=== PATIENT | female | born 1955 | race Caucasian/White ===

== ENCOUNTER 2016-12-02 12:47 | Emergency (ER) | payer MEDICAID ==
--- NOTE | 2016-12-02 13:06 | ER Document Report ---
ED Medical Screen (RME) - General Stated Complaint: DIARRHEA Notes: 61 yo female c/o vomiting and diarrhea since yesterday. pt has hx/o abdominal hernias and fistula. pt on pain management, Dr Escobedo in [place]. Pt reports pain managment abruptly stopped her oxycodone q3h. last dose was wednesday. patient thinks symptoms may be withdrawl. Has appointment with new pain management next week. PCM Dr Cano TRAVEL OUTSIDE OF THE [place] IN LAST 30 DAYS: No - Related Data Allergies/Adverse Reactions: celecoxib [From Celebrex] Allergy (Mild, Verified 12/02/16 13:02) Urticaria aspirin [Aspirin] Allergy (Verified 12/02/16 13:02) Hives cephalexin monohydrate [From Keflex] Allergy (Verified 12/02/16 13:02) clindamycin [Clindamycin] Allergy (Verified 12/02/16 13:02) Hives lisinopril [Lisinopril] Allergy (Verified 12/02/16 13:02) methadone [Methadone] Allergy (Verified 12/02/16 13:02) metoprolol tartrate [From Lopressor] Allergy (Verified 12/02/16 13:02) Penicillins Allergy (Verified 12/02/16 13:02) Past Medical History - Past Medical History Cardiac Medical History: Reports: Hx Hypercholesterolemia, Hx Hypertension Denies: Hx Heart Murmur Pulmonary Medical History: Reports: Hx Asthma, Hx Bronchitis, Hx COPD Denies: Hx Respiratory Failure, Hx Sleep Apnea, Hx Tuberculosis Endocrine Medical History: Reports: Hx Diabetes Mellitus Type 1, Hx Diabetes Mellitus Type 2 GI Medical History: Reports: Hx Gastroesophageal Reflux Disease, Hx Hiatal Hernia Musculoskeltal Medical History: Reports Hx Arthritis Psychiatric Medical History: Reports: Hx Anxiety, Hx Depression Infectious Medical History: Past Surgical History: Reports: Hx Abdominal Surgery - MULTIPLE VENTRAL HERNIA REPAIRS WITH DEBRIDEMENT. BOWEL OBSTRUCTION. NON-HEALING ABD WOUNDS WITH CHRONIC PAIN, Hx Bowel Surgery - Right abdominal fistula., Hx Section - x's 3, Hx Cholecystectomy, Hx Tubal Ligation - Immunizations Hx Diphtheria, Pertussis, Tetanus Vaccination: Yes Physical Exam - Vital signs Vitals: Temp Pulse Resp BP Pulse Ox 98.1 F 75 18 154/62 H 98 12/02/16 13:00 12/02/16 13:00 12/02/16 13:00 12/02/16 13:00 12/02/16 13:00 Course - Vital Signs Vital signs: Temp Pulse Resp BP Pulse Ox 98.1 F 75 18 154/62 H 98 12/02/16 13:00 12/02/16 13:00 12/02/16 13:00 12/02/16 13:00 12/02/16 13:00
[2016-12-02 13:37] LABS: ABSOLUTE EOSINOPHILS # (AUTO) 0.2 10^3/uL (0.0-0.6); ABSOLUTE LYMPHOCYTES (AUTO) 1.2 10^3/uL (0.5-4.7); ABSOLUTE MONOCYTES (AUTO) 0.6 10^3/uL (0.1-1.4); ABSOLUTE NEUT (AUTO) 6.6 10^3/uL (1.7-8.2); BASOPHILS % (AUTO) 0.5 % (0-2); HEMATOCRIT 30.7 % (36.0-47.0); HEMOGLOBIN 9.6 g/dL (12.0-15.5); HGB HCT DIFFERENCE -1.9; LYMPHOCYTES % (AUTO) 13.6 % (13-45); MEAN CORPUSCULAR HEMOGLOBIN 22.1 pg (27.0-33.4); MEAN CORPUSCULAR HGB CONC 31.2 g/dL (32.0-36.0); MEAN CORPUSCULAR VOLUME 71 fl (80-97); MONOCYTES % (AUTO) 6.7 % (3-13); RED BLOOD COUNT 4.35 10^6/uL (3.72-5.28); RED CELL DISTRIBUTION WIDTH 17.2 % (11.5-14.0); SEGMENTED NEUTROPHILS % (AUTO) 77.2 % (42-78); WHITE BLOOD COUNT 8.6 10^3/uL (4.0-10.5)
[2016-12-02 13:45] LABS: ALANINE AMINOTRANSFERASE 20 U/L (9-52); ALBUMIN 3.3 g/dL (3.5-5.0); ALKALINE PHOSPHATASE 129 U/L (38-126); ANION GAP 13 (5-19); ASPARTATE AMINO TRANSFERASE 13 U/L (14-36); BILIRUBIN,TOTAL 0.5 mg/dL (0.2-1.3); BLOOD UREA NITROGEN 15 mg/dL (7-20); CALCIUM 9.3 mg/dL (8.4-10.2); CARBON DIOXIDE 28 mmol/L (22-30); CHLORIDE 101 mmol/L (98-107); CREATININE RESULT 0.98 mg/dL (0.52-1.25); GLUCOSE 121 mg/dL (75-110); LIPASE 66.8 U/L (23-300); POTASSIUM 3.4 mmol/L (3.6-5.0); SODIUM 142.3 mmol/L (137-145); TOTAL PROTEIN 7.1 g/dL (6.3-8.2)
[2016-12-02 14:24] LABS: APPEARANCE,URINE CLEAR; BILIRUBIN,URINE NEGATIVE (NEGATIVE); GLUCOSE, URINE NEGATIVE (NEGATIVE); KETONES,URINE NEGATIVE (NEGATIVE); LEUKOCYTE ESTERASE,URINE LARGE (NEGATIVE); NITRITE,URINE NEGATIVE (NEGATIVE); PROTEIN,URINE NEGATIVE (NEGATIVE); URINE SPECIFIC GRAVITY 1.012; UROBILINOGEN,URINE NEGATIVE mg/dL (<2.0)
[2016-12-02] MEDS ORDERED: NORMAL SALINE 1000 ML 1,000 ML IV ONE (15:59)
[2016-12-02] MEDS ORDERED: HYDROMORPHONE HCL INJ/PF 2 MG/ML AMPULE IV ONE ×2 (15:59→18:28)
[2016-12-02] MEDS ORDERED: ONDANSETRON HCL INJ/PF 4 MG/2 ML SDV IV ONE ×2 (15:59→17:27)
--- NOTE | 2016-12-02 18:28 | ER Document Report ---
ED GI/ <MARY ALICE SAWYERAN - Last Filed: 12/02/16 21:54> - General Mode of Arrival: Ambulatory Information source: Patient TRAVEL OUTSIDE OF THE [place] IN LAST 30 DAYS: No - HPI Patient complains to provider of: Abdominal pain, Diarrhea, Vomiting Onset: Yesterday Timing/Duration: Intermittent, Persistent Quality of pain: Achy Severity at maximum: Moderate Pain Level: 3 Similar symptoms previously: Yes Recently seen / treated by doctor: Yes <JHON TAI - Last Filed: 12/03/16 10:55> - General Chief Complaint: Vomiting/Diarrhea Stated Complaint: DIARRHEA Notes: 61-year-old female presents to the emergency department complaining of generalized abdominal pain and intermittently persistent nausea/vomiting/ diarrhea since yesterday. 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 Reports is followed by pain management clinic and ran out of her daily oxycodone 2 days ago which she states takes 30 mg every 3 hours. Reports still has fentanyl patch in place. Reports has had a 5-6 episodes of vomiting and diarrhea over the last 2 days. Reports contacted primary care provider and was referred to ED. Denies fever, abdominal distention, increased drainage from fistula, blood in emesis or stool. (JHON TAI) - Related Data Allergies/Adverse Reactions: celecoxib [From Celebrex] Allergy (Mild, Verified 12/02/16 13:02) Urticaria aspirin [Aspirin] Allergy (Verified 12/02/16 13:02) Hives cephalexin monohydrate [From Keflex] Allergy (Verified 12/02/16 13:02) clindamycin [Clindamycin] Allergy (Verified 12/02/16 13:02) Hives lisinopril [Lisinopril] Allergy (Verified 12/02/16 13:02) methadone [Methadone] Allergy (Verified 12/02/16 13:02) metoprolol tartrate [From Lopressor] Allergy (Verified 12/02/16 13:02) Penicillins Allergy (Verified 12/02/16 13:02) Past Medical History - General Information source: Patient - Social History Smoking Status: Never Smoker Chew tobacco use (# tins/day): No Frequency of alcohol use: None Drug Abuse: None Lives with: Family Family History: Reviewed & Not Pertinent Patient has suicidal ideation: No Patient has homicidal ideation: No - Past Medical History Cardiac Medical History: Reports: Hx Hypercholesterolemia, Hx Hypertension Denies: Hx Heart Murmur Pulmonary Medical History: Reports: Hx Asthma, Hx Bronchitis, Hx COPD Denies: Hx Respiratory Failure, Hx Sleep Apnea, Hx Tuberculosis Endocrine Medical History: Reports: Hx Diabetes Mellitus Type 1, Hx Diabetes Mellitus Type 2 Renal/ Medical History: Denies: Hx Peritoneal Dialysis GI Medical History: Reports: Hx Gastroesophageal Reflux Disease, Hx Hiatal Hernia Musculoskeltal Medical History: Reports Hx Arthritis Psychiatric Medical History: Reports: Hx Anxiety, Hx Depression Infectious Medical History: Past Surgical History: Reports: Hx Abdominal Surgery - MULTIPLE VENTRAL HERNIA REPAIRS WITH DEBRIDEMENT. BOWEL OBSTRUCTION. NON-HEALING ABD WOUNDS WITH CHRONIC PAIN, Hx Bowel Surgery - Right abdominal fistula., Hx Section - x's 3, Hx Cholecystectomy, Hx Tubal Ligation - Immunizations Hx Diphtheria, Pertussis, Tetanus Vaccination: Yes Hx Pneumococcal Vaccination: 02/28/12 <JHON TAI - Last Filed: 12/03/16 10:55> Review of Systems - Review of Systems Constitutional: No symptoms reported EENT: No symptoms reported Cardiovascular: No symptoms reported Respiratory: No symptoms reported Gastrointestinal: See HPI Genitourinary: No symptoms reported Female Genitourinary: No symptoms reported Musculoskeletal: No symptoms reported Skin: No symptoms reported Hematologic/Lymphatic: No symptoms reported Neurological/Psychological: No symptoms reported -: Yes All other systems reviewed and negative <JHON TAI - Last Filed: 12/03/16 10:55> Physical Exam - Vital signs Interpretation: Normal - General General appearance: Appears well, Alert In distress: None - HEENT Head: Normocephalic, Atraumatic Eyes: Normal Pupils: PERRL - Respiratory Respiratory status: No respiratory distress Chest status: Nontender Breath sounds: Normal Chest palpation: Normal - Cardiovascular Rhythm: Regular Heart sounds: Normal auscultation Murmur: No Pulses: Normal: Radial Normal capillary refill: Yes - Abdominal Inspection: Normal, Healed incision - Patient has multiple well-healed surgical incisions as well as open abdominal wall wound to left mid abdomen and draining fistula to right midabdomen both of which are chronic for patient. No surrounding erythema, cellulitis, or signs of infection., Obese Distension: Distended - distention noted to areas of left hernia and right fistula however patient reports at her baseline. Mild tenderness with no guarding or rebound pain. Bowel sounds: Normal Tenderness: Tender Organomegaly: No organomegaly - Back Back: Normal, Nontender - Extremities General upper extremity: Normal inspection, Nontender, Normal color, Normal ROM , Normal strength, Normal temperature. No: Tender General lower extremity: Normal inspection, Nontender, Normal color, Normal ROM , Normal strength, Normal temperature, Normal weight bearing - Neurological Neuro grossly intact: Yes Cognition: Normal Orientation: AAOx4 James Coma Scale Eye Opening: Spontaneous [place] Coma Scale Verbal: Oriented James Coma Scale Motor: Obeys Commands James Coma Scale Total: 15 Speech: Normal Motor strength normal: LUE, RUE, LLE, RLE Sensory: Normal - Psychological Associated symptoms: Normal affect, Normal mood - Skin Skin Temperature: Warm Skin Moisture: Dry Skin Color: Normal <JHON TAI - Last Filed: 12/03/16 10:55> - Vital signs Vitals: Temp Pulse Resp BP Pulse Ox 98.1 F 75 18 154/62 H 98 12/02/16 13:00 12/02/16 13:00 12/02/16 13:00 12/02/16 13:00 12/02/16 13:00 (TUNDE SAWYER) ([facility] Course - Laboratory Result Diagrams: 12/02/16 13:10 12/02/16 13:10 <TUNDE SAWYER - Last Filed: 12/02/16 21:54> - Laboratory Result Diagrams: 12/02/16 13:10 12/02/16 13:10 <ZAIREJHON - Last Filed: 12/03/16 10:55> - Re-evaluation Re-evalutation: 12/02/16 18:50 Patient hemodynamically stable, in no distress, afebrile. CBC and CMP appear to be a patient baseline when compared to multiple previous ED visit lab results. Discussed patient presentation and findings with ED physician Dr. Ulloa who recommends obtaining CT of abd/pelvis with IV and oral contrast due to extensive abd hx. Patient states feels much better after dose of intravenous pain medication and 1 L normal saline bolus. 12/02/16 19:07 Patient resting comfortably, remained hemodynamically stable, in no distress. Bedside report given to Tunde Sawyer PA-C to resume care of patient pending CT scan results. ([facility] - Vital Signs Vital signs: Temp Pulse Resp BP Pulse Ox 98.4 F 82 16 156/68 H 99 12/02/16 22:12 12/02/16 22:12 12/02/16 22:12 12/02/16 22:12 12/02/16 22:12 (TUNDE SAWYER) ([facility] - Laboratory Laboratory results interpreted by me: 12/02/16 12/02/16 12/02/16 13:10 13:10 13:15 Hgb 9.6 L Hct 30.7 L MCV 71 L MCH 22.1 L MCHC 31.2 L RDW 17.2 H Potassium 3.4 L Est GFR (Non-Af Amer) 58 L Glucose 121 H AST 13 L Alkaline Phosphatase 129 H Albumin 3.3 L Ur Leukocyte Esterase LARGE H (TUNDE SAWYER) ([facility]) Discharge <TUNDE SAWYER - Last Filed: 12/02/16 21:54> <ZAIREJHON - Last Filed: 12/03/16 10:55> - Discharge Clinical Impression: Dysuria Abdominal pain Qualifiers: Abdominal location: generalized Qualified Code(s): R10.84 - Generalized abdominal pain Ventral hernia Qualifiers: Obstruction and gangrene presence: without obstruction or gangrene Qualified Code(s): K43.9 - Ventral hernia without obstruction or gangrene Condition: Stable Disposition: HOME, SELF-CARE Additional Instructions: CAT scan again shows the ventral hernia, no acute abnormalities are seen. Urine indicates infection developing along with her symptoms, please take the Keflex antibiotic as directed to completion. Please follow-up with local pain management as planned. Return to emergency department for any concerning or worsening symptoms. Prescriptions: Cephalexin Monohydrate [Keflex 500 mg Capsule] 500 mg PO BID #10 capsule Oxycodone HCl [Oxycodone HCl 10 MG Tablet] 1 - 2 tab PO Q6H PRN #15 tablet PRN Reason: PAIN Referrals: CHRISTINA GRANT MD [Primary Care Provider] - Follow up as needed
[2016-12-02] MEDS ORDERED: HYDROMORPHONE HCL INJ/PF 2 MG/ML AMPULE IM ONE (21:50)
[2016-12-02] MEDS ORDERED: CEPHALEXIN 500 MG CAPSULE PO ONE (21:51)
[2016-12-02 22:13] VITALS: BP 156/68
== END 2016-12-02 22:15 | disposition home or self-care (01) ==
LOC: ER 12:47
DX: K43.9 Ventral hernia without obstruction or gangrene (principal); R30.0 Dysuria; R11.10 Vomiting, unspecified; R10.84 Generalized abdominal pain; R19.7 Diarrhea, unspecified; E78.00 Pure hypercholesterolemia, unspecified; I10 Essential (primary) hypertension; J45.909 Unspecified asthma, uncomplicated; J44.9 Chronic obstructive pulmonary disease, unspecified; E11.9 Type 2 diabetes mellitus without complications; Z88.0 Allergy status to penicillin; Z88.3 Allergy status to other anti-infective agents; Z88.6 Allergy status to analgesic agent; Z90.49 Acquired absence of other specified parts of digestive tract; Z98.51 Tubal ligation status
CPT/HCPCS: 96376; 99284; 96372; 96361; 96374; 96375; 36415; 87086; 83690; 85025; 87088; 80053; 81001; 87186; 74177; J1170; J2405; J7030

== ENCOUNTER 2016-12-23 10:49 | Emergency (ER) | payer MEDICAID ==
--- NOTE | 2016-12-23 11:08 | ER Document Report ---
ED Medical Screen (RME) - General Stated Complaint: STOMACH PAIN Notes: 61 yo female c/o chronic abdominal pain since surgery in 2010. pt has been seen many times by ED and PCM for same. "nobody can do anything about the pain ". no new qualities or character to pain. no fever or vomiting TRAVEL OUTSIDE OF THE [place] IN LAST 30 DAYS: No - Related Data Allergies/Adverse Reactions: celecoxib [From Celebrex] Allergy (Mild, Verified 12/23/16 11:06) Urticaria aspirin [Aspirin] Allergy (Verified 12/23/16 11:06) Hives cephalexin monohydrate [From Keflex] Allergy (Verified 12/23/16 11:06) clindamycin [Clindamycin] Allergy (Verified 12/23/16 11:06) Hives lisinopril [Lisinopril] Allergy (Verified 12/23/16 11:06) methadone [Methadone] Allergy (Verified 12/23/16 11:06) metoprolol tartrate [From Lopressor] Allergy (Verified 12/23/16 11:06) Penicillins Allergy (Verified 12/23/16 11:06) Past Medical History - Past Medical History Cardiac Medical History: Reports: Hx Hypercholesterolemia, Hx Hypertension Denies: Hx Heart Murmur Pulmonary Medical History: Reports: Hx Asthma, Hx Bronchitis, Hx COPD Denies: Hx Respiratory Failure, Hx Sleep Apnea, Hx Tuberculosis Endocrine Medical History: Reports: Hx Diabetes Mellitus Type 1, Hx Diabetes Mellitus Type 2 Renal/ Medical History: Denies: Hx Peritoneal Dialysis GI Medical History: Reports: Hx Gastroesophageal Reflux Disease, Hx Hiatal Hernia Musculoskeltal Medical History: Reports Hx Arthritis Psychiatric Medical History: Reports: Hx Anxiety, Hx Depression Infectious Medical History: Past Surgical History: Reports: Hx Abdominal Surgery - MULTIPLE VENTRAL HERNIA REPAIRS WITH DEBRIDEMENT. BOWEL OBSTRUCTION. NON-HEALING ABD WOUNDS WITH CHRONIC PAIN, Hx Bowel Surgery - Right abdominal fistula., Hx Section - x's 3, Hx Cholecystectomy, Hx Tubal Ligation - Immunizations Hx Diphtheria, Pertussis, Tetanus Vaccination: Yes Physical Exam - Vital signs Vitals: Temp Pulse Resp BP Pulse Ox 97.3 F 78 20 151/64 H 100 12/23/16 11:03 12/23/16 11:03 12/23/16 11:03 12/23/16 11:03 12/23/16 11:03 Course - Vital Signs Vital signs: Temp Pulse Resp BP Pulse Ox 97.3 F 78 20 151/64 H 100 12/23/16 11:03 12/23/16 11:03 12/23/16 11:03 12/23/16 11:03 12/23/16 11:03
[2016-12-23] MEDS ORDERED: OXYCODONE-ACETAMINOPHEN 5-325 MG TABLET PO ONE (12:19)
[2016-12-23 13:13] LABS: ABSOLUTE EOSINOPHILS # (AUTO) 0.2 10^3/uL (0.0-0.6); ABSOLUTE LYMPHOCYTES (AUTO) 1.1 10^3/uL (0.5-4.7); ABSOLUTE MONOCYTES (AUTO) 0.5 10^3/uL (0.1-1.4); ABSOLUTE NEUT (AUTO) 5.1 10^3/uL (1.7-8.2); BASOPHILS % (AUTO) 0.5 % (0-2); EOSINOPHILS % (AUTO) 3.4 % (0-6); HEMOGLOBIN 9.2 g/dL (12.0-15.5); HGB HCT DIFFERENCE -1.4; MEAN CORPUSCULAR HEMOGLOBIN 22.4 pg (27.0-33.4); MEAN CORPUSCULAR HGB CONC 31.8 g/dL (32.0-36.0); MEAN CORPUSCULAR VOLUME 70 fl (80-97); MONOCYTES % (AUTO) 6.8 % (3-13); RED BLOOD COUNT 4.12 10^6/uL (3.72-5.28); RED CELL DISTRIBUTION WIDTH 16.5 % (11.5-14.0); SEGMENTED NEUTROPHILS % (AUTO) 73.3 % (42-78)
[2016-12-23 13:31] LABS: ALANINE AMINOTRANSFERASE 24 U/L (9-52); ALBUMIN 3.2 g/dL (3.5-5.0); ALKALINE PHOSPHATASE 152 U/L (38-126); ANION GAP 10 (5-19); ASPARTATE AMINO TRANSFERASE 15 U/L (14-36); BILIRUBIN,TOTAL 0.4 mg/dL (0.2-1.3); BLOOD UREA NITROGEN 12 mg/dL (7-20); CALCIUM 9.4 mg/dL (8.4-10.2); CARBON DIOXIDE 29 mmol/L (22-30); CHLORIDE 102 mmol/L (98-107); CREATININE RESULT 0.98 mg/dL (0.52-1.25); GLUCOSE 112 mg/dL (75-110); POTASSIUM 3.7 mmol/L (3.6-5.0); SODIUM 141.4 mmol/L (137-145); TOTAL PROTEIN 6.9 g/dL (6.3-8.2)
--- NOTE | 2016-12-23 13:35 | ER Document Report ---
ED Wound - General Chief Complaint: Abdominal Pain Stated Complaint: STOMACH PAIN Notes: Patient is 61-year-old female presents emergency Department complaining of pain around a chronic wound on her abdomen. Patient has a known history of chronic wounds due to multiple abdominal procedures. She goes to wound clinic every 2 weeks. Was last seen there week ago. She states that there is a wound on the anterior aspect of her abdomen lower quadrant which has been there she says for a couple months that she feels is gotten worse over the past 2 days in terms of pain and with yellow drainage. Medical history significant for hypertension, GERD, type II diabetes, diabetic PCP is Jerome TRAVEL OUTSIDE OF THE [place] IN LAST 30 DAYS: No - Related Data Allergies/Adverse Reactions: celecoxib [From Celebrex] Allergy (Mild, Verified 12/23/16 11:06) Urticaria aspirin [Aspirin] Allergy (Verified 12/23/16 11:06) Hives cephalexin monohydrate [From Keflex] Allergy (Verified 12/23/16 11:06) clindamycin [Clindamycin] Allergy (Verified 12/23/16 11:06) Hives lisinopril [Lisinopril] Allergy (Verified 12/23/16 11:06) methadone [Methadone] Allergy (Verified 12/23/16 11:06) metoprolol tartrate [From Lopressor] Allergy (Verified 12/23/16 11:06) Penicillins Allergy (Verified 12/23/16 11:06) Past Medical History - Social History Smoking Status: Never Smoker Chew tobacco use (# tins/day): No Frequency of alcohol use: None Drug Abuse: None Family History: Reviewed & Not Pertinent Patient has suicidal ideation: No Patient has homicidal ideation: No - Past Medical History Cardiac Medical History: Reports: Hx Hypercholesterolemia, Hx Hypertension Denies: Hx Heart Murmur Pulmonary Medical History: Reports: Hx Asthma, Hx Bronchitis, Hx COPD Denies: Hx Respiratory Failure, Hx Sleep Apnea, Hx Tuberculosis Endocrine Medical History: Reports: Hx Diabetes Mellitus Type 1, Hx Diabetes Mellitus Type 2 Renal/ Medical History: Denies: Hx Peritoneal Dialysis GI Medical History: Reports: Hx Gastroesophageal Reflux Disease, Hx Hiatal Hernia Musculoskeltal Medical History: Reports Hx Arthritis Psychiatric Medical History: Reports: Hx Anxiety, Hx Depression Infectious Medical History: Past Surgical History: Reports: Hx Abdominal Surgery - MULTIPLE VENTRAL HERNIA REPAIRS WITH DEBRIDEMENT. BOWEL OBSTRUCTION. NON-HEALING ABD WOUNDS WITH CHRONIC PAIN, Hx Bowel Surgery - Right abdominal fistula., Hx Section - x's 3, Hx Cholecystectomy, Hx Tubal Ligation - Immunizations Hx Diphtheria, Pertussis, Tetanus Vaccination: Yes Hx Pneumococcal Vaccination: 02/28/12 Review of Systems - Review of Systems Constitutional: No symptoms reported EENT: No symptoms reported Cardiovascular: No symptoms reported Respiratory: No symptoms reported Gastrointestinal: No symptoms reported Genitourinary: No symptoms reported Female Genitourinary: No symptoms reported Musculoskeletal: No symptoms reported Skin: See HPI Hematologic/Lymphatic: No symptoms reported Neurological/Psychological: No symptoms reported Physical Exam - Vital signs Vitals: Temp Pulse Resp BP Pulse Ox 97.3 F 78 20 151/64 H 100 12/23/16 11:03 12/23/16 11:03 12/23/16 11:03 12/23/16 11:03 12/23/16 11:03 - Notes Notes: PHYSICAL EXAM GENERAL: Alert, interacts well. HEAD: Normocephalic, atraumatic. EYES: Pupils equal, round, and reactive to light. Extraocular movements intact. ENT: Oral mucosa moist, tongue midline. NECK: Full range of motion. Supple. Trachea midline. LUNGS: Clear to auscultation bilaterally, no wheezes, rales, or rhonchi. No respiratory distress. HEART: Regular rate and rhythm. No murmurs, gallops, or rubs. ABDOMEN: Obese and Soft, nondistended, nontender. No guarding, rebound, or rigidity.. Bowel sounds present in all 4 quadrants. EXTREMITIES: Moves all 4 extremities spontaneously. No edema, radial and dorsalis pedis pulses 2/4 bilaterally. No cyanosis. NEUROLOGICAL: Alert and oriented x3. Normal speech. PSYCH: Normal affect, normal mood. SKIN: Warm, dry, normal turgor. No rashes. Evidence of chronic wound on the anterior abdomen skin and dermis measuring 6 x 4 cm and a lesion lateral to that that is 3 x 2 cm. No evidence of purulent drainage clear secretions no bleeding. Tenderness to palpation Course - Re-evaluation Re-evalutation: 12/23/16 13:38 Patient is a 61-year-old female presents emergency department for pain around a chronic wound. She is hemodynamically stable, no acute distress and afebrile. No evidence of fluid collection underneath the wound was assessed by myself using ultrasound, no evidence of infection given normal white count, stable vital signs. Patient will be discharged home with by mouth antibiotics and can follow-up with her wound care clinic and primary care doctor - Vital Signs Vital signs: Temp Pulse Resp BP Pulse Ox 97.3 F 78 16 151/64 H 100 12/23/16 11:03 12/23/16 11:03 12/23/16 11:44 12/23/16 11:03 12/23/16 11:03 - Laboratory Result Diagrams: 12/23/16 12:58 12/23/16 12:58 Laboratory results interpreted by me: 12/23/16 12/23/16 12:58 12:58 Hgb 9.2 L Hct 29.0 L MCV 70 L MCH 22.4 L MCHC 31.8 L RDW 16.5 H Est GFR (Non-Af Amer) 58 L Glucose 112 H Alkaline Phosphatase 152 H Albumin 3.2 L Discharge - Discharge Clinical Impression: Wound cellulitis Condition: Good Disposition: HOME, SELF-CARE Instructions: Wound Infection ([facility]), Dressing Instructions for Open Wounds ([facility] ) Prescriptions: Oxycodone HCl [Oxycodone HCl 10 MG Tablet] 1 - 2 tab PO Q6HP PRN #15 tablet PRN Reason: PAIN Sulfamethoxazole/Trimethoprim [Bactrim Ds Tablet] 1 each PO BID #20 tablet Forms: Elevated Blood Pressure Referrals: CHRISTINA GRANT MD [Primary Care Provider] - Follow up in 1 week
[2016-12-23] MEDS ORDERED: SULFAMETHOXAZOLE/TRIMETHOPRIM 800-160 MG TABLET PO ONE (13:42)
[2016-12-23 14:48] VITALS: BP 150/64
== END 2016-12-23 13:45 | disposition home or self-care (01) ==
LOC: ER 10:49
DX: T81.4XXA Infection following a procedure, initial encounter (principal); L03.311 Cellulitis of abdominal wall; R10.9 Unspecified abdominal pain; I10 Essential (primary) hypertension; K21.9 Gastro-esophageal reflux disease without esophagitis; E11.9 Type 2 diabetes mellitus without complications; Z88.6 Allergy status to analgesic agent; Z88.0 Allergy status to penicillin; Z90.49 Acquired absence of other specified parts of digestive tract; Z98.51 Tubal ligation status
CPT/HCPCS: 36415; 80053; 85025; 87070; 87077; 87186; 87205; 99284

== ENCOUNTER 2017-01-07 17:20 | Emergency (ER) | payer MEDICAID ==
--- NOTE | 2017-01-07 17:29 | ER Document Report ---
ED Medical Screen (RME) - General Stated Complaint: STOMACH PAIN Notes: patient is a 61 year old female p/w chronic wounds with pain. was evaluated by wound clinic yesterday. denies fevers, chills, n/v, d/c. I have greeted and performed a rapid initial assessment of this patient. A comprehensive ED assessment and evaluation of the patient, analysis of test results and completion of the medical decision making process will be conducted by additional ED providers. TRAVEL OUTSIDE OF THE [place] IN LAST 30 DAYS: No - Related Data Allergies/Adverse Reactions: celecoxib [From Celebrex] Allergy (Mild, Verified 12/23/16 11:06) Urticaria aspirin [Aspirin] Allergy (Verified 12/23/16 11:06) Hives cephalexin monohydrate [From Keflex] Allergy (Verified 12/23/16 11:06) clindamycin [Clindamycin] Allergy (Verified 12/23/16 11:06) Hives lisinopril [Lisinopril] Allergy (Verified 12/23/16 11:06) methadone [Methadone] Allergy (Verified 12/23/16 11:06) metoprolol tartrate [From Lopressor] Allergy (Verified 12/23/16 11:06) Penicillins Allergy (Verified 12/23/16 11:06) Past Medical History - Past Medical History Cardiac Medical History: Reports: Hx Hypercholesterolemia, Hx Hypertension Denies: Hx Heart Murmur Pulmonary Medical History: Reports: Hx Asthma, Hx Bronchitis, Hx COPD Denies: Hx Respiratory Failure, Hx Sleep Apnea, Hx Tuberculosis Endocrine Medical History: Reports: Hx Diabetes Mellitus Type 1, Hx Diabetes Mellitus Type 2 Renal/ Medical History: Denies: Hx Peritoneal Dialysis GI Medical History: Reports: Hx Gastroesophageal Reflux Disease, Hx Hiatal Hernia Musculoskeltal Medical History: Reports Hx Arthritis Psychiatric Medical History: Reports: Hx Anxiety, Hx Depression Infectious Medical History: Past Surgical History: Reports: Hx Abdominal Surgery - MULTIPLE VENTRAL HERNIA REPAIRS WITH DEBRIDEMENT. BOWEL OBSTRUCTION. NON-HEALING ABD WOUNDS WITH CHRONIC PAIN, Hx Bowel Surgery - Right abdominal fistula., Hx Section - x's 3, Hx Cholecystectomy, Hx Tubal Ligation - Immunizations Hx Diphtheria, Pertussis, Tetanus Vaccination: Yes
[2017-01-07 17:31] VITALS: BP 166/47
--- NOTE | 2017-01-07 20:21 | ER Document Report ---
HPI - HPI Patient complains to provider of: abdominal pain Onset: Other - 6 years Quality of pain: Achy Severity: Moderate Pain Level: 3 Context: Patient presents to the emergency department with complaints of abdominal wound pain. Patient reports she had surgery years ago by Dr. Villa. Since then she has had an abdominal wound. She reports she now has a fistula and wound care management. She reports she was seen by wound care yesterday where they scrubbed the area. She reports increased pain now. Patient has a fentanyl patch on reports it does not take care of the pain. In November her pain management quit prescribing her oxycodone. She was taking 30 mg of oxycodone for pain. She was prescribed 224 tabs of 30mg oxycodone a month. She reports in November her pain regional loss prevention manager quit prescribing the medication and switched her to the fentanyl patch. She reports she went through horrible withdrawal. She reports she was on the medication for 5 years. Patient denies fever vomiting diarrhea. She denies pain with void. Reports her abdomen is hurting from her recent wound care yesterday. Associated Symptoms: None Exacerbated by: Denies Relieved by: Denies Similar symptoms previously: Yes Recently seen / treated by doctor: Yes - REPRODUCTIVE Reproductive: DENIES: : - DERM Skin Color: Normal Past Medical History - General Information source: Patient - Social History Smoking Status: Never Smoker Chew tobacco use (# tins/day): No Frequency of alcohol use: None Drug Abuse: None Lives with: Family Family History: Reviewed & Not Pertinent Patient has suicidal ideation: No Patient has homicidal ideation: No - Past Medical History Cardiac Medical History: Reports: Hx Hypercholesterolemia, Hx Hypertension Denies: Hx Heart Murmur Pulmonary Medical History: Reports: Hx Asthma, Hx Bronchitis, Hx COPD Denies: Hx Respiratory Failure, Hx Sleep Apnea, Hx Tuberculosis Endocrine Medical History: Reports: Hx Diabetes Mellitus Type 1, Hx Diabetes Mellitus Type 2 Renal/ Medical History: Denies: Hx Peritoneal Dialysis GI Medical History: Reports: Hx Gastroesophageal Reflux Disease, Hx Hiatal Hernia Musculoskeltal Medical History: Reports Hx Arthritis Psychiatric Medical History: Reports: Hx Anxiety, Hx Depression Infectious Medical History: Past Surgical History: Reports: Hx Abdominal Surgery - MULTIPLE VENTRAL HERNIA REPAIRS WITH DEBRIDEMENT. BOWEL OBSTRUCTION. NON-HEALING ABD WOUNDS WITH CHRONIC PAIN, Hx Bowel Surgery - Right abdominal fistula., Hx Section - x's 3, Hx Cholecystectomy, Hx Tubal Ligation - Immunizations Hx Diphtheria, Pertussis, Tetanus Vaccination: Yes Hx Pneumococcal Vaccination: 02/28/12 Vertical Provider Document - CONSTITUTIONAL Agree With Documented VS: Yes Exam Limitations: No Limitations General Appearance: WD/WN, No Apparent Distress - Angry - INFECTION CONTROL TRAVEL OUTSIDE OF THE [place] IN LAST 30 DAYS: No - HEENT HEENT: Atraumatic, Normocephalic - NECK Neck: Normal Inspection, Supple - RESPIRATORY Respiratory: Breath Sounds Normal, No Respiratory Distress O2 Sat by Pulse Oximetry: 100 - CARDIOVASCULAR Cardiovascular: Regular Rate - GI/ABDOMEN Gastrointestinal: Abdomen Tender - Patient obese dressing covering lower part of the abdomen with dried drainage noted. No erythema or warmth around the dressing. - MUSCULOSKELETAL/EXTREMETIES Musculoskeletal/Extremeties: XAVIER GUZMAN - NEURO Level of Consciousness: Awake, Alert, Appropriate Motor/Sensory: No Motor Deficit - DERM Integumentary: Warm, Dry Adult Front & Back Diagram: 1 - Dressing noted, complaints of chronic abdominal wound pain Course - Re-evaluation Re-evalutation: 01/07/17 Pt was upset that I was declining to give her pain medication for her chronic pain. I Consulted with Dr. Macdonald regarding patient's chronic abdominal wound pain. He advised to give her a small amount of pain medication until she can follow up with her pcp on wednesday. Patient was instructed on the chronic pain policy. She was encouraged to follow up with her pain management or primary care provider for different pain medication. - Vital Signs Vital signs: Temp Pulse Resp BP Pulse Ox 97.4 F 85 20 166/47 H 100 01/07/17 17:29 01/07/17 17:29 01/07/17 17:29 01/07/17 17:29 01/07/17 17:29 Discharge - Discharge Clinical Impression: chronic wound pain Condition: Stable Disposition: HOME, SELF-CARE Instructions: Chronic Pain Control ([facility]), Oral Narcotic Medication ([facility]) Additional Instructions: *You have been evaluated for chronic abdominal wound pain *Take medication as prescribed *Follow up with your primary care provider by Wednesday for pain management *Return to ED for worsening condition, changes, needs Prescriptions: Oxycodone HCl/Acetaminophen [Percocet 5-325 mg Tablet] 1 - 2 tab PO ASDIR PRN # 15 tablet PRN Reason: Referrals: CHRISTINA GRANT MD [Primary Care Provider] - Follow up in 3-5 days
[2017-01-07] MEDS ORDERED: OXYCODONE-ACETAMINOPHEN 5-325 MG TABLET PO ONE (20:27)
== END 2017-01-07 20:32 | disposition home or self-care (01) ==
LOC: ER 17:20
DX: R10.9 Unspecified abdominal pain (principal); Z79.899 Other long term (current) drug therapy
CPT/HCPCS: 99283

== ENCOUNTER 2017-01-13 06:34 | Emergency (ER) | payer MEDICAID ==
--- NOTE | 2017-01-13 08:12 | ER Document Report ---
ED Wound - General Time seen by provider: 08:00 Mode of Arrival: Ambulatory Information source: Patient TRAVEL OUTSIDE OF THE [place] IN LAST 30 DAYS: No - HPI Patient complains to provider of: Other Occurred: Other - see HPI note Associated Symptoms: Drainage, Odor - General Chief Complaint: Wound Recheck Stated Complaint: WOUND CHECK Notes: This 61-year-old female patient checked into the emergency room this morning to have a dressing changed and to get more narcotics. 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 She is seen in the wound care clinic for this. She does have home health come to her house to assist. She has been told she is not a candidate for further surgery to try to correct this. She came to the emergency room yesterday evening complaining of pain and drainage. The dressing was changed. Not to her satisfaction. She did receive narcotics in the emergency room and a prescription for oxycodone 10 mg tablets #15. She is on chronic pain management. She is on a fentanyl 50 g patch. She had been on oxycodone 30 mg 8 tablets a day. She was cut off following her November prescription reportedly due to the drug not being found on a urine test. She has been here several times since then obtaining oxycodone prescriptions from the emergency room. She was discharged just after 1 AM this morning, she had been waiting in the waiting room for a ride all this time, she states that her ride is actually on the way now but she elected to check back in to have her dressing changed and to request more pain medicine. (JUDIT GOODRICH) Patient is a 61 year old female presenting to the emergency department to get her dressing changed for a chronic wound. Patient had abdominal surgery 2010 and has an open wound since. Patient states her doctor/surgeon does not believe that her wound will ever close. Patient was seen in the emergency department last night and was discharged this morning at 01:25 with a prescription for 15 tablets of 10 mg oxycodone. Patient states that her dressing did not get changed, however the patient has been sitting in the waiting room since she was discharged at 1:25. Patient has been to the emergency department several times for narcotic pain medication since she was cut off oxycodone by her pain management in November. Patient claims she has not gotten any pain medication since midnight. Patient states she is being seen in the wound care clinic and that she has supplies delivered for her wound care at home. Patient told triage that her wound is bleeding with green discharge and a foul smell. There is no blood during exam, just the chronic discharge. Patient' s surgery was completed by Dr. Villa and she is following up with Dr. Sullivan. Patient's next wound care appointment is 01/27/17. Patient has persistently been asking staff for pain medications/narcotics. (FRANCHESCA TAYLOR) - Related Data Allergies/Adverse Reactions: celecoxib [From Celebrex] Allergy (Mild, Verified 01/07/17 17:28) Urticaria aspirin [Aspirin] Allergy (Verified 01/07/17 17:28) Hives cephalexin monohydrate [From Keflex] Allergy (Verified 01/07/17 17:28) clindamycin [Clindamycin] Allergy (Verified 01/07/17 17:28) Hives lisinopril [Lisinopril] Allergy (Verified 01/07/17 17:28) methadone [Methadone] Allergy (Verified 01/07/17 17:28) metoprolol tartrate [From Lopressor] Allergy (Verified 01/07/17 17:28) Penicillins Allergy (Verified 01/07/17 17:28) Past Medical History - General Information source: Patient - Social History Smoking Status: Former Smoker Frequency of alcohol use: None Drug Abuse: None Family History: None Patient has suicidal ideation: No Patient has homicidal ideation: No - Past Medical History Cardiac Medical History: Reports: Hx Hypercholesterolemia, Hx Hypertension Pulmonary Medical History: Reports: Hx Asthma, Hx Bronchitis, Hx COPD Endocrine Medical History: Reports: Hx Diabetes Mellitus Type 1, Hx Diabetes Mellitus Type 2 GI Medical History: Reports: Hx Gastroesophageal Reflux Disease, Hx Hiatal Hernia Musculoskeltal Medical History: Reports Hx Arthritis Psychiatric Medical History: Reports: Hx Anxiety, Hx Depression Infectious Medical History: Past Surgical History: Reports: Hx Abdominal Surgery - MULTIPLE VENTRAL HERNIA REPAIRS WITH DEBRIDEMENT. BOWEL OBSTRUCTION. NON-HEALING ABD WOUNDS WITH CHRONIC PAIN, Hx Bowel Surgery - Right abdominal fistula., Hx Section - x's 3, Hx Cholecystectomy, Hx Tubal Ligation - Immunizations Hx Diphtheria, Pertussis, Tetanus Vaccination: Yes Hx Pneumococcal Vaccination: 02/28/12 Review of Systems - Review of Systems Constitutional: No symptoms reported EENT: No symptoms reported Cardiovascular: No symptoms reported Respiratory: No symptoms reported Gastrointestinal: See HPI Genitourinary: No symptoms reported Female Genitourinary: No symptoms reported Musculoskeletal: No symptoms reported Skin: See HPI Hematologic/Lymphatic: No symptoms reported Neurological/Psychological: No symptoms reported -: Yes All other systems reviewed and negative Physical Exam - Vital signs Interpretation: Hypertensive - General General appearance: Appears well, Alert In distress: Mild - HEENT Head: Normocephalic, Atraumatic Eyes: Normal Pupils: PERRL Mucous membranes: Moist - Respiratory Respiratory status: No respiratory distress Chest status: Nontender Breath sounds: Normal Chest palpation: Normal - Cardiovascular Rhythm: Regular Heart sounds: Normal auscultation Murmur: No - Abdominal Inspection: Wounds - Escoriated wounds to the left abdomen. There is no surrounding erythema. No evidence of ongoing infection at this time. Patient does have a fistula over the right lower abdomen with continuous output consistent with her history of an enteric fistula. Bowel sounds: Normal - Back Back: Normal, Nontender - Extremities General upper extremity: Normal inspection, Normal ROM, Normal strength General lower extremity: Normal inspection, Normal ROM, Normal strength - Neurological Neuro grossly intact: Yes Cognition: Normal Orientation: AAOx4 James Coma Scale Eye Opening: Spontaneous [place] Coma Scale Verbal: Oriented James Coma Scale Motor: Obeys Commands [place] Coma Scale Total: 15 Speech: Normal - Psychological Associated symptoms: Normal affect, Normal mood - Skin Skin Temperature: Warm Skin Moisture: Dry - Vital signs Vitals: Temp Pulse Resp BP Pulse Ox 97.3 F 93 20 162/59 H 100 01/13/17 06:36 01/13/17 06:36 01/13/17 06:36 01/13/17 06:36 01/13/17 06:36 Discharge - Discharge Clinical Impression: Abdominal wall fistula Additional Instructions: The emergency room does not provide ongoing pain management services. Follow-up with your wound care team and home health assistance. Follow-up with your pain management doctor for any needed pain medications. Follow-up with your primary care provider for any other problems. Referrals: CHRISTINA GRANT MD [ACTIVE STAFF] - Follow up as needed Averyibaureliano Attestation: 01/13/17 08:28 I personally performed the services described in the documentation, reviewed and edited the documentation which was dictated to the scribe in my presence, and it accurately records my words and actions. (JUDIT GOODRICH) Scribe Documentation - Scribe Written by Renato:: Franchesca Taylor 01/13/17 09:25 acting as scribe for :: Tracy
[2017-01-13 19:59] VITALS: BP 156/64
== END 2017-01-13 08:32 | disposition home or self-care (01) ==
LOC: ER 06:34
DX: K63.2 Fistula of intestine (principal); Z79.899 Other long term (current) drug therapy; Z87.891 Personal history of nicotine dependence
CPT/HCPCS: 99283

== ENCOUNTER 2017-03-31 15:15 | Inpatient (IN) | payer MEDICAID ==
[2017-03-31 15:50] LABS: ABSOLUTE EOSINOPHILS # (AUTO) 0.2 10^3/uL (0.0-0.6); ABSOLUTE LYMPHOCYTES (AUTO) 1.7 10^3/uL (0.5-4.7); ABSOLUTE MONOCYTES (AUTO) 0.6 10^3/uL (0.1-1.4); ABSOLUTE NEUT (AUTO) 7.3 10^3/uL (1.7-8.2); BASOPHILS % (AUTO) 0.3 % (0-2); EOSINOPHILS % (AUTO) 2.5 % (0-6); HEMATOCRIT 25.4 % (36.0-47.0); LYMPHOCYTES % (AUTO) 17.2 % (13-45); MEAN CORPUSCULAR HGB CONC 30.7 g/dL (32.0-36.0); MEAN CORPUSCULAR VOLUME 69 fl (80-97); MONOCYTES % (AUTO) 6.1 % (3-13); RED CELL DISTRIBUTION WIDTH 17.8 % (11.5-14.0); SEGMENTED NEUTROPHILS % (AUTO) 73.9 % (42-78); WHITE BLOOD COUNT 9.8 10^3/uL (4.0-10.5)
[2017-03-31 16:14] LABS: HEMOGLOBIN 7.8 g/dL (12.0-15.5)
--- NOTE | 2017-03-31 16:14 | ER Document Report ---
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 She takes a baby aspirin every day. EMS applied a pressure dressing and on arrival to the emergency room, the patient has no active bleeding. She denies injury, increased abdominal pain, urinary symptoms, lightheadedness, chest pain or shortness of breath. TRAVEL OUTSIDE OF THE [place] IN LAST 30 DAYS: No - Related Data Allergies/Adverse Reactions: celecoxib [From Celebrex] Allergy (Mild, Verified 03/31/17 16:28) Urticaria aspirin [Aspirin] Allergy (Verified 03/31/17 16:28) Hives cephalexin monohydrate [From Keflex] Allergy (Verified 03/31/17 16:28) clindamycin [Clindamycin] Allergy (Verified 03/31/17 16:28) Hives lisinopril [Lisinopril] Allergy (Verified 03/31/17 16:28) methadone [Methadone] Allergy (Verified 03/31/17 16:28) metoprolol tartrate [From Lopressor] Allergy (Verified 03/31/17 16:28) Penicillins Allergy (Verified 03/31/17 16:28) Past Medical History - General Information source: Patient - Social History Smoking Status: Unknown if Ever Smoked Drug Abuse: None Family History: None - Past Medical History Cardiac Medical History: Reports: Hx Hypercholesterolemia, Hx Hypertension Denies: Hx Heart Murmur Pulmonary Medical History: Reports: Hx Asthma, Hx Bronchitis, Hx COPD Denies: Hx Respiratory Failure, Hx Sleep Apnea, Hx Tuberculosis Endocrine Medical History: Reports: Hx Diabetes Mellitus Type 1, Hx Diabetes Mellitus Type 2 Renal/ Medical History: Denies: Hx Peritoneal Dialysis GI Medical History: Reports: Hx Gastroesophageal Reflux Disease, Hx Hiatal Hernia Musculoskeltal Medical History: Reports Hx Arthritis Psychiatric Medical History: Reports: Hx Anxiety, Hx Depression Infectious Medical History: Past Surgical History: Reports: Hx Abdominal Surgery - MULTIPLE VENTRAL HERNIA REPAIRS WITH DEBRIDEMENT. BOWEL OBSTRUCTION. NON-HEALING ABD WOUNDS WITH CHRONIC PAIN, Hx Bowel Surgery - Right abdominal fistula., Hx Section - x's 3, Hx Cholecystectomy, Hx Tubal Ligation - Immunizations Hx Diphtheria, Pertussis, Tetanus Vaccination: Yes Hx Pneumococcal Vaccination: 02/28/12 Review of Systems - Review of Systems Notes: REVIEW OF SYSTEMS: CONSTITUTIONAL: -fevers, -chills EENT: -eye pain, -difficulty swallowing, -nasal congestion CARDIOVASCULAR:-chest pain, -syncope. RESPIRATORY: -cough, -SOB GASTROINTESTINAL: -abdominal pain, - nausea, -vomiting, -diarrhea GENITOURINARY: -dysuria, -hematuria MUSCULOSKELETAL: -back pain, -neck pain SKIN: +chronic abdominal wounds HEMATOLOGIC: -easy bruising or bleeding. LYMPHATIC: -swollen, enlarged glands. NEUROLOGICAL: -altered mental status or loss of consciousness, -headache, - neurologic symptoms PSYCHIATRIC: -anxiety, -depression. ALL OTHER SYSTEMS REVIEWED AND NEGATIVE. Physical Exam - Vital signs Vitals: Resp Pulse Ox 17 100 03/31/17 15:33 03/31/17 15:33 - Notes Notes: PHYSICAL EXAMINATION: GENERAL: Well-appearing, well-nourished and in no acute distress. HEAD: Atraumatic, normocephalic. EYES: Pupils equal round and reactive to light, extraocular movements intact, sclera anicteric, conjunctiva are normal. ENT: nares patent, oropharynx clear without exudates. Moist mucous membranes. NECK: Normal range of motion, supple without lymphadenopathy LUNGS: Breath sounds clear to auscultation bilaterally and equal. No wheezes rales or rhonchi. HEART: Regular rate and rhythm without murmurs ABDOMEN: Soft, nontender, normoactive bowel sounds. No guarding, no rebound. No masses appreciated. EXTREMITIES: Normal range of motion, no pitting or edema. No cyanosis. NEUROLOGICAL: Cranial nerves grossly intact. Normal speech, normal gait. Normal sensory and motor exams. PSYCH: Normal mood, normal affect. SKIN: 3 chronic ulcers over left lower abdomen, no discharge or surrounding erythema, dried blood around middle wound, no active bleeding Course - Re-evaluation Re-evalutation: 03/31/17 16:26 Pt with acute blood loss anemia from the arterial bleed from her chronic diabetic wound. She is having orthostatic symptoms when she stands and her Hbg dropped from 9 to 7.8 today. Will transfuse 1 unit pRBC and admit to Dr. Cano as Inpatient Telemetry for transfusion and further monitoring of her wound. Spoke to him at 16:25. She has no active bleeding from her wounds at this time. Pressure dressing applied. 03/31/17 17:38 Pt started to rebleeed from her wound after she stood up to use the bedside commode. Quik-Clot, pressure, Lidocaine w/ Epi, a Figure 8 stitch and topical TXA stopped the bleeding. A pressure dressing was reapplied and johansen was placed due to need for bedrest because of open wounds that will bleed if she moves. Pt receiving blood transfusion at this time. - Vital Signs Vital signs: Temp Pulse Resp BP Pulse Ox 98 F 79 13 118/57 L 100 03/31/17 19:01 03/31/17 19:01 03/31/17 19:01 03/31/17 19:01 03/31/17 19:01 - Laboratory Result Diagrams: 03/31/17 15:36 03/31/17 15:36 Laboratory results interpreted by me: 03/31/17 03/31/17 03/31/17 15:36 15:36 15:36 RBC 3.70 L Hgb 7.8 L Hct 25.4 L MCV 69 L MCH 21.0 L MCHC 30.7 L RDW 17.8 H Glucose 133 H Crossmatch See Detail Procedures - Laceration/Wound Repair Left Lower Abdomen Time completed: 17:40 Wound length (cm): 1 Wound's Depth, Shape: Linear Anesthetic type: 1% Lidocaine w/epi Volume Anesthetic (mLs): 8 Wound explored: Clean Wound Repaired With: Sutures Suture Size/Type: Vicryl, 4:0 Number of Sutures: 1 Layer Closure?: No Post-procedure wound care: Sterile dressing applied Post-procedure NV exam normal: Yes Complications: No Critical Care Note - Critical Care Note Total time excluding time spent on procedures (mins): 45 Discharge - Discharge Clinical Impression: Acute blood loss anemia, Arterial hemorrhage Chronic abdominal wound infection Qualifiers: Encounter type: initial encounter Qualified Code(s): S31.109A - Unspecified open wound of abdominal wall, unspecified quadrant without penetration into peritoneal cavity, initial encounter Condition: Stable Disposition: ADMITTED INPATIENT Admitting Provider: [facility] Unit Admitted: Telemetry
[2017-03-31] MEDS ORDERED: NORMAL SALINE 250 ML IV PRN ×3 (16:25→19:27)
[2017-03-31 17:00] LABS: ANION GAP 13 (5-19); BLOOD UREA NITROGEN 16 mg/dL (7-20); CALCIUM 9.2 mg/dL (8.4-10.2); CARBON DIOXIDE 25 mmol/L (22-30); CHLORIDE 102 mmol/L (98-107); CREATININE RESULT 0.95 mg/dL (0.52-1.25); GLUCOSE 133 mg/dL (75-110); POTASSIUM 4.2 mmol/L (3.6-5.0); SODIUM 140.4 mmol/L (137-145)
[2017-03-31] MEDS ORDERED: TRANEXAMIC ACID INJ/PF 1,000 MG/10 ML SDV IV ONE (17:18)
[2017-03-31] MEDS ORDERED: MORPHINE SULFATE 10 MG/ML INJ IV ONE (17:21)
[2017-03-31] MEDS ORDERED: LIDOCAINE 1%/EPINEPHRINE INJ 20 ML VIAL INJ ONE (17:28)
[2017-03-31] MEDS ORDERED: DEXTROSE 40% GEL 15 GM TUBE PO PRN ×2 (19:27)
[2017-03-31] MEDS ORDERED: INSULIN LISPRO 100 UNIT/ML 3 ML VIAL SUBCUT PRN (19:27)
[2017-03-31] MEDS ORDERED: NORMAL SALINE 1000 ML 1,000 ML IV PRN (19:27)
[2017-03-31] MEDS ORDERED: DEXTROSE 50%-WATER 25 GM/50 ML DISP.SYRIN IV PRN ×2 (19:27)
[2017-03-31] MEDS ORDERED: GLUCAGON,HUMAN RECOMB 1 MG INJ IM PRN (19:27)
[2017-03-31] MEDS ORDERED: ALBUTEROL SULFATE HFA (90 MCG/PUFF) 8 GM MDI (1 MDI/ER DISP) IH PRN (19:30)
[2017-03-31] MEDS ORDERED: IPRATROPIUM/ALBUTEROL 0.5-2.5 MG/3 ML AMPUL NEB PRN (19:32)
[2017-03-31] MEDS ORDERED: ALBUTEROL SULFATE HFA (90 MCG/PUFF) 200 PUFF/8.5 GM MDI IH PRN (19:39)
[2017-03-31] MEDS ORDERED: FENTANYL 50 MCG/HR PATCH.TD72 TD SCH (20:00)
--- NOTE | 2017-03-31 20:46 | PDOC H&P ---
History of Present Illness Admission Date/PCP: 03/31/17 19:24 CHRISTINA PANTERAEVELYNELA Patient complains of: Acute bleeding from anterior abdominal chronic wound History of Present Illness: CARMEN ROMERO is a 61 year old female known to my practice who was brought to the Ed by EMS due to sudden onset of acute sever bleeding from her left sided anterior abdominal wall chronic wound. Patient reported that she was at a sink trying to wash out dye from her hair when she noticed significant amount of blood on her bathroom floor and subsequently noted forceful bleeding from her left anterior abdominal wal chronic wound. She reported that she has been attending [facility] as scheduled and there has been plan to discharge her from the center in the coming weeks. She denied any instrumentation or recent trauma preceding onset of her bleeding. Patient was not able to quantitate amount of blood loss but reported that she had to throw away her clothing due to blood soaked. EMS personnel reported significant blood loss at since and there was witnessed repeat arterial bleeding while in the ED necessitating surgical stitch application and pressure dressing of the bleeding site. She demonstrated significant drop in her hemoglobin necessitating need for PRBC transfusion. Past Medical History Cardiac Medical History: Reports: Hyperlipidema, Hypertension Denies: Heart Murmur Pulmonary Medical History: Reports: Asthma, Bronchitis, Chronic Obstructive Pulmonary Disease (COPD) Denies: Respiratory Failure, Sleep Apnea, Tuberculosis Endocrine Medical History: Reports: Diabetes Mellitus Type 1, Diabetes Mellitus Type 2 GI Medical History: Reports: Gastroesophageal Reflux Disease, Hiatal Hernia Musculoskeltal Medical History: Reports: Arthritis Psychiatric Medical History: Reports: Depression Hematology: Reports: Anemia Past Surgical History Past Surgical History: Reports: Section - x's 3, Cholecystectomy, Tubal Ligation Denies: Amputation Social History Smoking Status: Unknown if Ever Smoked Frequency of Alcohol Use: None Hx Recreational Drug Use: No Hx Prescription Drug Abuse: No - Advance Directive Resuscitation Status: Full Code Family History Family History: None Parental Family History Reviewed: Yes Children Family History Reviewed: Yes Sibling(s) Family History Reviewed.: Yes Medication/Allergy Home Medications: Albuterol Sulfate [Albuterol Sulfate 2.5mg/3 mL] 1 vial IH Q6HP PRN 03/31/17 Albuterol Sulfate [Proair HFA] 2 puff IH Q4HP PRN 03/31/17 Aspirin [Aspirin 81 mg Chewable Tablet] 81 mg PO DAILY 03/31/17 Benazepril HCl [Lotensin] 40 mg PO DAILY 03/31/17 Esomeprazole Mag Trihydrate [Nexium] 40 mg PO QAM 03/31/17 Fentanyl [Duragesic 50 Mcg/Hr Transdermal Patch] 1 each TD Q3D 03/31/17 Fluticasone/Salmeterol [Advair 250-50 Diskus 28 dose] 1 inh IH Q12 03/31/17 Furosemide [Lasix] 40 mg PO DAILY 03/31/17 Ipratropium [place] [Atrovent 0.02% Neb 0.5 Mg/2.5 Ml Vial.Neb] 0.5 mg IH Q6HP PRN 03/31/17 Metformin HCl [Glucophage] 500 mg PO DAILY 03/31/17 Allergies/Adverse Reactions: celecoxib [From Celebrex] Allergy (Mild, Verified 03/31/17 16:28) Urticaria aspirin [Aspirin] Allergy (Verified 03/31/17 16:28) Hives cephalexin monohydrate [From Keflex] Allergy (Verified 03/31/17 16:28) clindamycin [Clindamycin] Allergy (Verified 03/31/17 16:28) Hives lisinopril [Lisinopril] Allergy (Verified 03/31/17 16:28) methadone [Methadone] Allergy (Verified 03/31/17 16:28) metoprolol tartrate [From Lopressor] Allergy (Verified 03/31/17 16:28) Penicillins Allergy (Verified 03/31/17 16:28) Review of Systems Constitutional: ABSENT: chills, fever(s), headache(s), weight gain, weight loss Eyes: ABSENT: visual disturbances Ears: ABSENT: hearing changes Nose, Mouth, and Throat: ABSENT: as per HPI, headache(s), mouth pain, sore throat, vertigo, other Cardiovascular: ABSENT: chest pain, dyspnea on exertion, edema, orthropnea, palpitations Gastrointestinal: ABSENT: abdominal pain, constipation, diarrhea, hematemesis, hematochezia, nausea, vomiting Genitourinary: ABSENT: dysuria, hematuria Musculoskeletal: ABSENT: joint swelling Integumentary: PRESENT: wounds - chronic left anterior abdominal wall, colostomy site joey RLQ region. ABSENT: diaphoresis, erythema, pruritus, rash Neurological: ABSENT: abnormal gait, abnormal speech, confusion, dizziness, focal weakness, syncope Psychiatric: ABSENT: anxiety, depression, homidical ideation, suicidal ideation Hematologic/Lymphatic: ABSENT: easy bleeding, easy bruising, lymphadenopathy Physical Exam Vital Signs: Temp Pulse Resp BP Pulse Ox 98 F 79 13 118/57 L 100 03/31/17 19:01 03/31/17 19:01 03/31/17 19:01 03/31/17 19:01 03/31/17 19:01 General appearance: PRESENT: no acute distress, morbidly obese Head exam: PRESENT: atraumatic, normocephalic Eye exam: PRESENT: conjunctiva pink, EOMI, PERRLA. ABSENT: scleral icterus Ear exam: PRESENT: normal external ear exam Mouth exam: PRESENT: moist, tongue midline Teeth exam: PRESENT: edentulous - dentures in use Throat exam: ABSENT: post pharyngeal erythema, tonsillar erythema, tonsillar exudate, tonsillogmegaly, other Neck exam: PRESENT: full ROM. ABSENT: carotid bruit, JVD, lymphadenopathy, thyromegaly Respiratory exam: PRESENT: clear to auscultation naa Cardiovascular exam: PRESENT: RRR. ABSENT: diastolic murmur, rubs, systolic murmur Vascular exam: PRESENT: normal capillary refill GI/Abdominal exam: PRESENT: normal bowel sounds, soft, other - Functioning colostomy over RLQ region; Pressure dressing over left anterior abdominal wall.. ABSENT: distended, guarding, mass, organolmegaly, rebound, tenderness Rectal exam: PRESENT: deferred Extremities exam: ABSENT: pedal edema Musculoskeletal exam: PRESENT: deformity - related to joint involvement with arthritis Neurological exam: PRESENT: alert, awake, oriented to person, oriented to place , oriented to time, oriented to situation, CN II-XII grossly intact. ABSENT: motor sensory deficit Psychiatric exam: PRESENT: appropriate affect, normal mood. ABSENT: homicidal ideation, suicidal ideation Skin exam: PRESENT: dry, warm, other - otherwise as noted above. Results Laboratory Results: See [facility] for details of blood work results. This form a significant part of my medical decision making in this case. Assessment & Plan - Diagnosis (1) HTN (hypertension) Qualifiers: Hypertension type: essential hypertension Qualified Code(s): I10 - Essential (primary) hypertension Is this a current diagnosis for this admission?: YesPlan: See admitting attending physician orders. (2) HLD (hyperlipidemia) Qualifiers: Hyperlipidemia type: pure hypercholesterolemia Qualified Code(s): E78.00 - Pure hypercholesterolemia, unspecified; E78.0 - Pure hypercholesterolemia Is this a current diagnosis for this admission?: YesPlan: See admitting attending physician orders. (3) Diabetes mellitus type 2 in obese Is this a current diagnosis for this admission?: YesPlan: See admitting attending physician orders. (4) GERD (gastroesophageal reflux disease) Qualifiers: Esophagitis presence: without esophagitis Qualified Code(s): K21.9 - Gastro-esophageal reflux disease without esophagitis Is this a current diagnosis for this admission?: YesPlan: See admitting attending physician orders. (5) Colostomy in place Is this a current diagnosis for this admission?: YesPlan: See admitting attending physician orders. (6) COPD (chronic obstructive pulmonary disease) Qualifiers: Chronic bronchitis type: unspecified Is this a current diagnosis for this admission?: YesPlan: See admitting attending physician orders. (7) Depression Qualifiers: Depression Type: major depressive disorder Major depression episode severity: mild Is this a current diagnosis for this admission?: YesPlan: See admitting attending physician orders. (8) Acute blood loss anemia Is this a current diagnosis for this admission?: YesPlan: See admitting attending physician orders. (9) Arterial hemorrhage Is this a current diagnosis for this admission?: YesPlan: See admitting attending physician orders. (10) Chronic abdominal wound infection Qualifiers: Encounter type: initial encounter Qualified Code(s): S31.109A - Unspecified open wound of abdominal wall, unspecified quadrant without penetration into peritoneal cavity, initial encounter; L08.9 - Local infection of the skin and subcutaneous tissue, unspecified Is this a current diagnosis for this admission?: YesPlan: See admitting attending physician orders. - Time Time Spent: 50 to 70 Minutes Medications reviewed and adjusted accordingly: Yes Anticipated discharge: Home Within: Other - Inpatient Certification Medical Necessity: Need Close Monitoring Due to Risk of Patient Decompensation, Need For IV Fluids, Need For Continuous Telemetry Monitoring, Need for Pain Control, Need for Surgery, Risk of Complication if Not Cared For in Hospital Post Hospital Care: D/C Patient Svcs Mgr Documentation - Plan Summary Plan Summary: See admitting attending physician orders.
[2017-03-31 20:48] LABS: PROTHROMBIN TIME 15.2 SEC (11.4-15.4)
[2017-03-31 20:49] LABS: PARTIAL THROMBOPLASTIN TIME 34.6 SEC (23.5-35.8)
[2017-03-31] MEDS: FLUTICASONE/SALMETEROL DISKUS 250-50 MCG/DOSE IH SCH (21:20)
[2017-03-31] MEDS: OXYCODONE HCL IR 5 MG TABLET PO PRN (21:45)
[2017-04-01] MEDS: OXYCODONE HCL IR 5 MG TABLET PO PRN ×6 (01:59→23:05)
[2017-04-01 05:07] LABS: ABSOLUTE EOSINOPHILS # (AUTO) 0.2 10^3/uL (0.0-0.6); ABSOLUTE LYMPHOCYTES (AUTO) 1.6 10^3/uL (0.5-4.7); ABSOLUTE MONOCYTES (AUTO) 0.5 10^3/uL (0.1-1.4); ABSOLUTE NEUT (AUTO) 4.8 10^3/uL (1.7-8.2); BASOPHILS % (AUTO) 0.6 % (0-2); EOSINOPHILS % (AUTO) 2.8 % (0-6); HEMATOCRIT 24.8 % (36.0-47.0); HGB HCT DIFFERENCE -0.8; LYMPHOCYTES % (AUTO) 21.8 % (13-45); MEAN CORPUSCULAR HEMOGLOBIN 23.2 pg (27.0-33.4); MEAN CORPUSCULAR HGB CONC 32.1 g/dL (32.0-36.0); MEAN CORPUSCULAR VOLUME 72 fl (80-97); MONOCYTES % (AUTO) 7.6 % (3-13); RED BLOOD COUNT 3.43 10^6/uL (3.72-5.28); SEGMENTED NEUTROPHILS % (AUTO) 67.2 % (42-78); WHITE BLOOD COUNT 7.2 10^3/uL (4.0-10.5)
[2017-04-01 05:27] LABS: ALANINE AMINOTRANSFERASE 22 U/L (9-52); ALBUMIN 2.9 g/dL (3.5-5.0); ALKALINE PHOSPHATASE 114 U/L (38-126); ANION GAP 6 (5-19); ASPARTATE AMINO TRANSFERASE 10 U/L (14-36); BILIRUBIN,DIRECT 0.3 mg/dL (0.0-0.4); BILIRUBIN,TOTAL 0.9 mg/dL (0.2-1.3); BLOOD UREA NITROGEN 15 mg/dL (7-20); CARBON DIOXIDE 26 mmol/L (22-30); CHLORIDE 104 mmol/L (98-107); GLUCOSE 129 mg/dL (75-110); POTASSIUM 4.2 mmol/L (3.6-5.0); SODIUM 136.4 mmol/L (137-145); TOTAL PROTEIN 5.9 g/dL (6.3-8.2)
[2017-04-01] MEDS: LANSOPRAZOLE 30 MG TAB.RAP.DR PO SCH (06:09)
[2017-04-01] MEDS ORDERED: NORMAL SALINE 250 ML IV PRN ×2 (08:24)
[2017-04-01] MEDS ORDERED: NORMAL SALINE 1000 ML 1,000 ML IV PRN (08:27)
--- NOTE | 2017-04-01 09:00 | PDOC PROGRESS REPORT ---
Subjective Progress Note for:: 04/01/17 Subjective:: Patient denied any chest pain or difficulty with breathing. s/p transfusion of 2 units PRBC. Hemoglobin remain at 8.0gm/dL. She denied any dizziness, lightheadedness or vertigo. No fever or chills. Patient narrated that she has a draining fistula not colostomy over right anterior abdominal wall. Pressure dressing remain intact over the left chronic anterior abdominal wall wound. No reported recurrent bleeding since last clinical evaluation. She reported intolerance of SCD and JUDITH for DVT prophylaxis. Physical Exam Vital Signs: Temp Pulse Resp BP Pulse Ox 98.5 F 84 16 105/77 96 04/01/17 07:38 04/01/17 07:38 04/01/17 07:38 04/01/17 07:38 04/01/17 07:38 Intake & Output 03/31/17 04/01/17 04/02/17 06:59 06:59 06:59 Intake Total 2705 Output Total 1325 Balance 1380 Weight 121.2 kg General appearance: PRESENT: no acute distress, morbidly obese Head exam: PRESENT: atraumatic, normocephalic Eye exam: PRESENT: conjunctiva pink, EOMI, PERRLA. ABSENT: scleral icterus Respiratory exam: PRESENT: clear to auscultation naa Cardiovascular exam: PRESENT: RRR. ABSENT: diastolic murmur, rubs, systolic murmur GI/Abdominal exam: PRESENT: normal bowel sounds, soft, other - Pressure dressing over left chronic wound arterial bleeding site. Foul odor drainage from two fistulae on anterior abdominal wall right to the chronic wound site.. ABSENT: distended, guarding, mass, organolmegaly, rebound, tenderness Extremities exam: ABSENT: pedal edema Musculoskeletal exam: PRESENT: deformity - related to joint involvment with arthritis Neurological exam: PRESENT: alert, awake, oriented to person, oriented to place , oriented to time, oriented to situation, CN II-XII grossly intact. ABSENT: motor sensory deficit Psychiatric exam: PRESENT: appropriate affect, normal mood. ABSENT: homicidal ideation, suicidal ideation Skin exam: PRESENT: dry, intact, warm, other - otherwise as noted above.. ABSENT: cyanosis, rash Results Laboratory Results: 04/01/17 04:45 04/01/17 04:45 04/01/17 04/01/17 04:45 04:45 WBC 7.2 RBC 3.43 L Hgb 8.0 L Hct 24.8 L MCV 72 L MCH 23.2 L MCHC 32.1 RDW 21.0 H Plt Count 399 Seg Neutrophils % 67.2 Lymphocytes % 21.8 Monocytes % 7.6 Eosinophils % 2.8 Basophils % 0.6 Absolute Neutrophils 4.8 Absolute Lymphocytes 1.6 Absolute Monocytes 0.5 Absolute Eosinophils 0.2 Absolute Basophils 0.0 Sodium 136.4 L Potassium 4.2 Chloride 104 Carbon Dioxide 26 Anion Gap 6 BUN 15 Creatinine 0.90 Est GFR ( Amer) > 60 Est GFR (Non-Af Amer) > 60 Glucose 129 H Calcium 9.0 Total Bilirubin 0.9 AST 10 L ALT 22 Alkaline Phosphatase 114 Total Protein 5.9 L Albumin 2.9 L Assessment & Plan - Diagnosis (1) HTN (hypertension) Qualifiers: Hypertension type: essential hypertension Qualified Code(s): I10 - Essential (primary) hypertension Is this a current diagnosis for this admission?: YesPlan: See attending physician orders. (2) HLD (hyperlipidemia) Qualifiers: Hyperlipidemia type: pure hypercholesterolemia Qualified Code(s): E78.00 - Pure hypercholesterolemia, unspecified; E78.0 - Pure hypercholesterolemia Is this a current diagnosis for this admission?: YesPlan: See attending physician orders. (3) Diabetes mellitus type 2 in obese Is this a current diagnosis for this admission?: YesPlan: See attending physician orders. (4) GERD (gastroesophageal reflux disease) Qualifiers: Esophagitis presence: without esophagitis Qualified Code(s): K21.9 - Gastro-esophageal reflux disease without esophagitis Is this a current diagnosis for this admission?: YesPlan: See attending physician orders. (5) COPD (chronic obstructive pulmonary disease) Qualifiers: Chronic bronchitis type: unspecified Is this a current diagnosis for this admission?: YesPlan: See attending physician orders. (6) Depression Qualifiers: Depression Type: major depressive disorder Major depression episode severity: mild Is this a current diagnosis for this admission?: YesPlan: See attending physician orders. (7) Acute blood loss anemia Is this a current diagnosis for this admission?: YesPlan: See attending physician orders. She will receive 2 units of PRBC. (8) Arterial hemorrhage Is this a current diagnosis for this admission?: YesPlan: See attending physician orders. She will receive 2 units of PRBC. Continue pressure dressing to site of bleeding. (9) Chronic abdominal wound infection Qualifiers: Encounter type: initial encounter Qualified Code(s): S31.109A - Unspecified open wound of abdominal wall, unspecified quadrant without penetration into peritoneal cavity, initial encounter; L08.9 - Local infection of the skin and subcutaneous tissue, unspecified Is this a current diagnosis for this admission?: YesPlan: See attending physician orders. (10) Fistula Is this a current diagnosis for this admission?: YesPlan: Continue dry dressing with wound cleanser and normal saline site cleaning as needed. - Time Time Spent with patient: 25-34 minutes Medications reviewed and adjusted accordingly: Yes Within: Other - Inpatient Certification Based on my medical assessment, after consideration of the patient's comorbidities, presenting symptoms, or acuity I expect that the services needed warrant INPATIENT care.: Yes I certify that my determination is in accordance with my understanding of Medicare's requirements for reasonable and necessary INPATIENT services [42 CFR 412.3e].: Yes Medical Necessity: Need Close Monitoring Due to Risk of Patient Decompensation, Need For IV Fluids, Risk of Complication if Not Cared For in Hospital Post Hospital Care: D/C Dramatic Agent Documentation - Plan Summary Plan Summary: See attending physician orders. She will receive 2 units of PRBC due to recent arterial bleed with subsequent symptomatic anemia. Follow up on post transfusion CBC.
[2017-04-01] MEDS ORDERED: (PENDING PHARMACY ID) (Benazepril Hcl [Lotensin] 40 MG) PO SCH (10:00)
[2017-04-01] MEDS: FLUTICASONE/SALMETEROL DISKUS 250-50 MCG/DOSE IH SCH ×2 (10:18→21:14)
[2017-04-01] MEDS: BENAZEPRIL HCL 20 MG TABLET PO SCH (10:18)
[2017-04-01] MEDS: METFORMIN HCL 500 MG TABLET PO SCH (10:19)
[2017-04-01] MEDS: FUROSEMIDE 40 MG TABLET PO SCH (10:19)
[2017-04-01] MEDS ORDERED: VENLAFAXINE HCL 75 MG CAP.SR.24H PO SCH (18:00)
[2017-04-01 19:43] LABS: ABSOLUTE EOSINOPHILS # (AUTO) 0.2 10^3/uL (0.0-0.6); ABSOLUTE LYMPHOCYTES (AUTO) 1.3 10^3/uL (0.5-4.7); ABSOLUTE MONOCYTES (AUTO) 0.5 10^3/uL (0.1-1.4); ABSOLUTE NEUT (AUTO) 6.7 10^3/uL (1.7-8.2); BASOPHILS % (AUTO) 0.5 % (0-2); EOSINOPHILS % (AUTO) 2.3 % (0-6); HEMATOCRIT 31.6 % (36.0-47.0); LYMPHOCYTES % (AUTO) 14.3 % (13-45); MEAN CORPUSCULAR HEMOGLOBIN 24.1 pg (27.0-33.4); MEAN CORPUSCULAR HGB CONC 32.3 g/dL (32.0-36.0); MEAN CORPUSCULAR VOLUME 75 fl (80-97); MONOCYTES % (AUTO) 6.2 % (3-13); RED BLOOD COUNT 4.24 10^6/uL (3.72-5.28); RED CELL DISTRIBUTION WIDTH 21.7 % (11.5-14.0); SEGMENTED NEUTROPHILS % (AUTO) 76.7 % (42-78); WHITE BLOOD COUNT 8.8 10^3/uL (4.0-10.5)
[2017-04-01 19:54] LABS: HEMOGLOBIN 10.2 g/dL (12.0-15.5)
[2017-04-01] MEDS ORDERED: TRAZODONE HCL 50 MG TABLET PO SCH (22:00)
[2017-04-02] MEDS: OXYCODONE HCL IR 5 MG TABLET PO PRN ×4 (03:33→17:50)
[2017-04-02] MEDS: LANSOPRAZOLE 30 MG TAB.RAP.DR PO SCH (05:26)
[2017-04-02] MEDS: METFORMIN HCL 500 MG TABLET PO SCH (10:44)
[2017-04-02] MEDS: BENAZEPRIL HCL 20 MG TABLET PO SCH (10:44)
[2017-04-02] MEDS: FUROSEMIDE 40 MG TABLET PO SCH (10:44)
[2017-04-02] MEDS: FLUTICASONE/SALMETEROL DISKUS 250-50 MCG/DOSE IH SCH (10:44)
--- NOTE | 2017-04-02 17:20 | PDOC DISCHARGE SUMMARY ---
General - Admit/Disc Date/PCP Admission Date/Primary Care Provider: 03/31/17 19:24 CHRISTINA GRANT Discharge Date: 04/02/17 - Discharge Diagnosis (1) HTN (hypertension) Is this a current diagnosis for this admission?: Yes (2) HLD (hyperlipidemia) Is this a current diagnosis for this admission?: Yes (3) Diabetes mellitus type 2 in obese Is this a current diagnosis for this admission?: Yes (4) GERD (gastroesophageal reflux disease) Is this a current diagnosis for this admission?: Yes (5) COPD (chronic obstructive pulmonary disease) Is this a current diagnosis for this admission?: Yes (6) Depression Is this a current diagnosis for this admission?: Yes (7) Acute blood loss anemia Is this a current diagnosis for this admission?: Yes (8) Arterial hemorrhage Is this a current diagnosis for this admission?: Yes (9) Chronic abdominal wound infection Is this a current diagnosis for this admission?: Yes (10) Fistula Is this a current diagnosis for this admission?: Yes - Additional Information Resuscitation Status: Full Code Discharge Diet: As Tolerated Discharge Activity: Activity As Tolerated Home Medications: Albuterol Sulfate [Albuterol Sulfate 2.5mg/3 mL] 1 vial IH Q6HP PRN 03/31/17 Albuterol Sulfate [Proair HFA] 2 puff IH Q4HP PRN 03/31/17 Aspirin [Aspirin 81 mg Chewable Tablet] 81 mg PO DAILY 03/31/17 Benazepril HCl [Lotensin] 40 mg PO DAILY 03/31/17 Esomeprazole Mag Trihydrate [Nexium] 40 mg PO QAM 03/31/17 Fentanyl [Duragesic 50 Mcg/Hr Transdermal Patch] 1 each TD Q3D 03/31/17 Fluticasone/Salmeterol [Advair 250-50 Diskus 28 dose] 1 inh IH Q12 03/31/17 Furosemide [Lasix] 40 mg PO DAILY 03/31/17 Ipratropium [place] [Atrovent 0.02% Neb 0.5 mg/2.5 ml Ampul] 0.5 mg IH Q6HP PRN 03/31/17 Metformin HCl [Glucophage] 500 mg PO DAILY 03/31/17 Trazodone HCl [Desyrel 50 mg Tablet] 50 mg PO QHS #0 tablet 04/02/17 Venlafaxine HCl ER [Effexor Xr 75 mg Cap.sr] 150 mg PO QPM #0 cap.sr.24h History of Present Illness History of Present Illness: CARMEN ROMERO is a 61 year old female known to my practice who was brought to the Ed by EMS due to sudden onset of acute sever bleeding from her left sided anterior abdominal wall chronic wound. Patient reported that she was at a sink trying to wash out dye from her hair when she noticed significant amount of blood on her bathroom floor and subsequently noted forceful bleeding from her left anterior abdominal wal chronic wound. She reported that she has been attending [facility] as scheduled and there has been plan to discharge her from the center in the coming weeks. She denied any instrumentation or recent trauma preceding onset of her bleeding. Patient was not able to quantitate amount of blood loss but reported that she had to throw away her clothing due to blood soaked. EMS personnel reported significant blood loss at since and there was witnessed repeat arterial bleeding while in the ED necessitating surgical stitch application and pressure dressing of the bleeding site. She demonstrated significant drop in her hemoglobin necessitating need for PRBC transfusion. Hospital Course Hospital Course: Patient was admitted for symptomatic anemia following acute blood loss. Patient received total of 4 units PRBC with current Hemoglobin at 10.2 gm /dL. No more active bleeding following suture ligation of the arterial bleeding site on her anterior abdominal wall chronic wound site. She denied any fever or chills. No chest pain or difficulty with breathing. She will be discharge home today and follow up in the office as instructed upon discharge. She will continue on all of her preadmission medication management. Trazodone 50 mg p.o qhs and Venlafaxin XR 150 mg p.o qhs were added to her medication list after admission when information was provided by her community pharmacy service that she was on these medication and recently refilled them at local pharmacy. Physical Exam Vital Signs: Temp Pulse Resp BP Pulse Ox 97.7 F 82 17 165/62 H 99 04/02/17 16:19 04/02/17 16:19 04/02/17 16:19 04/02/17 16:19 04/02/17 16:19 Intake & Output 04/01/17 04/02/17 04/03/17 06:59 06:59 06:59 Intake Total 2705 2500 Output Total 1325 2120 Balance 1380 380 Weight 121.2 kg Physical Exam: General appearance: PRESENT: no acute distress, morbidly obese Head exam: PRESENT: atraumatic, normocephalic Eye exam: PRESENT: conjunctiva pink, EOMI, PERRLA. ABSENT: scleral icterus Respiratory exam: PRESENT: clear to auscultation naa Cardiovascular exam: PRESENT: RRR. ABSENT: diastolic murmur, rubs, systolic murmur GI/Abdominal exam: PRESENT: normal bowel sounds, soft, other - Pressure dressing over left chronic wound arterial bleeding site. Foul odor drainage from two fistulae on anterior abdominal wall right to the chronic wound site.. ABSENT: distended, guarding, mass, organomegaly, rebound, tenderness Extremities exam: ABSENT: pedal edema Musculoskeletal exam: PRESENT: deformity - related to joint involvment with arthritis Neurological exam: PRESENT: alert, awake, oriented to person, oriented to place , oriented to time, oriented to situation, CN II-XII grossly intact. ABSENT: motor sensory deficit Psychiatric exam: PRESENT: appropriate affect, normal mood. ABSENT: homicidal ideation, suicidal ideation Skin exam: PRESENT: dry, intact, warm, other - otherwise as noted above.. ABSENT: cyanosis, rash Results Laboratory Results: 04/01/17 19:21 04/01/17 04:45 04/01/17 19:21 WBC 8.8 RBC 4.24 Hgb 10.2 L D Hct 31.6 L MCV 75 L MCH 24.1 L MCHC 32.3 RDW 21.7 H Plt Count 384 Seg Neutrophils % 76.7 Lymphocytes % 14.3 Monocytes % 6.2 Eosinophils % 2.3 Basophils % 0.5 Absolute Neutrophils 6.7 Absolute Lymphocytes 1.3 Absolute Monocytes 0.5 Absolute Eosinophils 0.2 Absolute Basophils 0.0 Qualifiers [place] BEING DISCHARGED WITH ANY OF THE FOLLOWING DIAGNOSIS?: No Plan Discharge Plan: D/C home today. Follow up in the office as instructed upon discharge. Time Spent: Less than 30 Minutes
[2017-04-02 17:28] VITALS: BP 121/66
== END 2017-04-02 17:44 | disposition home or self-care (01) | DRG 988 ==
LOC: ER 15:15 → UNDOADMIN 16:36 → EH 16:36 → 4S 20:00
PROVIDERS: ADMIT Internal Medicine Geriatric Medicine; ATTEND Internal Medicine Geriatric Medicine
PROC: 0JQ83ZZ Repair Abdomen Subcutaneous Tissue and Fascia, Percutaneous Approach (ICD-10-PCS; principal; 2017-03-31)
PROC: 30233N1 Transfusion of Nonautologous Red Blood Cells into Peripheral Vein, Percutaneous Approach (ICD-10-PCS; 2017-03-31)
PROC: 3E0F73Z Introduction of Anti-inflammatory into Respiratory Tract, Via Natural or Artificial Opening (ICD-10-PCS; 2017-04-01)
DX: D62 Acute posthemorrhagic anemia (principal); Z68.42 Body mass index [BMI] 45.0-49.9, adult; E11.622 Type 2 diabetes mellitus with other skin ulcer; L98.499 Non-pressure chronic ulcer of skin of other sites with unspecified severity; R58 Hemorrhage, not elsewhere classified; I10 Essential (primary) hypertension; E78.5 Hyperlipidemia, unspecified; E66.9 Obesity, unspecified; K21.9 Gastro-esophageal reflux disease without esophagitis; J44.9 Chronic obstructive pulmonary disease, unspecified; F32.9 Major depressive disorder, single episode, unspecified; M19.90 Unspecified osteoarthritis, unspecified site; E11.40 Type 2 diabetes mellitus with diabetic neuropathy, unspecified; F41.9 Anxiety disorder, unspecified; Z79.82 Long term (current) use of aspirin; Z79.899 Other long term (current) drug therapy; Z90.49 Acquired absence of other specified parts of digestive tract; Z88.8 Allergy status to other drugs, medicaments and biological substances; Z88.6 Allergy status to analgesic agent; Z88.1 Allergy status to other antibiotic agents; Z88.3 Allergy status to other anti-infective agents; Z88.0 Allergy status to penicillin; Z93.3 Colostomy status
CPT/HCPCS: 36415; 36430; 80048; 80053; 82962; 85025; 85610; 85730; 86850; 86900; 86901; 86920; 94640; 99291; J1815; J2270; J3490; J7030; J7050; J7620; P9016

== ENCOUNTER 2017-04-28 20:17 | Emergency (ER) | payer MEDICAID ==
[2017-04-28] MEDS ORDERED: ONDANSETRON HCL INJ/PF 4 MG/2 ML SDV IV ONE ×2 (21:06→23:35)
[2017-04-28] MEDS ORDERED: NORMAL SALINE 1000 ML 1,000 ML IV PRN (21:06)
[2017-04-28] MEDS ORDERED: MORPHINE SULFATE 10 MG/ML INJ IV ONE ×2 (21:06→23:35)
--- NOTE | 2017-04-28 21:07 | ER Document Report ---
ED GI/ - General Chief Complaint: Abdominal Pain Stated Complaint: DIARRHEA AND NAUSEA Time Seen by Provider: 04/28/17 20:57 Mode of Arrival: Ambulatory Information source: Patient TRAVEL OUTSIDE OF THE [place] IN LAST 30 DAYS: No - HPI Patient complains to provider of: Abdominal pain, Diarrhea Onset: This afternoon Timing/Duration: Sudden Quality of pain: Achy, Cramping Severity at maximum: Moderate Severity in ED: Moderate Pain Level: 2 Associated symptoms: Diarrhea, Dysuria, Nausea. denies: Fever, Vomiting Exacerbated by: Denies Relieved by: Denies Recently seen / treated by doctor: Yes Notes: 04/28/17 23:59 It is a 51-year-old female who presents to the emergency room complaining of abdominal cramping with diarrhea that started around 2:00 this afternoon, she denies any fevers, no blood in her stools, no vomiting, she does report mild pain and burning with urination, patient is a wound care clinic patient related to chronic non-healing abdominal wounds - Related Data Allergies/Adverse Reactions: celecoxib [From Celebrex] Allergy (Mild, Verified 03/31/17 16:28) Urticaria aspirin [Aspirin] Allergy (Verified 03/31/17 16:28) Hives cephalexin monohydrate [From Keflex] Allergy (Verified 03/31/17 16:28) clindamycin [Clindamycin] Allergy (Verified 03/31/17 16:28) Hives lisinopril [Lisinopril] Allergy (Verified 03/31/17 16:28) methadone [Methadone] Allergy (Verified 03/31/17 16:28) metoprolol tartrate [From Lopressor] Allergy (Verified 03/31/17 16:28) Penicillins Allergy (Verified 03/31/17 16:28) Past Medical History - General Information source: Patient - Social History Smoking Status: Unknown if Ever Smoked Family History: None Patient has suicidal ideation: No Patient has homicidal ideation: No - Past Medical History Cardiac Medical History: Reports: Hx Hypercholesterolemia, Hx Hypertension Denies: Hx Heart Murmur Pulmonary Medical History: Reports: Hx Asthma, Hx Bronchitis, Hx COPD Denies: Hx Respiratory Failure, Hx Sleep Apnea, Hx Tuberculosis Endocrine Medical History: Reports: Hx Diabetes Mellitus Type 1, Hx Diabetes Mellitus Type 2 Renal/ Medical History: Denies: Hx Peritoneal Dialysis GI Medical History: Reports: Hx Gastroesophageal Reflux Disease, Hx Hiatal Hernia Musculoskeltal Medical History: Reports Hx Arthritis Psychiatric Medical History: Reports: Hx Anxiety, Hx Depression Infectious Medical History: Past Surgical History: Reports: Hx Abdominal Surgery - MULTIPLE VENTRAL HERNIA REPAIRS WITH DEBRIDEMENT. BOWEL OBSTRUCTION. NON-HEALING ABD WOUNDS WITH CHRONIC PAIN, Hx Bowel Surgery - Right abdominal fistula., Hx Section - x's 3, Hx Cholecystectomy, Hx Tubal Ligation - Immunizations Hx Diphtheria, Pertussis, Tetanus Vaccination: Yes Hx Pneumococcal Vaccination: 02/28/12 Review of Systems - Review of Systems Constitutional: No symptoms reported EENT: No symptoms reported Cardiovascular: No symptoms reported Respiratory: No symptoms reported Gastrointestinal: See HPI Genitourinary: See HPI Female Genitourinary: No symptoms reported Musculoskeletal: No symptoms reported Skin: No symptoms reported Hematologic/Lymphatic: No symptoms reported Neurological/Psychological: No symptoms reported -: Yes All other systems reviewed and negative Physical Exam - Vital signs Vitals: Temp Pulse Resp BP Pulse Ox 98.0 F 67 21 H 130/62 H 99 04/28/17 20:28 04/28/17 20:28 04/28/17 20:28 04/28/17 20:28 04/28/17 20:28 Interpretation: Normal - General General appearance: Appears well, Alert - HEENT Head: Normocephalic, Atraumatic Eyes: Normal Pupils: PERRL - Respiratory Respiratory status: No respiratory distress Chest status: Nontender Breath sounds: Normal Chest palpation: Normal - Cardiovascular Rhythm: Regular Heart sounds: Normal auscultation Murmur: No - Abdominal Inspection: Wounds - Nonhealing wounds to right lower quadrant and left lower quadrant with purulent drainage, Morbidly Obese Distension: No distension Bowel sounds: Normal Tenderness: Tender - mild diffuse tenderness Organomegaly: No organomegaly - Back Back: Normal, Nontender - Extremities General upper extremity: Normal inspection, Nontender, Normal color, Normal ROM , Normal temperature General lower extremity: Normal inspection, Nontender, Normal color, Normal ROM , Normal temperature, Normal weight bearing. No: Osvaldo's sign - Neurological Neuro grossly intact: Yes Cognition: Normal Orientation: AAOx4 [place] Coma Scale Eye Opening: Spontaneous James Coma Scale Verbal: Oriented [place] Coma Scale Motor: Obeys Commands James Coma Scale Total: 15 Speech: Normal Motor strength normal: LUE, RUE, LLE, RLE Sensory: Normal - Psychological Associated symptoms: Normal affect, Normal mood - Skin Skin Temperature: Warm Skin Moisture: Dry Skin Color: Normal Course - Re-evaluation Re-evalutation: 04/28/17 23:36 Findings were discussed with patient at bedside which are consistent with a urinary tract infection, she unfortunately was unable to provide us with a stool sample while in the emergency room as she did not have any further episodes of diarrhea, she will be discharged with antibiotics and advised to follow-up with her primary care provider, patient acknowledges understanding and agreement with this plan - Vital Signs Vital signs: Temp Pulse Resp BP Pulse Ox 98.0 F 73 18 132/84 H 99 04/28/17 20:28 04/28/17 23:50 04/28/17 23:50 04/28/17 23:50 04/28/17 23:50 - Laboratory Result Diagrams: 04/28/17 21:00 04/28/17 21:00 Laboratory results interpreted by me: 04/28/17 04/28/17 04/28/17 21:00 21:00 21:15 Hgb 10.3 L Hct 31.8 L MCV 74 L MCH 24.1 L RDW 21.8 H Potassium 3.1 L Chloride 97 L Est GFR (Non-Af Amer) 57 L Glucose 115 H Alkaline Phosphatase 143 H Urine Blood SMALL H Urine Nitrite POSITIVE H Ur Leukocyte Esterase SMALL H Discharge - Discharge Clinical Impression: Urinary tract infection Qualifiers: Urinary tract infection type: site unspecified Hematuria presence: without hematuria Qualified Code(s): N39.0 - Urinary tract infection, site not specified Condition: Stable Disposition: HOME, SELF-CARE Instructions: Urinary Tract Infection ([facility]) Additional Instructions: Follow up with your primary care provider in one to 2 days. Return to the emergency room immediately if symptoms worsen or any additional concerns. Prescriptions: Nitrofurantoin/Nitrofuran Mac [Macrobid 100 mg Capsule] 100 mg PO BID #20 capsule Referrals: CHRISTINA GRANT MD [Primary Care Provider] - Follow up as needed
[2017-04-28 21:10] LABS: ABSOLUTE BASOPHILS # (AUTO) 0.1 10^3/uL (0.0-0.2); ABSOLUTE EOSINOPHILS # (AUTO) 0.1 10^3/uL (0.0-0.6); ABSOLUTE LYMPHOCYTES (AUTO) 1.4 10^3/uL (0.5-4.7); ABSOLUTE MONOCYTES (AUTO) 0.7 10^3/uL (0.1-1.4); ABSOLUTE NEUT (AUTO) 7.7 10^3/uL (1.7-8.2); BASOPHILS % (AUTO) 0.5 % (0-2); EOSINOPHILS % (AUTO) 1.2 % (0-6); HEMATOCRIT 31.8 % (36.0-47.0); HEMOGLOBIN 10.3 g/dL (12.0-15.5); HGB HCT DIFFERENCE -0.9; LYMPHOCYTES % (AUTO) 14.2 % (13-45); MEAN CORPUSCULAR HEMOGLOBIN 24.1 pg (27.0-33.4); MEAN CORPUSCULAR HGB CONC 32.5 g/dL (32.0-36.0); MEAN CORPUSCULAR VOLUME 74 fl (80-97); MONOCYTES % (AUTO) 6.8 % (3-13); RED BLOOD COUNT 4.29 10^6/uL (3.72-5.28); RED CELL DISTRIBUTION WIDTH 21.8 % (11.5-14.0); SEGMENTED NEUTROPHILS % (AUTO) 77.3 % (42-78)
[2017-04-28 21:21] LABS: ALANINE AMINOTRANSFERASE 31 U/L (9-52); ALBUMIN 3.9 g/dL (3.5-5.0); ALKALINE PHOSPHATASE 143 U/L (38-126); ANION GAP 15 (5-19); ASPARTATE AMINO TRANSFERASE 15 U/L (14-36); BILIRUBIN,DIRECT 0.4 mg/dL (0.0-0.4); BILIRUBIN,TOTAL 0.5 mg/dL (0.2-1.3); BLOOD UREA NITROGEN 13 mg/dL (7-20); CALCIUM 8.9 mg/dL (8.4-10.2); CARBON DIOXIDE 28 mmol/L (22-30); CHLORIDE 97 mmol/L (98-107); CREATININE RESULT 0.99 mg/dL (0.52-1.25); GLUCOSE 115 mg/dL (75-110); LIPASE 70.3 U/L (23-300); POTASSIUM 3.1 mmol/L (3.6-5.0); SODIUM 139.9 mmol/L (137-145); TOTAL PROTEIN 7.6 g/dL (6.3-8.2)
[2017-04-28 21:29] LABS: APPEARANCE,URINE SLIGHTLY-CLOUDY; BILIRUBIN,URINE NEGATIVE (NEGATIVE); GLUCOSE, URINE NEGATIVE (NEGATIVE); KETONES,URINE NEGATIVE (NEGATIVE); LEUKOCYTE ESTERASE,URINE SMALL (NEGATIVE); NITRITE,URINE POSITIVE (NEGATIVE); PROTEIN,URINE NEGATIVE (NEGATIVE); URINE SPECIFIC GRAVITY 1.012; UROBILINOGEN,URINE NEGATIVE mg/dL (<2.0)
[2017-04-28] MEDS ORDERED: NITROFURANTOIN MONOHYD/M-CRYST 100 MG CAPSULE PO ONE (23:35)
[2017-04-28 23:51] VITALS: BP 132/84
== END 2017-04-28 23:51 | disposition home or self-care (01) ==
LOC: ER 20:17
DX: N39.0 Urinary tract infection, site not specified (principal); R10.9 Unspecified abdominal pain; R19.7 Diarrhea, unspecified; R11.0 Nausea
CPT/HCPCS: 96376; 99284; 96374; 96375; 36415; 87086; 83690; 85025; 87088; 80053; 81001; 87186; J2270; J2405; J3490; J8499

== ENCOUNTER 2017-04-30 17:38 | Emergency (ER) | payer MEDICAID ==
--- NOTE | 2017-04-30 18:58 | ER Document Report ---
ED Medical Screen (RME) - General Mode of Arrival: Ambulatory Information source: Patient TRAVEL OUTSIDE OF THE [place] IN LAST 30 DAYS: No - HPI Patient complains to provider of: Abdominal Pain Onset: This morning Associated Symptoms: Other - see notes above <WILMA KRAUS - Last Filed: 04/30/17 20:10> <GRACE HARRIS - Last Filed: 04/30/17 20:33> - General Chief Complaint: Abdominal Pain Stated Complaint: STOMACH PAIN AND DIARRHEA Time Seen by Provider: 04/30/17 18:51 Notes: 51-year-old female with history of multiple abdominal surgeries presents to the ED complaining of right and left-sided abdominal pain that started this morning. Patient reports that she has a hernia to the left side with open wounds and a fistula to the right side with some evans colored active drainage. Patient is additionally complaining of diarrhea, shortness of breath, and bilateral leg "tightness" from the bilateral ankles to the bilateral knees which started today. (WILMA KRAUS) - Related Data Allergies/Adverse Reactions: celecoxib [From Celebrex] Allergy (Mild, Verified 03/31/17 16:28) Urticaria aspirin [Aspirin] Allergy (Verified 03/31/17 16:28) Hives cephalexin monohydrate [From Keflex] Allergy (Verified 03/31/17 16:28) clindamycin [Clindamycin] Allergy (Verified 03/31/17 16:28) Hives lisinopril [Lisinopril] Allergy (Verified 03/31/17 16:28) methadone [Methadone] Allergy (Verified 03/31/17 16:28) metoprolol tartrate [From Lopressor] Allergy (Verified 03/31/17 16:28) Penicillins Allergy (Verified 03/31/17 16:28) Past Medical History - General Information source: Patient - Past Medical History Cardiac Medical History: Reports: Hx Hypercholesterolemia, Hx Hypertension Pulmonary Medical History: Reports: Hx Asthma, Hx Bronchitis, Hx COPD Endocrine Medical History: Reports: Hx Diabetes Mellitus Type 1, Hx Diabetes Mellitus Type 2 Renal/ Medical History: Denies: Hx Peritoneal Dialysis GI Medical History: Reports: Hx Gastroesophageal Reflux Disease, Hx Hiatal Hernia Musculoskeltal Medical History: Reports Hx Arthritis Psychiatric Medical History: Reports: Hx Anxiety, Hx Depression Infectious Medical History: Past Surgical History: Reports: Hx Abdominal Surgery - MULTIPLE VENTRAL HERNIA REPAIRS WITH DEBRIDEMENT. BOWEL OBSTRUCTION. NON-HEALING ABD WOUNDS WITH CHRONIC PAIN, Hx Bowel Surgery - Right abdominal fistula., Hx Section - x's 3, Hx Cholecystectomy, Hx Tubal Ligation - Immunizations Hx Diphtheria, Pertussis, Tetanus Vaccination: Yes <WILMA KRAUS - Last Filed: 04/30/17 20:10> Review of Systems - Review of Systems Constitutional: No symptoms reported EENT: No symptoms reported Cardiovascular: No symptoms reported Respiratory: See HPI, Short of breath Gastrointestinal: See HPI, Abdominal pain, Diarrhea Genitourinary: No symptoms reported Female Genitourinary: No symptoms reported Musculoskeletal: See HPI, Other - 'tightness' from the bilateral ankles to the knees Skin: No symptoms reported Hematologic/Lymphatic: No symptoms reported Neurological/Psychological: No symptoms reported -: Yes All other systems reviewed and negative <WILMA KRAUS - Last Filed: 04/30/17 20:10> Physical Exam - General General appearance: Alert In distress: None - Respiratory Respiratory status: No respiratory distress Breath sounds: Normal - Cardiovascular Rhythm: Regular Heart sounds: Normal auscultation Murmur: No Friction rub: No Gallop: None auscultated - Extremities General upper extremity: Normal inspection, Normal ROM General lower extremity: Edema - Trace pitting edema to the bilateral legs with chronic cellulitic changes with thickening to skin. Left leg is approximately 1cm larger in diameter than right., Normal ROM. No: Normal inspection <WILMA KRAUS - Last Filed: 04/30/17 20:10> Course - Laboratory Result Diagrams: 04/30/17 19:10 04/30/17 19:10 <WILMA KRAUS - Last Filed: 04/30/17 20:10> - Laboratory Result Diagrams: 04/30/17 19:10 04/30/17 19:10 <GRACE HARRIS - Last Filed: 04/30/17 20:33> - Vital Signs Vital signs: Temp Pulse Resp BP Pulse Ox 98.2 F 98 15 157/59 H 99 04/30/17 17:54 04/30/17 17:54 04/30/17 17:54 04/30/17 17:54 04/30/17 17:54 - Laboratory Laboratory results interpreted by me: 04/30/17 04/30/17 19:10 19:10 Hgb 10.1 L Hct 32.3 L MCV 74 L MCH 23.3 L MCHC 31.4 L RDW 21.6 H Potassium 3.2 L Glucose 134 H Scribe Documentation - Scribe Written by Renato:: Renato Obrien, 04/30/2017 2014 acting as scribe for :: Hesham <WILMA KRAUS - Last Filed: 04/30/17 20:10>
[2017-04-30] MEDS ORDERED: HYDROMORPHONE HCL INJ/PF 2 MG/ML AMPULE IM ONE (19:02)
[2017-04-30 19:33] LABS: ABSOLUTE EOSINOPHILS # (AUTO) 0.2 10^3/uL (0.0-0.6); ABSOLUTE LYMPHOCYTES (AUTO) 1.5 10^3/uL (0.5-4.7); ABSOLUTE MONOCYTES (AUTO) 0.7 10^3/uL (0.1-1.4); ABSOLUTE NEUT (AUTO) 7.7 10^3/uL (1.7-8.2); BASOPHILS % (AUTO) 0.4 % (0-2); EOSINOPHILS % (AUTO) 2.4 % (0-6); HEMATOCRIT 32.3 % (36.0-47.0); HEMOGLOBIN 10.1 g/dL (12.0-15.5); LYMPHOCYTES % (AUTO) 15.1 % (13-45); MEAN CORPUSCULAR HEMOGLOBIN 23.3 pg (27.0-33.4); MEAN CORPUSCULAR HGB CONC 31.4 g/dL (32.0-36.0); MEAN CORPUSCULAR VOLUME 74 fl (80-97); MONOCYTES % (AUTO) 6.9 % (3-13); RED BLOOD COUNT 4.35 10^6/uL (3.72-5.28); RED CELL DISTRIBUTION WIDTH 21.6 % (11.5-14.0); SEGMENTED NEUTROPHILS % (AUTO) 75.2 % (42-78); WHITE BLOOD COUNT 10.2 10^3/uL (4.0-10.5)
[2017-04-30 19:40] LABS: ALANINE AMINOTRANSFERASE 24 U/L (9-52); ALBUMIN 3.7 g/dL (3.5-5.0); ALKALINE PHOSPHATASE 123 U/L (38-126); ANION GAP 12 (5-19); ASPARTATE AMINO TRANSFERASE 14 U/L (14-36); BILIRUBIN,DIRECT 0.4 mg/dL (0.0-0.4); BILIRUBIN,TOTAL 0.4 mg/dL (0.2-1.3); BLOOD UREA NITROGEN 13 mg/dL (7-20); CALCIUM 8.9 mg/dL (8.4-10.2); CARBON DIOXIDE 28 mmol/L (22-30); CHLORIDE 100 mmol/L (98-107); CREATINE KINASE 46 U/L (30-135); CREATININE RESULT 0.92 mg/dL (0.52-1.25); GLUCOSE 134 mg/dL (75-110); POTASSIUM 3.2 mmol/L (3.6-5.0); SODIUM 140.1 mmol/L (137-145); TOTAL PROTEIN 7.3 g/dL (6.3-8.2)
[2017-04-30 19:52] LABS: CREATINE KINASE MB 0.73 ng/mL (<4.55); TROPONIN I 0.012 ng/mL
--- NOTE | 2017-04-30 20:30 | RADIOLOGY REPORT (SQ) ---
EXAM DESCRIPTION: CHEST PA/LAT COMPLETED DATE/TIME: 04/30/2017 8:21 pm REASON FOR STUDY: SOB, edema COMPARISON: 06/24/2012 EXAM PARAMETERS: NUMBER OF VIEWS: two views TECHNIQUE: Digital Frontal and Lateral radiographic views of the chest acquired. RADIATION DOSE: NA LIMITATIONS: none FINDINGS: LUNGS AND PLEURA: No opacities, masses or pneumothorax. No pleural effusion. MEDIASTINUM AND HILAR STRUCTURES: No masses or contour abnormalities. HEART AND VASCULAR STRUCTURES: Heart normal size. No evidence for failure. BONES: No acute findings. HARDWARE: None in the chest. OTHER: No other significant finding. IMPRESSION: NO SIGNIFICANT RADIOGRAPHIC FINDING IN THE CHEST. TECHNICAL DOCUMENTATION: JOB ID: [id number] [employer]- All Rights Reserved
--- NOTE | 2017-04-30 20:55 | EKG REPORT ---
SEVERITY:- ABNORMAL ECG - SINUS RHYTHM BORDERLINE PROLONGED QT INTERVAL : Confirmed by: David Fan 30-Apr-2017 20:54:34
--- NOTE | 2017-04-30 21:00 | ER Document Report ---
ED General - General Chief Complaint: Abdominal Pain Stated Complaint: STOMACH PAIN AND DIARRHEA Time Seen by Provider: 04/30/17 18:51 Mode of Arrival: Ambulatory Notes: Patient is a 61-year-old female, morbidly obese, has a history of chronic abdominal wounds, hypertension, hyperlipidemia who presents with 24 hours of diarrhea as well as abdominal cramping. States "the pain was so bad I thought I was going to until I got that shot of Dilaudid". Describes the pain as a dull, constant, diffuse cramping and aching pain associated with episodes of diarrhea. She was seen 2 days ago in the emergency department for complaint of diarrhea and started on antibiotics at that time for possible urinary tract infection. Patient however states that she did not begin having diarrhea until today. She has been treating her diarrhea with Imodium which she states has moderately improved her symptoms. She is uncertain if anything has worsened her symptoms. She has not seen her primary care doctor regarding today's concerns. Denies any vomiting and states she has been able to tolerate oral intake without difficulty. TRAVEL OUTSIDE OF THE [place] IN LAST 30 DAYS: No - Related Data Allergies/Adverse Reactions: celecoxib [From Celebrex] Allergy (Mild, Verified 03/31/17 16:28) Urticaria aspirin [Aspirin] Allergy (Verified 03/31/17 16:28) Hives cephalexin monohydrate [From Keflex] Allergy (Verified 03/31/17 16:28) clindamycin [Clindamycin] Allergy (Verified 03/31/17 16:28) Hives lisinopril [Lisinopril] Allergy (Verified 03/31/17 16:28) methadone [Methadone] Allergy (Verified 03/31/17 16:28) metoprolol tartrate [From Lopressor] Allergy (Verified 03/31/17 16:28) Penicillins Allergy (Verified 03/31/17 16:28) Past Medical History - General Information source: Patient - Social History Smoking Status: Never Smoker Frequency of alcohol use: None Drug Abuse: None Lives with: Family Family History: Reviewed & Not Pertinent Patient has suicidal ideation: No Patient has homicidal ideation: No - Past Medical History Cardiac Medical History: Reports: Hx Hypercholesterolemia, Hx Hypertension Denies: Hx Heart Murmur Pulmonary Medical History: Reports: Hx Asthma, Hx Bronchitis, Hx COPD Denies: Hx Respiratory Failure, Hx Sleep Apnea, Hx Tuberculosis Endocrine Medical History: Reports: Hx Diabetes Mellitus Type 1, Hx Diabetes Mellitus Type 2 Renal/ Medical History: Denies: Hx Peritoneal Dialysis GI Medical History: Reports: Hx Gastroesophageal Reflux Disease, Hx Hiatal Hernia Musculoskeltal Medical History: Reports Hx Arthritis Psychiatric Medical History: Reports: Hx Anxiety, Hx Depression Infectious Medical History: Past Surgical History: Reports: Hx Abdominal Surgery - MULTIPLE VENTRAL HERNIA REPAIRS WITH DEBRIDEMENT. BOWEL OBSTRUCTION. NON-HEALING ABD WOUNDS WITH CHRONIC PAIN, Hx Bowel Surgery - Right abdominal fistula., Hx Section - x's 3, Hx Cholecystectomy, Hx Tubal Ligation - Immunizations Hx Diphtheria, Pertussis, Tetanus Vaccination: Yes Hx Pneumococcal Vaccination: 02/28/12 Review of Systems - Review of Systems Notes: Constitutional: Negative for fever. HENT: Negative for sore throat. Eyes: Negative for visual changes. Cardiovascular: Negative for chest pain. Respiratory: Negative for shortness of breath. Gastrointestinal: Positive for abdominal pain and diarrhea Genitourinary: Negative for dysuria. Musculoskeletal: Negative for back pain. Skin: Negative for rash. Neurological: Negative for headaches, weakness or numbness. 10 point ROS negative except as marked above and in HPI. Physical Exam - Vital signs Vitals: Temp Pulse Resp BP Pulse Ox 98.2 F 98 15 157/59 H 99 04/30/17 17:54 04/30/17 17:54 04/30/17 17:54 04/30/17 17:54 04/30/17 17:54 Interpretation: Hypertensive Notes: PHYSICAL EXAMINATION: GENERAL: Morbidly obese. Well-appearing, well-nourished and in no acute distress. HEAD: Atraumatic, normocephalic. EYES: Pupils equal round and reactive to light, extraocular movements intact, sclera anicteric, conjunctiva are normal. ENT: nares patent, oropharynx clear without exudates. Moist mucous membranes. NECK: Normal range of motion, supple without lymphadenopathy LUNGS: Breath sounds clear to auscultation bilaterally and equal. No wheezes rales or rhonchi. HEART: Regular rate and rhythm without murmurs ABDOMEN: Morbidly obese abdomen. Multiple, chronic, well-healing wounds over the lower pannus. Soft, nontender, normoactive bowel sounds. No guarding, no rebound. No masses appreciated. EXTREMITIES: Normal range of motion, no pitting or edema. No cyanosis. NEUROLOGICAL: No focal neurological deficits. Moves all extremities spontaneously and on command. PSYCH: Normal mood, normal affect. SKIN: Warm, Dry, normal turgor, no rashes or lesions noted. Course - Re-evaluation Re-evalutation: 04/30/17 20:55 Patient presents with abdominal cramping and diarrhea that is been present for the past 36 hours. Patient is overall extremely well in appearance, vitals within normal limits at time of assessment. Of note, she has not had any diarrheal bowel movements while here in the emergency department for the past several hours and again has been unable to provide a stool sample. Patient has some chronic wounds on the pannus without any active bleeding or signs of active infection. Suspect a component of her diarrhea may be due to her recent initiation of antibiotics for a urinary tract infection. Patient also apparently has been complaining of some lower extremity tightness. Leg exam shows trace edema bilateral lower extremities is equal and symmetric. In triage labs were sent which are unchanged from patient's baseline without any evidence of acute dehydration, leukocytosis or anemia. No indication for further workup or imaging at this time. Of note, patient has been in the emergency department 13 times in the past 16 months for complaints related to diarrhea or abdominal pain. She has also had 4 CT scans of her abdomen and pelvis in that short period of time placing it is substantially higher risk for medical imaging induced malignancy. I do not suspect an acute bowel obstruction , bowel perforation, enterocutaneous fistula, mesenteric ischemia, acute biliary pathology, or an acute appendicitis based on her exam, labs, vitals and history today to indicate a need for repeat imaging of the abdomen pelvis at this time. At this time will discharge with return precautions and follow-up recommendations. Verbal discharge instructions given a the bedside and opportunity for questions given. Medication warnings reviewed. Patient is in agreement with this plan and has verbalized understanding of return precautions and the need for primary care follow-up in the next 24-72 hours. - Vital Signs Vital signs: Temp Pulse Resp BP Pulse Ox 98.5 F 69 18 149/65 H 100 04/30/17 21:38 04/30/17 21:38 04/30/17 21:38 04/30/17 21:38 04/30/17 21:38 - Laboratory Result Diagrams: 04/30/17 19:10 04/30/17 19:10 Laboratory results interpreted by me: 04/30/17 04/30/17 04/30/17 19:10 19:10 20:38 Hgb 10.1 L Hct 32.3 L MCV 74 L MCH 23.3 L MCHC 31.4 L RDW 21.6 H Potassium 3.2 L Glucose 134 H Urine Protein 30 H - Diagnostic Test Radiology reviewed: Image reviewed, Reports reviewed Radiology results interpreted by me: 05/01/17 03:46 Chest x-ray: No acute infiltrate or pneumothorax - EKG Interpretation by Me Additional EKG results interpreted by me: 05/01/17 03:46 Normal sinus rhythm. Rate 69. No ST elevations or depressions. QTC is 497. Discharge - Discharge Clinical Impression: Abdominal cramping Diarrhea Qualifiers: Diarrhea type: unspecified type Qualified Code(s): R19.7 - Diarrhea, unspecified Condition: Stable Disposition: HOME, SELF-CARE Instructions: Abdominal Pain ([facility]) Additional Instructions: You have been seen in the Emergency Department (ED) for abdominal pain. Your evaluation did not identify a clear cause of your symptoms but was generally reassuring. You do need to continue taking antibiotics as your urine culture was positive for an infection Please follow up with your doctor as soon as possible regarding today's emergent visit and the symptoms that are bothering you. Return to the ED if your abdominal pain worsens or fails to improve, you develop bloody vomiting, bloody diarrhea, you are unable to tolerate fluids due to vomiting, fever greater than 101, or other symptoms that concern you. Referrals: CHRISTINA GRANT MD [Primary Care Provider] - Follow up as needed
[2017-04-30 21:11] LABS: APPEARANCE,URINE SLIGHTLY-CLOUDY; BILIRUBIN,URINE NEGATIVE (NEGATIVE); GLUCOSE, URINE NEGATIVE (NEGATIVE); KETONES,URINE NEGATIVE (NEGATIVE); LEUKOCYTE ESTERASE,URINE NEGATIVE (NEGATIVE); NITRITE,URINE NEGATIVE (NEGATIVE); PROTEIN,URINE 30 mg/dL (NEGATIVE); URINE SPECIFIC GRAVITY 1.024; UROBILINOGEN,URINE NEGATIVE mg/dL (<2.0)
[2017-04-30 21:42] VITALS: BP 149/65
== END 2017-04-30 21:42 | disposition home or self-care (01) ==
LOC: ER 17:38
DX: R10.84 Generalized abdominal pain (principal); R19.7 Diarrhea, unspecified; R60.0 Localized edema; I10 Essential (primary) hypertension; J44.9 Chronic obstructive pulmonary disease, unspecified; E11.9 Type 2 diabetes mellitus without complications; E66.01 Morbid (severe) obesity due to excess calories; Z68.42 Body mass index [BMI] 45.0-49.9, adult; Z88.5 Allergy status to narcotic agent; Z88.6 Allergy status to analgesic agent; Z88.8 Allergy status to other drugs, medicaments and biological substances; Z88.1 Allergy status to other antibiotic agents; Z88.0 Allergy status to penicillin; Z87.19 Personal history of other diseases of the digestive system; Z90.49 Acquired absence of other specified parts of digestive tract
CPT/HCPCS: 93005; 99284; 96372; 36415; 82553; 82550; 85025; 80053; 81001; 84484; 83880; 71020; 93010; J1170

== ENCOUNTER 2017-05-02 14:35 | Emergency (ER) | payer MEDICAID ==
[2017-05-02 15:34] LABS: APPEARANCE,URINE CLEAR; BILIRUBIN,URINE NEGATIVE (NEGATIVE); GLUCOSE, URINE NEGATIVE (NEGATIVE); KETONES,URINE NEGATIVE (NEGATIVE); LEUKOCYTE ESTERASE,URINE NEGATIVE (NEGATIVE); NITRITE,URINE NEGATIVE (NEGATIVE); PROTEIN,URINE NEGATIVE (NEGATIVE); URINE SPECIFIC GRAVITY 1.005; UROBILINOGEN,URINE NEGATIVE mg/dL (<2.0)
[2017-05-02] MEDS ORDERED: OXYCODONE HCL IR 5 MG TABLET PO ONE ×2 (15:35→18:16)
[2017-05-02 15:56] LABS: ALANINE AMINOTRANSFERASE 21 U/L (9-52); ALBUMIN 3.6 g/dL (3.5-5.0); ALKALINE PHOSPHATASE 126 U/L (38-126); ANION GAP 12 (5-19); ASPARTATE AMINO TRANSFERASE 15 U/L (14-36); BILIRUBIN,DIRECT 0.4 mg/dL (0.0-0.4); BILIRUBIN,TOTAL 0.4 mg/dL (0.2-1.3); BLOOD UREA NITROGEN 16 mg/dL (7-20); CALCIUM 8.7 mg/dL (8.4-10.2); CARBON DIOXIDE 28 mmol/L (22-30); CHLORIDE 100 mmol/L (98-107); CREATININE RESULT 0.91 mg/dL (0.52-1.25); GLUCOSE 112 mg/dL (75-110); MAGNESIUM 1.9 mg/dL (1.6-2.3); POTASSIUM 3.3 mmol/L (3.6-5.0); SODIUM 139.7 mmol/L (137-145)
[2017-05-02 16:07] LABS: ABSOLUTE EOSINOPHILS # (AUTO) 0.3 10^3/uL (0.0-0.6); ABSOLUTE LYMPHOCYTES (AUTO) 1.5 10^3/uL (0.5-4.7); ABSOLUTE MONOCYTES (AUTO) 0.8 10^3/uL (0.1-1.4); ABSOLUTE NEUT (AUTO) 7.9 10^3/uL (1.7-8.2); BASOPHILS % (AUTO) 0.4 % (0-2); EOSINOPHILS % (AUTO) 2.8 % (0-6); HEMATOCRIT 30.8 % (36.0-47.0); HEMOGLOBIN 9.9 g/dL (12.0-15.5); HGB HCT DIFFERENCE -1.1; LYMPHOCYTES % (AUTO) 14.5 % (13-45); MEAN CORPUSCULAR HEMOGLOBIN 23.8 pg (27.0-33.4); MEAN CORPUSCULAR HGB CONC 32.1 g/dL (32.0-36.0); MEAN CORPUSCULAR VOLUME 74 fl (80-97); MONOCYTES % (AUTO) 7.6 % (3-13); RED BLOOD COUNT 4.14 10^6/uL (3.72-5.28); RED CELL DISTRIBUTION WIDTH 21.5 % (11.5-14.0); SEGMENTED NEUTROPHILS % (AUTO) 74.7 % (42-78); WHITE BLOOD COUNT 10.6 10^3/uL (4.0-10.5)
--- NOTE | 2017-05-02 16:58 | RADIOLOGY REPORT (SQ) ---
EXAM DESCRIPTION: KUB/ABDOMEN (SINGLE VIEW) COMPLETED DATE/TIME: 05/02/2017 4:30 pm REASON FOR STUDY: abdominal pain COMPARISON: None. NUMBER OF VIEWS: One view. TECHNIQUE: Supine radiographic image of the abdomen acquired. LIMITATIONS: None. FINDINGS: BOWEL GAS PATTERN: Normal bowel gas pattern. No dilated loops. CALCIFICATIONS: No suspicious calcifications. SOFT TISSUES: No gross mass or suggestion of organomegaly. HARDWARE: No indwelling lines. Cholecystectomy clips. Coils related to previous ventral hernia repa ir. BONES: No acute fracture. No worrisome bone lesions. OTHER: No other significant finding. IMPRESSION: NO RADIOGRAPHIC EVIDENCE FOR ACUTE ABDOMINAL DISEASE. TECHNICAL DOCUMENTATION: JOB ID: [id number] [employer]- All Rights Reserved
[2017-05-02] MEDS ORDERED: LIDOCAINE 5% (700 MG) TRANSDERMAL ADH..PATCH TP ONE (17:18)
[2017-05-02 18:34] VITALS: BP 156/59
--- NOTE | 2017-05-02 19:01 | ER Document Report ---
ED GI/ - General Chief Complaint: Abdominal Pain Stated Complaint: ABDOMINAL PAIN Time Seen by Provider: 05/02/17 15:14 Notes: Patient is a 61-year-old female morbidly obese, has a history of chronic abdominal wounds, hypertension, hyperlipidemia who returns emergency department complaining of abdominal pain but also generalized pain. She admits to lower extremity pain left greater than the right with lower extremity swelling. Patient has known chronic abdominal ulcers on her pannus that she has been going to wound care for. She states that she is a burning sensation around the wounds. She was also recently evaluated for urinary tract infection, diarrhea. She has been taking her antibiotics as prescribed.. Patient states that her diarrhea has resolved she still feels like she has belly cramps. Admits to normal bowel movements. Regarding her lower extremity pain. Patient states that she has been suffering from that for a couple of days. States that her left hurts as a burning pain. She states the last time she was evaluated for DVT was in August. She has not seen her primary care doctor regarding today's concerns. Denies any vomiting and states she has been able to tolerate oral intake without difficulty. TRAVEL OUTSIDE OF THE [place] IN LAST 30 DAYS: No - Related Data Allergies/Adverse Reactions: celecoxib [From Celebrex] Allergy (Mild, Verified 03/31/17 16:28) Urticaria aspirin [Aspirin] Allergy (Verified 03/31/17 16:28) Hives cephalexin monohydrate [From Keflex] Allergy (Verified 03/31/17 16:28) clindamycin [Clindamycin] Allergy (Verified 03/31/17 16:28) Hives lisinopril [Lisinopril] Allergy (Verified 03/31/17 16:28) methadone [Methadone] Allergy (Verified 03/31/17 16:28) metoprolol tartrate [From Lopressor] Allergy (Verified 03/31/17 16:28) Penicillins Allergy (Verified 03/31/17 16:28) Past Medical History - Social History Smoking Status: Unknown if Ever Smoked Family History: None - Past Medical History Cardiac Medical History: Reports: Hx Hypercholesterolemia, Hx Hypertension Denies: Hx Heart Murmur Pulmonary Medical History: Reports: Hx Asthma, Hx Bronchitis, Hx COPD Denies: Hx Respiratory Failure, Hx Sleep Apnea, Hx Tuberculosis Endocrine Medical History: Reports: Hx Diabetes Mellitus Type 1, Hx Diabetes Mellitus Type 2 Renal/ Medical History: Denies: Hx Peritoneal Dialysis GI Medical History: Reports: Hx Gastroesophageal Reflux Disease, Hx Hiatal Hernia Musculoskeltal Medical History: Reports Hx Arthritis Psychiatric Medical History: Reports: Hx Anxiety, Hx Depression Infectious Medical History: Past Surgical History: Reports: Hx Abdominal Surgery - MULTIPLE VENTRAL HERNIA REPAIRS WITH DEBRIDEMENT. BOWEL OBSTRUCTION. NON-HEALING ABD WOUNDS WITH CHRONIC PAIN, Hx Bowel Surgery - Right abdominal fistula., Hx Section - x's 3, Hx Cholecystectomy, Hx Tubal Ligation - Immunizations Hx Diphtheria, Pertussis, Tetanus Vaccination: Yes Hx Pneumococcal Vaccination: 02/28/12 Review of Systems - Review of Systems Constitutional: No symptoms reported Gastrointestinal: See HPI Skin: See HPI -: Yes All other systems reviewed and negative Physical Exam - Vital signs Vitals: Resp Pulse Ox 10 L 100 05/02/17 14:47 05/02/17 14:47 - Notes Notes: PHYSICAL EXAM GENERAL: Alert, interacts well. HEAD: Normocephalic, atraumatic. EYES: Pupils equal, round, and reactive to light. Extraocular movements intact. ENT: Oral mucosa moist, tongue midline. NECK: Full range of motion. Supple. Trachea midline. LUNGS: Clear to auscultation bilaterally, no wheezes, rales, or rhonchi. No respiratory distress. HEART: Regular rate and rhythm. No murmurs, gallops, or rubs. ABDOMEN: Soft, obese, nondistended, nontender. No guarding, rebound, or rigidity.. Bowel sounds present in all 4 quadrants. Evidence of 2 chronic healing superficial ulcerations under pannus that are mildly tender but without any purulent drainage, surrounding cellulitis. EXTREMITIES: Moves all 4 extremities spontaneously. Pitting edema noted bilaterally with chronic vascular changes noted on the left lower extremity, radial and dorsalis pedis pulses 2/4 bilaterally. No cyanosis. NEUROLOGICAL: Alert and oriented x4. Normal speech. PSYCH: Normal affect, normal mood. SKIN: Warm, dry, normal turgor. No rashes or lesions noted. Course - Re-evaluation Re-evalutation: 05/02/17 19:28 Patient presents today with chronic abdominal pain as well as lower extremity pain. Patient is overall extremely well in appearance, vitals within normal limits. Patient has chronic wounds on her pannus without any active bleeding, signs of infection. Patient was given her home doses of oxycodone which helped control her pain. Further review of her chart and discussion with the patient reveals that the patient has been acutely decreased on her chronic narcotics from pain management over the past 3 weeks and with that has had increase in her abdominal pain and other chronic pain. Discussed with patient that her pain is likely due to the fact that she is in withdrawal from her opiates. I do not suspect an acute bowel obstruction, bowel perforation, enterocutaneous fistula, mesenteric ischemia, acute biliary pathology, or an acute appendicitis based on her exam, labs, vitals and history today to indicate a need for repeat imaging of the abdomen pelvis at this time. At this time will discharge with return precautions and follow-up recommendations. Verbal discharge instructions given a the bedside and opportunity for questions given. Medication warnings reviewed. Patient is in agreement with this plan and has verbalized understanding of return precautions and the need for primary care follow-up in the next 24-72 hours. Lower extremity evaluation did not reveal any evidence of electrolyte abnormalities or DVTs of the lower extremity. - Vital Signs Vital signs: Temp Pulse Resp BP Pulse Ox 98.4 F 73 15 156/59 H 100 05/02/17 15:03 05/02/17 15:03 05/02/17 18:24 05/02/17 18:24 05/02/17 18:24 - Laboratory Result Diagrams: 05/02/17 14:57 05/02/17 14:57 Laboratory results interpreted by me: 05/02/17 05/02/17 14:57 14:57 WBC 10.6 H Hgb 9.9 L Hct 30.8 L MCV 74 L MCH 23.8 L RDW 21.5 H Potassium 3.3 L Glucose 112 H - Diagnostic Test Radiology reviewed: Image reviewed, Reports reviewed Discharge - Discharge Clinical Impression: Chronic pain Qualifiers: Chronic pain type: chronic pain syndrome Qualified Code(s): G89.4 - Chronic pain syndrome Chronic abdominal wound infection Qualifiers: Encounter type: subsequent encounter Qualified Code(s): S31.109D - Unspecified open wound of abdominal wall, unspecified quadrant without penetration into peritoneal cavity, subsequent encounter Leg pain Qualifiers: Laterality: left Qualified Code(s): M79.605 - Pain in left leg Condition: Good Disposition: HOME, SELF-CARE Instructions: Lymphedema ([facility]) Additional Instructions: Chronic Pain Control Stress, inactivity, and depression make pain more severe regardless of the cause of the pain. Stress and poor physical condition can cause pain such as headaches and backache. Relaxation: Rest in a quiet place with your eyes closed for 20 minutes twice daily. Concentrate on a pleasant image, or simply "feel" your breathing. Clear your mind. Stress management: Deal with your "stressors." Either take action, or eliminate the stressor from your life. Don't let things hang over you. Accept those things you can't change. Nutrition: Eat small, balanced meals -- don't skip, don't overeat. Meals should be high-carbohydrate, low-sugar, low-fat. Exercise: Exercise helps painful conditions and eases stress. Get 30 minutes of moderate exercise, five days a week. Do an activity that does not flare your pain. Precautions: Pain which continues to disrupt daily activities, or which changes in nature, requires a medical evaluation. Pain Clinic referral is available. We do not manage chronic pain in the Emergency Department. We will try to appropriately help you through an acute flare of your chronic painful condition , but for on-going chronic pain that does not improve, you will need to see your private doctor or cork painter and grader. We do not provide repeated medication management of chronic painful conditions. If you wish, we can provide the name of local pain management physicians. Prescriptions: Lidocaine [Lidoderm 5% (700 mg) Transdermal Patch] 1 patch TP DAILY #10 adh..patch Phenazopyridine HCl [Pyridium] 200 mg PO TID #6 tablet Forms: Elevated Blood Pressure Referrals: CHRISTINA GRANT MD [Primary Care Provider] - Follow up as needed
--- NOTE | 2017-05-02 19:19 | RADIOLOGY REPORT (SQ) ---
EXAM DESCRIPTION: VENOUS UNILATERAL LOWER COMPLETED DATE/TIME: 05/02/2017 6:53 pm REASON FOR STUDY: LE swelling and pain COMPARISON: None. TECHNIQUE: Dynamic and static hanson scale and color images acquired of the left leg venous system. Se lected spectral images acquired with additional compression and augmentation maneuvers. The contralat eral common femoral vein and saphenofemoral junction were also imaged. Images stored on PACS. LIMITATIONS: None. FINDINGS: COMMON FEMORAL: Normal phasicity, compression and augmentation. No visualized echogenic ma terial on hanson scale. No defects on color images. FEMORAL: Normal compression and augmentation. No visualized echogenic material on hanson scale. No defe cts on color images. POPLITEAL: Normal compression, augmentation. No visualized echogenic material on hanson scale. No defec ts on color images. CALF VESSELS: Normal compression, augmentation. No visualized echogenic material on hanson scale. No de fects on color images. GSV and SSV: Normal compression, augmentation. No visualized echogenic material on hanson scale. No def ects on color images. ANY DEEP VENOUS INSUFFICIENCY: Not evaluated. ANY EVIDENCE OF POPLITEAL CYST: No. OTHER: No other significant finding. CONTRALATERAL COMMON FEMORAL VEIN AND SAPHENOFEMORAL JUNCTION: Normal phasicity, compression and augmentation. No visualized echogenic material on hanson scale. No de fects on color images. IMPRESSION: NO EVIDENCE DVT OR SVT IN THE LEFT LEG. TECHNICAL DOCUMENTATION: JOB ID: [id number] [employer]- All Rights Reserved
== END 2017-05-02 19:06 | disposition home or self-care (01) ==
LOC: ER 14:35
DX: E11.622 Type 2 diabetes mellitus with other skin ulcer (principal); L98.499 Non-pressure chronic ulcer of skin of other sites with unspecified severity; G89.4 Chronic pain syndrome; R10.9 Unspecified abdominal pain; M79.605 Pain in left leg; M79.604 Pain in right leg; F11.23 Opioid dependence with withdrawal; R60.0 Localized edema; E66.01 Morbid (severe) obesity due to excess calories; I10 Essential (primary) hypertension; J44.9 Chronic obstructive pulmonary disease, unspecified; Z88.8 Allergy status to other drugs, medicaments and biological substances; Z88.6 Allergy status to analgesic agent; Z88.1 Allergy status to other antibiotic agents; Z88.5 Allergy status to narcotic agent
CPT/HCPCS: 99284; 36415; 85025; 83735; 80053; 81001; 93971; 74000; J3490 ×2

== ENCOUNTER 2017-05-03 19:55 | Emergency (ER) | payer MEDICAID, OTHER ==
[2017-05-03] MEDS ORDERED: HYDROMORPHONE HCL INJ/PF 2 MG/ML AMPULE IV ONE (22:44)
[2017-05-03] MEDS ORDERED: ONDANSETRON HCL INJ/PF 4 MG/2 ML SDV IV ONE (22:44)
[2017-05-03] MEDS ORDERED: ACETAMINOPHEN 325 MG TABLET PO ONE (22:55)
--- NOTE | 2017-05-03 22:55 | ER Document Report ---
ED General - General Chief Complaint: Wound Recheck Stated Complaint: ABDOMINAL PAIN Time Seen by Provider: 05/03/17 21:58 Mode of Arrival: Medic Information source: Patient TRAVEL OUTSIDE OF THE [place] IN LAST 30 DAYS: No - HPI Notes: Patient is a 54-year-old female history of chronic left lower quadrant hernia and open wounds to the lower abdomen and a enterocutaneous fistula and chronic narcotic dependence presents emergency department with report that she has had continued pain to the abdomen in excess of her previous chronic pain and states that she is unable to obtain appropriate relief with her regular pain management regimen. She also reports some chills and has a fever of 100.0 on arrival. She denies any cough or congestion. No chest pain or shortness of breath. She has been seen 3 times in the last 3 days for the same complaint. The patient had a negative urinalysis yesterday, but is still finishing off antibiotics for a previous diagnosed urinary tract infection. The patient reports some diarrhea and question seen blood on previously. She was previously admitted for significant bleeding from a open wound on the left lower abdominal region 1 month ago and received 4 units of transfusion. She has been released by the wound care clinic from that wound. The patient states she is following up with pain management, but was cut back from fentanyl recently. She also was cut back from her oxycodone dosage in November from 30 mg to 10 mg. - Related Data Allergies/Adverse Reactions: celecoxib [From Celebrex] Allergy (Mild, Verified 03/31/17 16:28) Urticaria aspirin [Aspirin] Allergy (Verified 03/31/17 16:28) Hives cephalexin monohydrate [From Keflex] Allergy (Verified 03/31/17 16:28) clindamycin [Clindamycin] Allergy (Verified 03/31/17 16:28) Hives lisinopril [Lisinopril] Allergy (Verified 03/31/17 16:28) methadone [Methadone] Allergy (Verified 03/31/17 16:28) metoprolol tartrate [From Lopressor] Allergy (Verified 03/31/17 16:28) Penicillins Allergy (Verified 03/31/17 16:28) Past Medical History - General Information source: Patient - Social History Smoking Status: Never Smoker Chew tobacco use (# tins/day): No Frequency of alcohol use: None Drug Abuse: None Family History: None - Past Medical History Cardiac Medical History: Reports: Hx Hypercholesterolemia, Hx Hypertension Denies: Hx Heart Murmur Pulmonary Medical History: Reports: Hx Asthma, Hx Bronchitis, Hx COPD Denies: Hx Respiratory Failure, Hx Sleep Apnea, Hx Tuberculosis Endocrine Medical History: Reports: Hx Diabetes Mellitus Type 1, Hx Diabetes Mellitus Type 2 Renal/ Medical History: Denies: Hx Peritoneal Dialysis GI Medical History: Reports: Hx Gastroesophageal Reflux Disease, Hx Hiatal Hernia Musculoskeltal Medical History: Reports Hx Arthritis Psychiatric Medical History: Reports: Hx Anxiety, Hx Depression Infectious Medical History: Past Surgical History: Reports: Hx Abdominal Surgery - MULTIPLE VENTRAL HERNIA REPAIRS WITH DEBRIDEMENT. BOWEL OBSTRUCTION. NON-HEALING ABD WOUNDS WITH CHRONIC PAIN, Hx Bowel Surgery - Right abdominal fistula., Hx Section - x's 3, Hx Cholecystectomy, Hx Tubal Ligation - Immunizations Hx Diphtheria, Pertussis, Tetanus Vaccination: Yes Hx Pneumococcal Vaccination: 02/28/12 Review of Systems - Review of Systems Notes: REVIEW OF SYSTEMS: CONSTITUTIONAL : Denies recent illness. EENT: Denies eye, ear, throat, or mouth pain or symptoms. Denies nasal or sinus congestion or discharge. Denies throat, tongue, or mouth swelling or difficulty swallowing. CARDIOVASCULAR: Denies chest pain. Denies palpitations or racing or irregular heart beat. Denies ankle edema. RESPIRATORY: Denies cough, cold, or chest congestion. Denies shortness of breath, difficulty breathing, or wheezing. GASTROINTESTINAL: denies vomiting. Denies blood in vomitus, stools, or per rectum. Denies black, tarry stools. GENITOURINARY: Denies difficulty urinating, painful urination, burning, frequency, blood in urine, or discharge. FEMALE GENITOURINARY: Denies vaginal bleeding, heavy or abnormal periods, irregular periods. Denies vaginal discharge or odor. MUSCULOSKELETAL: Denies back or neck pain or stiffness. Denies joint pain or swelling. SKIN: Denies rash, lesions or sores. HEMATOLOGIC : Denies easy bruising or bleeding. LYMPHATIC: Denies swollen, enlarged glands. NEUROLOGICAL: Denies confusion or altered mental status. Denies passing out or loss of consciousness. Denies dizziness or lightheadedness. Denies headache. Denies weakness or paralysis or loss of use of either side. Denies problems with gait or speech. Denies sensory loss, numbness, or tingling. Denies seizures. PSYCHIATRIC: Denies anxiety or stress. Denies depression, suicidal ideation, or homicidal ideation. ALL OTHER SYSTEMS REVIEWED AND NEGATIVE. Dictation was performed using [employer] voice recognition software Physical Exam - Vital signs Vitals: Temp Pulse Resp BP Pulse Ox 97.9 F 79 19 148/68 H 100 05/03/17 20:12 05/03/17 20:12 05/03/17 20:12 05/03/17 20:12 05/03/17 20:12 - Notes Notes: PHYSICAL EXAMINATION: GENERAL: Well-appearing, well-nourished and in no acute distress. HEAD: Atraumatic, normocephalic. EYES: Pupils equal round and reactive to light, extraocular movements intact, conjunctiva are normal. ENT: Nares patent, oropharynx clear without exudates. Moist mucous membranes. NECK: Normal range of motion, supple without lymphadenopathy LUNGS: Breath sounds clear to auscultation bilaterally and equal. No wheezes rales or rhonchi. HEART: Regular rate and rhythm without murmurs ABDOMEN: Soft, tender through the left abdominal region where there is a abdominal wall hernia that is reducible and large in size where there is no concern for incarceration. There is some stage II breakdown to the left lower abdominal region where there is no active bleeding or active evidence for infection.. No guarding, no rebound. patient has an Enterocutaneous fistula on the right mid to lower abdominal region with 2 small 1 cm openings that have a foul-smelling grayish drainage coming from them. Approximately 30 cc was on gauze which was removed from the wound dressing the patient had placed at home 3 hours previously. I was able to obtain another 30 cc just by general palpation to the area. This was sent for culture. Female : deferred Musculoskeletal: Normal range of motion. No cyanosis. Patient has trace edema right lower extremity and 2+ edema left lower extremity. No significant cellulitis. Patient had a negative DVT ultrasound of the left lower extremity yesterday. NEUROLOGICAL: Cranial nerves grossly intact. Normal speech, normal gait. Normal sensory, motor exams PSYCH: Normal mood, normal affect. SKIN: Warm, Dry, normal turgor, no rashes or lesions noted. Course - Re-evaluation Re-evalutation: 05/03/17 22:55 Rectal temperature was 100.0. Patient was given Tylenol. Blood cultures and a lactate were ordered on the patient. 05/04/17 02:29 Wound culture was taken from the enterocutaneous fistula on the abdomen. Patient was given Bactrim by mouth based upon previous culture results in the patient's current allergy listings. CT scan Of the abdomen with oral and IV contrastdid not show significant fistula or residual abscess or obstruction or other acute abnormality. Lactic acid level was normal and patient's white blood cell count was actually improved from yesterday. The patient on questioning stated that her fentanyl had been stopped back in November. However [facility] showed that the patient had last received fentanyl in March. Confronted the patient about this finding. I told the patient she could be arrested for falsifying information and trying to receive narcotics. The patient recanted that she thought she had had forgotten and maybe she did get the fentanyl filled more recently. I informed the patient that she should not return to the emergency department for any narcotic analgesi and she needs to follow-up with her regular practitioner as instructed. Urinalysis yesterday was negative, so this was not repeated. There is no evidence for significant bleeding or renal insufficiency or hepatitis or pancreatitis. - Vital Signs Vital signs: Temp Pulse Resp BP Pulse Ox 97.9 F 79 19 148/68 H 100 05/03/17 20:12 05/03/17 20:12 05/03/17 20:12 05/03/17 20:12 05/03/17 20:12 - Laboratory Result Diagrams: 05/03/17 23:20 05/03/17 23:20 Laboratory results interpreted by me: 05/03/17 05/03/17 23:20 23:20 Hgb 10.6 L Hct 32.9 L MCV 74 L MCH 24.0 L RDW 21.7 H Potassium 3.4 L Glucose 133 H Alkaline Phosphatase 135 H Discharge - Discharge Clinical Impression: Narcotic abuse, Abdominal pain, chronic, generalized, Enterocutaneous fistula Condition: Stable Disposition: HOME, SELF-CARE Instructions: Narcotic Abuse ([facility]), Abdominal Pain ([facility]) Additional Instructions: Do not return to the E.D. for pain medications. Return to E.D. in case of fever. Prescriptions: Sulfamethoxazole/Trimethoprim [Bactrim Ds Tablet] 1 each PO BID #20 tablet
[2017-05-03 23:31] LABS: ABSOLUTE BASOPHILS # (AUTO) 0.1 10^3/uL (0.0-0.2); ABSOLUTE EOSINOPHILS # (AUTO) 0.2 10^3/uL (0.0-0.6); ABSOLUTE LYMPHOCYTES (AUTO) 1.3 10^3/uL (0.5-4.7); ABSOLUTE MONOCYTES (AUTO) 0.6 10^3/uL (0.1-1.4); BASOPHILS % (AUTO) 0.7 % (0-2); EOSINOPHILS % (AUTO) 2.5 % (0-6); HEMATOCRIT 32.9 % (36.0-47.0); HEMOGLOBIN 10.6 g/dL (12.0-15.5); HGB HCT DIFFERENCE -1.1; LYMPHOCYTES % (AUTO) 14.5 % (13-45); MEAN CORPUSCULAR HGB CONC 32.3 g/dL (32.0-36.0); MEAN CORPUSCULAR VOLUME 74 fl (80-97); MONOCYTES % (AUTO) 6.1 % (3-13); RED BLOOD COUNT 4.43 10^6/uL (3.72-5.28); RED CELL DISTRIBUTION WIDTH 21.7 % (11.5-14.0); SEGMENTED NEUTROPHILS % (AUTO) 76.2 % (42-78); WHITE BLOOD COUNT 9.2 10^3/uL (4.0-10.5)
[2017-05-03 23:58] LABS: ALANINE AMINOTRANSFERASE 26 U/L (9-52); ALBUMIN 3.9 g/dL (3.5-5.0); ALKALINE PHOSPHATASE 135 U/L (38-126); ANION GAP 14 (5-19); ASPARTATE AMINO TRANSFERASE 17 U/L (14-36); BILIRUBIN,DIRECT 0.4 mg/dL (0.0-0.4); BILIRUBIN,TOTAL 0.5 mg/dL (0.2-1.3); BLOOD UREA NITROGEN 15 mg/dL (7-20); CALCIUM 8.9 mg/dL (8.4-10.2); CARBON DIOXIDE 28 mmol/L (22-30); CHLORIDE 98 mmol/L (98-107); CREATININE RESULT 0.82 mg/dL (0.52-1.25); GLUCOSE 133 mg/dL (75-110); POTASSIUM 3.4 mmol/L (3.6-5.0); SODIUM 139.7 mmol/L (137-145); TOTAL PROTEIN 7.3 g/dL (6.3-8.2)
--- NOTE | 2017-05-04 01:32 | RADIOLOGY REPORT (SQ) ---
EXAM DESCRIPTION: CT ABD/PELVIS WITH IV ORAL COMPLETED DATE/TIME: 05/04/2017 1:12 am REASON FOR STUDY: abd pain, fever, incr enterocut fistula drainage COMPARISON: 12/02/2016. TECHNIQUE: CT scan of the abdomen and pelvis performed using helical scanning technique with dynamic intravenous contrast injection. No oral contrast. Images reviewed with lung, soft tissue, and bone windows. Reconstructed coronal and sagittal MPR images reviewed. Delayed images for evaluation of the urinary system also acquired. All images stored on PACS. All CT scanners at this facility use dose modulation, iterative reconstruction, and/or weight based d osing when appropriate to reduce radiation dose to as low as reasonably achievable (ALARA). [facility]: Dose Right [facility]: CareDose [facility]: Dose Right [facility]: Teradose 4D [facility]: eDreams [employer] CONTRAST TYPE AND DOSE: contrast/concentration: Isovue 370.00 mg/ml; Total Contrast Delivered: 96.0 ml; Total Saline Delivered: 40.0 ml RENAL FUNCTION: Creatinine 0.8 RADIATION DOSE: Up-to-date CT equipment and radiation dose reduction techniques were employed. CTDIv ol: 21.1 mGy. DLP: 2327 mGy-cm.. LIMITATIONS: None. FINDINGS: LOWER CHEST: No significant findings. No nodules or infiltrates. LIVER: Normal size. No masses. No dilated ducts. SPLEEN: Normal size. No focal lesions. PANCREAS: No masses. No significant calcifications. No adjacent inflammation or peripancreatic fluid collections. Pancreatic duct not dilated. GALLBLADDER: Surgically absent. ADRENAL GLANDS: No significant masses or asymmetry. RIGHT KIDNEY AND URETER: No solid masses. No significant calcifications. No hydronephrosis or hyd roureter. LEFT KIDNEY AND URETER: No solid masses. No significant calcifications. No hydronephrosis or hydr oureter. AORTA AND VESSELS: No aneurysm. No dissection. Renal arteries, SMA, celiac without stenosis. RETROPERITONEUM: No retroperitoneal adenopathy, hemorrhage or masses. BOWEL AND PERITONEAL CAVITY: No masses or inflammatory changes. No free fluid or peritoneal masses. APPENDIX: Normal. PELVIS: No mass or free fluid. Normal bladder. ABDOMINAL WALL: Large 20 cm +partially imaged left paracentral ventral abdominal wall herniation of b owel. Chronic. No obstruction. No incarceration. BONES: 0.4 cm degenerative L4 anterolisthesis pattern moderate vacuum disc desiccation lower thoracic spine. OTHER: No other significant finding. IMPRESSION: No acute findings. 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 TECHNICAL DOCUMENTATION: JOB ID: [id number] Quality ID # [id number]: Final reports with documentation of one or more dose reduction techniques (e.g., Au tomated exposure control, adjustment of the mA and/or kV according to patient size, use of iterative reconstruction technique) 2010 [employer]- All Rights Reserved
[2017-05-04] MEDS ORDERED: HYDROMORPHONE HCL INJ/PF 2 MG/ML AMPULE IV ONE (02:14)
[2017-05-04] MEDS ORDERED: SULFAMETHOXAZOLE/TRIMETHOPRIM 800-160 MG TABLET PO ONE (02:23)
[2017-05-04 02:55] VITALS: BP 155/75
== END 2017-05-04 02:40 | disposition home or self-care (01) ==
LOC: ER 19:55
DX: F19.10 Other psychoactive substance abuse, uncomplicated (principal); G89.29 Other chronic pain; R10.84 Generalized abdominal pain; K63.2 Fistula of intestine; K43.9 Ventral hernia without obstruction or gangrene; E78.00 Pure hypercholesterolemia, unspecified; I10 Essential (primary) hypertension; J44.9 Chronic obstructive pulmonary disease, unspecified; E11.9 Type 2 diabetes mellitus without complications; K21.9 Gastro-esophageal reflux disease without esophagitis; Z90.49 Acquired absence of other specified parts of digestive tract; Z98.51 Tubal ligation status; Z88.0 Allergy status to penicillin; Z88.6 Allergy status to analgesic agent
CPT/HCPCS: 99284; 96374; 96375; 36415; 87040; 87070; 87205; 83690; 85025; 87075; 87077; 80053; 87186; 83605; 74177; J3490; J1170; J2405

== ENCOUNTER 2017-05-05 22:44 | Emergency (ER) | payer MEDICAID ==
[2017-05-06] MEDS ORDERED: ASPIRIN 81 MG TABLET, CHEWABLE PO ONE (00:11)
[2017-05-06 01:07] LABS: ABSOLUTE EOSINOPHILS # (AUTO) 0.2 10^3/uL (0.0-0.6); ABSOLUTE LYMPHOCYTES (AUTO) 1.5 10^3/uL (0.5-4.7); ABSOLUTE MONOCYTES (AUTO) 0.6 10^3/uL (0.1-1.4); ABSOLUTE NEUT (AUTO) 4.8 10^3/uL (1.7-8.2); BASOPHILS % (AUTO) 0.5 % (0-2); EOSINOPHILS % (AUTO) 2.9 % (0-6); HEMOGLOBIN 10.1 g/dL (12.0-15.5); HGB HCT DIFFERENCE -1.7; LYMPHOCYTES % (AUTO) 20.7 % (13-45); MEAN CORPUSCULAR HGB CONC 31.7 g/dL (32.0-36.0); MEAN CORPUSCULAR VOLUME 76 fl (80-97); MONOCYTES % (AUTO) 7.8 % (3-13); RED BLOOD COUNT 4.23 10^6/uL (3.72-5.28); RED CELL DISTRIBUTION WIDTH 21.4 % (11.5-14.0); SEGMENTED NEUTROPHILS % (AUTO) 68.1 % (42-78); WHITE BLOOD COUNT 7.1 10^3/uL (4.0-10.5)
[2017-05-06 01:17] LABS: ALANINE AMINOTRANSFERASE 21 U/L (9-52); ALBUMIN 3.9 g/dL (3.5-5.0); ALKALINE PHOSPHATASE 138 U/L (38-126); ANION GAP 14 (5-19); ASPARTATE AMINO TRANSFERASE 14 U/L (14-36); BILIRUBIN,DIRECT 0.4 mg/dL (0.0-0.4); BILIRUBIN,TOTAL 0.5 mg/dL (0.2-1.3); BLOOD UREA NITROGEN 19 mg/dL (7-20); CALCIUM 8.7 mg/dL (8.4-10.2); CARBON DIOXIDE 26 mmol/L (22-30); CHLORIDE 100 mmol/L (98-107); CREATINE KINASE 50 U/L (30-135); CREATININE RESULT 0.95 mg/dL (0.52-1.25); GLUCOSE 121 mg/dL (75-110); POTASSIUM 3.7 mmol/L (3.6-5.0); SODIUM 140.3 mmol/L (137-145); TOTAL PROTEIN 7.3 g/dL (6.3-8.2)
[2017-05-06 01:31] LABS: CREATINE KINASE MB 0.8 ng/mL (<4.55); TROPONIN I 0.017 ng/mL
--- NOTE | 2017-05-06 02:19 | RADIOLOGY REPORT (SQ) ---
EXAM DESCRIPTION: CHEST SINGLE VIEW COMPLETED DATE/TIME: 05/06/2017 1:58 am REASON FOR STUDY: CP COMPARISON: 04/30/2017. EXAM PARAMETERS: NUMBER OF VIEWS: One view. TECHNIQUE: Single frontal radiographic view of the chest acquired. RADIATION DOSE: NA LIMITATIONS: None. FINDINGS: LUNGS AND PLEURA: No opacities, masses or pneumothorax. No pleural effusion. Minimal left basilar atelectasis or scar. MEDIASTINUM AND HILAR STRUCTURES: No masses. Contour normal. HEART AND VASCULAR STRUCTURES: Heart normal in size. Normal vasculature. BONES: No acute findings. HARDWARE: None in the chest. OTHER: No other significant finding. IMPRESSION: NO ACUTE RADIOGRAPHIC FINDING IN THE CHEST. TECHNICAL DOCUMENTATION: JOB ID: [id number]
[2017-05-06] MEDS ORDERED: OXYCODONE-ACETAMINOPHEN 5-325 MG TABLET PO ONE (03:43)
--- NOTE | 2017-05-06 05:27 | ER Document Report ---
ED General - General Chief Complaint: Chest Pain Stated Complaint: CHEST TIGHTNESS Time Seen by Provider: 05/06/17 02:22 Mode of Arrival: Ambulatory Information source: Patient Notes: -year-old female presents to ED for chest pain chest tightness with stated she had some left arm numbness earlier but none at this time denies any fever or any other complications except for her abdominal pain. She has chronic abdominal pain with an open wound to the left lower abdomen and a fistula draining on the right lower abdomen TRAVEL OUTSIDE OF THE [place] IN LAST 30 DAYS: No - HPI Onset: Yesterday Onset/Duration: Better - Pain is better continued to have abdominal pain Quality of pain: Other - Tightness to the left chest worse early. Sharp chest pain is much better but her abdominal pain is continued she has chronic abdominal pain Severity: Moderate Pain Level: 3 Associated symptoms: Chest pain, Other - Abdominal pain Exacerbated by: Movement - Abdominal, Walking - Abdominal, Other - The chest pain is much better Relieved by: Denies Similar symptoms previously: Yes Recently seen / treated by doctor: Yes - Related Data Allergies/Adverse Reactions: celecoxib [From Celebrex] Allergy (Mild, Verified 03/31/17 16:28) Urticaria aspirin [Aspirin] Allergy (Verified 03/31/17 16:28) Hives cephalexin monohydrate [From Keflex] Allergy (Verified 03/31/17 16:28) clindamycin [Clindamycin] Allergy (Verified 03/31/17 16:28) Hives lisinopril [Lisinopril] Allergy (Verified 03/31/17 16:28) methadone [Methadone] Allergy (Verified 03/31/17 16:28) metoprolol tartrate [From Lopressor] Allergy (Verified 03/31/17 16:28) Penicillins Allergy (Verified 03/31/17 16:28) Past Medical History - General Information source: Patient - Social History Smoking Status: Unknown if Ever Smoked Cigarette use (# per day): No Chew tobacco use (# tins/day): No Smoking Education Provided: No Frequency of alcohol use: None Drug Abuse: None Lives with: Family Family History: None - Past Medical History Cardiac Medical History: Reports: Hx Hypercholesterolemia, Hx Hypertension Pulmonary Medical History: Reports: Hx Asthma, Hx Bronchitis, Hx COPD EENT Medical History: Reports: None Neurological Medical History: Reports: None Endocrine Medical History: Reports: Hx Diabetes Mellitus Type 2 Renal/ Medical History: Reports: None Malignancy Medical History: Reports: None GI Medical History: Reports: Hx Gastroesophageal Reflux Disease, Hx Hiatal Hernia Musculoskeltal Medical History: Reports Hx Arthritis Skin Medical History: Reports None Psychiatric Medical History: Reports: Hx Anxiety, Hx Depression Infectious Medical History: Reports: None Past Surgical History: Reports: Hx Abdominal Surgery - MULTIPLE VENTRAL HERNIA REPAIRS WITH DEBRIDEMENT. BOWEL OBSTRUCTION. NON-HEALING ABD WOUNDS WITH CHRONIC PAIN, Hx Bowel Surgery - Right abdominal fistula., Hx Section - x's 3, Hx Cholecystectomy, Hx Tubal Ligation - Immunizations Hx Diphtheria, Pertussis, Tetanus Vaccination: Yes Hx Pneumococcal Vaccination: 02/28/12 Review of Systems - Review of Systems Constitutional: No symptoms reported EENT: No symptoms reported Cardiovascular: Chest pain Respiratory: No symptoms reported Gastrointestinal: Abdominal pain Genitourinary: No symptoms reported Female Genitourinary: No symptoms reported Musculoskeletal: No symptoms reported Skin: No symptoms reported Hematologic/Lymphatic: No symptoms reported Neurological/Psychological: No symptoms reported -: Yes All other systems reviewed and negative Physical Exam - Vital signs Vitals: Temp Pulse Resp BP Pulse Ox 97.4 F 83 21 H 169/50 H 100 05/05/17 23:09 05/05/17 23:09 05/05/17 23:09 05/05/17 23:09 05/05/17 23:09 Interpretation: Normal - General General appearance: Appears well, Alert - HEENT Head: Normocephalic, Atraumatic Eyes: Normal Pupils: PERRL - Respiratory Respiratory status: No respiratory distress Chest status: Nontender Breath sounds: Normal Chest palpation: Normal - Cardiovascular Rhythm: Regular Heart sounds: Normal auscultation Murmur: No - Abdominal Inspection: Normal Distension: No distension Bowel sounds: Normal Tenderness: Tender Organomegaly: No organomegaly Notes: Ventral hernia open wound on the left lower abdomen fistula on the right lower abdomen with dressings over both. These are both chronic and are causing chronic pain - Back Back: Normal, Nontender - Extremities General upper extremity: Normal inspection, Nontender, Normal color, Normal ROM , Normal temperature General lower extremity: Normal inspection, Nontender, Normal color, Normal ROM , Normal temperature, Normal weight bearing. No: Osvaldo's sign - Neurological Neuro grossly intact: Yes Cognition: Normal Orientation: AAOx4 James Coma Scale Eye Opening: Spontaneous [place] Coma Scale Verbal: Oriented James Coma Scale Motor: Obeys Commands James Coma Scale Total: 15 Speech: Normal Motor strength normal: LUE, RUE, LLE, RLE Sensory: Normal - Psychological Associated symptoms: Normal affect, Normal mood - Skin Skin Temperature: Warm Skin Moisture: Dry Skin Color: Normal Course - Re-evaluation Re-evalutation: 05/06/17 05:49 Chest x-ray and labs negative; patient complained of her abdominal pain most of the shift. Medicated with Percocet 03/03/2025 for her abdominal pain until I could complete all the labs. Patient not being discharged home to follow-up with her primary doctor and her pain control doctor. - Vital Signs Vital signs: Temp Pulse Resp BP Pulse Ox 97.4 F 83 15 151/89 H 98 05/05/17 23:09 05/05/17 23:09 05/06/17 05:01 05/06/17 05:20 05/06/17 05:20 - Laboratory Result Diagrams: 05/06/17 00:15 05/06/17 00:15 Laboratory results interpreted by me: 05/06/17 05/06/17 00:15 00:15 Hgb 10.1 L Hct 32.0 L MCV 76 L MCH 24.0 L MCHC 31.7 L RDW 21.4 H Glucose 121 H Alkaline Phosphatase 138 H - Diagnostic Test Radiology reviewed: Image reviewed, Reports reviewed Discharge - Discharge Clinical Impression: Chest pain of uncertain etiology, Chronic abdominal pain Condition: Stable Disposition: HOME, SELF-CARE Additional Instructions: CHEST PAIN OF UNCLEAR CAUSE: The exact cause of your chest pain isn't clear. Fortunately, there is no evidence of a dangerous medical condition. Further testing may be required to find the source of the pain. Most often, we find that this pain is coming from the chest wall -- the muscles or rib joints in the chest. But chest pain can come from the lung and lung lining, the esophagus, the heart valves or heart lining, and even the stomach or gallbladder. Rest. Eat lightly until the pain is gone. We may prescribe medicine for pain and inflammation. You should call the physician immediately if the pain radiates to the shoulder, jaw or arms; if you start to run a fever or develop a cough; or if you develop shortness of breath, or other new or alarming symptoms. NORMAL EXAM AND WORKUP: At this time, your examination and workup show no significant abnormality. No significant abnormal physical findings were noted. All laboratory, EKG, and imaging (x-ray, CT scans, ultrasound) studies that were ordered show no significant abnormality. Although your examination and all studies that were ordered showed no significant abnormal finding, there are no examinations and no studies that are 100% accurate. There is always the possibility that some abnormality could exist and not be detected with physical examination or within the limits and capabilities of laboratory and other studies. You should return or follow up as you were instructed on your visit today for further evaluation if your symptoms do not resolve. Chronic Pain Control Stress, inactivity, and depression make pain more severe regardless of the cause of the pain. Stress and poor physical condition can cause pain such as headaches and backache. Relaxation: Rest in a quiet place with your eyes closed for 20 minutes twice daily. Concentrate on a pleasant image, or simply "feel" your breathing. Clear your mind. Stress management: Deal with your "stressors." Either take action, or eliminate the stressor from your life. Don't let things hang over you. Accept those things you can't change. Nutrition: Eat small, balanced meals -- don't skip, don't overeat. Meals should be high-carbohydrate, low-sugar, low-fat. Exercise: Exercise helps painful conditions and eases stress. Get 30 minutes of moderate exercise, five days a week. Do an activity that does not flare your pain. Precautions: Pain which continues to disrupt daily activities, or which changes in nature, requires a medical evaluation. Pain Clinic referral is available. We do not manage chronic pain in the Emergency Department. We will try to appropriately help you through an acute flare of your chronic painful condition , but for on-going chronic pain that does not improve, you will need to see your private doctor or highway painter helper. We do not provide repeated medication management of chronic painful conditions. If you wish, we can provide the name of local pain management physicians. FOLLOW-UP CARE: If you have been referred to a physician for follow-up care, call the physician s office for an appointment as you were instructed or within the next two days. If you experience worsening or a significant change in your symptoms, notify the physician immediately or return to the Emergency Department at any time for re-evaluation. Call your primary doctor and schedule a follow-up appointment. Also asked him for a referral to cardiology for your chest pain today. Forms: Elevated Blood Pressure Referrals: CHRISTINA GRANT MD [Primary Care Provider] - Follow up tomorrow
[2017-05-06 06:31] VITALS: BP 150/70
--- NOTE | 2017-05-06 08:04 | EKG REPORT ---
SEVERITY:- ABNORMAL ECG - SINUS RHYTHM ATRIAL PREMATURE COMPLEX PROLONGED QT INTERVAL : Confirmed by: Morris Syed MD 06-May-2017 08:03:26
== END 2017-05-06 06:06 | disposition home or self-care (01) ==
LOC: ER 22:44
DX: R07.9 Chest pain, unspecified (principal); G89.29 Other chronic pain; R10.9 Unspecified abdominal pain; R20.0 Anesthesia of skin; E78.00 Pure hypercholesterolemia, unspecified; I10 Essential (primary) hypertension; J44.9 Chronic obstructive pulmonary disease, unspecified; J45.909 Unspecified asthma, uncomplicated; E11.9 Type 2 diabetes mellitus without complications; K21.9 Gastro-esophageal reflux disease without esophagitis; Z88.0 Allergy status to penicillin; Z88.3 Allergy status to other anti-infective agents; Z90.49 Acquired absence of other specified parts of digestive tract; Z98.51 Tubal ligation status
CPT/HCPCS: 36415; 71010; 80053; 82550; 82553; 84484; 85025; 93005; 93010; 99285

== ENCOUNTER 2017-05-09 04:36 | Inpatient (IN) | payer MEDICAID ==
[2017-05-09] MEDS ORDERED: FENTANYL CITRATE INJ/PF 100 MCG/2 ML AMPUL IV ONE (04:57)
[2017-05-09] MEDS ORDERED: ONDANSETRON HCL INJ/PF 4 MG/2 ML SDV IV ONE (04:58)
[2017-05-09 04:59] LABS: ABSOLUTE EOSINOPHILS # (AUTO) 0.3 10^3/uL (0.0-0.6); ABSOLUTE MONOCYTES (AUTO) 0.6 10^3/uL (0.1-1.4); ABSOLUTE NEUT (AUTO) 7.4 10^3/uL (1.7-8.2); BASOPHILS % (AUTO) 0.4 % (0-2); HEMATOCRIT 29.8 % (36.0-47.0); HEMOGLOBIN 9.5 g/dL (12.0-15.5); HGB HCT DIFFERENCE -1.3; LYMPHOCYTES % (AUTO) 19.6 % (13-45); MEAN CORPUSCULAR HGB CONC 31.8 g/dL (32.0-36.0); MEAN CORPUSCULAR VOLUME 75 fl (80-97); MONOCYTES % (AUTO) 5.9 % (3-13); RED BLOOD COUNT 3.95 10^6/uL (3.72-5.28); RED CELL DISTRIBUTION WIDTH 21.6 % (11.5-14.0); SEGMENTED NEUTROPHILS % (AUTO) 71.1 % (42-78); WHITE BLOOD COUNT 10.4 10^3/uL (4.0-10.5)
[2017-05-09] MEDS ORDERED: ONDANSETRON HCL INJ/PF 4 MG/2 ML SDV ONE ×2 (05:02→05:03)
[2017-05-09 05:12] LABS: ALANINE AMINOTRANSFERASE 30 U/L (9-52); ALBUMIN 3.4 g/dL (3.5-5.0); ALKALINE PHOSPHATASE 143 U/L (38-126); ANION GAP 11 (5-19); ASPARTATE AMINO TRANSFERASE 13 U/L (14-36); BILIRUBIN,DIRECT 0.4 mg/dL (0.0-0.4); BILIRUBIN,TOTAL 0.5 mg/dL (0.2-1.3); BLOOD UREA NITROGEN 16 mg/dL (7-20); CALCIUM 8.6 mg/dL (8.4-10.2); CARBON DIOXIDE 22 mmol/L (22-30); CHLORIDE 103 mmol/L (98-107); CREATININE RESULT 1.08 mg/dL (0.52-1.25); GLUCOSE 153 mg/dL (75-110); POTASSIUM 3.4 mmol/L (3.6-5.0); SODIUM 135.9 mmol/L (137-145); TOTAL PROTEIN 6.8 g/dL (6.3-8.2)
[2017-05-09] MEDS ORDERED: HYDROMORPHONE HCL INJ/PF 2 MG/ML AMPULE IV ONE (05:59)
--- NOTE | 2017-05-09 06:02 | ER Document Report ---
ED General - General Chief Complaint: Other Stated Complaint: POSSIBLE WOUND HEMORRHAGE Time Seen by Provider: 05/09/17 04:52 Notes: Patient is a 61-year-old female who presents with complaint of bleeding from wound over left lower abdomen. Patient has chronic abdominal wounds. 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 She also has scar tissue in old wound on her left abdomen from previous surgeries which include surgeries for hernia repair followed by open wound to the abdomen. Patient presents today because of bleeding from a pinpoint hole in her left abdomen. She says it was pumping as if there is arterial. She called EMS. EMS applied pressure with a clotting dressing. Patient arrived she had a large clot underneath the dressing but the wound to stop bleeding. No difficulty breathing. No fevers. She does have some abdominal pain but this is chronic for her. She is on large amounts of chronic opiates for her chronic abdominal pain. She is followed by Dr. Grant. TRAVEL OUTSIDE OF THE [place] IN LAST 30 DAYS: No - Related Data Allergies/Adverse Reactions: celecoxib [From Celebrex] Allergy (Mild, Verified 03/31/17 16:28) Urticaria aspirin [Aspirin] Allergy (Verified 03/31/17 16:28) Hives cephalexin monohydrate [From Keflex] Allergy (Verified 03/31/17 16:28) clindamycin [Clindamycin] Allergy (Verified 03/31/17 16:28) Hives lisinopril [Lisinopril] Allergy (Verified 03/31/17 16:28) methadone [Methadone] Allergy (Verified 03/31/17 16:28) metoprolol tartrate [From Lopressor] Allergy (Verified 03/31/17 16:28) Penicillins Allergy (Verified 03/31/17 16:28) Past Medical History - Social History Smoking Status: Unknown if Ever Smoked Frequency of alcohol use: None Drug Abuse: None Family History: None - Past Medical History Cardiac Medical History: Reports: Hx Hypercholesterolemia, Hx Hypertension Denies: Hx Heart Murmur Pulmonary Medical History: Reports: Hx Asthma, Hx Bronchitis, Hx COPD Denies: Hx Respiratory Failure, Hx Sleep Apnea, Hx Tuberculosis Endocrine Medical History: Reports: Hx Diabetes Mellitus Type 1, Hx Diabetes Mellitus Type 2 Renal/ Medical History: Denies: Hx Peritoneal Dialysis GI Medical History: Reports: Hx Gastroesophageal Reflux Disease, Hx Hiatal Hernia Musculoskeltal Medical History: Reports Hx Arthritis Psychiatric Medical History: Reports: Hx Anxiety, Hx Depression Infectious Medical History: Past Surgical History: Reports: Hx Abdominal Surgery - MULTIPLE VENTRAL HERNIA REPAIRS WITH DEBRIDEMENT. BOWEL OBSTRUCTION. NON-HEALING ABD WOUNDS WITH CHRONIC PAIN, Hx Bowel Surgery - Right abdominal fistula., Hx Section - x's 3, Hx Cholecystectomy, Hx Tubal Ligation - Immunizations Hx Diphtheria, Pertussis, Tetanus Vaccination: Yes Hx Pneumococcal Vaccination: 02/28/12 Review of Systems - Review of Systems Notes: My Normal Review Basic REVIEW OF SYSTEMS: CONSTITUTIONAL : Denies fever, chills, or sweats. Denies recent illness. EENT: Denies eye, ear, throat, or mouth pain or symptoms. Denies nasal or sinus congestion. RESPIRATORY: Denies cough, cold, or chest congestion. Denies shortness of breath, difficulty breathing, or wheezing. GASTROINTESTINAL: Has chronic abdominal pain. MUSCULOSKELETAL: Denies neck or back pain or joint pain or swelling. SKIN: Denies rash or skin lesions. HEMATOLOGIC : Denies easy bruising or bleeding. Is not on blood thinners. NEUROLOGICAL: Denies altered mental status or loss of consciousness. Denies headache. Denies weakness or paralysis or loss of use of either side. Denies problems with gait or speech. Denies sensory or motor loss.. ALL OTHER SYSTEMS REVIEWED AND NEGATIVE. Physical Exam - Notes Notes: General Appearance: Well nourished, alert, cooperative, no acute distress, moderate obvious discomfort. Vitals: reviewed, See vital signs table. Head: no swelling or tenderness to the head Eyes: PERRL, EOMI, Conjuctiva clear Mouth: No decreasd moisture Neck: Supple, no neck tenderness, No thyromegaly Lungs: No wheezing, No rales, No rhonci, No accessory muscle use, good air exchange bilaterally. Heart: Normal rate, Regular rythm, No murmur, no rub Abdomen: Normal BS, soft, No rigidity, patient's abdomen is diffusely tender to palpation which is typical for her chronic abdominal pain. Her abdomen is soft and not rigid. There is no peritoneal signs. She does have a enteric cutaneous fistula in the right side with continuous output. She also has a small pinpoint hole in the left lower abdomen which is where the bleeding was coming from. There is no active bleeding at this time. Patient did have a large blood clot underneath the dressing that was removed. She does have blood and some clots over her pants and closed from where she was bleeding at home. Extremities: strength 5/5 in all extremities, good pulses in all extremities, no swelling or tenderness in the extremities, no edema. Skin: warm, dry, appropriate color, no rash Neuro: speech clear, oriented x 3, normal affect, responds appropriately to questions. Course - Re-evaluation Re-evalutation: 05/09/17 06:07 I injected lidocaine with epinephrine around the patient's wound where she was bleeding prior to arrival. Initial CBC shows a hemoglobin of 9-1/2. Suspect hemoglobin may be actually lower than this and that has not equilibrated for her blood loss. I will repeat it CBC at 7:30 see if there is any change. Patient has a significant drop in hemoglobin and will discuss transfusion. Dictation of this chart was performed using voice recognition software; therefore, there may be some unintended grammatical errors. - Laboratory Result Diagrams: 05/09/17 04:46 05/09/17 04:46 Laboratory results interpreted by me: 05/09/17 05/09/17 04:46 04:46 Hgb 9.5 L Hct 29.8 L MCV 75 L MCH 24.0 L MCHC 31.8 L RDW 21.6 H Sodium 135.9 L Potassium 3.4 L Est GFR (Non-Af Amer) 52 L Glucose 153 H AST 13 L Alkaline Phosphatase 143 H Albumin 3.4 L - Transfer of Care Care transferred to following provider: Dr. Raghavendra Molina Discharge - Discharge Clinical Impression: Hemorrhage from wound Condition: Good Disposition: HOME, SELF-CARE Additional Instructions: Please follow up closely with Dr. Grant. Please return to the ER immediately if you have any recurrent bleeding, fevers, or feel unwell. Referrals: CHRISTINA GRANT MD [Primary Care Provider] - Follow up as needed
[2017-05-09] MEDS ORDERED: HYDROMORPHONE HCL INJ/PF 2 MG/ML AMPULE IV PRN (06:33)
[2017-05-09 08:02] LABS: ABSOLUTE EOSINOPHILS # (AUTO) 0.2 10^3/uL (0.0-0.6); ABSOLUTE LYMPHOCYTES (AUTO) 1.5 10^3/uL (0.5-4.7); ABSOLUTE MONOCYTES (AUTO) 0.5 10^3/uL (0.1-1.4); ABSOLUTE NEUT (AUTO) 7.6 10^3/uL (1.7-8.2); BASOPHILS % (AUTO) 0.4 % (0-2); EOSINOPHILS % (AUTO) 1.7 % (0-6); HEMATOCRIT 25.6 % (36.0-47.0); HEMOGLOBIN 8.1 g/dL (12.0-15.5); HGB HCT DIFFERENCE -1.3; LYMPHOCYTES % (AUTO) 15.6 % (13-45); MEAN CORPUSCULAR HEMOGLOBIN 23.9 pg (27.0-33.4); MEAN CORPUSCULAR HGB CONC 31.7 g/dL (32.0-36.0); MEAN CORPUSCULAR VOLUME 75 fl (80-97); MONOCYTES % (AUTO) 5.5 % (3-13); RED CELL DISTRIBUTION WIDTH 21.2 % (11.5-14.0); SEGMENTED NEUTROPHILS % (AUTO) 76.8 % (42-78); WHITE BLOOD COUNT 9.9 10^3/uL (4.0-10.5)
[2017-05-09 08:22] LABS: ANISOCYTOSIS 2+; HYPOCHROMASIA 2+; MICROCYTOSIS 2+
[2017-05-09] MEDS ORDERED: NORMAL SALINE 250 ML IV PRN (09:11)
[2017-05-09] MEDS ORDERED: ONDANSETRON HCL INJ/PF 4 MG/2 ML SDV IV PRN (10:13)
[2017-05-09] MEDS ORDERED: ACETAMINOPHEN 325 MG TABLET PO PRN (10:13)
[2017-05-09] MEDS ORDERED: GLUCAGON,HUMAN RECOMB 1 MG INJ IM PRN (10:21)
[2017-05-09] MEDS ORDERED: DEXTROSE 50%-WATER 25 GM/50 ML DISP.SYRIN IV PRN ×2 (10:21)
[2017-05-09] MEDS ORDERED: DEXTROSE 40% GEL 15 GM TUBE PO PRN ×2 (10:21)
[2017-05-09] MEDS: OXYCODONE-ACETAMINOPHEN 5-325 MG TABLET PO PRN ×2 (13:19→19:34)
[2017-05-09] MEDS ORDERED: ALBUTEROL SULFATE HFA (90 MCG/PUFF) 8 GM MDI (1 MDI/ER DISP) IH PRN (14:26)
[2017-05-09] MEDS ORDERED: FLUTICASONE/SALMETEROL DISKUS 250-50 MCG/DOSE IH SCH (14:30)
--- NOTE | 2017-05-09 14:38 | HISTORY AND PHYSICAL E ---
History and Physical NAME: CARMEN ROMERO : 1955 AGE: 61Y ADMITTED: 05/09/2017 ROOM: 535 CHIEF COMPLAINT: Possible wound bleeding. HISTORY OF PRESENT ILLNESS: This is a 61-year-old female of Dr. Cano's *------* history of the chronic wound over the left lower abdomen. The patient is currently seeing Wound Care and was admitted last month for the same problem, came to the emergency department with bleeding and the patient has a history of a large high-output enterocutaneous fistula of the right side that she also has scar tissue on the wound, of the left wound, from the previous surgeries, which include the surgery for the hernia repair followed by the open wound to the abdomen. The patient presents today because of the bleeding from the pinpoint hole in her left abdomen. She said it was pumping as if it was arterial. She called EMS. EMS applied pressure and a clotting dressing. The patient arrived. She has a large clot underneath the dressing, but the wound *------* stopped bleeding. No difficulty in breathing. No fever. No chills. The patient denied any abdominal pain, only just discomfort. The patient has a large amount of chronic opioids from the chronic abdominal pain. The patient, at this point, initial blood work was 9.4, and the patient was dropped to 8.1 and the ER physician called and said the patient has no active bleeding and will probably need a blood transfusion. So, at this point, request a surgical consult and admit to the hospital for further evaluation. When I saw the patient, the patient was having no active bleeding noticed at this point. Dressing is intact. The patient denied any chest pain. No shortness of breath. PAST MEDICAL HISTORY: 1. History of hyperlipidemia. 2. History of hypertension. 3. History of asthma and bronchitis. 4. History of COPD. 5. History of diabetes mellitus. 6. Patient has a history of gastroesophageal reflux disorder. 7. Patient has a history of anxiety and depression PAST SURGICAL HISTORY: 1. History of abdominal surgeries for multiple ventral hernia repairs with debridement, bowel obstructions, nonhealing abdominal wound with the chronic pain. 2. History of the bowel surgery, right abdominal fistula. 3. History of the C sections x3. 4. History of the cholecystectomy. 5. History of the tubal ligation. ALLERGIES: Patient with an allergy to: 1. CELEBREX. 2. ASPIRIN. 3. KEFLEX. 4. CLINDAMYCIN. 5. LISINOPRIL. 6. METHADONE. 7. LOPRESSOR. REVIEW OF SYSTEMS: Verified the patient's review of systems. As above. All other pertinents negative. CURRENT MEDICATIONS: From the previous discharge summary: 1. Albuterol p.r.n. 2. Aspirin 81 mg daily. 3. Benazepril 40 mg p.o. daily. 4. Nexium 40 mg p.o. daily. 5. Fentanyl patch every 3 days. 6. Advair daily. 7. Lasix 40 mg daily. 8. Atrovent daily. 9. Metformin 400 mg daily. 10. Trazodone 50 mg daily. 11. Effexor 75 mg p.o. daily. PHYSICAL EXAMINATION: VITAL SIGNS: Blood pressure was 116/75, temperature is 98.1, pulse was 80, respirations were 18, O2 sat 100% on room air. GENERAL: Patient generally alert, awake, oriented x3. HEENT: Normocephalic. PERRLA. LUNGS: There is no wheezing, no rales, no rhonchi. HEART: S1, S1 is present. No murmur. ABDOMEN: Soft. Bowel sounds present. No guarding. No rigidity. The patient, however, diffusely tender to palpation, which is typical for her chronic abdominal pain. Her abdomen is soft, otherwise no rigidity. There are no peritoneal signs. There was an enterocutaneous fistula on the right side that continues output. She also has a small pinpoint hole in the left lower abdomen, where the bleeding was coming from. No active bleeding is seen at this point. According to the ER, the patient had a large blood clot removed. EXTREMITIES: The patient's extremities 5/5. No edema. NEUROLOGIC: The patient has no focal weaknesses seen. DIAGNOSTIC DATA: The patient's labs: WBC is 10.4, hemoglobin is 9.5 initially and dropped to 8.1. Sodium is 135, potassium is 3.4, BUN is 16, creatinine is 1.06. ASSESSMENT: 1. Anemia. 2. Chronic abdominal wound with bleeding. 3. Hypertension. 4. Hyperlipidemia. 5. Type 2 diabetes mellitus. 6. Gastroesophageal reflux disorder. 7. Colostomy in place. 8. COPD. 9. Depression. 10. Chronic pain management. PLAN: The plan is, at this point, admit the patient in the tele bed, consult General Surgery, transfuse her 2 units of the blood, and continue to monitor the patient at this point. TIME SPENT: More than 30 minutes spent examining the patient and reviewing the records. DICTATING PHYSICIAN: AASHISH KRAUS M.D. [id number] PHY#: [id number] ID: [id number] JOB#: [id number] ACCT: [id number] cc:Chandler LOPEZ M.D. >
[2017-05-09] MEDS ORDERED: ALBUTEROL SULFATE HFA (90 MCG/PUFF) 200 PUFF/8.5 GM MDI IH PRN ×2 (14:44→15:25)
[2017-05-09] MEDS ORDERED: ONDANSETRON 4 MG TAB.RAPDIS PO PRN (14:45)
[2017-05-09] MEDS ORDERED: FLUTICASONE/SALMETEROL DISKUS 250-50 MCG/DOSE IH PRN (15:24)
[2017-05-09] MEDS: LANSOPRAZOLE 30 MG TAB.RAP.DR PO SCH (16:34)
[2017-05-09] MEDS: INSULIN LISPRO 100 UNIT/ML 3 ML VIAL SUBCUT PRN (17:20)
[2017-05-09] MEDS ORDERED: SILVER NITRATE APPLICATOR 1 APPLIC STICK..EA. 10/PACKAGE TOP ONE ×2 (18:45)
[2017-05-09 19:52] LABS: HEMOGLOBIN 9.7 g/dL (12.0-15.5); HGB HCT DIFFERENCE -0.9; MEAN CORPUSCULAR HEMOGLOBIN 25.1 pg (27.0-33.4); MEAN CORPUSCULAR HGB CONC 32.2 g/dL (32.0-36.0); MEAN CORPUSCULAR VOLUME 78 fl (80-97); RED BLOOD COUNT 3.85 10^6/uL (3.72-5.28); RED CELL DISTRIBUTION WIDTH 20.4 % (11.5-14.0); WHITE BLOOD COUNT 8.4 10^3/uL (4.0-10.5)
[2017-05-09 19:56] LABS: PROTHROMBIN TIME 14.5 SEC (11.4-15.4)
[2017-05-09] MEDS: METFORMIN HCL 500 MG TABLET PO SCH (21:26)
[2017-05-10] MEDS: OXYCODONE-ACETAMINOPHEN 5-325 MG TABLET PO PRN ×3 (01:31→13:17)
[2017-05-10] MEDS: LANSOPRAZOLE 30 MG TAB.RAP.DR PO SCH (06:16)
--- NOTE | 2017-05-10 06:28 | CONSULTATION REPORT E ---
Consultation Report NAME: CARMEN ROMERO : 1955 AGE: 61Y DATE: 05/09/2017 535 A TO: PRICILLA BATRES M.D. FROM: CHRISTINA GRANT M.D. Requesting Physician REFERRING PHYSICIAN: Dr. Kruger REASON FOR REFERRAL: Evaluation of her abdominal wound with bleeding. HISTORY OF PRESENT ILLNESS: The patient is a patient well known to the surgical service who presents with bleeding from her abdominal wounds approximately a month ago, and today, she felt a lot of fluid and looking down bleeding on the gauze. She was then brought to the emergency room. The bleeding had stopped at this point. She had a hemoglobin of 8 and has received 2 units of blood with hemoglobin pending. Her history is very complex. She states that she has had up to 9 ventral hernia repairs with the last one in 2010. Physiomesh was placed at that time. About a month or 2 later, she had necrosis of the wound with enterocutaneous fistula being present. She has now had also a recurrence of her hernia in addition to the fistula. The fistula is on the right side and she has a chronic wound on the left side that causes a lot of burning. The left side wound is the one that tends to bleed. OBJECTIVE: The patient has an enterocutaneous fistula being present on the right side of the abdomen and a month's of incarcerated ventral hernia, which also extends to the left side. The skin does not seem to have much breakdown, but there is a lot of enteric contents in contact with the skin. On the left side, there is a wound that had granulated in, but was friable. ASSESSMENT AND PLAN: 1. Enterocutaneous fistula on the right side of the abdomen. They have tried appliances, which have not fit. She just uses gauze to soak up the fluid. I have recommended that she follow up with the [facility] in [place] or in [place] to see if a wound VAC could be placed on this wound. She then could follow up with [facility] for wound VAC changes. 2. The wound on the left side seems to be bleeding and would recommend nonadherent dressing changes as it is clean. Adaptic is the easiest. Other things that may help with her pain and reduce bleeding are the hydrocolloid gel, such as Normlgel. These are applied once every 2 days and allows healing of the wound without tearing pieces off and causing bleeding. 3. Recurrent ventral incisional hernia with a fistula. I would recommend ultimately the patient be referred to [facility] as they are leaders in the field of fixing these complex ventral incisional hernias. DICTATING PHYSICIAN: PRICILLA BATRES M.D. [id number] PHY#: [id number] ID: [id number] JOB#: [id number] ACCT: [id number] cc:PRICILLA BATRES M.D. > MTDD
[2017-05-10 07:03] LABS: ABSOLUTE EOSINOPHILS # (AUTO) 0.3 10^3/uL (0.0-0.6); ABSOLUTE LYMPHOCYTES (AUTO) 1.3 10^3/uL (0.5-4.7); ABSOLUTE MONOCYTES (AUTO) 0.5 10^3/uL (0.1-1.4); ABSOLUTE NEUT (AUTO) 6.1 10^3/uL (1.7-8.2); BASOPHILS % (AUTO) 0.3 % (0-2); EOSINOPHILS % (AUTO) 3.2 % (0-6); HEMATOCRIT 27.6 % (36.0-47.0); HGB HCT DIFFERENCE -0.6; LYMPHOCYTES % (AUTO) 15.9 % (13-45); MEAN CORPUSCULAR HEMOGLOBIN 25.5 pg (27.0-33.4); MEAN CORPUSCULAR HGB CONC 32.8 g/dL (32.0-36.0); MEAN CORPUSCULAR VOLUME 78 fl (80-97); MONOCYTES % (AUTO) 6.3 % (3-13); RED BLOOD COUNT 3.54 10^6/uL (3.72-5.28); RED CELL DISTRIBUTION WIDTH 20.9 % (11.5-14.0); SEGMENTED NEUTROPHILS % (AUTO) 74.3 % (42-78); WHITE BLOOD COUNT 8.3 10^3/uL (4.0-10.5)
[2017-05-10 07:23] LABS: ANION GAP 8 (5-19); BLOOD UREA NITROGEN 14 mg/dL (7-20); CALCIUM 8.7 mg/dL (8.4-10.2); CARBON DIOXIDE 23 mmol/L (22-30); CHLORIDE 107 mmol/L (98-107); CREATININE RESULT 0.93 mg/dL (0.52-1.25); GLUCOSE 148 mg/dL (75-110); SODIUM 137.9 mmol/L (137-145)
[2017-05-10] MEDS: INSULIN LISPRO 100 UNIT/ML 3 ML VIAL SUBCUT PRN (07:37)
[2017-05-10] MEDS: METFORMIN HCL 500 MG TABLET PO SCH (09:51)
[2017-05-10] MEDS ORDERED: LANSOPRAZOLE 30 MG TAB.RAP.DR PO SCH (10:00)
[2017-05-10] MEDS ORDERED: FUROSEMIDE 40 MG TABLET PO SCH (10:00)
[2017-05-10] MEDS ORDERED: BENAZEPRIL HCL 20 MG TABLET PO SCH (10:00)
[2017-05-10 13:57] VITALS: BP 148/50
[2017-05-10] MEDS ORDERED: ONDANSETRON HCL INJ/PF 4 MG/2 ML SDV IV PRN (14:15)
--- NOTE | 2017-05-10 18:55 | PDOC DISCHARGE SUMMARY ---
General - Admit/Disc Date/PCP Admission Date/Primary Care Provider: 05/09/17 10:13 CHRISTINA RUDY Discharge Date: 05/10/17 - Against medical advised - Discharge Diagnosis (1) Hemorrhage from wound Is this a current diagnosis for this admission?: Yes (2) Acute blood loss anemia Is this a current diagnosis for this admission?: Yes - Additional Information Home Medications: Albuterol Sulfate [Proair HFA] 2 puff IH Q4 PRN 05/09/17 Benazepril HCl [Lotensin] 40 mg PO DAILY 05/09/17 Esomeprazole Magnesium [Nexium] 40 mg PO DAILY 05/09/17 Fluticasone/Salmeterol [Advair 250-50 Diskus 28 dose] 1 inh IH Q12H 05/09/17 Furosemide [Lasix] 60 mg PO DAILY 05/09/17 Metformin HCl [Glucophage] 250 mg PO Q12 05/09/17 Ondansetron HCl [Zofran 4 mg Tablet] 1 tab PO Q4H PRN 05/09/17 History of Present Illness History of Present Illness: CARMEN ROMERO is a 61 year old female was admitted to my service on 05/09/17 due to acute arterial bleeding from her left anterior chronic abdominal wound. 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 She reported pulsating bleeding spot from the left anterior abdominal wound and activated EMS resulting in her transfer to the ED after application of clotting and pressure dressing to site of bleeding. She was found to be significantly anemic with need for blod transfusion. She was seen by surgicalist on duty with recommendation for referral to proposal specialist in [place], [place]. Patient signed out against medical advise to attend her pain management clinic for pain medication before my consultation today. This is the second episode of arterial bleeding from this wound site necessitating blood transfusion. Despite adequate explanation of need for arrangement of further medical care patient sig=gned out against medical advise. At this point I will discharge patient from my practice for failure to comply with medical advise and recommendations. I will continue to provide emergent care over the next 30 days. Hospital Course Hospital Course: Please see chart for further details. Patient signed out against medical advise before my consultation today. Physical Exam Vital Signs: Temp Pulse Resp BP Pulse Ox 97.2 F 84 19 148/50 H 95 05/10/17 12:13 05/10/17 12:13 05/10/17 12:13 05/10/17 13:57 05/10/17 12:13 Intake & Output 05/09/17 05/10/17 05/11/17 06:59 06:59 06:59 Intake Total 1790 580 Output Total 1100 1150 Balance 690 -570 Weight 125 kg Results Laboratory Results: 05/10/17 06:14 05/10/17 06:14 05/09/17 05/10/17 05/10/17 19:44 06:14 06:14 WBC 8.4 8.3 RBC 3.85 3.54 L Hgb 9.7 L 9.0 L Hct 30.0 L 27.6 L MCV 78 L 78 L MCH 25.1 L 25.5 L MCHC 32.2 32.8 RDW 20.4 H 20.9 H Plt Count 325 300 Seg Neutrophils % 74.3 Lymphocytes % 15.9 Monocytes % 6.3 Eosinophils % 3.2 Basophils % 0.3 Absolute Neutrophils 6.1 Absolute Lymphocytes 1.3 Absolute Monocytes 0.5 Absolute Eosinophils 0.3 Absolute Basophils 0.0 Sodium 137.9 Potassium 4.0 Chloride 107 Carbon Dioxide 23 Anion Gap 8 BUN 14 Creatinine 0.93 Est GFR ( Amer) > 60 Est GFR (Non-Af Amer) > 60 Glucose 148 H Calcium 8.7 Qualifiers PATEINT BEING DISCHARGED WITH ANY OF THE FOLLOWING DIAGNOSIS?: No Plan Discharge Plan: See attending physician orders.
[2017-05-11] MEDS ORDERED: LANSOPRAZOLE 30 MG TAB.RAP.DR PO SCH (06:00)
== END 2017-05-10 13:30 | disposition left against medical advice (07) | DRG 394 ==
LOC: ER 04:36 → EH 09:47 → OBSVTOIN 10:13 → 5 11:38
PROVIDERS: ADMIT Internal Medicine Geriatric Medicine; ATTEND Internal Medicine Geriatric Medicine
DX: K63.2 Fistula of intestine (principal); D62 Acute posthemorrhagic anemia; K43.2 Incisional hernia without obstruction or gangrene; E78.5 Hyperlipidemia, unspecified; I10 Essential (primary) hypertension; J44.9 Chronic obstructive pulmonary disease, unspecified; E11.9 Type 2 diabetes mellitus without complications; K21.9 Gastro-esophageal reflux disease without esophagitis; F32.9 Major depressive disorder, single episode, unspecified; F41.9 Anxiety disorder, unspecified; T81.89XA Other complications of procedures, not elsewhere classified, initial encounter; Z93.3 Colostomy status; Z79.899 Other long term (current) drug therapy; Z90.49 Acquired absence of other specified parts of digestive tract; Z88.6 Allergy status to analgesic agent; Z88.8 Allergy status to other drugs, medicaments and biological substances; Z88.1 Allergy status to other antibiotic agents; Z88.3 Allergy status to other anti-infective agents
CPT/HCPCS: 36415; 36430; 80048; 80053; 82962; 85025; 85027; 85610; 86850; 86900; 86901; 86920; 96374; 96375; 96376; 99285; J1170; J1815; J2405; J3010; J3490; P9016

== ENCOUNTER 2017-05-22 22:29 | Emergency (ER) | payer MEDICAID ==
[2017-05-23] MEDS ORDERED: LIDOCAINE 1.5%/EPINEPHRINE INJ-PF 30 ML SDV INJ ONE (01:01)
[2017-05-23] MEDS ORDERED: MORPHINE SULFATE 10 MG/ML INJ ONE (01:01)
[2017-05-23] MEDS ORDERED: MORPHINE SULFATE 10 MG/ML INJ IV ONE (01:02)
[2017-05-23] MEDS ORDERED: HYDROCODONE/ACETAMINOPHEN 5-325 MG TABLET PO ONE (02:27)
--- NOTE | 2017-05-23 02:28 | ER Document Report ---
ED General - General Chief Complaint: Leg Swelling Stated Complaint: SWELLING IN BOTH LEGS Time Seen by Provider: 05/23/17 00:42 Mode of Arrival: Ambulatory Information source: Patient Notes: 61-year-old female presented to ED for complaint of leg swelling. She is a frequent visitor to the ED for the leg swelling and her to large infected areas to her abdomen. When I went in to examine the patient the excoriated area to the right of her abdomen started with a very small arterial bleed. Her legs are the same edematous as they have been every time she comes in. TRAVEL OUTSIDE OF THE [place] IN LAST 30 DAYS: No - HPI Onset: Other - Chronic Onset/Duration: Persistent Quality of pain: Pressure Severity: Severe Pain Level: 5 Associated symptoms: Leg swelling, Other - Large excoriated areas with a fissure to the right side of her abdomen and partially healed wounds to her left abdomen. Exacerbated by: Denies Relieved by: Denies Similar symptoms previously: Yes Recently seen / treated by doctor: Yes - Related Data Allergies/Adverse Reactions: celecoxib [From Celebrex] Allergy (Mild, Verified 05/09/17 10:33) Urticaria aspirin [Aspirin] Allergy (Verified 05/09/17 10:33) Hives cephalexin monohydrate [From Keflex] Allergy (Verified 05/09/17 10:33) clindamycin [Clindamycin] Allergy (Verified 05/09/17 10:33) Hives lisinopril [Lisinopril] Allergy (Verified 05/09/17 10:33) methadone [Methadone] Allergy (Verified 05/09/17 10:33) metoprolol tartrate [From Lopressor] Allergy (Verified 05/09/17 10:33) Penicillins Allergy (Verified 05/09/17 10:33) Past Medical History - General Information source: Patient - Social History Smoking Status: Never Smoker Cigarette use (# per day): No Chew tobacco use (# tins/day): No Smoking Education Provided: No Frequency of alcohol use: None Drug Abuse: None Lives with: Alone Family History: None Patient has suicidal ideation: No Patient has homicidal ideation: No - Past Medical History Cardiac Medical History: Reports: Hx Hypercholesterolemia, Hx Hypertension Pulmonary Medical History: Reports: Hx Asthma, Hx Bronchitis, Hx COPD EENT Medical History: Reports: None Neurological Medical History: Reports: None Endocrine Medical History: Reports: Hx Diabetes Mellitus Type 2 Renal/ Medical History: Reports: None Malignancy Medical History: Reports: None GI Medical History: Reports: Hx Gastroesophageal Reflux Disease, Hx Hiatal Hernia, Other - Open wounds to her abdomen that are chronic and poor healing from multiple hernia surgeries Musculoskeltal Medical History: Reports Hx Arthritis Skin Medical History: Reports Hx Cellulitis Psychiatric Medical History: Reports: Hx Anxiety, Hx Depression Traumatic Medical History: Reports: None Infectious Medical History: Reports: None Past Surgical History: Reports: Hx Abdominal Surgery - MULTIPLE VENTRAL HERNIA REPAIRS WITH DEBRIDEMENT. BOWEL OBSTRUCTION. NON-HEALING ABD WOUNDS WITH CHRONIC PAIN, Hx Bowel Surgery - Right abdominal fistula., Hx Section - x's 3, Hx Cholecystectomy, Hx Tubal Ligation - Immunizations Hx Diphtheria, Pertussis, Tetanus Vaccination: Yes Hx Pneumococcal Vaccination: 02/28/12 Review of Systems - Review of Systems Constitutional: No symptoms reported EENT: No symptoms reported Cardiovascular: Edema - Chronic edema to both legs Respiratory: No symptoms reported Gastrointestinal: No symptoms reported Genitourinary: No symptoms reported Female Genitourinary: No symptoms reported Musculoskeletal: No symptoms reported Skin: Other - Poorly healed wounds to her abdomen once the right has a fistula at it constantly drains one to her left abdomen with several excoriated areas that she has had frequent arterial bleed from. When I first examined her today there is a small apply amount of blood on the drainage when I removed the drainage she had a pulsating bleed. Hematologic/Lymphatic: No symptoms reported Neurological/Psychological: No symptoms reported -: Yes All other systems reviewed and negative Physical Exam - Vital signs Vitals: Temp Pulse Resp BP Pulse Ox 97.3 F 107 H 18 142/65 H 92 05/22/17 23:48 05/22/17 23:48 05/22/17 23:48 05/22/17 23:48 05/22/17 23:48 Interpretation: Normal - General General appearance: Appears well, Alert - HEENT Head: Normocephalic, Atraumatic Eyes: Normal Pupils: PERRL - Respiratory Respiratory status: No respiratory distress Chest status: Nontender Breath sounds: Normal Chest palpation: Normal - Cardiovascular Rhythm: Regular Heart sounds: Normal auscultation Murmur: No - Abdominal Inspection: Normal Distension: No distension Bowel sounds: Normal Tenderness: Nontender Organomegaly: No organomegaly Notes: Several poorly healed wounds to her abdomen once the right has a fistula at it constantly drains, one to her left abdomen with several excoriated areas that she has had frequent arterial bleed from. When I first examined her today there is a small apply amount of blood on the drainage when I removed the drainage she had a pulsating bleed. - Back Back: Normal, Nontender - Extremities General upper extremity: Normal inspection, Nontender, Normal color, Normal ROM , Normal temperature General lower extremity: Normal inspection, Nontender, Normal color, Normal ROM , Normal temperature, Normal weight bearing. No: Osvaldo's sign - Neurological Neuro grossly intact: Yes Cognition: Normal Orientation: AAOx4 [place] Coma Scale Eye Opening: Spontaneous [place] Coma Scale Verbal: Oriented [place] Coma Scale Motor: Obeys Commands [place] Coma Scale Total: 15 Speech: Normal Motor strength normal: LUE, RUE, LLE, RLE Sensory: Normal - Psychological Associated symptoms: Normal affect, Normal mood - Skin Skin Temperature: Warm Skin Moisture: Dry Skin Color: Normal Notes: Excoriated area to the left of the abdomen started bleeding tonight with a pulsation. Course - Re-evaluation Re-evalutation: 05/23/17 08:48 Lidocaine with epinephrine 20 cc needed to stop the bleeding to the left abdomen. After the 20 cc it was still bleeding a little pressure was applied with dressing. Then silver nitrate sticks used to cauterize the area. It was then applied to the area and patient discharged home. - Vital Signs Vital signs: Temp Pulse Resp BP Pulse Ox 98.7 F 92 16 138/84 H 98 05/23/17 03:25 05/23/17 03:25 05/23/17 03:25 05/23/17 03:25 05/23/17 03:25 Discharge - Discharge Clinical Impression: Arterial hemorrhage, chronic leg edema Condition: Stable Disposition: HOME, SELF-CARE Additional Instructions: Your abdominal wound was bleeding while you in the emergency room. We have stopped the bleeding with the lidocaine and epinephrine as we did last time. Please be careful changing her dressings to these wounds. There are edema to your leg is chronic and there is no increase in swelling today than from the last time I saw you Follow-up with a primary doctor or caring community clinic. Tylenol and Motrin and continue with your current medications for your pain. Oral Narcotic Medication You have been given a norco for pain control. This medication is a narcotic. It's best taken with food, as nausea can result if taken on an empty stomach. Don't operate machinery or drive within six hours of taking this medication. Do not combine this medicine with alcohol, or with any medication which can cause sedation (such as cold tablets or sleeping pills) unless you get permission from the physician. Narcotics tend to cause constipation. If possible, drink plenty of fluids and eat a diet high in fiber and fruits. FOLLOW-UP CARE: If you have been referred to a physician for follow-up care, call the physician s office for an appointment as you were instructed or within the next two days. If you experience worsening or a significant change in your symptoms, notify the physician immediately or return to the Emergency Department at any time for re-evaluation. Forms: Elevated Blood Pressure Referrals: [facility] [Provider Group] - Follow up as needed
[2017-05-23 03:25] VITALS: BP 138/84
== END 2017-05-23 03:27 | disposition home or self-care (01) ==
LOC: ER 22:29
PROC: 0W3F0ZZ Control Bleeding in Abdominal Wall, Open Approach (ICD-10-PCS; principal; 2017-05-23)
DX: T81.89XD Other complications of procedures, not elsewhere classified, subsequent encounter (principal); L02.211 Cutaneous abscess of abdominal wall; R58 Hemorrhage, not elsewhere classified; R60.9 Edema, unspecified; M79.89 Other specified soft tissue disorders; J44.0 Chronic obstructive pulmonary disease with (acute) lower respiratory infection; E11.9 Type 2 diabetes mellitus without complications; J45.909 Unspecified asthma, uncomplicated; R23.4 Changes in skin texture; M19.90 Unspecified osteoarthritis, unspecified site; Z88.8 Allergy status to other drugs, medicaments and biological substances; Z88.1 Allergy status to other antibiotic agents; Z88.0 Allergy status to penicillin; Z88.6 Allergy status to analgesic agent
CPT/HCPCS: 37799; 99284; 96374; J2270; J3490

== ENCOUNTER 2017-05-31 02:06 | Emergency (ER) | payer MEDICAID ==
[2017-05-31] MEDS ORDERED: ACETAMINOPHEN 325 MG TABLET PO ONE (02:21)
--- NOTE | 2017-05-31 02:31 | ER Document Report ---
ED GI/ - General Chief Complaint: Abdominal Pain Stated Complaint: ABDOMINAL PAIN Time Seen by Provider: 05/31/17 02:15 Mode of Arrival: Ambulatory Information source: Patient TRAVEL OUTSIDE OF THE [place] IN LAST 30 DAYS: No - Related Data Allergies/Adverse Reactions: celecoxib [From Celebrex] Allergy (Mild, Verified 05/09/17 10:33) Urticaria aspirin [Aspirin] Allergy (Verified 05/09/17 10:33) Hives cephalexin monohydrate [From Keflex] Allergy (Verified 05/09/17 10:33) clindamycin [Clindamycin] Allergy (Verified 05/09/17 10:33) Hives lisinopril [Lisinopril] Allergy (Verified 05/09/17 10:33) methadone [Methadone] Allergy (Verified 05/09/17 10:33) metoprolol tartrate [From Lopressor] Allergy (Verified 05/09/17 10:33) Penicillins Allergy (Verified 05/09/17 10:33) Past Medical History - General Information source: Patient - Social History Smoking Status: Never Smoker Cigarette use (# per day): No Chew tobacco use (# tins/day): No Smoking Education Provided: No Frequency of alcohol use: None Drug Abuse: None Lives with: Family Family History: None - Past Medical History Cardiac Medical History: Reports: Hx Hypercholesterolemia, Hx Hypertension Denies: Hx Heart Murmur Pulmonary Medical History: Reports: Hx Asthma, Hx Bronchitis, Hx COPD EENT Medical History: Reports: None Neurological Medical History: Reports: None Endocrine Medical History: Reports: Hx Diabetes Mellitus Type 2 Renal/ Medical History: Reports: None Malignancy Medical History: Reports: None GI Medical History: Reports: Hx Gastroesophageal Reflux Disease, Hx Hiatal Hernia, Other - Surgeries with multiple hernia repairs open wound to the left and right abdomen with a chronic right fistula Musculoskeltal Medical History: Reports Hx Arthritis Skin Medical History: Reports Hx Cellulitis Psychiatric Medical History: Reports: Hx Anxiety, Hx Depression Traumatic Medical History: Reports: None Infectious Medical History: Reports: None Past Surgical History: Reports: Hx Abdominal Surgery - MULTIPLE VENTRAL HERNIA REPAIRS WITH DEBRIDEMENT. BOWEL OBSTRUCTION. NON-HEALING ABD WOUNDS WITH CHRONIC PAIN, Hx Bowel Surgery - Right abdominal fistula., Hx Section - x's 3, Hx Cholecystectomy, Hx Tubal Ligation - Immunizations Hx Diphtheria, Pertussis, Tetanus Vaccination: Yes Hx Pneumococcal Vaccination: 02/28/12 Review of Systems - Review of Systems Constitutional: No symptoms reported EENT: No symptoms reported Cardiovascular: No symptoms reported Respiratory: No symptoms reported Gastrointestinal: Abdominal pain, Other Genitourinary: No symptoms reported Female Genitourinary: No symptoms reported Musculoskeletal: No symptoms reported Skin: Other - Chronic open wounds to left abdomen chronic open fistula to the right abdomen. Hematologic/Lymphatic: No symptoms reported Neurological/Psychological: No symptoms reported -: Yes All other systems reviewed and negative Physical Exam - Vital signs Vitals: Temp Pulse Resp BP Pulse Ox 98.0 F 86 18 138/87 H 98 05/31/17 02:17 05/31/17 02:17 05/31/17 02:17 05/31/17 02:17 05/31/17 02:17 Interpretation: Normal - General General appearance: Appears well, Alert Notes: Over the obese woman, very unkempt. - HEENT Head: Normocephalic, Atraumatic Eyes: Normal Pupils: PERRL - Respiratory Respiratory status: No respiratory distress Chest status: Nontender Breath sounds: Normal Chest palpation: Normal - Cardiovascular Rhythm: Regular Heart sounds: Normal auscultation Murmur: No - Abdominal Inspection: Normal, Morbidly Obese, Other - Large chronic wound to the left abdomen no bleeding no signs of infection. Chronic open fistula to the right abdomen no signs of infection. Multiple scars to the abdomen. Very morbidly obese woman. Distension: No distension Bowel sounds: Normal Tenderness: Tender Organomegaly: No organomegaly - Back Back: Normal, Nontender - Extremities General upper extremity: Normal inspection, Nontender, Normal color, Normal ROM , Normal temperature General lower extremity: Normal inspection, Nontender, Normal color, Normal ROM , Normal temperature, Normal weight bearing. No: Osvaldo's sign - Neurological Neuro grossly intact: Yes Cognition: Normal Orientation: AAOx4 [place] Coma Scale Eye Opening: Spontaneous [place] Coma Scale Verbal: Oriented [place] Coma Scale Motor: Obeys Commands James Coma Scale Total: 15 Speech: Normal Motor strength normal: LUE, RUE, LLE, RLE Sensory: Normal - Psychological Associated symptoms: Normal affect, Normal mood - Skin Skin Temperature: Warm Skin Moisture: Dry Skin Color: Normal Course - Re-evaluation Re-evalutation: 05/31/17 02:36 Change to left abdominal wound with clot has been placed on abdomen is patient said she had some bleeding at home although there is no obvious signs of bleeding at this time. Patient was treated with some Tylenol and instructed to follow-up with her primary doctor tomorrow and to see her primary doctor for pain medication as this is a chronic problem. - Vital Signs Vital signs: Temp Pulse Resp BP Pulse Ox 98.0 F 86 18 138/87 H 98 05/31/17 02:17 05/31/17 02:17 05/31/17 02:17 05/31/17 02:05/31/17 02:17 Discharge - Discharge Clinical Impression: Chronic abdominal pain Additional Instructions: ABDOMINAL PAIN: There are many causes of abdominal pain. Pain can mean a serious problem requiring surgery (such as appendicitis). It can also be an innocent problem that goes away on its own (such as a viral infection). Often, time must pass to determine the cause of pain. The physician does not feel that hospitalization is necessary, at present. Things may change within the next 24 hours. Call the doctor or come back for re- examination if any problems occur, such as: (1) Pain that becomes more severe, steady, or becomes concentrated in one specific area. Also, pain that is more severe with movement or coughing. (2) Vomiting that persists or becomes more frequent. (3) Blood in the vomitus, urine, or bowel movements. Blood in the stool may have a tarry or black appearance. (4) Shaking chills or fever greater than 100 degrees F. (5) The abdomen becomes more distended or swollen. (6) Bowel movements cease. (7) Failure to improve as expected. There are no changes in your abdominal exam from the last time I saw you except at this time you are not having any bleeding from your wound. Acetaminophen Acetaminophen may be taken for pain relief or fever control. It's much safer than aspirin, offering a wider range of "safe" dosages. It is safe during . Some brand names are Tylenol, Panadol, Datril, Anacin 3, Tempra, and Liquiprin. Acetaminophen can be repeated every four hours. The following are maximum recommended dosages: WEIGHT Dose Drops Elixir Chewable( 80mg) (LBS.) drprs=droppers tsp=teaspoon 6 40 mg .4 ml (1/2) 6-11 80 mg .8 ml (full) 1/2 tsp 1 tab 12-16 120 mg 1 1/2 drprs 3/4 tsp 1 1/2 tabs 17-23 160 mg 2 drprs 1 tsp 2 tabs 24-30 240 mg 3 drprs 1 1/2 tsp 3 tabs 30-35 320 mg 2 tsp 4 tabs 36-41 360 mg 2 1/4 tsp 4 1 /2 tabs 42-47 400 mg 2 1/2 tsp 5 tabs 48-53 480 mg 3 tsp 6 tabs 54-59 520 mg 3 1/4 tsp 6 1 /2 tabs 60-64 560 mg 3 1/2 tsp 7 tabs 65-70 600 mg 3 3/4 tsp 7 1 /2 tabs 71-76 640 mg 4 tsp 8 tabs 77-82 720 mg 4 1/2 tsp 9 tabs 83-88 800 mg 5 tsp 10 tabs >89 pounds or adults 650 mg to 900 mg Acetaminophen can be repeated every four hours. Maximum daily dose not to exceed 4000 mg. These maximum recommended dosages are slightly higher than the dosages written on the product container, but these dosages are very safe and well below the toxic dosage for acetaminophen. Chronic Pain Control Stress, inactivity, and depression make pain more severe regardless of the cause of the pain. Stress and poor physical condition can cause pain such as headaches and backache. Relaxation: Rest in a quiet place with your eyes closed for 20 minutes twice daily. Concentrate on a pleasant image, or simply "feel" your breathing. Clear your mind. Stress management: Deal with your "stressors." Either take action, or eliminate the stressor from your life. Don't let things hang over you. Accept those things you can't change. Nutrition: Eat small, balanced meals -- don't skip, don't overeat. Meals should be high-carbohydrate, low-sugar, low-fat. Exercise: Exercise helps painful conditions and eases stress. Get 30 minutes of moderate exercise, five days a week. Do an activity that does not flare your pain. Precautions: Pain which continues to disrupt daily activities, or which changes in nature, requires a medical evaluation. Pain Clinic referral is available. We do not manage chronic pain in the Emergency Department. We will try to appropriately help you through an acute flare of your chronic painful condition , but for on-going chronic pain that does not improve, you will need to see your private doctor or metal painter. We do not provide repeated medication management of chronic painful conditions. If you wish, we can provide the name of local pain management physicians. Continue your current medications and treatments and follow-up with your primary doctor by telephone tomorrow to schedule a follow-up appointment. FOLLOW-UP CARE: If you have been referred to a physician for follow-up care, call the physician s office for an appointment as you were instructed or within the next two days. If you experience worsening or a significant change in your symptoms, notify the physician immediately or return to the Emergency Department at any time for re-evaluation.
[2017-05-31 02:38] VITALS: BP 138/87
== END 2017-05-31 02:40 | disposition home or self-care (01) ==
LOC: ER 02:06
DX: R10.9 Unspecified abdominal pain (principal); G89.29 Other chronic pain
CPT/HCPCS: 99283; J3490

== ENCOUNTER 2017-06-04 11:36 | Emergency (ER) | payer MEDICAID ==
--- NOTE | 2017-06-04 11:59 | ER Document Report ---
ED GI/ - General Chief Complaint: Abdominal Pain Stated Complaint: ABDOMINAL PAIN Time Seen by Provider: 06/04/17 11:51 Mode of Arrival: Stretcher Information source: Patient TRAVEL OUTSIDE OF THE [place] 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, who presents to the emergency room today complaining of increased pain at wound sites with small amount of bleeding as well, she has been seen in this emergency room multiple times recently for similar complaints, however she has had a small arterial bleed from 1 of the wounds recently requiring cauterization , she does not have that today, she denies a fever, no vomiting or diarrhea, pain is worse when she moves a certain way or attempts to palpate the wound areas - Related Data Allergies/Adverse Reactions: celecoxib [From Celebrex] Allergy (Mild, Verified 05/09/17 10:33) Urticaria aspirin [Aspirin] Allergy (Verified 05/09/17 10:33) Hives cephalexin monohydrate [From Keflex] Allergy (Verified 05/09/17 10:33) clindamycin [Clindamycin] Allergy (Verified 05/09/17 10:33) Hives lisinopril [Lisinopril] Allergy (Verified 05/09/17 10:33) methadone [Methadone] Allergy (Verified 05/09/17 10:33) metoprolol tartrate [From Lopressor] Allergy (Verified 05/09/17 10:33) Penicillins Allergy (Verified 05/09/17 10:33) Past Medical History - General Information source: Patient - Social History Smoking Status: Unknown if Ever Smoked Family History: None - Past Medical History Cardiac Medical History: Reports: Hx Hypercholesterolemia, Hx Hypertension Denies: Hx Heart Murmur Pulmonary Medical History: Reports: Hx Asthma, Hx Bronchitis, Hx COPD Denies: Hx Respiratory Failure, Hx Sleep Apnea, Hx Tuberculosis Endocrine Medical History: Reports: Hx Diabetes Mellitus Type 1, Hx Diabetes Mellitus Type 2 Renal/ Medical History: Denies: Hx Peritoneal Dialysis GI Medical History: Reports: Hx Gastroesophageal Reflux Disease, Hx Hiatal Hernia Musculoskeltal Medical History: Reports Hx Arthritis Skin Medical History: Reports Hx Cellulitis Psychiatric Medical History: Reports: Hx Anxiety, Hx Depression Infectious Medical History: Past Surgical History: Reports: Hx Abdominal Surgery - MULTIPLE VENTRAL HERNIA REPAIRS WITH DEBRIDEMENT. BOWEL OBSTRUCTION. NON-HEALING ABD WOUNDS WITH CHRONIC PAIN, Hx Bowel Surgery - Right abdominal fistula., Hx Section - x's 3, Hx Cholecystectomy, Hx Tubal Ligation - Immunizations Hx Diphtheria, Pertussis, Tetanus Vaccination: Yes Hx Pneumococcal Vaccination: 02/28/12 Review of Systems - Review of Systems Constitutional: No symptoms reported EENT: No symptoms reported Cardiovascular: No symptoms reported Respiratory: No symptoms reported Gastrointestinal: See HPI Genitourinary: No symptoms reported Female Genitourinary: No symptoms reported Musculoskeletal: No symptoms reported Skin: See HPI Hematologic/Lymphatic: No symptoms reported Neurological/Psychological: No symptoms reported -: Yes All other systems reviewed and negative Physical Exam - Vital signs Vitals: Resp BP Pulse Ox 14 150/61 H 100 06/04/17 12:01 06/04/17 12:01 06/04/17 12:01 Interpretation: Normal - General General appearance: Appears well, Alert - HEENT Head: Normocephalic, Atraumatic Eyes: Normal Pupils: PERRL - Respiratory Respiratory status: No respiratory distress Chest status: Nontender Breath sounds: Normal Chest palpation: Normal - Cardiovascular Rhythm: Regular Heart sounds: Normal auscultation Murmur: No - Abdominal Inspection: Wounds - Chronic appearing nonhealing wounds to right and lower abdominal quadrants, no active bleeding, there is drainage from the wound on the right which is purulent in nature, no surrounding erythema,, Obese Distension: No distension Bowel sounds: Normal Tenderness: Nontender Organomegaly: No organomegaly - Back Back: Normal, Nontender - Extremities General upper extremity: Normal inspection, Nontender, Normal color, Normal ROM , Normal temperature General lower extremity: Normal inspection, Nontender, Normal color, Normal ROM , Normal temperature, Normal weight bearing. 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 from previous abdominal surgeries, is well known to this emergency room for frequent visits complaining of pain and drainage from these wounds, occasionally she has some bleeding issues, today's labs are indicative of a urinary tract infection, otherwise her physical exam findings are stable, vital signs as well are stable, she was discharged with a prescription for antibiotics and advised once again today that she would not be receiving narcotic pain medication in the emergency department, but that she should follow -up with her primary care provider for assistance with medication for her chronic abdominal pain, patient acknowledges understanding and agreement with this plan - Vital Signs Vital signs: Temp Pulse Resp BP Pulse Ox 21 H 152/65 H 100 06/04/17 13:01 06/04/17 13:01 06/04/17 13:01 - Laboratory Result Diagrams: 06/04/17 12:10 06/04/17 12:10 Laboratory results interpreted by me: 06/04/17 06/04/17 06/04/17 12:10 12:10 12:20 RBC 3.40 L Hgb 8.7 L Hct 26.3 L MCV 77 L MCH 25.7 L RDW 18.6 H Potassium 3.2 L Glucose 140 H Alkaline Phosphatase 142 H Total Protein 6.2 L Albumin 3.1 L Urine Protein 30 H Urine Blood SMALL H Urine Nitrite POSITIVE H Ur Leukocyte Esterase TRACE H Discharge - Discharge Clinical Impression: Chronic abdominal pain UTI (urinary tract infection) Qualifiers: Urinary tract infection type: site unspecified Hematuria presence: without hematuria Qualified Code(s): N39.0 - Urinary tract infection, site not specified Condition: Stable Disposition: HOME, SELF-CARE Instructions: Urinary Tract Infection ([facility]), Nitrofurantoin ([facility]) Additional Instructions: Follow up with your primary care provider in one to 2 days. Return to the emergency room immediately if symptoms worsen or any additional concerns. Prescriptions: Nitrofurantoin/Nitrofuran Mac [Macrobid 100 mg Capsule] 100 mg PO BID #20 capsule Referrals: BARBARA FAY MD [Primary Care Provider] - Follow up as needed
[2017-06-04 12:42] LABS: ABSOLUTE EOSINOPHILS # (AUTO) 0.1 10^3/uL (0.0-0.6); ABSOLUTE LYMPHOCYTES (AUTO) 0.9 10^3/uL (0.5-4.7); ABSOLUTE MONOCYTES (AUTO) 0.4 10^3/uL (0.1-1.4); ABSOLUTE NEUT (AUTO) 4.8 10^3/uL (1.7-8.2); BASOPHILS % (AUTO) 0.5 % (0-2); HEMATOCRIT 26.3 % (36.0-47.0); HEMOGLOBIN 8.7 g/dL (12.0-15.5); HGB HCT DIFFERENCE -0.2; LYMPHOCYTES % (AUTO) 13.8 % (13-45); MEAN CORPUSCULAR HEMOGLOBIN 25.7 pg (27.0-33.4); MEAN CORPUSCULAR HGB CONC 33.2 g/dL (32.0-36.0); MEAN CORPUSCULAR VOLUME 77 fl (80-97); MONOCYTES % (AUTO) 6.5 % (3-13); RED CELL DISTRIBUTION WIDTH 18.6 % (11.5-14.0); SEGMENTED NEUTROPHILS % (AUTO) 77.2 % (42-78); WHITE BLOOD COUNT 6.3 10^3/uL (4.0-10.5)
[2017-06-04 12:46] LABS: APPEARANCE,URINE SLIGHTLY HAZY; BILIRUBIN,URINE NEGATIVE (NEGATIVE); GLUCOSE, URINE NEGATIVE (NEGATIVE); KETONES,URINE NEGATIVE (NEGATIVE); URINE SPECIFIC GRAVITY 1.014
[2017-06-04 12:47] LABS: LEUKOCYTE ESTERASE,URINE TRACE (NEGATIVE); NITRITE,URINE POSITIVE (NEGATIVE); PROTEIN,URINE 30 mg/dL (NEGATIVE); UROBILINOGEN,URINE NEGATIVE mg/dL (<2.0)
[2017-06-04 12:50] LABS: ALANINE AMINOTRANSFERASE 26 U/L (9-52); ALBUMIN 3.1 g/dL (3.5-5.0); ALKALINE PHOSPHATASE 142 U/L (38-126); ANION GAP 9 (5-19); ASPARTATE AMINO TRANSFERASE 27 U/L (14-36); BILIRUBIN,DIRECT 0.4 mg/dL (0.0-0.4); BILIRUBIN,TOTAL 0.6 mg/dL (0.2-1.3); BLOOD UREA NITROGEN 13 mg/dL (7-20); CALCIUM 8.6 mg/dL (8.4-10.2); CARBON DIOXIDE 26 mmol/L (22-30); CHLORIDE 104 mmol/L (98-107); CREATININE RESULT 0.82 mg/dL (0.52-1.25); GLUCOSE 140 mg/dL (75-110); POTASSIUM 3.2 mmol/L (3.6-5.0); SODIUM 139.3 mmol/L (137-145); TOTAL PROTEIN 6.2 g/dL (6.3-8.2)
[2017-06-04 13:01] LABS: BACTERIA,URINE 4+ /HPF; HYALINE CASTS, URINE 0-1 /LPF
[2017-06-04] MEDS ORDERED: IBUPROFEN 600 MG TABLET PO ONE (13:12)
[2017-06-04 13:26] VITALS: BP 152/65
== END 2017-06-04 13:35 | disposition home or self-care (01) ==
LOC: ER 11:36
DX: T81.89XA Other complications of procedures, not elsewhere classified, initial encounter (principal); Y83.9 Surgical procedure, unspecified as the cause of abnormal reaction of the patient, or of later complication, without mention of misadventure at the time of the procedure; N39.0 Urinary tract infection, site not specified; R10.30 Lower abdominal pain, unspecified; G89.29 Other chronic pain; E11.9 Type 2 diabetes mellitus without complications; I10 Essential (primary) hypertension; J44.9 Chronic obstructive pulmonary disease, unspecified; Z88.8 Allergy status to other drugs, medicaments and biological substances; Z88.6 Allergy status to analgesic agent; Z88.1 Allergy status to other antibiotic agents; Z88.5 Allergy status to narcotic agent; Z88.0 Allergy status to penicillin; Z90.49 Acquired absence of other specified parts of digestive tract; Z87.19 Personal history of other diseases of the digestive system
CPT/HCPCS: 99284; 51701; 36415; 87086; 85025; 87088; 80053; 81001; 87186; J3490

== ENCOUNTER 2017-06-20 07:24 | Emergency (ER) | payer MEDICAID ==
--- NOTE | 2017-06-20 07:43 | ER Document Report ---
ED Extremity Problem, Lower - General Mode of Arrival: Medic Information source: Patient, Emergency Med Personnel TRAVEL OUTSIDE OF THE [place] IN LAST 30 DAYS: No - HPI Patient complains to provider of: Pain Location: Leg - Left Occurred: Other - Refer to HPI notes - General Chief Complaint: Leg Pain Stated Complaint: SKIN PROBLEM/LEG PAIN Time Seen by Provider: 06/20/17 07:40 - HPI Notes: Patient is a 61-year-old female presenting to the emergency department for pain , swelling and blisters to her left lower extremity. Patient has chronic non- healing wounds and is seen by wound care regularly. Patient was seen by urgent care on Wednesday and Wednesday and was given a dose of Rocephin IM at both visits and sent home with Keflex. Patient states around 17:00 on Wednesday she noticed the fluid blisters. Patient states it has been draining and wet her shoes. 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 Patient has been evaluated multiple times in this emergency department for her chronic wounds. Patient's allergy list states she is allergic to Keflex however she is not allergic to this medication, she only got diarrhea x1 when she took it in the past. Patient is also currently taking this medication which was prescribed by her primary physician. (FRANCHESCA TAYLOR) - Related Data Allergies/Adverse Reactions: celecoxib [From Celebrex] Allergy (Mild, Verified 05/09/17 10:33) Urticaria aspirin [Aspirin] Allergy (Verified 05/09/17 10:33) Hives cephalexin monohydrate [From Keflex] Allergy (Verified 05/09/17 10:33) clindamycin [Clindamycin] Allergy (Verified 05/09/17 10:33) Hives lisinopril [Lisinopril] Allergy (Verified 05/09/17 10:33) methadone [Methadone] Allergy (Verified 05/09/17 10:33) metoprolol tartrate [From Lopressor] Allergy (Verified 05/09/17 10:33) Penicillins Allergy (Verified 05/09/17 10:33) Past Medical History - General Information source: Patient - Social History Smoking Status: Unknown if Ever Smoked Chew tobacco use (# tins/day): No Frequency of alcohol use: None Family History: None Patient has suicidal ideation: No Patient has homicidal ideation: No - Past Medical History Cardiac Medical History: Reports: Hx Hypercholesterolemia, Hx Hypertension Pulmonary Medical History: Reports: Hx Asthma, Hx Bronchitis, Hx COPD Endocrine Medical History: Reports: Hx Diabetes Mellitus Type 2 GI Medical History: Reports: Hx Gastroesophageal Reflux Disease, Hx Hiatal Hernia Musculoskeltal Medical History: Reports Hx Arthritis Skin Medical History: Reports Hx Cellulitis Psychiatric Medical History: Reports: Hx Anxiety, Hx Depression Infectious Medical History: Past Surgical History: Reports: Hx Abdominal Surgery - MULTIPLE VENTRAL HERNIA REPAIRS WITH DEBRIDEMENT. BOWEL OBSTRUCTION. NON-HEALING ABD WOUNDS WITH CHRONIC PAIN, Hx Bowel Surgery - Right abdominal fistula., Hx Section - x3, Hx Cholecystectomy, Hx Tubal Ligation - Immunizations Hx Diphtheria, Pertussis, Tetanus Vaccination: Yes Hx Pneumococcal Vaccination: 02/28/12 Review of Systems - Review of Systems Constitutional: No symptoms reported EENT: No symptoms reported Cardiovascular: No symptoms reported Respiratory: No symptoms reported Gastrointestinal: No symptoms reported Genitourinary: No symptoms reported Female Genitourinary: No symptoms reported Musculoskeletal: See HPI, Leg swelling Skin: See HPI, Other - left lower extremity: pain, blisters, erythema, edema Hematologic/Lymphatic: No symptoms reported Neurological/Psychological: No symptoms reported -: Yes All other systems reviewed and negative Physical Exam - Notes Notes: GENERAL: Alert, interacts well. No acute distress. HEAD: Normocephalic, atraumatic. EYES: Appear normal. Pupils equal, round, and reactive to light. ENT: Moist mucus membranes, tongue midline. NECK: Full range of motion. Supple. Trachea midline. LUNGS: Clear to auscultation bilaterally, no wheezes, rales, or rhonchi. No respiratory distress. HEART: Regular rate and rhythm. No murmurs, gallops, or rubs. ABDOMEN: Obese. Bandages over chronic ulcerated areas of the abdomen. Normal bowel sounds. EXTREMITIES: Moves all 4 extremities spontaneously. Normal strength. No edema. Left lower extremity is erythematous with chronic nonhealing wounds. There are fluid-filled blisters to the left lower extremity as well as some edema. NEUROLOGICAL: Alert and oriented x3. Normal speech. No focal neurological deficits. GSC 15. PSYCH: Normal affect, normal mood. SKIN: Warm, dry, normal turgor. (FRANCHESCA TAYLOR) Course - Re-evaluation Re-evalutation: 06/20/17 08:17 The patient states the skin of the leg itches and the leg hurts. She has repeatedly been asking for pain medication. She did fill a prescription for 120 tablets of oxycodone 15 mg less than 2 weeks ago. (JUDIT GOODRICH) Discharge - Discharge Clinical Impression: Cellulitis Qualifiers: Site of cellulitis: extremity Site of cellulitis of extremity: lower extremity Laterality: left Qualified Code(s): L03.116 - Cellulitis of left lower limb Condition: Stable Disposition: HOME, SELF-CARE Additional Instructions: Cellulitis: You have an infection of your skin and underlying soft tissues called cellulitis. This is due to bacteria, which can enter through any break in the skin, or even through an irritated hair follicle. Untreated, cellulitis will usually worsen. Antibiotics are required. Usually, warm packs or warm soaks, and elevation of the infected area are recommended. You should start getting better within 24 to 36 hours. Most infections respond quickly to the right medication. Follow-up care is important, however, to check for abscess (boil) formation, unsuspected foreign body, or resistant infection. If you develop fever, chills, or if the area of infection is becoming rapidly more swollen or painful, call the doctor at once. ADD THE MEDICATION PRESCRIBED. ELEVATE THE FOOT ALL THE TIME. FOLLOW UP WITH YOUR DOCTOR TOMORROW FOR RECHECK. Prescriptions: Doxycycline Hyclate 100 mg PO BID #14 tablet Scribe Attestation: 06/20/17 08:14 I personally performed the services described in the documentation, reviewed and edited the documentation which was dictated to the scribe in my presence, and it accurately records my words and actions. (JUDIT GOODRICH) Scribe Documentation - Scribe Written by Renato:: Renato Elizabeth, 06/20/2017 08:40 acting as scribe for :: Tracy
[2017-06-20] MEDS ORDERED: TRAMADOL HCL 50 MG TABLET PO ONE (08:11)
[2017-06-20 08:46] VITALS: BP 161/95
== END 2017-06-20 08:46 | disposition home or self-care (01) ==
LOC: ER 07:24
DX: L03.116 Cellulitis of left lower limb (principal); I10 Essential (primary) hypertension; K63.2 Fistula of intestine; L98.499 Non-pressure chronic ulcer of skin of other sites with unspecified severity; R60.0 Localized edema; J44.9 Chronic obstructive pulmonary disease, unspecified; Z88.6 Allergy status to analgesic agent; Z88.8 Allergy status to other drugs, medicaments and biological substances; Z88.1 Allergy status to other antibiotic agents; Z88.0 Allergy status to penicillin
CPT/HCPCS: 87070; 87077; 87186; 87205; 99283

== ENCOUNTER 2017-07-19 18:50 | Emergency (ER) | payer MEDICAID ==
[2017-07-19] MEDS ORDERED: HYDROMORPHONE HCL INJ/PF 2 MG/ML AMPULE IM ONE (19:32)
[2017-07-19] MEDS ORDERED: DOXYCYCLINE HYCLATE 100 MG TABLET PO ONE (19:33)
--- NOTE | 2017-07-19 19:33 | ER Document Report ---
ED Extremity Problem, Lower - General Chief Complaint: Leg Swelling Stated Complaint: LEG PAIN Time Seen by Provider: 07/19/17 19:16 Notes: Patient is a 61-year-old female who comes emergency department for chief complaint of pain in her left leg, she states that she spent most of the morning on her leg and now she cannot get out of the sharp pain and throbbing in her leg. She has had healing wounds and cellulitis, was on doxycycline, then completed Keflex, states it has improved but today it seems more painful. She is a diabetic, she reports compliance with her medications, she denies fever, she denies nausea or vomiting, she denies any other symptoms. She had a Doppler to evaluate the area recently which was negative reportedly. She is on pain management and states she is taking her oxycodone as prescribed. TRAVEL OUTSIDE OF THE [place] IN LAST 30 DAYS: No - Related Data Allergies/Adverse Reactions: celecoxib [From Celebrex] Allergy (Mild, Verified 07/19/17 20:17) Urticaria aspirin [Aspirin] Allergy (Verified 07/19/17 20:17) Hives cephalexin monohydrate [From Keflex] Allergy (Verified 07/19/17 20:17) clindamycin [Clindamycin] Allergy (Verified 07/19/17 20:17) Hives lisinopril [Lisinopril] Allergy (Verified 07/19/17 20:17) methadone [Methadone] Allergy (Verified 07/19/17 20:17) metoprolol tartrate [From Lopressor] Allergy (Verified 07/19/17 20:17) Penicillins Allergy (Verified 07/19/17 20:17) Past Medical History - General Information source: Patient - Social History Smoking Status: Never Smoker Frequency of alcohol use: None Drug Abuse: None Lives with: Family Family History: None Patient has suicidal ideation: No Patient has homicidal ideation: No - Past Medical History Cardiac Medical History: Reports: Hx Hypercholesterolemia, Hx Hypertension Denies: Hx Heart Murmur Pulmonary Medical History: Reports: Hx Asthma, Hx Bronchitis, Hx COPD Denies: Hx Respiratory Failure, Hx Sleep Apnea, Hx Tuberculosis Endocrine Medical History: Reports: Hx Diabetes Mellitus Type 2 Renal/ Medical History: Denies: Hx Peritoneal Dialysis GI Medical History: Reports: Hx Gastroesophageal Reflux Disease, Hx Hiatal Hernia Musculoskeltal Medical History: Reports Hx Arthritis Skin Medical History: Reports Hx Cellulitis Psychiatric Medical History: Reports: Hx Anxiety, Hx Depression Infectious Medical History: Past Surgical History: Reports: Hx Abdominal Surgery - MULTIPLE VENTRAL HERNIA REPAIRS WITH DEBRIDEMENT. BOWEL OBSTRUCTION. NON-HEALING ABD WOUNDS WITH CHRONIC PAIN, Hx Bowel Surgery - Right abdominal fistula., Hx Section - x3, Hx Cholecystectomy, Hx Tubal Ligation - Immunizations Hx Diphtheria, Pertussis, Tetanus Vaccination: Yes Hx Pneumococcal Vaccination: 02/28/12 Review of Systems - Review of Systems Constitutional: No symptoms reported EENT: No symptoms reported Cardiovascular: See HPI Respiratory: No symptoms reported Gastrointestinal: No symptoms reported Genitourinary: No symptoms reported Female Genitourinary: No symptoms reported Musculoskeletal: See HPI Skin: See HPI Hematologic/Lymphatic: No symptoms reported Neurological/Psychological: No symptoms reported Physical Exam - Vital signs Vitals: Temp Pulse Resp BP Pulse Ox 97.7 F 88 25 H 162/62 H 95 07/19/17 19:03 07/19/17 19:03 07/19/17 19:03 07/19/17 19:03 07/19/17 19:03 Interpretation: Normal - General General appearance: Appears well In distress: None - HEENT Head: Normocephalic, Atraumatic Eyes: Normal Conjunctiva: Normal Extraocular movements intact: Yes Eyelashes: Normal Pupils: PERRL Nasal: Normal Mouth/Lips: Normal Mucous membranes: Normal Pharynx: Normal Neck: Normal - Respiratory Respiratory status: No respiratory distress Chest status: Nontender Breath sounds: Normal. No: Decreased air movement, Wheezing Chest palpation: Normal - Cardiovascular Rhythm: Regular Heart sounds: Normal auscultation Murmur: No - Abdominal Inspection: Other - Chronic wounds of the lower abdomen, new dressings in place , no significant tenderness, no drainage, no surrounding erythema or streaking away from the area noted Distension: No distension Bowel sounds: Normal Tenderness: Nontender Organomegaly: No organomegaly - Back Back: Normal, Nontender. No: Tender - Extremities General upper extremity: Normal inspection, Nontender, Normal color, Normal ROM , Normal temperature General lower extremity: Edema - There is equal 1+ edema bilaterally, there is erythema and warmth to the skin mainly of the anterior lower extremity on the left side, there are healed wounds which appear to previously have been blisters , no induration, no fluctuance, no drainage, no lymphangitis. Distal sensation and capillary refill intact. - Neurological Neuro grossly intact: Yes Cognition: Normal Orientation: AAOx4 [place] Coma Scale Eye Opening: Spontaneous James Coma Scale Verbal: Oriented [place] Coma Scale Motor: Obeys Commands [place] Coma Scale Total: 15 Speech: Normal Cranial nerves: Normal Cerebellar coordination: Normal Motor strength normal: LUE, RUE, LLE, RLE Additional motor exam normals: Equal manager monitoring Sensory: Normal - Psychological Associated symptoms: Normal affect, Normal mood - Skin Skin Temperature: Warm Skin Moisture: Dry Skin Color: Normal Course - Re-evaluation Re-evalutation: Appears to be a return of patient's intermittent chronic lower extremity difficulties and cellulitis. No induration or fluctuance suggesting abscess. No tachycardia, fever, or hypotension. No leukocytosis. Patient was given pain medication. Afterwards she reports feeling much better, ambulated without any difficulty. Patient given a dose of doxycycline, she will be started on this for lower extremity cellulitis, instructed to elevate it , instructed to perform close follow-up and to return for any worsening symptoms including fever, spreading, etc. Chemistry shows low potassium, discussed this, patient states he will increase potassium intake and have this closely followed up with primary care. Patient states understanding and agreement with plan. - Vital Signs Vital signs: Temp Pulse Resp BP Pulse Ox 97.7 F 89 20 165/65 H 98 07/19/17 19:03 07/19/17 20:58 07/19/17 20:58 07/19/17 20:58 07/19/17 20:58 - Laboratory Result Diagrams: 07/19/17 19:50 07/19/17 19:50 Laboratory results interpreted by me: 07/19/17 07/19/17 19:50 19:50 Hgb 9.8 L Hct 30.4 L MCV 73 L MCH 23.5 L RDW 16.7 H Plt Count 550 H Potassium 3.1 L Chloride 96 L Carbon Dioxide 33 H Discharge - Discharge Clinical Impression: Hypokalemia Cellulitis Qualifiers: Site of cellulitis: extremity Site of cellulitis of extremity: lower extremity Laterality: left Qualified Code(s): L03.116 - Cellulitis of left lower limb Leg pain Qualifiers: Laterality: left Qualified Code(s): M79.605 - Pain in left leg Condition: Stable Disposition: HOME, SELF-CARE Additional Instructions: Exam shows cellulitis of the leg, please follow-up with the wound clinic as planned, take the prescribed antibiotic to completion. Continue your pain medication, elevate your leg. Your potassium is slightly low, probably because of the Lasix, you have been given a dose of this today, have your primary care continue to follow this. Return to the emergency department for any concerning or worsening symptoms including spreading redness, fever, vomiting, or any other concerning symptoms. Prescriptions: Doxycycline Hyclate 100 mg PO BID #14 capsule Referrals: CHRISTINA GRANT MD [Primary Care Provider] - Follow up as needed
[2017-07-19 20:07] LABS: ABSOLUTE EOSINOPHILS # (AUTO) 0.2 10^3/uL (0.0-0.6); ABSOLUTE LYMPHOCYTES (AUTO) 1.3 10^3/uL (0.5-4.7); ABSOLUTE MONOCYTES (AUTO) 0.5 10^3/uL (0.1-1.4); ABSOLUTE NEUT (AUTO) 7.2 10^3/uL (1.7-8.2); BASOPHILS % (AUTO) 0.4 % (0-2); EOSINOPHILS % (AUTO) 2.3 % (0-6); HEMATOCRIT 30.4 % (36.0-47.0); HEMOGLOBIN 9.8 g/dL (12.0-15.5); LYMPHOCYTES % (AUTO) 14.1 % (13-45); MEAN CORPUSCULAR HEMOGLOBIN 23.5 pg (27.0-33.4); MEAN CORPUSCULAR HGB CONC 32.1 g/dL (32.0-36.0); MEAN CORPUSCULAR VOLUME 73 fl (80-97); MONOCYTES % (AUTO) 5.4 % (3-13); RED BLOOD COUNT 4.16 10^6/uL (3.72-5.28); RED CELL DISTRIBUTION WIDTH 16.7 % (11.5-14.0); SEGMENTED NEUTROPHILS % (AUTO) 77.8 % (42-78); WHITE BLOOD COUNT 9.3 10^3/uL (4.0-10.5)
[2017-07-19 20:25] LABS: ANION GAP 10 (5-19); BLOOD UREA NITROGEN 8 mg/dL (7-20); CALCIUM 8.7 mg/dL (8.4-10.2); CARBON DIOXIDE 33 mmol/L (22-30); CHLORIDE 96 mmol/L (98-107); CREATININE RESULT 0.76 mg/dL (0.52-1.25); GLUCOSE 99 mg/dL (75-110); SODIUM 138.5 mmol/L (137-145)
[2017-07-19 20:40] LABS: POTASSIUM 3.1 mmol/L (3.6-5.0)
[2017-07-19] MEDS ORDERED: POTASSIUM CHLORIDE 10 MEQ TABLET.SA PO ONE (20:42)
[2017-07-19 21:01] VITALS: BP 165/65
== END 2017-07-19 20:58 | disposition home or self-care (01) ==
LOC: ER 18:50
DX: L03.116 Cellulitis of left lower limb (principal); M79.605 Pain in left leg; R60.0 Localized edema; E87.6 Hypokalemia; E11.9 Type 2 diabetes mellitus without complications; I10 Essential (primary) hypertension; J44.9 Chronic obstructive pulmonary disease, unspecified; Z79.899 Other long term (current) drug therapy; Z79.891 Long term (current) use of opiate analgesic; Z88.8 Allergy status to other drugs, medicaments and biological substances; Z88.6 Allergy status to analgesic agent; Z88.1 Allergy status to other antibiotic agents; Z88.5 Allergy status to narcotic agent; Z88.0 Allergy status to penicillin
CPT/HCPCS: 99283; 36415; 85025; 80048; J3490; J1170

== ENCOUNTER 2017-07-20 01:09 | Emergency (ER) | payer MEDICAID ==
--- NOTE | 2017-07-20 03:55 | ER Document Report ---
HPI - HPI Pain Level: 5 Context: Patient is a 61-year-old female who comes emergency department for chief complaint of pain in her left leg. Patient was just discharged from this facility earlier this evening. Patient states that her ride told her they would not be able to get her as soon as they thought, patient has several hours to wait, she states that her leg is intermittently hurting and she decided to check back in because of it. She denies any new symptoms, she states that she actually feels better than she did earlier. No spreading redness of her leg, no additional swelling, no fever, no other developing symptoms. - REPRODUCTIVE Reproductive: DENIES: : - DERM Skin Color: Normal Past Medical History - General Information source: Patient - Social History Smoking Status: Never Smoker Frequency of alcohol use: None Lives with: Family Family History: None Patient has suicidal ideation: No Patient has homicidal ideation: No - Past Medical History Cardiac Medical History: Reports: Hx Hypercholesterolemia, Hx Hypertension Denies: Hx Heart Murmur Pulmonary Medical History: Reports: Hx Asthma, Hx Bronchitis, Hx COPD Denies: Hx Respiratory Failure, Hx Sleep Apnea, Hx Tuberculosis Endocrine Medical History: Reports: Hx Diabetes Mellitus Type 1, Hx Diabetes Mellitus Type 2 Renal/ Medical History: Denies: Hx Peritoneal Dialysis GI Medical History: Reports: Hx Gastroesophageal Reflux Disease, Hx Hiatal Hernia Musculoskeltal Medical History: Reports Hx Arthritis Skin Medical History: Reports Hx Cellulitis Psychiatric Medical History: Reports: Hx Anxiety, Hx Depression Infectious Medical History: Past Surgical History: Reports: Hx Abdominal Surgery - MULTIPLE VENTRAL HERNIA REPAIRS WITH DEBRIDEMENT. BOWEL OBSTRUCTION. NON-HEALING ABD WOUNDS WITH CHRONIC PAIN, Hx Bowel Surgery - Right abdominal fistula., Hx Section - x3, Hx Cholecystectomy, Hx Tubal Ligation - Immunizations Hx Diphtheria, Pertussis, Tetanus Vaccination: Yes Hx Pneumococcal Vaccination: 02/28/12 Vertical Provider Document - CONSTITUTIONAL Agree With Documented VS: Yes General Appearance: WD/WN - INFECTION CONTROL TRAVEL OUTSIDE OF THE [place] IN LAST 30 DAYS: No - HEENT HEENT: Atraumatic, Normocephalic - NECK Neck: Normal Inspection - RESPIRATORY Respiratory: Breath Sounds Normal, No Respiratory Distress O2 Sat by Pulse Oximetry: 98 - CARDIOVASCULAR Cardiovascular: Regular Rate, Regular Rhythm - GI/ABDOMEN Gastrointestinal: Abdomen Soft, Abdomen Non-Tender - MUSCULOSKELETAL/EXTREMETIES Musculoskeletal/Extremeties: MAEW, FROM, Tender - There is equal 1+ edema bilaterally, there is erythema and warmth to the skin mainly of the anterior lower extremity on the left side, there are healed wounds which appear to previously have been blisters, no induration, no fluctuance, no drainage, no lymphangitis. Distal sensation and capillary refill intact. Ambulates without difficulty. - NEURO Level of Consciousness: Awake, Alert, Appropriate Motor/Sensory: No Motor Deficit, No Sensory Deficit Course - Re-evaluation Re-evalutation: Patient ambulating easily around the room. Well-appearing. No development of her examination when compared to prior. Still stable for discharge with return recommendations and follow-up instructions. - Vital Signs Vital signs: Temp Pulse Resp BP Pulse Ox 97.4 F 84 19 167/63 H 98 07/20/17 01:30 07/20/17 01:30 07/20/17 01:30 07/20/17 01:30 07/20/17 01:30 Discharge - Discharge Clinical Impression: Cellulitis Qualifiers: Site of cellulitis: extremity Site of cellulitis of extremity: lower extremity Laterality: left Qualified Code(s): L03.116 - Cellulitis of left lower limb Leg pain Qualifiers: Laterality: left Qualified Code(s): M79.605 - Pain in left leg Condition: Stable Disposition: HOME, SELF-CARE Additional Instructions: Exam shows cellulitis of the leg, please follow-up with the wound clinic as planned, take the prescribed antibiotic to completion. Continue your pain medication, elevate your leg. Your potassium is slightly low, probably because of the Lasix, you have been given a dose of this today, have your primary care continue to follow this. Return to the emergency department for any concerning or worsening symptoms including spreading redness, fever, vomiting, or any other concerning symptoms. Referrals: CHRISTINA GRANT MD [Primary Care Provider] - Follow up as needed
[2017-07-20 04:23] VITALS: BP 159/79
== END 2017-07-20 04:20 | disposition home or self-care (01) ==
LOC: ER 01:09
DX: L03.116 Cellulitis of left lower limb (principal); M79.605 Pain in left leg; E78.00 Pure hypercholesterolemia, unspecified; I10 Essential (primary) hypertension; J45.909 Unspecified asthma, uncomplicated; J44.9 Chronic obstructive pulmonary disease, unspecified; E11.9 Type 2 diabetes mellitus without complications; K21.9 Gastro-esophageal reflux disease without esophagitis; Z90.49 Acquired absence of other specified parts of digestive tract; Z98.51 Tubal ligation status
CPT/HCPCS: 99283

== ENCOUNTER 2017-07-20 18:08 | Emergency (ER) | payer MEDICAID ==
[2017-07-20 19:16] VITALS: BP 158/70
--- NOTE | 2017-07-20 19:47 | ER Document Report ---
ED Medical Screen (RME) - General Chief Complaint: Leg Pain Stated Complaint: LEG PAIN Time Seen by Provider: 07/20/17 19:43 Notes: Patient was seen here twice within the last 24 hours, this is now the third visit. In the left leg. She states that she has been diagnosed with cellulitis and has been taking doxycycline but it is getting worse. She states she also takes 15 mg of oxycodone but is not provide any pain relief. TRAVEL OUTSIDE OF THE [place] IN LAST 30 DAYS: No - Related Data Allergies/Adverse Reactions: celecoxib [From Celebrex] Allergy (Mild, Verified 07/20/17 19:11) Urticaria aspirin [Aspirin] Allergy (Verified 07/20/17 19:11) Hives cephalexin monohydrate [From Keflex] Allergy (Verified 07/20/17 19:11) clindamycin [Clindamycin] Allergy (Verified 07/20/17 19:11) Hives lisinopril [Lisinopril] Allergy (Verified 07/20/17 19:11) methadone [Methadone] Allergy (Verified 07/20/17 19:11) metoprolol tartrate [From Lopressor] Allergy (Verified 07/20/17 19:11) Penicillins Allergy (Verified 07/20/17 19:11) Past Medical History - Social History Chew tobacco use (# tins/day): No Frequency of alcohol use: None Drug Abuse: None - Past Medical History Cardiac Medical History: Reports: Hx Hypercholesterolemia, Hx Hypertension Denies: Hx Heart Murmur Pulmonary Medical History: Reports: Hx Asthma, Hx Bronchitis, Hx COPD Denies: Hx Respiratory Failure, Hx Sleep Apnea, Hx Tuberculosis Endocrine Medical History: Reports: Hx Diabetes Mellitus Type 1, Hx Diabetes Mellitus Type 2 Renal/ Medical History: Denies: Hx Peritoneal Dialysis GI Medical History: Reports: Hx Gastroesophageal Reflux Disease, Hx Hiatal Hernia Musculoskeltal Medical History: Reports Hx Arthritis Skin Medical History: Reports Hx Cellulitis Psychiatric Medical History: Reports: Hx Anxiety, Hx Depression Infectious Medical History: Past Surgical History: Reports: Hx Abdominal Surgery - MULTIPLE VENTRAL HERNIA REPAIRS WITH DEBRIDEMENT. BOWEL OBSTRUCTION. NON-HEALING ABD WOUNDS WITH CHRONIC PAIN, Hx Bowel Surgery - Right abdominal fistula., Hx Section - x3, Hx Cholecystectomy, Hx Tubal Ligation - Immunizations Hx Diphtheria, Pertussis, Tetanus Vaccination: Yes Physical Exam - Vital signs Vitals: Temp Pulse Resp BP Pulse Ox 98.4 F 84 16 158/70 H 100 07/20/17 19:11 07/20/17 19:11 07/20/17 19:11 07/20/17 19:11 07/20/17 19:11 Course - Vital Signs Vital signs: Temp Pulse Resp BP Pulse Ox 98.4 F 84 16 158/70 H 100 07/20/17 19:11 07/20/17 19:11 07/20/17 19:11 07/20/17 19:11 07/20/17 19:11
[2017-07-20 20:17] LABS: ABSOLUTE EOSINOPHILS # (AUTO) 0.1 10^3/uL (0.0-0.6); ABSOLUTE LYMPHOCYTES (AUTO) 1.5 10^3/uL (0.5-4.7); ABSOLUTE MONOCYTES (AUTO) 0.4 10^3/uL (0.1-1.4); ABSOLUTE NEUT (AUTO) 6.1 10^3/uL (1.7-8.2); BASOPHILS % (AUTO) 0.4 % (0-2); EOSINOPHILS % (AUTO) 1.8 % (0-6); HEMATOCRIT 31.7 % (36.0-47.0); HEMOGLOBIN 10.3 g/dL (12.0-15.5); HGB HCT DIFFERENCE -0.8; MEAN CORPUSCULAR HEMOGLOBIN 23.7 pg (27.0-33.4); MEAN CORPUSCULAR HGB CONC 32.6 g/dL (32.0-36.0); MEAN CORPUSCULAR VOLUME 73 fl (80-97); RED BLOOD COUNT 4.36 10^6/uL (3.72-5.28); RED CELL DISTRIBUTION WIDTH 16.2 % (11.5-14.0); SEGMENTED NEUTROPHILS % (AUTO) 74.8 % (42-78); WHITE BLOOD COUNT 8.2 10^3/uL (4.0-10.5)
[2017-07-20 20:34] LABS: ANION GAP 10 (5-19); BLOOD UREA NITROGEN 8 mg/dL (7-20); CALCIUM 9.2 mg/dL (8.4-10.2); CARBON DIOXIDE 30 mmol/L (22-30); CHLORIDE 97 mmol/L (98-107); CREATININE RESULT 0.73 mg/dL (0.52-1.25); GLUCOSE 112 mg/dL (75-110); POTASSIUM 3.4 mmol/L (3.6-5.0); SODIUM 137.4 mmol/L (137-145)
== END 2017-07-20 21:09 | disposition left against medical advice (07) ==
LOC: ER 18:08
DX: M79.605 Pain in left leg (principal); L03.116 Cellulitis of left lower limb; E78.00 Pure hypercholesterolemia, unspecified; I10 Essential (primary) hypertension; J45.909 Unspecified asthma, uncomplicated; J44.9 Chronic obstructive pulmonary disease, unspecified; K21.9 Gastro-esophageal reflux disease without esophagitis; E11.9 Type 2 diabetes mellitus without complications; Z88.6 Allergy status to analgesic agent; Z88.0 Allergy status to penicillin; Z90.49 Acquired absence of other specified parts of digestive tract; Z98.51 Tubal ligation status
CPT/HCPCS: 36415; 80048; 85025; 99281

== ENCOUNTER 2017-08-01 05:51 | Emergency (ER) | payer MEDICAID ==
--- NOTE | 2017-08-01 06:20 | ER Document Report ---
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 Patient notes she is out of her pain medication which was picked up on the fifth of last month. Patient states she is changing pain specialists. She denies any fever chills denies any nausea or vomiting patient does admit to diarrhea. Patient has been on multiple antibiotics recently for her lower extremity cellulitis TRAVEL OUTSIDE OF THE [place] IN LAST 30 DAYS: No - HPI Onset: Other Onset/Duration: Persistent Quality of pain: Achy Severity: Mild Pain Level: 1 Associated symptoms: Body/muscle aches, Other Exacerbated by: Denies Relieved by: Denies Similar symptoms previously: Yes Recently seen / treated by doctor: Yes - Related Data Allergies/Adverse Reactions: celecoxib [From Celebrex] Allergy (Mild, Verified 07/20/17 19:11) Urticaria aspirin [Aspirin] Allergy (Verified 07/20/17 19:11) Hives cephalexin monohydrate [From Keflex] Allergy (Verified 07/20/17 19:11) clindamycin [Clindamycin] Allergy (Verified 07/20/17 19:11) Hives lisinopril [Lisinopril] Allergy (Verified 07/20/17 19:11) methadone [Methadone] Allergy (Verified 07/20/17 19:11) metoprolol tartrate [From Lopressor] Allergy (Verified 07/20/17 19:11) Penicillins Allergy (Verified 07/20/17 19:11) Past Medical History - Social History Smoking Status: Never Smoker Cigarette use (# per day): No Chew tobacco use (# tins/day): No Smoking Education Provided: No Family History: None - Past Medical History Cardiac Medical History: Reports: Hx Hypercholesterolemia, Hx Hypertension Denies: Hx Heart Murmur Pulmonary Medical History: Reports: Hx Asthma, Hx Bronchitis, Hx COPD Denies: Hx Respiratory Failure, Hx Sleep Apnea, Hx Tuberculosis Endocrine Medical History: Reports: Hx Diabetes Mellitus Type 1, Hx Diabetes Mellitus Type 2 Renal/ Medical History: Denies: Hx Peritoneal Dialysis GI Medical History: Reports: Hx Gastroesophageal Reflux Disease, Hx Hiatal Hernia Musculoskeltal Medical History: Reports Hx Arthritis Skin Medical History: Reports Hx Cellulitis Psychiatric Medical History: Reports: Hx Anxiety, Hx Depression Infectious Medical History: Past Surgical History: Reports: Hx Abdominal Surgery - MULTIPLE VENTRAL HERNIA REPAIRS WITH DEBRIDEMENT. BOWEL OBSTRUCTION. NON-HEALING ABD WOUNDS WITH CHRONIC PAIN, Hx Bowel Surgery - Right abdominal fistula., Hx Section - x3, Hx Cholecystectomy, Hx Tubal Ligation - Immunizations Hx Diphtheria, Pertussis, Tetanus Vaccination: Yes Hx Pneumococcal Vaccination: 02/28/12 Review of Systems - Review of Systems Notes: REVIEW OF SYSTEMS: CONSTITUTIONAL : Denies fever, chills, or sweats. Denies recent illness. EENT: Admits to muscle stiffness in her neck CARDIOVASCULAR: Denies chest pain. Denies palpitations or racing or irregular heart beat. Denies ankle edema. RESPIRATORY: Denies cough, cold, or chest congestion. Denies shortness of breath, difficulty breathing, or wheezing. GASTROINTESTINAL: Admits to abdominal pain GENITOURINARY: Denies difficulty urinating, painful urination, burning, frequency, blood in urine, or discharge. FEMALE GENITOURINARY: Denies vaginal bleeding, heavy or abnormal periods, irregular periods. Denies vaginal discharge or odor. MUSCULOSKELETAL: Denies back or neck pain or stiffness. Denies joint pain or swelling. SKIN: Denies rash, lesions or sores. HEMATOLOGIC : Denies easy bruising or bleeding. LYMPHATIC: Denies swollen, enlarged glands. NEUROLOGICAL: Denies confusion or altered mental status. Denies passing out or loss of consciousness. Denies dizziness or lightheadedness. Denies headache. Denies weakness or paralysis or loss of use of either side. Denies problems with gait or speech. Denies sensory loss, numbness, or tingling. Denies seizures. PSYCHIATRIC: Denies anxiety or stress. Denies depression, suicidal ideation, or homicidal ideation. ALL OTHER SYSTEMS REVIEWED AND NEGATIVE. PHYSICAL EXAMINATION: GENERAL: Well-appearing, well-nourished and in no acute distress. HEAD: Atraumatic, normocephalic. EYES: Pupils equal round and reactive to light, extraocular movements intact, conjunctiva are normal. ENT: Nares patent, oropharynx clear without exudates. Moist mucous membranes. NECK: Normal range of motion, supple without lymphadenopathy no tenderness on palpation of the neck no midline tenderness LUNGS: Breath sounds clear to auscultation bilaterally and equal. No wheezes rales or rhonchi. HEART: Regular rate and rhythm without murmurs ABDOMEN: Soft, nontender, nondistended abdomen. No guarding, no rebound. No masses appreciated. There is a healing superficial wound on the left lower abdomen that was evaluated at [facility] last week at their wound care, draining fistula right abdomen chronic Female : deferred Musculoskeletal: Normal range of motion, no pitting or edema. No cyanosis. NEUROLOGICAL: Cranial nerves grossly intact. Normal speech, normal gait. Normal sensory, motor exams PSYCH: Normal mood, normal affect. SKIN: Cellulitis of the left hopkins chronic Dictation was performed using [employer] voice recognition software Physical Exam - Vital signs Vitals: Temp 97.2 F 08/01/17 06:12 Course - Re-evaluation Re-evalutation: 08/01/17 07:06 At this time there are no new infectious processes or any signs of any life- threatening issues patient's complaints are all chronic and appeared to be pain related in nature. Patient has been made aware that it is inappropriate to treat with narcotics for chronic pain in the emergency department 08/01/17 07:07 Lab work had been ordered to rule out any life-threatening issues, mild hypokalemia is noted patient will be given p.o. potassium and is otherwise stable for discharge After performing a Medical Screening Examination, I estimate there is LOW risk for ACUTE APPENDICITIS, BOWEL OBSTRUCTION, ACUTE CHOLECYSTITIS, PERFORATED DIVERTICULITIS, INCARCERATED HERNIA, PANCREATITIS, PELVIC INFLAMMATORY DISEASE, PERFORATED ULCER, ECTOPIC , or TUBO-OVARIAN ABSCESS, thus I consider the discharge disposition reasonable. Also, there is no evidence or peritonitis , sepsis, or toxicity. I have reevaluated this patient multiple times and no significant life threatening changes are noted. The patient and I have discussed the diagnosis and risks, and we agree with discharging home with close follow-up with the understanding that symptoms and presentations can change. We also discussed returning to the Emergency Department immediately if new or worsening symptoms occur. We have discussed the symptoms which are most concerning (e.g., bloody stool, fever, changing or worsening pain, vomiting) that necessitate immediate return. - Vital Signs Vital signs: Temp Pulse Resp BP Pulse Ox 97.2 F 76 16 149/66 H 97 08/01/17 06:12 08/01/17 06:13 08/01/17 06:13 08/01/17 06:13 08/01/17 06:13 - Laboratory Result Diagrams: 08/01/17 06:30 08/01/17 06:30 Laboratory results interpreted by me: 08/01/17 08/01/17 06:30 06:30 Hgb 10.1 L Hct 29.6 L MCV 73 L MCH 24.7 L RDW 17.3 H Potassium 3.0 L* Est GFR (Non-Af Amer) 57 L Glucose 157 H Alkaline Phosphatase 136 H Discharge - Discharge Clinical Impression: Fistula, Hypokalemia Chronic abdominal wound infection Qualifiers: Encounter type: initial encounter Qualified Code(s): S31.109A - Unspecified open wound of abdominal wall, unspecified quadrant without penetration into peritoneal cavity, initial encounter; L08.9 - Local infection of the skin and subcutaneous tissue, unspecified Condition: Stable Disposition: HOME, SELF-CARE Instructions: Abdominal Pain ([facility]) Additional Instructions: Please increase your intake of potassium over the next 2-3 days and have your primary care physician evaluate your potassium Referrals: KRISSY STORY, MEDICAL ONCOLOGIST-C [Primary Care Provider] - Follow up tomorrow
[2017-08-01 06:47] LABS: ABSOLUTE EOSINOPHILS # (AUTO) 0.4 10^3/uL (0.0-0.6); ABSOLUTE LYMPHOCYTES (AUTO) 1.3 10^3/uL (0.5-4.7); ABSOLUTE MONOCYTES (AUTO) 0.4 10^3/uL (0.1-1.4); ABSOLUTE NEUT (AUTO) 4.7 10^3/uL (1.7-8.2); BASOPHILS % (AUTO) 0.6 % (0-2); EOSINOPHILS % (AUTO) 5.2 % (0-6); HEMATOCRIT 29.6 % (36.0-47.0); HEMOGLOBIN 10.1 g/dL (12.0-15.5); HGB HCT DIFFERENCE 0.7; LYMPHOCYTES % (AUTO) 19.5 % (13-45); MEAN CORPUSCULAR HEMOGLOBIN 24.7 pg (27.0-33.4); MEAN CORPUSCULAR VOLUME 73 fl (80-97); MONOCYTES % (AUTO) 6.1 % (3-13); RED BLOOD COUNT 4.07 10^6/uL (3.72-5.28); RED CELL DISTRIBUTION WIDTH 17.3 % (11.5-14.0); SEGMENTED NEUTROPHILS % (AUTO) 68.6 % (42-78); WHITE BLOOD COUNT 6.9 10^3/uL (4.0-10.5)
[2017-08-01 06:55] LABS: BLOOD UREA NITROGEN 19 mg/dL (7-20); CALCIUM 9.7 mg/dL (8.4-10.2); CREATININE RESULT 0.99 mg/dL (0.52-1.25); GLUCOSE 157 mg/dL (75-110)
[2017-08-01 06:56] LABS: ALANINE AMINOTRANSFERASE 23 U/L (9-52); ALBUMIN 3.5 g/dL (3.5-5.0); ALKALINE PHOSPHATASE 136 U/L (38-126); ANION GAP 11 (5-19); ASPARTATE AMINO TRANSFERASE 15 U/L (14-36); BILIRUBIN,DIRECT 0.4 mg/dL (0.0-0.4); BILIRUBIN,TOTAL 0.4 mg/dL (0.2-1.3); CARBON DIOXIDE 30 mmol/L (22-30); CHLORIDE 99 mmol/L (98-107); LIPASE 68.2 U/L (23-300); TOTAL PROTEIN 6.4 g/dL (6.3-8.2)
[2017-08-01] MEDS ORDERED: POTASSIUM CHLORIDE 10 MEQ TABLET.SA PO ONE (07:07)
[2017-08-01 07:08] LABS: APPEARANCE,URINE SLIGHTLY-CLOUDY; BILIRUBIN,URINE NEGATIVE (NEGATIVE); GLUCOSE, URINE NEGATIVE (NEGATIVE); KETONES,URINE NEGATIVE (NEGATIVE); LEUKOCYTE ESTERASE,URINE NEGATIVE (NEGATIVE); NITRITE,URINE NEGATIVE (NEGATIVE); PROTEIN,URINE NEGATIVE (NEGATIVE); URINE SPECIFIC GRAVITY 1.028; UROBILINOGEN,URINE NEGATIVE mg/dL (<2.0)
[2017-08-01 07:29] VITALS: BP 142/67
== END 2017-08-01 07:30 | disposition home or self-care (01) ==
LOC: ER 05:51
DX: S31.109A Unspecified open wound of abdominal wall, unspecified quadrant without penetration into peritoneal cavity, initial encounter (principal); L08.9 Local infection of the skin and subcutaneous tissue, unspecified; L98.8 Other specified disorders of the skin and subcutaneous tissue; E87.6 Hypokalemia; R10.9 Unspecified abdominal pain; G89.29 Other chronic pain; L03.116 Cellulitis of left lower limb; R19.7 Diarrhea, unspecified; X58.XXXA Exposure to other specified factors, initial encounter
CPT/HCPCS: 36415; 80053; 81001; 83690; 85025; 99284

== ENCOUNTER 2017-08-13 11:01 | Inpatient (IN) | payer MEDICAID ==
--- NOTE | 2017-08-13 12:36 | ER Document Report ---
ED General - General Chief Complaint: Wound Recheck Stated Complaint: WOUND CHECK Time Seen by Provider: 08/13/17 12:30 Notes: Patient is here for drainage from a fistula in her abdomen. Patient says that she has had 9 hernia surgeries in her lifetime, beginning when she was a baby. Her latest surgery was in 2010 where she had debridement and repair of her hernia. It began leaking to the right of the umbilicus shortly after the surgery and that leakage has been orangeish and reddish in color, perhaps with some blood in it for many years. However, last night, patient noticed that the drainage coming from the wound is green and watery and it is much more wanted to be. She is having to change the bandage on it 7 times a day instead of the usual 3 times a day. She also has some redness and drainage on the left side of her abdomen. She goes to wound care in [place] once a week, usually every Wednesday.. She was cultured about 10 days ago and told that she had something like MRSA and was put on Bactrim on August 07 and has 1 days medication remaining. Patient does not think she had a fever, but she has had chills. Patient has had some dry heaves. Patient also has erythematous cellulitis of both lower legs which she says is been there chronically for 6 months. TRAVEL OUTSIDE OF THE [place] IN LAST 30 DAYS: No - Related Data Allergies/Adverse Reactions: celecoxib [From Celebrex] Allergy (Mild, Verified 07/20/17 19:11) Urticaria aspirin [Aspirin] Allergy (Verified 07/20/17 19:11) Hives cephalexin monohydrate [From Keflex] Allergy (Verified 07/20/17 19:11) clindamycin [Clindamycin] Allergy (Verified 07/20/17 19:11) Hives lisinopril [Lisinopril] Allergy (Verified 07/20/17 19:11) methadone [Methadone] Allergy (Verified 07/20/17 19:11) metoprolol tartrate [From Lopressor] Allergy (Verified 07/20/17 19:11) Penicillins Allergy (Verified 07/20/17 19:11) Past Medical History - Social History Smoking Status: Never Smoker Family History: None, Reviewed & Not Pertinent - Past Medical History Cardiac Medical History: Reports: Hx Hypercholesterolemia, Hx Hypertension Pulmonary Medical History: Reports: Hx Asthma, Hx Bronchitis, Hx COPD Endocrine Medical History: Reports: Hx Diabetes Mellitus Type 2 GI Medical History: Reports: Hx Gastroesophageal Reflux Disease, Hx Hiatal Hernia Musculoskeltal Medical History: Reports Hx Arthritis Skin Medical History: Reports Hx Cellulitis - Both lower legs for about 4-6 months Psychiatric Medical History: Reports: Hx Anxiety, Hx Depression Infectious Medical History: Past Surgical History: Reports: Hx Abdominal Surgery - MULTIPLE VENTRAL HERNIA REPAIRS WITH DEBRIDEMENT. BOWEL OBSTRUCTION. NON-HEALING ABD WOUNDS WITH CHRONIC PAIN, Hx Bowel Surgery - Right abdominal fistula., Hx Section - x3, Hx Cholecystectomy, Hx Tubal Ligation - Immunizations Hx Diphtheria, Pertussis, Tetanus Vaccination: Yes Hx Pneumococcal Vaccination: 02/28/12 Review of Systems - Review of Systems Notes: REVIEW OF SYSTEMS: CONSTITUTIONAL : Denies fever. EENT: Denies eye, ear, nose or mouth or throat pain or other symptoms. CARDIOVASCULAR: Denies chest pain. RESPIRATORY: Denies cough, chest congestion, or shortness of breath. GASTROINTESTINAL: See HPI. GENITOURINARY: Denies difficulty or painful urinating, urinary frequency, blood in urine. MUSCULOSKELETAL: Denies back or neck pain. Denies joint pain or swelling. SKIN: Denies rash or skin lesions. Erythema in the abdominal region around the fistulous. NEUROLOGICAL: Denies LOC or altered mental status. Denies headache. Denies sensory loss or motor deficits. ALL OTHER SYSTEMS REVIEWED AND NEGATIVE. Physical Exam - Vital signs Vitals: Temp Pulse Resp BP Pulse Ox 97.5 F 78 18 158/61 H 99 08/13/17 11:12 08/13/17 11:12 08/13/17 11:12 08/13/17 11:12 08/13/17 11:12 - Notes Notes: PHYSICAL EXAMINATION: GENERAL: Well-appearing, in no acute distress. Ambulatory without difficulty. Vital signs from EMS transport forms were essentially normal. Afebrile. HEAD: Atraumatic, normocephalic. EYES: Pupils equal round and reactive to light, extraocular movements intact. ENT: oropharynx clear without exudates. Moist mucous membranes. NECK: Normal range of motion, supple. LUNGS: Breath sounds clear and equal bilaterally. HEART: Regular rate and rhythm without murmurs. ABDOMEN: Soft, nontender. No guarding or rebound. Patient has a large pad across the lower abdomen and when removed, there is a fistula draining just to the right of the umbilicus. The gauze pads that are present are soaked and have a greenish tint. Patient has some redness also on the left lower side of her abdomen, but nothing like a fistula on the right. The adjacent tissue has an erythematous color. No fluctuance palpated, but fluid expresses from the fistula with any pressure of the abdomen. BACK: No tenderness throughout entire back. EXTREMITIES: Normal range of motion without pain. NEUROLOGICAL: Normal speech, normal gait. Normal sensory, motor, and reflex exams. Awake, alert, and oriented x3. Cranial nerves normal. PSYCH: Normal mood, normal affect. SKIN: Warm, dry. Patient has an erythematous rash of what looks like cellulitis of both lower legs. Course - Re-evaluation Re-evalutation: 08/13/17 18:[address] Espino, surgeon transcriptionist, and he will admit the patient antibiotics and further care. - Vital Signs Vital signs: Temp Pulse Resp BP Pulse Ox 97.7 F 83 18 108/70 100 08/13/17 14:51 08/13/17 14:51 08/13/17 14:51 08/13/17 14:51 08/13/17 14:51 - Laboratory Result Diagrams: 08/13/17 15:28 08/13/17 15:28 Laboratory results interpreted by me: 08/13/17 08/13/17 08/13/17 15:28 15:28 17:42 Hgb 10.0 L Hct 31.4 L MCV 71 L MCH 22.7 L MCHC 31.9 L RDW 17.6 H Plt Count 512 H Seg Neutrophils % 78.3 H Glucose 115 H Direct Bilirubin 0.5 H Urine Blood SMALL H Ur Leukocyte Esterase MODERATE H - Diagnostic Test Radiology reviewed: Image reviewed, Reports reviewed - CT scan shows a large ventral wall hernia and 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 No other acute findings. Discharge - Discharge Clinical Impression: Abdominal wall hernia, Abdominal wall fistula Condition: Stable Disposition: ADMITTED INPATIENT Admitting Provider: Surgicalist Unit Admitted: Surgical Floor
[2017-08-13] MEDS ORDERED: OXYCODONE-ACETAMINOPHEN 5-325 MG TABLET PO ONE (14:55)
[2017-08-13] MEDS ORDERED: PROMETHAZINE HCL 25 MG TABLET PO ONE (14:55)
[2017-08-13 15:49] LABS: ABSOLUTE BASOPHILS # (AUTO) 0.1 10^3/uL (0.0-0.2); ABSOLUTE EOSINOPHILS # (AUTO) 0.2 10^3/uL (0.0-0.6); ABSOLUTE LYMPHOCYTES (AUTO) 1.1 10^3/uL (0.5-4.7); ABSOLUTE MONOCYTES (AUTO) 0.4 10^3/uL (0.1-1.4); ABSOLUTE NEUT (AUTO) 6.5 10^3/uL (1.7-8.2); BASOPHILS % (AUTO) 0.8 % (0-2); EOSINOPHILS % (AUTO) 2.7 % (0-6); HEMATOCRIT 31.4 % (36.0-47.0); HGB HCT DIFFERENCE -1.4; LYMPHOCYTES % (AUTO) 13.4 % (13-45); MEAN CORPUSCULAR HEMOGLOBIN 22.7 pg (27.0-33.4); MEAN CORPUSCULAR HGB CONC 31.9 g/dL (32.0-36.0); MEAN CORPUSCULAR VOLUME 71 fl (80-97); MONOCYTES % (AUTO) 4.8 % (3-13); RED BLOOD COUNT 4.41 10^6/uL (3.72-5.28); RED CELL DISTRIBUTION WIDTH 17.6 % (11.5-14.0); SEGMENTED NEUTROPHILS % (AUTO) 78.3 % (42-78); WHITE BLOOD COUNT 8.3 10^3/uL (4.0-10.5)
[2017-08-13 16:05] LABS: ALANINE AMINOTRANSFERASE 20 U/L (9-52); ALBUMIN 3.6 g/dL (3.5-5.0); ALKALINE PHOSPHATASE 111 U/L (38-126); ANION GAP 13 (5-19); ASPARTATE AMINO TRANSFERASE 20 U/L (14-36); BILIRUBIN,DIRECT 0.5 mg/dL (0.0-0.4); BILIRUBIN,TOTAL 0.5 mg/dL (0.2-1.3); BLOOD UREA NITROGEN 8 mg/dL (7-20); CALCIUM 9.1 mg/dL (8.4-10.2); CARBON DIOXIDE 26 mmol/L (22-30); CHLORIDE 99 mmol/L (98-107); CREATININE RESULT 0.83 mg/dL (0.52-1.25); GLUCOSE 115 mg/dL (75-110); POTASSIUM 3.7 mmol/L (3.6-5.0); SODIUM 138.3 mmol/L (137-145); TOTAL PROTEIN 6.9 g/dL (6.3-8.2)
[2017-08-13] MEDS ORDERED: TRAMADOL HCL 50 MG TABLET PO ONE (17:35)
--- NOTE | 2017-08-13 17:41 | RADIOLOGY REPORT (SQ) ---
EXAM DESCRIPTION: CT ABD/PELVIS WITH IV ORAL COMPLETED DATE/TIME: 08/13/2017 5:11 pm REASON FOR STUDY: Cellulitis abdomen wall, fistula abdominal wall COMPARISON: 05/04/2017, 12/02/2016, AND 01/24/2016. TECHNIQUE: CT scan of the abdomen and pelvis performed using helical scanning technique with dynamic intravenous contrast injection. No oral contrast. Images reviewed with lung, soft tissue, and bone windows. Reconstructed coronal and sagittal MPR images reviewed. Delayed images for evaluation of the urinary system also acquired. All images stored on PACS. All CT scanners at this facility use dose modulation, iterative reconstruction, and/or weight based d osing when appropriate to reduce radiation dose to as low as reasonably achievable (ALARA). [facility]: Dose Right [facility]: CareDose [facility]: Dose Right [facility]: Teradose 4D [facility]: [employer] CONTRAST TYPE AND DOSE: contrast/concentration: Isovue 370.00 mg/ml; Total Contrast Delivered: 122.1 ml; Total Saline Delivered: 52.1 ml RENAL FUNCTION: GFR > 60. RADIATION DOSE: Up-to-date CT equipment and radiation dose reduction techniques were employed. CTDIv ol: 21.0 - 29.8 mGy. DLP: 2639 mGy-cm.. LIMITATIONS: None. FINDINGS: LOWER CHEST: No significant findings. No nodules or infiltrates. LIVER: Normal size. No masses. No dilated ducts. SPLEEN: Normal size. No focal lesions. PANCREAS: No masses. No significant calcifications. No adjacent inflammation or peripancreatic fluid collections. Pancreatic duct not dilated. GALLBLADDER: Surgically absent. ADRENAL GLANDS: No significant masses or asymmetry. RIGHT KIDNEY AND URETER: No solid masses. No significant calcifications. No hydronephrosis or hyd roureter. LEFT KIDNEY AND URETER: No solid masses. No significant calcifications. No hydronephrosis or hydr oureter. AORTA AND VESSELS: No aneurysm. No dissection. Renal arteries, SMA, celiac without stenosis. RETROPERITONEUM: No retroperitoneal adenopathy, hemorrhage or masses. BOWEL AND PERITONEAL CAVITY: Stable appearance of wall large ventral wall hernia status post failed r epair with mesh in place. Hernia again noted containing loops of nonobstructed small and large bowel . Stable appearance of centric cutaneous fistula tracking adjacent to match seen on series 6, images 52-54. No acute inflammation identified. APPENDIX: Not visualized. PELVIS: No mass. No free fluid. Normal bladder. ABDOMINAL WALL: As above. No drainable fluid collection/abscess. BONES: No significant or acute findings. OTHER: No other significant finding. IMPRESSION: STABLE APPEARANCE OF LARGE VENTRAL WALL HERNIA AND INTRACUTANEOUS FISTULA STATUS POST FA ILED MESH REPAIR. NO ACUTE FINDINGS OR SIGNIFICANT CHANGE COMPARED TO PRIOR STUDIES. TECHNICAL DOCUMENTATION: JOB ID: [id number] Quality ID # [id number]: Final reports with documentation of one or more dose reduction techniques (e.g., Au tomated exposure control, adjustment of the mA and/or kV according to patient size, use of iterative reconstruction technique) 2010 [employer]- All Rights Reserved
[2017-08-13 18:14] LABS: APPEARANCE,URINE CLEAR; BILIRUBIN,URINE NEGATIVE (NEGATIVE); GLUCOSE, URINE NEGATIVE (NEGATIVE); KETONES,URINE NEGATIVE (NEGATIVE); LEUKOCYTE ESTERASE,URINE MODERATE (NEGATIVE); NITRITE,URINE NEGATIVE (NEGATIVE); PROTEIN,URINE NEGATIVE (NEGATIVE); URINE SPECIFIC GRAVITY 1.021; UROBILINOGEN,URINE NEGATIVE mg/dL (<2.0)
[2017-08-13] MEDS ORDERED: HYDROMORPHONE HCL INJ/PF 2 MG/ML AMPULE IV ONE (18:16)
--- NOTE | 2017-08-13 20:08 | RADIOLOGY REPORT (SQ) ---
EXAM DESCRIPTION: CHEST SINGLE VIEW COMPLETED DATE/TIME: 08/13/2017 7:51 pm REASON FOR STUDY: CENTRAL LINE PLACEMENT COMPARISON: 05/06/2017 EXAM PARAMETERS: NUMBER OF VIEWS: One view. TECHNIQUE: Single frontal radiographic view of the chest acquired. RADIATION DOSE: NA LIMITATIONS: None. FINDINGS: LUNGS AND PLEURA: No opacities, masses or pneumothorax. No pleural effusion. MEDIASTINUM AND HILAR STRUCTURES: No masses. Contour normal. HEART AND VASCULAR STRUCTURES: Heart normal in size. Normal vasculature. BONES: No acute findings. HARDWARE: Left central venous catheter via IJ approach terminates within the distal brachiocephalic v ein. OTHER: No other significant finding. IMPRESSION: NO ACUTE RADIOGRAPHIC FINDING IN THE CHEST. Left central venous catheter terminates within the distal brachiocephalic vein. Consider advancing a nother 2 cm. TECHNICAL DOCUMENTATION: JOB ID: [id number]
--- NOTE | 2017-08-13 20:13 | OPERATIVE REPORT E ---
Operative Report NAME: CARMEN ROMERO : 1955 AGE: 61Y DATE OF SURGERY: 08/13/2017 ROOM: ED02 PREOPERATIVE DIAGNOSIS: Poor veins for IV access. POSTOPERATIVE DIAGNOSIS: Poor veins for IV access. OPERATION: Placement of left internal jugular catheter under ultrasound guidance. SURGEON: PARAMJIT ZAZUETA M.D. 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 DESCRIPTION OF PROCEDURE: The patient was placed in the Trendelenburg position and the left neck prepped and draped in the usual sterile fashion. With the use of ultrasound, the left internal jugular vein was then seen and subsequently local anesthesia infiltrated in the path of the left internal jugular vein. Next, the left internal jugular vein was then punctured and the guidewire then passed through the needle into the direction of the superior vena cava. The puncture site was then enlarged and a triple-lumen catheter inserted through the guidewire into the direction of the superior vena cava up to about 16 cm. The catheter was then anchored to the skin with 3-0 silk. All the 3 ports were then aspirated of blood easily and infused saline easily. Biopatch placed at the insertion site and a transparent dressing placed over the Biopatch and catheter. A chest x-ray will be obtained for placement. The patient tolerated the procedure well. DICTATING PHYSICIAN: PARAMJIT ZAZUETA M.D. [id number] PHY#: [id number] ID: [id number] JOB#: [id number] ACCT: [id number] cc:PARAMJIT ZAZUETA M.D. >
--- NOTE | 2017-08-13 20:17 | PDOC H&P ---
History of Present Illness Admission Date/PCP: 08/13/17 18:48 Patient complains of: Increase in drainage from enterocutaneous fistula History of Present Illness: CARMEN ROMERO is a 61 year old female who claims she had 9 hernia surgeries in the past and the latest was in 2010 when it was repaired here at [facility]. About 2 months later patient developed apparently a fistula enterocutaneous fistula and since then has been persistent. She was at the wound care center for a while and then subsequently went to the [facility] wound care center for the past 3 weeks. She called the wound because she had increased drainage for the past 2 days of yellowish fluid and worsened yesterday. She claims she used to have a small amount of greenish fluid coming out from the fistula. About 2 years ago she was seen at [facility] but was turned down because of multiple adhesions and mesh placement. She denies any fever pedal. She claims occasional chills and feeling cold most of the time. She had a CAT scan of the abdomen in the emergency room which showed essentially no change from a previous CAT scan with evidence of enterocutaneous fistula and a failed mesh repair of incisional hernia. Patient denies nausea vomiting diarrhea or constipation. She does complain of some pains along the fistula site. Agraffe incidentally patient is on chronic pain management with [facility] in [place] and has been taking oxycodone 15 mg 4 times a day. Patient's upset because it was changed from 30 mg to 15 mg. Past Medical History Cardiac Medical History: Reports: Hyperlipidema, Hypertension Pulmonary Medical History: Reports: Asthma, Bronchitis, Chronic Obstructive Pulmonary Disease (COPD) Denies: Tuberculosis Endocrine Medical History: Reports: Diabetes Mellitus Type 1, Diabetes Mellitus Type 2 GI Medical History: Reports: Gastroesophageal Reflux Disease, Hiatal Hernia Musculoskeltal Medical History: Reports: Arthritis Psychiatric Medical History: Reports: Depression Hematology: Reports: Anemia Past Surgical History Past Surgical History: Reports: Section - x3, Cholecystectomy, Tubal Ligation, Other - 9 hernia repairs the last 1 was in 2010 when it was done here at [facility] Denies: Amputation Social History Smoking Status: Never Smoker Frequency of Alcohol Use: None Hx Recreational Drug Use: No Hx Prescription Drug Abuse: No - Advance Directive Resuscitation Status: Full Code Family History Family History: None, Reviewed & Not Pertinent Parental Family History Reviewed: No Children Family History Reviewed: No Sibling(s) Family History Reviewed.: No Medication/Allergy Home Medications: Benazepril HCl [Lotensin] 40 mg PO DAILY 08/13/17 Esomeprazole Mag Trihydrate [Nexium] 40 mg PO DAILY 08/13/17 Fluticasone/Salmeterol [Advair 250-50 Diskus 28 dose] 1 puff IH Q12 08/13/17 Metformin HCl [Glucophage 500 mg Tablet] 250 mg PO DAILY 08/13/17 Oxycodone HCl 15 mg PO Q6HP PRN 08/13/17 Potassium Chloride [Klor-Con M10] 10 meq PO DAILY 08/13/17 Allergies/Adverse Reactions: celecoxib [From Celebrex] Allergy (Mild, Verified 07/20/17 19:11) Urticaria aspirin [Aspirin] Allergy (Verified 07/20/17 19:11) Hives cephalexin monohydrate [From Keflex] Allergy (Verified 07/20/17 19:11) clindamycin [Clindamycin] Allergy (Verified 07/20/17 19:11) Hives lisinopril [Lisinopril] Allergy (Verified 07/20/17 19:11) methadone [Methadone] Allergy (Verified 07/20/17 19:11) metoprolol tartrate [From Lopressor] Allergy (Verified 07/20/17 19:11) Penicillins Allergy (Verified 07/20/17 19:11) Review of Systems Constitutional: PRESENT: as per HPI, chills Eyes: PRESENT: other - Denies visual or hearing problems Nose, Mouth, and Throat: PRESENT: other - Denies sore throat Cardiovascular: PRESENT: edema - Claims she would take Lasix prescribed by her primary physician for edema of both legs, other - Denies chest pains Respiratory: PRESENT: other - Denies shortness of breath Gastrointestinal: PRESENT: as per HPI Genitourinary: PRESENT: other - No dysuria Musculoskeletal: PRESENT: other - Denies joint pain Integumentary: PRESENT: other - Denies skin rash Neurological: PRESENT: other - Denies seizures or syncopal episode Psychiatric: PRESENT: other - Denies anxiety or depression Endocrine: PRESENT: other - No polyuria nor polydipsia Hematologic/Lymphatic: PRESENT: other - No easy bruisability or lymphadenopathy Physical Exam Vital Signs: Temp Pulse Resp BP Pulse Ox 97.5 F 87 18 173/71 H 100 08/13/17 11:12 08/13/17 18:41 08/13/17 18:41 08/13/17 18:41 08/13/17 18:41 General appearance: PRESENT: no acute distress, obese Head exam: PRESENT: atraumatic, normocephalic Eye exam: PRESENT: conjunctiva pink Ear exam: PRESENT: normal external ear exam Mouth exam: PRESENT: moist, tongue midline Throat exam: PRESENT: other - No post pharyngeal erythema Neck exam: PRESENT: other - Trachea midline Respiratory exam: PRESENT: clear to auscultation naa Cardiovascular exam: PRESENT: RRR Pulses: PRESENT: normal carotid pulses Vascular exam: PRESENT: normal capillary refill GI/Abdominal exam: PRESENT: soft, other - Has chronic enterocutaneous fistula about 4 mm in diameter draining a lot of yellowish clear fluid. Has mild tenderness around the site Rectal exam: PRESENT: deferred Musculoskeletal exam: PRESENT: other - Some erythema of the anterior hopkins bilaterally Neurological exam: PRESENT: alert, oriented to person, oriented to place, oriented to time, oriented to situation, CN II-XII grossly intact Psychiatric exam: PRESENT: appropriate affect, normal mood Skin exam: PRESENT: dry, normal color, warm Results Impressions: Abdomen/Pelvis CT 08/13/17 00:00 IMPRESSION: STABLE APPEARANCE OF LARGE VENTRAL WALL HERNIA AND INTRACUTANEOUS FISTULA STATUS POST FAILED MESH REPAIR. NO ACUTE FINDINGS OR SIGNIFICANT CHANGE COMPARED TO PRIOR STUDIES. Assessment & Plan - Time Time Spent: 30 to 50 Minutes - Inpatient Certification Medical Necessity: Failure to Improve With Outpatient Therapy, Need For IV Fluids, Need for Surgery, Risk of Complication if Not Cared For in Hospital - Plan Summary Plan Summary: #1 keep her n.p.o. 2. May need hyperalimentation. Unfortunately this has been a chronic enterocutaneous fistula and she was also turned down at [facility]. I am afraid we may not be able to offer her definitive therapy. 3. Provide an ileostomy bag for better recording of drainage. 4. Questionable need for IV antibiotic therapy since there is no collection around the fistula 5. We will ask hospitalist to manage her medical problems such as diabetes and hypertension
[2017-08-13] MEDS ORDERED: ONDANSETRON HCL INJ/PF 4 MG/2 ML SDV IV PRN (21:49)
[2017-08-13] MEDS: HYDROMORPHONE HCL INJ/PF 2 MG/ML AMPULE IV PRN (22:26)
[2017-08-13] MEDS ORDERED: CIPROFLOXACIN 400 MG/D5W RTU 400 MG/200 ML RTUPB IV SCH (23:00)
[2017-08-14] MEDS ORDERED: CIPROFLOXACIN 400 MG/D5W RTU 400 MG/200 ML RTUPB IV ONE (00:16)
[2017-08-14 01:23] LABS: ABSOLUTE EOSINOPHILS # (AUTO) 0.3 10^3/uL (0.0-0.6); ABSOLUTE LYMPHOCYTES (AUTO) 1.9 10^3/uL (0.5-4.7); ABSOLUTE MONOCYTES (AUTO) 0.6 10^3/uL (0.1-1.4); ABSOLUTE NEUT (AUTO) 5.8 10^3/uL (1.7-8.2); BASOPHILS % (AUTO) 0.5 % (0-2); EOSINOPHILS % (AUTO) 3.7 % (0-6); HEMATOCRIT 31.4 % (36.0-47.0); HEMOGLOBIN 10.1 g/dL (12.0-15.5); HGB HCT DIFFERENCE -1.1; LYMPHOCYTES % (AUTO) 22.4 % (13-45); MEAN CORPUSCULAR HEMOGLOBIN 22.9 pg (27.0-33.4); MEAN CORPUSCULAR HGB CONC 32.3 g/dL (32.0-36.0); MEAN CORPUSCULAR VOLUME 71 fl (80-97); MONOCYTES % (AUTO) 6.5 % (3-13); RED BLOOD COUNT 4.42 10^6/uL (3.72-5.28); RED CELL DISTRIBUTION WIDTH 17.7 % (11.5-14.0); SEGMENTED NEUTROPHILS % (AUTO) 66.9 % (42-78); WHITE BLOOD COUNT 8.6 10^3/uL (4.0-10.5)
[2017-08-14] MEDS: HYDROMORPHONE HCL INJ/PF 2 MG/ML AMPULE IV PRN ×5 (02:45→23:05)
[2017-08-14] MEDS ORDERED: DIPHENHYDRAMINE HCL 25 MG CAPSULE PO ONE (09:30)
--- NOTE | 2017-08-14 09:30 | PDOC PROGRESS REPORT ---
Subjective Progress Note for:: 08/14/17 Subjective:: feeling better no pain no nausea Physical Exam Vital Signs: Temp Pulse Resp BP Pulse Ox 98.5 F 77 20 149/58 H 97 08/14/17 08:29 08/14/17 08:29 08/14/17 08:29 08/14/17 08:29 08/14/17 08:29 General appearance: PRESENT: no acute distress, cooperative, disheveled, hard of hearing, mild distress, morbidly obese, obese, severe distress, thin, well- developed, well-nourished, other Head exam: PRESENT: atraumatic Eye exam: PRESENT: PERRLA Ear exam: PRESENT: normal external ear exam Cardiovascular exam: ABSENT: diastolic murmur, rubs, systolic murmur Pulses: PRESENT: normal carotid pulses GI/Abdominal exam: PRESENT: soft - enterocutaneous fistula draining less now Abdomen - nontender Extremities exam: PRESENT: other - normal Neurological exam: PRESENT: alert Results Laboratory Results: 08/14/17 01:17 08/14/17 08/14/17 00:20 01:17 WBC Cancelled 8.6 RBC Cancelled 4.42 Hgb Cancelled 10.1 L Hct Cancelled 31.4 L MCV Cancelled 71 L MCH Cancelled 22.9 L MCHC Cancelled 32.3 RDW Cancelled 17.7 H Plt Count Cancelled 495 H Seg Neutrophils % Cancelled 66.9 Lymphocytes % Cancelled 22.4 Monocytes % Cancelled 6.5 Eosinophils % Cancelled 3.7 Basophils % Cancelled 0.5 Absolute Neutrophils Cancelled 5.8 Absolute Lymphocytes Cancelled 1.9 Absolute Monocytes Cancelled 0.6 Absolute Eosinophils Cancelled 0.3 Absolute Basophils Cancelled 0.0 Impressions: Abdomen/Pelvis CT 08/13/17 00:00 IMPRESSION: STABLE APPEARANCE OF LARGE VENTRAL WALL HERNIA AND INTRACUTANEOUS FISTULA STATUS POST FAILED MESH REPAIR. NO ACUTE FINDINGS OR SIGNIFICANT CHANGE COMPARED TO PRIOR STUDIES. Chest X-Ray 08/13/17 00:00 IMPRESSION: NO ACUTE RADIOGRAPHIC FINDING IN THE CHEST. Left central venous catheter terminates within the distal brachiocephalic vein. Consider advancing another 2 cm. Assessment & Plan - Plan Summary Plan Summary: Chronic enterocutaneous fistula no absscesses, no obstruction Start on Diet Fistula control DC plan tomorrow with wound care nurse
[2017-08-14] MEDS ORDERED: GLUCAGON,HUMAN RECOMB 1 MG INJ SUBCUT PRN (16:02)
[2017-08-14] MEDS ORDERED: DEXTROSE 50%-WATER 25 GM/50 ML DISP.SYRIN IV PRN ×2 (16:02)
[2017-08-14] MEDS ORDERED: DEXTROSE 40% GEL 15 GM TUBE PO PRN ×2 (16:02)
[2017-08-14] MEDS ORDERED: OCTREOTIDE ACETATE INJ/PF 100 MCG/1 ML SDV ONE (22:37)
[2017-08-14] MEDS: OCTREOTIDE ACETATE INJ/PF 100 MCG/1 ML SDV IV SCH (23:04)
[2017-08-14] MEDS: NORMAL SALINE 1000 ML 1,000 ML IV PRN (23:48)
[2017-08-15] MEDS: HYDROMORPHONE HCL INJ/PF 2 MG/ML AMPULE IV PRN ×5 (03:29→19:56)
[2017-08-15 06:57] LABS: ABSOLUTE EOSINOPHILS # (AUTO) 0.3 10^3/uL (0.0-0.6); ABSOLUTE LYMPHOCYTES (AUTO) 1.3 10^3/uL (0.5-4.7); ABSOLUTE MONOCYTES (AUTO) 0.4 10^3/uL (0.1-1.4); ABSOLUTE NEUT (AUTO) 4.3 10^3/uL (1.7-8.2); BASOPHILS % (AUTO) 0.4 % (0-2); EOSINOPHILS % (AUTO) 4.9 % (0-6); HEMOGLOBIN 9.6 g/dL (12.0-15.5); HGB HCT DIFFERENCE -1.2; LYMPHOCYTES % (AUTO) 20.9 % (13-45); MEAN CORPUSCULAR HEMOGLOBIN 22.8 pg (27.0-33.4); MEAN CORPUSCULAR HGB CONC 32.1 g/dL (32.0-36.0); MEAN CORPUSCULAR VOLUME 71 fl (80-97); MONOCYTES % (AUTO) 6.4 % (3-13); RED BLOOD COUNT 4.23 10^6/uL (3.72-5.28); RED CELL DISTRIBUTION WIDTH 17.5 % (11.5-14.0); SEGMENTED NEUTROPHILS % (AUTO) 67.4 % (42-78); WHITE BLOOD COUNT 6.4 10^3/uL (4.0-10.5)
[2017-08-15 06:59] LABS: PROTHROMBIN TIME 15.9 SEC (11.4-15.4)
[2017-08-15 07:20] LABS: ALANINE AMINOTRANSFERASE 22 U/L (9-52); ALBUMIN 2.9 g/dL (3.5-5.0); ALKALINE PHOSPHATASE 95 U/L (38-126); ANION GAP 10 (5-19); ASPARTATE AMINO TRANSFERASE 16 U/L (14-36); BILIRUBIN,DIRECT 0.4 mg/dL (0.0-0.4); BILIRUBIN,TOTAL 0.4 mg/dL (0.2-1.3); BLOOD UREA NITROGEN 6 mg/dL (7-20); CALCIUM 8.5 mg/dL (8.4-10.2); CARBON DIOXIDE 23 mmol/L (22-30); CHLORIDE 109 mmol/L (98-107); CREATININE RESULT 0.71 mg/dL (0.52-1.25); GLUCOSE 129 mg/dL (75-110); MAGNESIUM 1.9 mg/dL (1.6-2.3); PHOSPHORUS 2.9 mg/dL (2.5-4.5); POTASSIUM 3.8 mmol/L (3.6-5.0); SODIUM 141.6 mmol/L (137-145); TRIGLYCERIDES 104 mg/dL (<150)
[2017-08-15 07:28] LABS: PREALBUMIN 8.1 mg/dL (17.6-36.0)
[2017-08-15] MEDS ORDERED: GLUCAGON,HUMAN RECOMB 1 MG INJ IM PRN (10:07)
[2017-08-15] MEDS ORDERED: DEXTROSE 10%-WATER 1,000 ML IV PRN (10:07)
[2017-08-15] MEDS ORDERED: DEXTROSE 40% GEL 15 GM TUBE X 2 PO PRN (10:07)
[2017-08-15] MEDS ORDERED: DEXTROSE 50%-WATER SYRINGE 12.5 GM/25 ML DOSE IV PRN (10:07)
[2017-08-15] MEDS ORDERED: DEXTROSE 40% GEL 15 GM TUBE PO PRN (10:07)
[2017-08-15] MEDS ORDERED: DEXTROSE 50%-WATER SYRINGE 25 GM/50 ML DOSE IV PRN (10:07)
[2017-08-15] MEDS: OCTREOTIDE ACETATE INJ/PF 100 MCG/1 ML SDV IV SCH (10:08)
[2017-08-15] MEDS: DIPHENHYDRAMINE HCL 25 MG CAPSULE PO PRN (10:09)
[2017-08-15] MEDS: OCTREOTIDE ACETATE INJ/PF 100 MCG/1 ML SDV SUBCUT SCH ×2 (14:07→23:26)
--- NOTE | 2017-08-15 15:21 | PDOC PROGRESS REPORT ---
Subjective Progress Note for:: 08/15/17 Subjective:: pain better Physical Exam Vital Signs: Temp Pulse Resp BP Pulse Ox 97.5 F 85 20 186/62 H 100 08/15/17 11:33 08/15/17 11:33 08/15/17 11:33 08/15/17 11:33 08/15/17 11:33 Intake & Output 08/14/17 08/15/17 08/16/17 06:59 06:59 06:59 Intake Total 2710 1000 Output Total 700 Balance 2009 1000 Weight 116.9 kg GI/Abdominal exam: PRESENT: other - Right lower abdomen - enterocutaneous fistula - with skin excoriation - Results Laboratory Results: 08/15/17 06:41 08/15/17 06:41 08/15/17 08/15/17 06:41 06:41 WBC 6.4 RBC 4.23 Hgb 9.6 L Hct 30.0 L MCV 71 L MCH 22.8 L MCHC 32.1 RDW 17.5 H Plt Count 407 Seg Neutrophils % 67.4 Lymphocytes % 20.9 Monocytes % 6.4 Eosinophils % 4.9 Basophils % 0.4 Absolute Neutrophils 4.3 Absolute Lymphocytes 1.3 Absolute Monocytes 0.4 Absolute Eosinophils 0.3 Absolute Basophils 0.0 Sodium 141.6 Potassium 3.8 Chloride 109 H Carbon Dioxide 23 Anion Gap 10 BUN 6 L Creatinine 0.71 Est GFR ( Amer) > 60 Est GFR (Non-Af Amer) > 60 Glucose 129 H Calcium 8.5 Phosphorus 2.9 Magnesium 1.9 Total Bilirubin 0.4 AST 16 ALT 22 Alkaline Phosphatase 95 Total Protein 6.0 L Albumin 2.9 L Prealbumin 8.1 L Triglycerides 104 Impressions: Abdomen/Pelvis CT 08/13/17 00:00 IMPRESSION: STABLE APPEARANCE OF LARGE VENTRAL WALL HERNIA AND INTRACUTANEOUS FISTULA STATUS POST FAILED MESH REPAIR. NO ACUTE FINDINGS OR SIGNIFICANT CHANGE COMPARED TO PRIOR STUDIES. Chest X-Ray 08/13/17 00:00 IMPRESSION: NO ACUTE RADIOGRAPHIC FINDING IN THE CHEST. Left central venous catheter terminates within the distal brachiocephalic vein. Consider advancing another 2 cm. Assessment & Plan - Plan Summary Plan Summary: Enterocutaneous fistula, chronic with acute exacerbation of drainage causing skin excoriation , no obstruction or abscess Fistula control - applied Ileostomy bag with skin barrier cream TPN and Octreotide to decrease the out put Very high risk for surgical complications with surgery - no surgery at this time
[2017-08-15] MEDS: AMINO ACIDS 5%/D25W 1,000 ML IV PRN (16:58)
[2017-08-15] MEDS ORDERED: BENAZEPRIL HCL 20 MG TABLET PO ONE (17:00)
[2017-08-15] MEDS ORDERED: HYDRALAZINE HCL INJ/PF 20 MG/1 ML SDV ONE (20:25)
[2017-08-15] MEDS: NORMAL SALINE 1000 ML 1,000 ML IV PRN (21:26)
[2017-08-16] MEDS: HYDROMORPHONE HCL INJ/PF 2 MG/ML AMPULE IV PRN ×6 (00:06→20:35)
[2017-08-16] MEDS: NORMAL SALINE 1000 ML 1,000 ML IV PRN ×2 (04:27→12:31)
[2017-08-16] MEDS: OCTREOTIDE ACETATE INJ/PF 100 MCG/1 ML SDV SUBCUT SCH ×3 (06:55→21:49)
[2017-08-16] MEDS: HYDRALAZINE HCL INJ/PF 20 MG/1 ML SDV IV PRN ×3 (08:34→23:54)
[2017-08-16] MEDS ORDERED: FAT EMULSIONS 250 ML IV SCH (10:00)
[2017-08-16] MEDS: DIPHENHYDRAMINE HCL 25 MG CAPSULE PO PRN (10:01)
[2017-08-16] MEDS: BENAZEPRIL HCL 20 MG TABLET PO SCH (10:01)
--- NOTE | 2017-08-16 10:30 | PDOC PROGRESS REPORT ---
Subjective Progress Note for:: 08/16/17 Subjective:: Patient states her drainage is down to a few drops. She is very familiar with her drainage patterns. She like something the. She is on octreotide and TPN. She denies fever Physical Exam Vital Signs: Temp Pulse Resp BP Pulse Ox 98.2 F 90 16 173/62 H 100 08/16/17 08:29 08/16/17 08:29 08/16/17 08:29 08/16/17 08:29 08/16/17 08:29 Intake & Output 08/15/17 08/16/17 08/17/17 06:59 06:59 06:59 Intake Total 2710 1400 Output Total 700 1625 Balance 2009 Weight 118 kg General appearance: PRESENT: no acute distress GI/Abdominal exam: PRESENT: other - Multiple, chronic raw areas of the abdominal wall; minimal discharge on the drainage from the right lower quadrant EC fistula site Results Laboratory Results: 08/15/17 06:41 08/15/17 06:41 Impressions: Abdomen/Pelvis CT 08/13/17 00:00 IMPRESSION: STABLE APPEARANCE OF LARGE VENTRAL WALL HERNIA AND INTRACUTANEOUS FISTULA STATUS POST FAILED MESH REPAIR. NO ACUTE FINDINGS OR SIGNIFICANT CHANGE COMPARED TO PRIOR STUDIES. Chest X-Ray 08/13/17 00:00 IMPRESSION: NO ACUTE RADIOGRAPHIC FINDING IN THE CHEST. Left central venous catheter terminates within the distal brachiocephalic vein. Consider advancing another 2 cm. Assessment & Plan - Diagnosis (1) Abdominal wall fistula Is this a current diagnosis for this admission?: Yes Plan: Clinically this is a chronic problem, with an acute exacerbation; clinically she appears improved. Plan: 1. We will start clear liquids 2. Continue octreotide and TPN through left IJ temporary central venous access catheter 3. Given the chronicity of this problem, and the exceedingly large, hostile abdomen, I believe patient will be returned to her usual state of health with nonoperative management of the chronic abdominal wall problem
[2017-08-16] MEDS: INSULIN REG, HUMAN 100 UNIT/ML 3 ML VIAL (PYX) SUBCUT PRN ×2 (13:40→21:39)
[2017-08-16] MEDS: AMINO ACIDS 5%/D25W 1,000 ML IV PRN (19:06)
[2017-08-17] MEDS ORDERED: LORAZEPAM INJ 2 MG/1 ML VIAL ONE ×2 (02:15→03:07)
[2017-08-17] MEDS ORDERED: OLANZAPINE INJ/PF 10 MG SDV IM ONE ×2 (02:17)
[2017-08-17] MEDS ORDERED: LORAZEPAM INJ 2 MG/1 ML VIAL IV ONE (03:45)
[2017-08-17] MEDS: OCTREOTIDE ACETATE INJ/PF 100 MCG/1 ML SDV SUBCUT SCH ×3 (05:21→21:23)
[2017-08-17] MEDS: NORMAL SALINE 1000 ML 1,000 ML IV PRN ×2 (05:21→12:03)
[2017-08-17] MEDS: HYDRALAZINE HCL INJ/PF 20 MG/1 ML SDV IV PRN ×2 (05:23→21:45)
[2017-08-17 06:22] LABS: ABSOLUTE EOSINOPHILS # (AUTO) 0.1 10^3/uL (0.0-0.6); ABSOLUTE LYMPHOCYTES (AUTO) 0.9 10^3/uL (0.5-4.7); ABSOLUTE MONOCYTES (AUTO) 0.6 10^3/uL (0.1-1.4); ABSOLUTE NEUT (AUTO) 9.5 10^3/uL (1.7-8.2); BASOPHILS % (AUTO) 0.4 % (0-2); EOSINOPHILS % (AUTO) 0.9 % (0-6); HEMATOCRIT 30.1 % (36.0-47.0); HEMOGLOBIN 9.6 g/dL (12.0-15.5); HGB HCT DIFFERENCE -1.3; LYMPHOCYTES % (AUTO) 8.5 % (13-45); MEAN CORPUSCULAR HEMOGLOBIN 22.6 pg (27.0-33.4); MEAN CORPUSCULAR HGB CONC 31.8 g/dL (32.0-36.0); MEAN CORPUSCULAR VOLUME 71 fl (80-97); MONOCYTES % (AUTO) 5.1 % (3-13); RED BLOOD COUNT 4.23 10^6/uL (3.72-5.28); SEGMENTED NEUTROPHILS % (AUTO) 85.1 % (42-78); WHITE BLOOD COUNT 11.2 10^3/uL (4.0-10.5)
--- NOTE | 2017-08-17 06:24 | Physician Advisory Note ---
Physician Advisor ProgressNote .: Pursuant to the [facility], I have reviewed the medical record for this patient. Physician Advisor Statement: Please document: 1. Medical necessity: please explicitly document the reasons that it has been medically necessary to keep this patient in hospital with TPN & Octreotide this stay. - Not every "chronic enterocutaneous fistula" requires this tx, as payers will be happy to state while refusing to pay for it in this case if your reasoning is not spelled out. 2. "Acute Toxic encephalopathy due to Dilaudid", or "Altered mental status due to " 3. ? Developing possible "aspiration pneumonia" or "acute bronchitis"? Even "Acute Respiratory Failure" (low sats, increased work of breathing)? 4. Each note by attending needs to have a list of dx.s, starting with the dx necessitating hospitalization as Dx #1. 5. Status: appropriate for Inpt status by now. Thanks! CK Discussion: 61yo w/HTN, HLD, COPD, morbid obesity, DM-2, BLL "cellulitis", abd wound chronic w/fistula, tx'd outpt since 08/07 w/Bactrim for ?wound infection without success, as best this reviewer can infer. Came in w/increased drainage from fistula, with greenish appearance. She had N/V/dry heaves per ED provider. She normally takes oxycodone, & indicated she was upset because dose had been cut from 30mg qid prn to 15mg qid prn. She was ordered prn IV Dilaudid 1mg, which she has taken 5-6x/day since arrival. Attending started TPN & Octreotide iV. Dx.s & attending reasoning not yet specified in most notes so far, which hampers status determination. No abx ordered, which leads this reviewer to suspect attending feels the enterococcus growing from wound culture must be contaminant or colonization. On 08/16, pt developed persistent tachypnea & tachycardia. Overnight 08/16-, pt developed AMS w/agitation, was found on floor, had BM on the floor, nausea, needing transfer to ICU & soft restraints as well as prn Rx' s for agitation. O2 sat has dropped as low as 91% on 08/17 AM with RR 40s & HR 120s. Nursing notes report coarse breath sounds, 2-3mm pupils that are sluggish, total GCS only 10-12.
[2017-08-17 06:28] LABS: ALANINE AMINOTRANSFERASE 24 U/L (9-52); ALKALINE PHOSPHATASE 101 U/L (38-126); ANION GAP 10 (5-19); ASPARTATE AMINO TRANSFERASE 16 U/L (14-36); BILIRUBIN,DIRECT 0.3 mg/dL (0.0-0.4); BILIRUBIN,TOTAL 0.6 mg/dL (0.2-1.3); BLOOD UREA NITROGEN 7 mg/dL (7-20); CALCIUM 8.7 mg/dL (8.4-10.2); CARBON DIOXIDE 24 mmol/L (22-30); CHLORIDE 108 mmol/L (98-107); CREATININE RESULT 0.64 mg/dL (0.52-1.25); GLUCOSE 194 mg/dL (75-110); PHOSPHORUS 2.3 mg/dL (2.5-4.5); POTASSIUM 3.6 mmol/L (3.6-5.0); SODIUM 141.9 mmol/L (137-145)
[2017-08-17 06:36] LABS: PREALBUMIN 7.8 mg/dL (17.6-36.0)
[2017-08-17] MEDS ORDERED: ENALAPRILAT DIHYDRATE INJ/PF 1.25 MG/1 ML SDV IV ONE (06:55)
[2017-08-17] MEDS ORDERED: SUCCINYLCHOLINE CHLORIDE INJ 200 MG/10 ML VIAL ONE (07:38)
[2017-08-17] MEDS ORDERED: INFLUENZA ADLT QUAD (36MOS+) 2017-18 VAC 0.5 ML SYR IM PRN (08:14)
[2017-08-17] MEDS: BENAZEPRIL HCL 20 MG TABLET PO SCH (09:00)
[2017-08-17 09:01] LABS: URINE BARBITURATES SCREEN NEGATIVE; URINE METHADONE SCREEN NEGATIVE; URINE PHENCYCLIDINE SCREEN NEGATIVE
[2017-08-17 09:10] LABS: URINE OPIATES LOW UNCONFIRMED POSITIVE
[2017-08-17] MEDS ORDERED: HALOPERIDOL LACTATE INJ 5 MG/1 ML VIAL IV ONE (10:00)
[2017-08-17 10:24] LABS: ARTERIAL BLOOD BASE EXCESS -0.2 mmol/L; ARTERIAL BLOOD O2 SATURATION 97.1 % (94-98)
--- NOTE | 2017-08-17 10:43 | RADIOLOGY REPORT (SQ) ---
EXAM DESCRIPTION: CT HEAD WITHOUT COMPLETED DATE/TIME: 08/17/2017 10:32 am REASON FOR STUDY: confusion, found on floor COMPARISON: CT brain 08/17/2017 TECHNIQUE: Axial images acquired through the brain without intravenous contrast. Images reviewed wi th bone, brain and subdural windows. Images stored on PACS. All CT scanners at this facility use dose modulation, iterative reconstruction, and/or weight based d osing when appropriate to reduce radiation dose to as low as reasonably achievable (ALARA). [facility]: Dose Right [facility]: CareDose [facility]: Dose Right [facility]: Teradose 4D [facility]: Smart [employer] RADIATION DOSE: Up-to-date CT equipment and radiation dose reduction techniques were employed. CTDIv ol: 48.7 - 49.0 mGy. DLP: 1836 mGy-cm. mGy. LIMITATIONS: Motion artifact throughout the study. Patient was scanned twice FINDINGS: Study degraded by patient motion artifact. On images without motion, there is no gross acute intracranial hemorrhage, mass effect, or midline sh ift. Mild ventriculomegaly, similar compared to 2012 IMPRESSION: Very limited negative study EVIDENCE OF ACUTE STROKE: NO. COMMENT: Quality ID # [id number]: Final reports with documentation of one or more dose reduction techniques (e.g., Automated exposure control, adjustment of the mA and/or kV according to patient size, use of iterative reconstruction technique) TECHNICAL DOCUMENTATION: JOB ID: [id number] [employer]- All Rights Reserved
--- NOTE | 2017-08-17 12:55 | PDOC PROGRESS REPORT ---
Subjective Progress Note for:: 08/17/17 Subjective:: Unable to obtain review of systems as patient is quite confused and combative at the moment. Physical Exam Vital Signs: Temp Pulse Resp BP Pulse Ox 99.9 F 124 H 46 H 159/79 H 96 08/17/17 07:59 08/17/17 07:59 08/17/17 07:59 08/17/17 07:59 08/17/17 07:59 Intake & Output 08/16/17 08/17/17 08/18/17 06:59 06:59 06:59 Intake Total 1400 3300 Output Total 1625 2250 140 Balance -225 1050 -140 Weight 118 kg 120.6 kg GENERAL: This is a well-developed well-nourished morbidly obese white female resting in bed thrashing about in restraints.\ HEART: Tachycardic. No murmurs rubs or gallops. LUNGS: [Clear to auscultation bilaterally with equal rise and fall of the chest. ] ABDOMEN: [Soft, obese nontender, nondistended with hypoactive bowel sounds. Patient has fistula to the abdominal wall draining and soaking her bandages. When the bandages are lifted there is a malodorous smell. She has large ventral hernia.] EXTREMETIES: [No clubbing, cyanosis. 1+ edema. 1+ peripheral pulses bilaterally.] NEURO: Disoriented. The patient just yells expletives. She is quite restless and in four-point restraints. She is not cooperative. Her eyes remained shot. She moans. Skin: Patient has some venous stasis changes on the shins. Results Laboratory Results: 08/17/17 06:03 08/17/17 06:03 08/17/17 08/17/17 08/17/17 06:03 06:03 06:03 WBC 11.2 H RBC 4.23 Hgb 9.6 L Hct 30.1 L MCV 71 L MCH 22.6 L MCHC 31.8 L RDW 18.0 H Plt Count 381 Seg Neutrophils % 85.1 H Lymphocytes % 8.5 L Monocytes % 5.1 Eosinophils % 0.9 Basophils % 0.4 Absolute Neutrophils 9.5 H Absolute Lymphocytes 0.9 Absolute Monocytes 0.6 Absolute Eosinophils 0.1 Absolute Basophils 0.0 Sodium 141.9 Cancelled Potassium 3.6 Cancelled Chloride 108 H Cancelled Carbon Dioxide 24 Cancelled Anion Gap 10 Cancelled BUN 7 Cancelled Creatinine 0.64 Cancelled Est GFR ( Amer) > 60 Cancelled Est GFR (Non-Af Amer) > 60 Cancelled Glucose 194 H Cancelled Calcium 8.7 Cancelled Phosphorus 2.3 L Total Bilirubin 0.6 Cancelled AST 16 Cancelled ALT 24 Cancelled Alkaline Phosphatase 101 Cancelled Total Protein 6.0 L Cancelled Albumin 3.0 L Cancelled Prealbumin 7.8 L Impressions: Abdomen/Pelvis CT 08/13/17 00:00 IMPRESSION: STABLE APPEARANCE OF LARGE VENTRAL WALL HERNIA AND INTRACUTANEOUS FISTULA STATUS POST FAILED MESH REPAIR. NO ACUTE FINDINGS OR SIGNIFICANT CHANGE COMPARED TO PRIOR STUDIES. Chest X-Ray 08/13/17 00:00 IMPRESSION: NO ACUTE RADIOGRAPHIC FINDING IN THE CHEST. Left central venous catheter terminates within the distal brachiocephalic vein. Consider advancing another 2 cm. 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 Management per primary team. As per their note no abscess is evident and no surgery indicated at this time. (2) Acute narcotic withdrawal Plan: Based on the patient's tachycardia, tachypnea, elevated blood pressure and general combativeness and restlessness, I suspect that she is going to acute opioid withdrawal. For now I am going to try dose of Haldol to see if we can get her to settle down. I have asked the nurse to let me know if this helps the patient. She is still currently receiving some narcotics. Continue to monitor. (3) Chronic pain Plan: Patient is currently on oxycodone at home and recently had her prescription reduced. She usually goes to a pain clinic. Her chronic pain is secondary to her hernias. (4) Chronic narcotic dependence Plan: Chronic narcotic dependence with opioids. This is a continuous pattern of use. (5) Skin excoriation Plan: This is secondary to the patient's abdominal wall fistula. Continue to monitor. (6) Malnutrition of mild degree Plan: The patient is currently on TPN and octreotide as per the primary service. Continue to monitor. Current albumin is 3.0. (7) Morbid obesity Plan: Weight loss through dietary restrictions and exercise as tolerated. (8) Ventral hernia Qualifiers: Obstruction and gangrene presence: without obstruction or gangrene Qualified Code(s): K43.9 - Ventral hernia without obstruction or gangrene (9) Toxic encephalopathy Plan: Believe her toxic encephalopathy is likely secondary to her opioid withdrawal. Continue to monitor. Check CT of the head since there is a questionable fall in the room. Cultures of the blood and thus far have been negative. Wound cultures are noted. Will add urine cultures onto the workup. (10) Diabetes mellitus type 2 in obese Plan: Continue sliding scale insulin and n.p.o. status for now. (11) Fall Qualifiers: Encounter type: initial encounter Qualified Code(s): W19.XXXA - Unspecified fall, initial encounter Plan: Patient was found on the floor of her previous room laying in her own bowel movement. It is unclear to me whether or not she hit her head. Therefore we are going to check a CT of the head. - Time Critical Time spent with patient: 35 or more minutes - Inpatient Certification Medical Necessity: Significant Comorbidiites Make Outpatient Treatment Too Risky
[2017-08-17 14:17] LABS: APPEARANCE,URINE CLEAR; BILIRUBIN,URINE NEGATIVE (NEGATIVE); GLUCOSE, URINE NEGATIVE (NEGATIVE); KETONES,URINE NEGATIVE (NEGATIVE); LEUKOCYTE ESTERASE,URINE NEGATIVE (NEGATIVE); NITRITE,URINE NEGATIVE (NEGATIVE); PROTEIN,URINE NEGATIVE (NEGATIVE); URINE SPECIFIC GRAVITY 1.006; UROBILINOGEN,URINE NEGATIVE mg/dL (<2.0)
[2017-08-17] MEDS: HALOPERIDOL LACTATE INJ 5 MG/1 ML VIAL IV PRN ×2 (15:50→21:46)
[2017-08-17] MEDS: HYDROMORPHONE HCL INJ/PF 2 MG/ML AMPULE IV PRN ×2 (15:51→19:43)
[2017-08-17] MEDS ORDERED: ACETAMINOPHEN 100 ML IV PRN (16:44)
[2017-08-17] MEDS ORDERED: NORMAL SALINE 1000 ML 1,000 ML IV PRN (16:57)
[2017-08-17] MEDS: METRONIDAZOLE 500 MG/NS RTU 100 ML IV SCH (17:46)
[2017-08-17 18:15] LABS: HEMATOCRIT 30.9 % (36.0-47.0); HEMOGLOBIN 9.6 g/dL (12.0-15.5); HGB HCT DIFFERENCE -2.1; MEAN CORPUSCULAR HEMOGLOBIN 22.2 pg (27.0-33.4); MEAN CORPUSCULAR HGB CONC 31.2 g/dL (32.0-36.0); MEAN CORPUSCULAR VOLUME 71 fl (80-97); RED BLOOD COUNT 4.34 10^6/uL (3.72-5.28); RED CELL DISTRIBUTION WIDTH 17.5 % (11.5-14.0); WHITE BLOOD COUNT 15.1 10^3/uL (4.0-10.5)
[2017-08-17 18:26] LABS: ALANINE AMINOTRANSFERASE 26 U/L (9-52); ALKALINE PHOSPHATASE 144 U/L (38-126); ANION GAP 12 (5-19); ASPARTATE AMINO TRANSFERASE 41 U/L (14-36); BILIRUBIN,DIRECT 0.6 mg/dL (0.0-0.4); BILIRUBIN,TOTAL 0.9 mg/dL (0.2-1.3); BLOOD UREA NITROGEN 9 mg/dL (7-20); CALCIUM 8.6 mg/dL (8.4-10.2); CARBON DIOXIDE 22 mmol/L (22-30); CHLORIDE 108 mmol/L (98-107); CREATININE RESULT 0.73 mg/dL (0.52-1.25); GLUCOSE 197 mg/dL (75-110); POTASSIUM 3.9 mmol/L (3.6-5.0); SODIUM 142.4 mmol/L (137-145); TOTAL PROTEIN 6.1 g/dL (6.3-8.2)
[2017-08-17 18:40] LABS: ANISOCYTOSIS 1+; BASOPHILS % (MANUAL) 0 % (0-2); EOSINOPHILS % (MANUAL) 0 % (0-6); HYPOCHROMASIA 1+; LYMPHOCYTES % (MANUAL) 4 % (13-45); MICROCYTOSIS 1+; NUCLEATED RED BLOOD CELLS 1 /100 WBC (0); TOTAL CELLS COUNTED 100
[2017-08-17 18:41] LABS: PLATELET CLUMPS PRESENT; TOXIC VACUOLATION PRESENT
[2017-08-17] MEDS ORDERED: NORMAL SALINE 1000 ML 2,000 ML IV ONE (19:30)
[2017-08-17] MEDS ORDERED: CIPROFLOXACIN 400 MG/D5W RTU 400 MG/200 ML RTUPB IV SCH (22:00)
[2017-08-17] MEDS ORDERED: PROPOFOL 100 ML IV ONE (22:29)
[2017-08-17] MEDS ORDERED: PROPOFOL INJ 200 MG/20 ML VIAL IV ONE (22:32)
[2017-08-17 22:44] LABS: ADD ON TESTING BLD IN LAB ACKNOWLEDGE
[2017-08-17 22:54] LABS: MAGNESIUM 1.7 mg/dL (1.6-2.3)
[2017-08-17] MEDS: PROPOFOL 100 ML IV PRN (23:09)
--- NOTE | 2017-08-17 23:33 | PROGRESS NOTE E ---
Progress Note NAME: CARMEN ROMERO : 1955 AGE: 61Y DATE: 08/17/2017 ROOM: 605 SUBJECTIVE: The patient is noted to be confused, agitated, tachycardic, with low-grade fever in the intensive care unit. She was eventually intubated. Cultures were done earlier for urine and blood and started on IV Cipro and Flagyl. Her lactic acid is about 2.3 and had up to 2 liters of normal saline. She was evaluated by the hospitalist today, and there is the impression of possible opioid withdrawal. Right now, the patient is being sedated, is still with a heart rate about 120 per minute. She is primarily managed by Medicine for possible opiate withdrawal. PLAN: In the meantime, the enterocutaneous fistula drainage has significantly decreased in amount, and right now just has a 4 x 4 and ABD pad over the fistula site. We will eventually put an ileostomy bag. DICTATING PHYSICIAN: PARAMJIT ZAZUETA M.D. [id number] PHY#: [id number] ID: [id number] JOB#: [id number] ACCT: [id number] cc: >
[2017-08-17 23:35] LABS: ARTERIAL BLOOD BASE EXCESS -5.1 mmol/L; ARTERIAL BLOOD O2 SATURATION 97.8 % (94-98)
--- NOTE | 2017-08-17 23:43 | OPERATIVE REPORT E ---
Operative Report NAME: CARMEN ROMERO : 1955 AGE: 61Y DATE OF SURGERY: 08/17/2017 ROOM: 605 PREOPERATIVE DIAGNOSIS: MALFUNCTIONING CENTRAL LINE. POSTOPERATIVE DIAGNOSIS: MALFUNCTIONING CENTRAL LINE. OPERATION: Replacement of central line of the guidewire. SURGEON: PARAMJIT ZAZUETA M.D. ANESTHESIA: Sedation. INDICATION: This is a 61-year-old female who was noted to be confused and agitated and needed to be intubated. The central line noted to be leaking and needed to be replaced. DESCRIPTION OF PROCEDURE: The patient was given a dose of propofol for sedation and regional central line was then cut just below the hub and a guidewire passed through the old catheter. Old catheter was pulled out and a new triple lumen catheter was placed through the guidewire. The area was previously prepped and draped in the usual sterile fashion. Next, the catheter was placed up to the 17 cm. All of the ports able to be aspirated blood easily and able to infuse saline easily. Next, this was then anchored to the skin with 3-0 silk. A Biopatch was then placed at the insertion site. A transparent dressing placed over the triple lumen catheter. A chest x-ray was done and showed the tip of the catheter right at the superior vena cava. No evidence of pneumothorax. ET tube also is in good position, just pulled up about 2 cm and the final x-ray looks good. Patient tolerated procedure well. DICTATING PHYSICIAN: PARAMJIT ZAZUETA M.D. [id number] PHY#: [id number] ID: [id number] JOB#: [id number] ACCT: [id number] cc:PARAMJIT ZAZUETA M.D. > MTDD
--- NOTE | 2017-08-17 23:45 | RADIOLOGY REPORT (SQ) ---
EXAM DESCRIPTION: CHEST SINGLE VIEW COMPLETED DATE/TIME: 08/17/2017 11:00 pm REASON FOR STUDY: intubated COMPARISON: None. EXAM PARAMETERS: NUMBER OF VIEWS: One view. TECHNIQUE: Single frontal radiographic view of the chest acquired. RADIATION DOSE: NA LIMITATIONS: None. FINDINGS: LUNGS AND PLEURA: Left basilar airspace disease. No pneumothorax. No significant pleural effusion. MEDIASTINUM AND HILAR STRUCTURES: No masses. Contour normal. HEART AND VASCULAR STRUCTURES: Heart normal in size. Normal vasculature. BONES: No acute findings. HARDWARE: Endotracheal tube tip overlies the lower 3rd of the trachea approximately 2 cm above the le jemma of the brian. Left IJ central venous catheter tip overlies the SVC above the carinal level. Na sogastric catheter tip is beyond the inferior margin of the image past the GE junction. OTHER: No other significant finding. IMPRESSION: Left basilar airspace disease. Endotracheal tube tip overlies the lower 3rd of the trac hea approximately 2 cm above the level of the brian. Left IJ central venous catheter tip overlies t he SVC above the carinal level. Nasogastric catheter tip is beyond the inferior margin of the image past the GE junction. TECHNICAL DOCUMENTATION: JOB ID: [id number]
[2017-08-18] MEDS: PROPOFOL 100 ML IV PRN ×6 (00:11→16:04)
[2017-08-18] MEDS ORDERED: VANCOMYCIN HCL 0 MG in DEXTROSE 5%-WATER 250 ML IV NR (00:45)
[2017-08-18] MEDS ORDERED: PHARMACY COMMUNICATION ORDER MC SCH (00:45)
[2017-08-18] MEDS ORDERED: AZTREONAM INJ 1 GM VIAL IV SCH ×2 (00:45→06:00)
[2017-08-18] MEDS ORDERED: VANCOMYCIN HCL INJ 1000 MG VIAL IV PRN (00:47)
[2017-08-18] MEDS ORDERED: VANCOMYCIN HCL 2,500 MG in DEXTROSE 5%-WATER 500 ML IV ONE (01:00)
[2017-08-18] MEDS ORDERED: VANCOMYCIN HCL INJ 500 MG VIAL ONE (01:12)
[2017-08-18] MEDS ORDERED: VANCOMYCIN HCL INJ 1000 MG VIAL ONE (01:12)
[2017-08-18] MEDS: METRONIDAZOLE 500 MG/NS RTU 100 ML IV SCH ×3 (01:41→17:57)
[2017-08-18 04:21] LABS: ANION GAP 11 (5-19); BLOOD UREA NITROGEN 9 mg/dL (7-20); CALCIUM 7.6 mg/dL (8.4-10.2); CARBON DIOXIDE 18 mmol/L (22-30); CHLORIDE 110 mmol/L (98-107); CREATININE RESULT 0.77 mg/dL (0.52-1.25); GLUCOSE 225 mg/dL (75-110); MAGNESIUM 1.5 mg/dL (1.6-2.3); POTASSIUM 3.2 mmol/L (3.6-5.0); SODIUM 139.2 mmol/L (137-145)
[2017-08-18 04:34] LABS: HEMATOCRIT 25.6 % (36.0-47.0); HEMOGLOBIN 8.1 g/dL (12.0-15.5); HGB HCT DIFFERENCE -1.3; MEAN CORPUSCULAR HEMOGLOBIN 22.4 pg (27.0-33.4); MEAN CORPUSCULAR HGB CONC 31.5 g/dL (32.0-36.0); MEAN CORPUSCULAR VOLUME 71 fl (80-97); RED BLOOD COUNT 3.59 10^6/uL (3.72-5.28); RED CELL DISTRIBUTION WIDTH 17.5 % (11.5-14.0); WHITE BLOOD COUNT 13.3 10^3/uL (4.0-10.5)
[2017-08-18 04:46] LABS: BASOPHILS % (MANUAL) 0 % (0-2); EOSINOPHILS % (MANUAL) 0 % (0-6); LYMPHOCYTES % (MANUAL) 3 % (13-45); TOTAL CELLS COUNTED 100
[2017-08-18 04:47] LABS: ANISOCYTOSIS 1+; HYPOCHROMASIA 1+; MICROCYTOSIS 1+; POLYCHROMASIA SLIGHT; ROULEAUX SLIGHT; SCHISTOCYTES SLIGHT; TOXIC GRANULATION SLIGHT
[2017-08-18] MEDS: CIPROFLOXACIN 400 MG/D5W RTU 400 MG/200 ML RTUPB IV SCH ×3 (05:05→21:51)
[2017-08-18] MEDS: MAGNESIUM SULFATE/D5W 1 GM/100 ML RTUPB IV SCH ×2 (05:06→05:58)
[2017-08-18] MEDS: OCTREOTIDE ACETATE INJ/PF 100 MCG/1 ML SDV SUBCUT SCH ×3 (05:06→21:52)
[2017-08-18] MEDS: POTASSI CL 20 MEQ/50 ML RIDER 20 MEQ/50 ML RTUPB IV SCH ×2 (05:08→05:59)
[2017-08-18] MEDS ORDERED: AZTREONAM INJ 1 GM VIAL ONE (05:18)
[2017-08-18] MEDS: AZTREONAM 2 GM in DEXTROSE 5%-WATER 100 ML IV SCH ×3 (05:30→22:06)
[2017-08-18] MEDS: INSULIN REG, HUMAN 100 UNIT/ML 3 ML VIAL (PYX) SUBCUT PRN (06:29)
[2017-08-18 06:32] LABS: VENOUS BLOOD BASE EXCESS -4.9 mmol/L; VENOUS BLOOD HCO3 19.8 mmol/L (20-32); VENOUS BLOOD PH 7.37 (7.30-7.42)
[2017-08-18] MEDS: BENAZEPRIL HCL 20 MG TABLET PO SCH (09:12)
--- NOTE | 2017-08-18 09:32 | PDOC PROGRESS REPORT ---
Subjective Progress Note for:: 08/18/17 Subjective:: The patient is intubated and review of systems is not able to be obtained. Overnight she became increasingly restless and required intubation by the primary service. Physical Exam Vital Signs: Temp Pulse Resp BP Pulse Ox 97.5 F 91 27 H 99/53 L 100 08/18/17 08:47 08/18/17 02:58 08/18/17 08:47 08/18/17 08:47 08/18/17 08:47 Intake & Output 08/17/17 08/18/17 08/19/17 06:59 06:59 06:59 Intake Total 3300 5678 Output Total 2250 1385 Balance 1050 4293 Weight 120.6 kg 120.6 kg Ventilator: Mode SIMV. Tidal volume 500. Respiratory rate 12. PEEP 5. Drips: Propofol Lines: Left IJ Antibiotics: Flagyl, Cipro, aztreonam, vancomycin GENERAL: This is a well-developed well-nourished morbidly obese white female currently intubated. HEART: Regular rate and rhythm. No murmurs rubs or gallops. LUNGS: Clear to auscultation bilaterally with equal rise and fall of the chest. ABDOMEN: Soft, obese nontender, nondistended with hypoactive bowel sounds. Patient has fistula to the abdominal wall draining and soaking her bandages. She has large ventral hernia. : Davis catheter in place draining milagros colored urine. EXTREMETIES: No clubbing, cyanosis. 1-2+ edema. 1+ peripheral pulses bilaterally. NEURO: Sedated on propofol, but she responds to discomfort when I palpate for peripheral edema. Skin: Patient has some venous stasis changes on the shins. Results Laboratory Results: 08/18/17 03:55 08/18/17 03:55 08/17/17 08/17/17 08/17/17 06:03 08:20 10:05 WBC RBC Hgb Hct MCV MCH MCHC RDW Plt Count Seg Neutrophils % Lymphocytes % Monocytes % Eosinophils % Basophils % Absolute Neutrophils Absolute Lymphocytes Absolute Monocytes Absolute Eosinophils Absolute Basophils Carbonic Acid 0.88 L HCO3/H2CO3 Ratio 25:1 ABG pH 7.50 H ABG pCO2 29.3 L ABG pO2 83.3 ABG HCO3 22.4 ABG O2 Saturation 97.1 ABG Base Excess -0.2 VBG pH VBG pCO2 VBG HCO3 VBG Base Excess FiO2 ROOM AIR Sodium Potassium Chloride Carbon Dioxide Anion Gap BUN Creatinine Est GFR ( Amer) Est GFR (Non-Af Amer) Glucose Lactic Acid Calcium Magnesium 1.7 Total Bilirubin AST ALT Alkaline Phosphatase Ammonia Total Protein Albumin Urine Color STRAW Urine Appearance CLEAR Urine pH 6.0 Ur Specific [place] 1.006 Urine Protein NEGATIVE Urine Glucose (UA) NEGATIVE Urine Ketones NEGATIVE Urine Blood SMALL H Urine Nitrite NEGATIVE Ur Leukocyte Esterase NEGATIVE Urine WBC (Auto) 1 Urine RBC (Auto) 15 08/17/17 08/17/17 08/17/17 17:50 17:50 17:50 WBC 15.1 H RBC 4.34 Hgb 9.6 L Hct 30.9 L MCV 71 L MCH 22.2 L MCHC 31.2 L RDW 17.5 H Plt Count 311 Seg Neutrophils % Not Reportable Lymphocytes % Not Reportable Monocytes % Not Reportable Eosinophils % Not Reportable Basophils % Not Reportable Absolute Neutrophils Not Reportable Absolute Lymphocytes Not Reportable Absolute Monocytes Not Reportable Absolute Eosinophils Not Reportable Absolute Basophils Not Reportable Carbonic Acid HCO3/H2CO3 Ratio ABG pH ABG pCO2 ABG pO2 ABG HCO3 ABG O2 Saturation ABG Base Excess VBG pH VBG pCO2 VBG HCO3 VBG Base Excess FiO2 Sodium 142.4 Potassium 3.9 Chloride 108 H Carbon Dioxide 22 Anion Gap 12 BUN 9 Creatinine 0.73 Est GFR ( Amer) > 60 Est GFR (Non-Af Amer) > 60 Glucose 197 H Lactic Acid 2.6 H Calcium 8.6 Magnesium Total Bilirubin 0.9 AST 41 H ALT 26 Alkaline Phosphatase 144 H Ammonia Total Protein 6.1 L Albumin 3.0 L Urine Color Urine Appearance Urine pH Ur Specific [place] Urine Protein Urine Glucose (UA) Urine Ketones Urine Blood Urine Nitrite Ur Leukocyte Esterase Urine WBC (Auto) Urine RBC (Auto) 08/17/17 08/18/17 08/18/17 23:20 03:55 03:55 WBC 13.3 H RBC 3.59 L Hgb 8.1 L Hct 25.6 L MCV 71 L MCH 22.4 L MCHC 31.5 L RDW 17.5 H Plt Count 277 Seg Neutrophils % Not Reportable Lymphocytes % Not Reportable Monocytes % Not Reportable Eosinophils % Not Reportable Basophils % Not Reportable Absolute Neutrophils Not Reportable Absolute Lymphocytes Not Reportable Absolute Monocytes Not Reportable Absolute Eosinophils Not Reportable Absolute Basophils Not Reportable Carbonic Acid 0.95 L HCO3/H2CO3 Ratio 20:1 ABG pH 7.40 ABG pCO2 31.5 L ABG pO2 104.0 H ABG HCO3 19.0 L ABG O2 Saturation 97.8 ABG Base Excess -5.1 VBG pH VBG pCO2 VBG HCO3 VBG Base Excess FiO2 40% Sodium 139.2 Potassium 3.2 L Chloride 110 H Carbon Dioxide 18 L Anion Gap 11 BUN 9 Creatinine 0.77 Est GFR ( Amer) > 60 Est GFR (Non-Af Amer) > 60 Glucose 225 H Lactic Acid Calcium 7.6 L Magnesium 1.5 L Total Bilirubin AST ALT Alkaline Phosphatase Ammonia Total Protein Albumin Urine Color Urine Appearance Urine pH Ur Specific [place] Urine Protein Urine Glucose (UA) Urine Ketones Urine Blood Urine Nitrite Ur Leukocyte Esterase Urine WBC (Auto) Urine RBC (Auto) 08/18/17 08/18/17 03:55 06:19 WBC RBC Hgb Hct MCV MCH MCHC RDW Plt Count Seg Neutrophils % Lymphocytes % Monocytes % Eosinophils % Basophils % Absolute Neutrophils Absolute Lymphocytes Absolute Monocytes Absolute Eosinophils Absolute Basophils Carbonic Acid HCO3/H2CO3 Ratio ABG pH ABG pCO2 ABG pO2 ABG HCO3 ABG O2 Saturation ABG Base Excess VBG pH 7.37 VBG pCO2 35.0 VBG HCO3 19.8 L VBG Base Excess -4.9 FiO2 Sodium Potassium Chloride Carbon Dioxide Anion Gap BUN Creatinine Est GFR ( Amer) Est GFR (Non-Af Amer) Glucose Lactic Acid Calcium Magnesium Total Bilirubin AST ALT Alkaline Phosphatase Ammonia 14.3 Total Protein Albumin Urine Color Urine Appearance Urine pH Ur Specific [place] Urine Protein Urine Glucose (UA) Urine Ketones Urine Blood Urine Nitrite Ur Leukocyte Esterase Urine WBC (Auto) Urine RBC (Auto) Impressions: Abdomen/Pelvis CT 08/13/17 00:00 IMPRESSION: STABLE APPEARANCE OF LARGE VENTRAL WALL HERNIA AND INTRACUTANEOUS FISTULA STATUS POST FAILED MESH REPAIR. NO ACUTE FINDINGS OR SIGNIFICANT CHANGE COMPARED TO PRIOR STUDIES. Chest X-Ray 08/17/17 00:00 IMPRESSION: Left basilar airspace disease. Endotracheal tube tip overlies the lower 3rd of the trachea approximately 2 cm above the level of the brian. Left IJ central venous catheter tip overlies the SVC above the carinal level. Nasogastric catheter tip is beyond the inferior margin of the image past the GE junction. Head CT 08/17/17 00:00 IMPRESSION: Very limited negative study EVIDENCE OF ACUTE STROKE: NO. Assessment & Plan - Diagnosis (1) Acute respiratory failure Plan: The patient was intubated overnight by the primary service due to continued agitation and restlessness. Believes she was intubated more so for safety. Her ABG does not show any hypercapnia or hypoxia. This certainly would make it easier for her to detox safely. Chest x-ray was done and does show opacities in the left lower lung and there could be an underlying component of pneumonia there. I question whether or not this is due to aspiration with her withdrawal symptoms. (2) Sepsis Plan: Patient is septic as evidenced by episodes of hypotension, elevated lactic acid , elevated bilirubin. She also has symptoms of tachycardia as well as tachypnea yesterday. And became febrile during the latter part of the day. Some of these symptoms overlap with withdrawal and could be related to that. Nevertheless the patient does have a new opacity on chest x-ray suggestive of a left lower lobe pneumonia. I question whether or not there is an aspiration component given her withdrawal symptoms. Continue current antibiotics with Flagyl, aztreonam, vancomycin, and Cipro. In addition to the opacity the patient also has an enterocutaneous fistula. Hopefully there is not an infection associated with this. On last imaging there was no evidence of abscess. (3) Pneumonia Qualifiers: Pneumonia type: due to unspecified organism Laterality: left Lung location: lower lobe of lung Qualified Code(s): J18.1 - Lobar pneumonia, unspecified organism Plan: Management as above. 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 Management per primary team. As per their note no abscess is evident and no surgery indicated at this time. Have asked the nursing staff to place an ileostomy bag over site. (5) Acute narcotic withdrawal Plan: Based on the patient's tachycardia, tachypnea, elevated blood pressure and general combativeness and restlessness, I suspect that she is going to acute opioid withdrawal. For now I am going to try dose of Haldol to see if we can get her to settle down. I have asked the nurse to let me know if this helps the patient. She is still currently receiving some narcotics. Continue to monitor. (6) Chronic pain Plan: Patient is currently on oxycodone at home and recently had her prescription reduced. She usually goes to a pain clinic. Her chronic pain is secondary to her hernias. (7) Chronic narcotic dependence Plan: Chronic narcotic dependence with opioids. This is a continuous pattern of use. (8) Skin excoriation Plan: This is secondary to the patient's abdominal wall fistula. Continue to monitor. (9) Malnutrition of mild degree Plan: The patient is currently on TPN and octreotide as per the primary service. Continue to monitor. Current albumin is 3.0. Her malnutrition may be secondary to high output fistula. (10) Morbid obesity Plan: Weight loss through dietary restrictions and exercise as tolerated. (11) Ventral hernia Qualifiers: Obstruction and gangrene presence: without obstruction or gangrene Qualified Code(s): K43.9 - Ventral hernia without obstruction or gangrene Plan: Patient is high risk for surgical repair. (12) Toxic encephalopathy Plan: Believe her toxic encephalopathy is likely secondary to her opioid withdrawal. Continue to monitor. Head CT was negative. Cultures of the blood and thus far have been negative. Wound cultures are noted. Urine culture negative after 1 day. (13) Diabetes mellitus type 2 in obese Plan: Continue sliding scale insulin and n.p.o. status for now. (14) Fall Qualifiers: Encounter type: initial encounter Qualified Code(s): W19.XXXA - Unspecified fall, initial encounter Plan: CT of the head was negative. When appropriate we will have PT/OT evaluate her. (15) Lactic acidosis Plan: Her last pH was reasonable. I think she is compensating by slightly overbreathing the vent. This is secondary to her sepsis. Latoya monitor. (16) Hypomagnesemia Plan: This will be replaced. (17) Hypokalemia Plan: This is currently being replaced. (18) Anemia Plan: Patient has had a precipitous drop and her hemoglobin since admission. I suspect this is likely due to hemodilution. Will guaiac stools. Continue to monitor. - Time Time Spent with patient: 35 or more minutes - Inpatient Certification Medical Necessity: Need Close Monitoring Due to Risk of Patient Decompensation
[2017-08-18] MEDS: PANTOPRAZOLE SODIUM 40 MG VIAL IV SCH ×2 (09:56→21:52)
[2017-08-18 10:20] LABS: HEMATOCRIT 27.6 % (36.0-47.0); HEMOGLOBIN 8.8 g/dL (12.0-15.5); HGB HCT DIFFERENCE -1.2; MEAN CORPUSCULAR HEMOGLOBIN 22.8 pg (27.0-33.4); MEAN CORPUSCULAR HGB CONC 31.8 g/dL (32.0-36.0); MEAN CORPUSCULAR VOLUME 72 fl (80-97); RED BLOOD COUNT 3.85 10^6/uL (3.72-5.28); RED CELL DISTRIBUTION WIDTH 17.8 % (11.5-14.0); WHITE BLOOD COUNT 10.5 10^3/uL (4.0-10.5)
[2017-08-18] MEDS ORDERED: MAGNESIUM SULFATE/D5W 1 GM/100 ML RTUPB IV ONE (10:30)
[2017-08-18 10:31] LABS: ALANINE AMINOTRANSFERASE 33 U/L (9-52); ALBUMIN 2.6 g/dL (3.5-5.0); ALKALINE PHOSPHATASE 121 U/L (38-126); ANION GAP 13 (5-19); ASPARTATE AMINO TRANSFERASE 33 U/L (14-36); BILIRUBIN,DIRECT 0.6 mg/dL (0.0-0.4); BILIRUBIN,TOTAL 0.7 mg/dL (0.2-1.3); BLOOD UREA NITROGEN 11 mg/dL (7-20); CALCIUM 7.9 mg/dL (8.4-10.2); CARBON DIOXIDE 18 mmol/L (22-30); CHLORIDE 108 mmol/L (98-107); CREATININE RESULT 0.79 mg/dL (0.52-1.25); GLUCOSE 126 mg/dL (75-110); POTASSIUM 3.7 mmol/L (3.6-5.0); TOTAL PROTEIN 5.2 g/dL (6.3-8.2)
[2017-08-18 10:42] LABS: BASOPHILS % (MANUAL) 0 % (0-2); EOSINOPHILS % (MANUAL) 0 % (0-6); LYMPHOCYTES % (MANUAL) 2 % (13-45); TOTAL CELLS COUNTED 100
[2017-08-18 10:44] LABS: HYPOCHROMASIA 2+
[2017-08-18 10:45] LABS: ANISOCYTOSIS 1+; MICROCYTOSIS 2+; PLATELET CLUMPS PRESENT
[2017-08-18] MEDS: HYDROMORPHONE HCL INJ/PF 2 MG/ML AMPULE IV PRN (11:14)
[2017-08-18] MEDS ORDERED: NORMAL SALINE 10 ML SDV (AFTER EACH USE) IV PRN (15:36)
--- NOTE | 2017-08-18 15:36 | RADIOLOGY REPORT (SQ) ---
EXAM DESCRIPTION: PICC INSERTION; U/S GUIDE FOR VASCULAR ACCESS COMPLETED DATE/TIME: 08/18/2017 3:23 pm REASON FOR STUDY: IV Access/ Possible Central Line Infection; IV ACCESS COMPARISON: None. FLUOROSCOPY TIME: No fluoro, study performed portably in the ICU AP chest film and right arm ultrasound images saved to PACS. TECHNIQUE: Fluoroscopic and ultrasound guided PICC placement. LIMITATIONS: None. PROCEDURE: After written consent and assessment were obtained, the PICC catheter placement was perfo rmed in the ICU. Ultrasound was used on the patient's right arm for PICC access. The right arm was p repped and draped in a sterile fashion along with the ultrasound probe. The entry site was anesthetiz ed with 1% lidocaine. A 21 gauge 7 cm needle was advanced through the skin and into the basilic vein under live ultrasound guidance. An ultrasound image was saved to PACS confirming access site. A .01 8 guide wire was then inserted through the needle and into the venous system. The needle was the umu pablo and an 11 blade scalpel was used to make a 1cm skin incision. A 5 fr peel-away sheath was advanc ed over the wire and into the venous system. A measurement was then made using the existing wire and live fluoroscopic guidance. The wire was then removed and the trimmed. The PICC was advanced through the peel-away sheath and into the venous system. The peel-away sheath was removed and the catheter wa s adhered to the patients arm with a stat lock. The catheter was then aspirated and flushed and a samuel rile bandage was placed over the access site. A chest film image was saved to PACS confirming the catheter tip within the superior vena cava. Endo tracheal tube 3 cm above the brian. Nasogastric tube tip and side port in the stomach. Left jugula r triple lumen catheter tip in the superior vena cava. Patchy airspace disease left retrocardiac reg ion. Lungs otherwise clear. No pneumothorax or pleural effusion. IMPRESSION: SUCCESSFUL PLACEMENT OF A 5 FR DUAL LUMEN 37 CM PICC IN THE RIGHT BASILIC VEIN. COMMENT: Patient medication list reviewed: Yes- Quality ID# [id number]:Eligible professional attests to doc umenting in the medical record they obtained, updated, or reviewed the patient's current medications. . Quality ID 145: Final reports for procedures using fluoroscopy that document radiation exposure wagner jasen, or exposure time and number of fluorographic images (if radiation exposure indices are not avail able) Quality ID #[id number]: The patient was prepped and draped using maximum sterile barrier technique including cap, mask, sterile gown, sterile gloves, a large sterile sheet, hand hygiene, and 2% Chlorhexidine fo r cutaneous antisepsis. When ultrasound is used, sterile ultrasound techniques are followed requiring sterile gel and sterile probes. TECHNICAL DOCUMENTATION: JOB ID: [id number] [employer] [place]- All Rights Reserved
--- NOTE | 2017-08-18 17:38 | EKG REPORT ---
SEVERITY:- NORMAL ECG - SINUS RHYTHM : Confirmed by: Mary Stevens MD 18-Aug-2017 17:37:55
[2017-08-18] MEDS: VANCOMYCIN HCL 1,250 MG in DEXTROSE 5%-WATER 250 ML IV SCH (17:56)
--- NOTE | 2017-08-18 18:48 | PROGRESS NOTE E ---
Progress Note NAME: CARMEN ROMERO : 1955 AGE: 61Y DATE: 08/18/2017 ROOM: 605 SUBJECTIVE: The patient remains intubated. Blood culture was positive for cocci in clusters. One culture was positive for Enterococcus faecalis, May albicans, and Peptostreptococcus species. The patient continued on IV antibiotic therapy. Her vital signs appeared to be improving and the patient appears to have calmed down. However, the enterococcal fistula is somewhat increased in drainage. It has now clear, light yellowish drainage. An ileostomy bag will be placed. Also the triple lumen catheter was removed because of the positive blood culture after a PICC line was inserted. I informed the significant other about the patient's condition and also I spoke to the patient's son last night updating him of his mother's condition. PLAN: The plan is to continue with intubation and IV antibiotic therapy and continued medical management of patient's possible opiate withdrawal. DICTATING PHYSICIAN: PARAMJIT ZAZUETA M.D. [id number] PHY#: [id number] ID: [id number] JOB#: [id number] ACCT: [id number] cc: >
[2017-08-18] MEDS ORDERED: ENOXAPARIN SODIUM INJ 40 MG/0.4 ML DISP.SYRIN SUBCUT ONE (21:00)
[2017-08-18] MEDS: NORMAL SALINE 10 ML SDV (SCHEDULED) IV SCH (22:06)
[2017-08-19] MEDS: PROPOFOL 100 ML IV PRN ×10 (02:16→22:33)
[2017-08-19] MEDS: METRONIDAZOLE 500 MG/NS RTU 100 ML IV SCH ×3 (02:16→17:08)
[2017-08-19] MEDS: AZTREONAM 2 GM in DEXTROSE 5%-WATER 100 ML IV SCH ×3 (05:31→21:18)
[2017-08-19] MEDS: VANCOMYCIN HCL 1,250 MG in DEXTROSE 5%-WATER 250 ML IV SCH ×2 (05:31→17:10)
[2017-08-19] MEDS: CIPROFLOXACIN 400 MG/D5W RTU 400 MG/200 ML RTUPB IV SCH ×3 (05:46→21:19)
[2017-08-19] MEDS: OCTREOTIDE ACETATE INJ/PF 100 MCG/1 ML SDV SUBCUT SCH ×3 (05:46→21:19)
[2017-08-19 06:00] LABS: ABSOLUTE EOSINOPHILS # (AUTO) 0.3 10^3/uL (0.0-0.6); ABSOLUTE LYMPHOCYTES (AUTO) 0.5 10^3/uL (0.5-4.7); ABSOLUTE MONOCYTES (AUTO) 0.4 10^3/uL (0.1-1.4); ABSOLUTE NEUT (AUTO) 2.9 10^3/uL (1.7-8.2); BASOPHILS % (AUTO) 0.9 % (0-2); EOSINOPHILS % (AUTO) 6.3 % (0-6); HEMATOCRIT 24.8 % (36.0-47.0); HEMOGLOBIN 8.1 g/dL (12.0-15.5); HGB HCT DIFFERENCE -0.5; LYMPHOCYTES % (AUTO) 12.4 % (13-45); MEAN CORPUSCULAR HEMOGLOBIN 23.1 pg (27.0-33.4); MEAN CORPUSCULAR HGB CONC 32.6 g/dL (32.0-36.0); MEAN CORPUSCULAR VOLUME 71 fl (80-97); MONOCYTES % (AUTO) 10.4 % (3-13); RED BLOOD COUNT 3.51 10^6/uL (3.72-5.28); RED CELL DISTRIBUTION WIDTH 17.6 % (11.5-14.0); WHITE BLOOD COUNT 4.1 10^3/uL (4.0-10.5)
[2017-08-19 06:09] LABS: ANION GAP 6 (5-19); BLOOD UREA NITROGEN 10 mg/dL (7-20); CALCIUM 8.2 mg/dL (8.4-10.2); CARBON DIOXIDE 22 mmol/L (22-30); CHLORIDE 114 mmol/L (98-107); CREATININE RESULT 0.88 mg/dL (0.52-1.25); GLUCOSE 138 mg/dL (75-110); MAGNESIUM 2.2 mg/dL (1.6-2.3); POTASSIUM 3.5 mmol/L (3.6-5.0); SODIUM 142.4 mmol/L (137-145)
--- NOTE | 2017-08-19 06:20 | RADIOLOGY REPORT (SQ) ---
EXAM DESCRIPTION: CHEST SINGLE VIEW COMPLETED DATE/TIME: 08/19/2017 6:08 am REASON FOR STUDY: intubated COMPARISON: Chest x-ray 08/18/2017, 08/17/2017. EXAM PARAMETERS: NUMBER OF VIEWS: One view TECHNIQUE: Single frontal radiograph of the chest. RADIATION DOSE: N/A LIMITATIONS: None. FINDINGS: TEMPORARY SUPPORT DEVICES:ETT with the tip approximately 2 cm above the brian. NG tube c ourses below the left merlin-diaphragm in to the stomach. PICC catheter from right peripheral approach with the tip overlying the region of the SVC. LUNGS AND PLEURA: Airspace opacity at the left lung base. No sizable pleural effusion or pneumothora x. MEDIASTINUM AND HILAR STRUCTURES: No masses. Contour normal. HEART AND VASCULAR STRUCTURES: The heart is upper normal limit in size. No overt vascular congestion . BONES: Degenerative changes in the spine. IMPRESSION: Airspace opacity at the left lung base, may represent atelectasis or pneumonia. TECHNICAL DOCUMENTATION: JOB ID: [id number] 2010 [email or web address]- All Rights Reserved
[2017-08-19 08:17] LABS: ARTERIAL BLOOD BASE EXCESS -2.4 mmol/L; ARTERIAL BLOOD O2 SATURATION 97.7 % (94-98)
[2017-08-19] MEDS ORDERED: BENAZEPRIL HCL 20 MG TABLET PO SCH (10:00)
[2017-08-19] MEDS ORDERED: (PENDING PHARMACY ID) (Benazepril Hcl [Lotensin] 40 MG) PO SCH (10:00)
[2017-08-19] MEDS: PANTOPRAZOLE SODIUM 40 MG VIAL IV SCH ×2 (10:02→21:19)
[2017-08-19] MEDS: ENOXAPARIN SODIUM INJ 40 MG/0.4 ML DISP.SYRIN SUBCUT SCH (10:03)
[2017-08-19] MEDS: NORMAL SALINE 10 ML SDV (SCHEDULED) IV SCH ×2 (10:05→21:20)
[2017-08-19] MEDS: BENAZEPRIL HCL 20 MG TABLET PO SCH (10:05)
--- NOTE | 2017-08-19 10:37 | PDOC PROGRESS REPORT ---
Subjective Progress Note for:: 08/19/17 Subjective:: Unable to obtain review of systems as patient is sedated on a ventilator. Physical Exam Vital Signs: Temp Pulse Resp BP Pulse Ox 98.8 F 78 18 132/52 H 98 08/19/17 08:00 08/19/17 08:00 08/19/17 08:00 08/19/17 08:00 08/19/17 08:00 Intake & Output 08/18/17 08/19/17 08/20/17 06:59 06:59 06:59 Intake Total 5678 2625 Output Total 1385 2980 405 Balance 4293 -355 -405 Weight 120.6 kg 120.9 kg Ventilator: Mode SIMV. Tidal volume 500. Respiratory rate 12. PEEP 5. Drips: Propofol Lines: PICC line placed. Antibiotics: Flagyl, Cipro, aztreonam, vancomycin GENERAL: This is a well-developed well-nourished morbidly obese white female currently intubated. HEART: Regular rate and rhythm. No murmurs rubs or gallops. LUNGS: Clear to auscultation bilaterally with equal rise and fall of the chest. ABDOMEN: Soft, obese nontender, nondistended with hypoactive bowel sounds. Patient has fistula to the abdominal wall draining and soaking her bandages. When her abdomen is pressed, enteric liquids shoot out. She has large ventral hernia. : Davis catheter in place draining milagros colored urine. EXTREMETIES: No clubbing, cyanosis. 1+ edema. 1+ peripheral pulses bilaterally. NEURO: Sedated on propofol, but she becomes restless with the sound of her name. Skin: Patient has some venous stasis changes on the shins. Results Laboratory Results: 08/19/17 05:30 08/19/17 05:30 08/18/17 08/18/17 08/18/17 10:05 10:05 10:05 WBC 10.5 RBC 3.85 Hgb 8.8 L Hct 27.6 L MCV 72 L MCH 22.8 L MCHC 31.8 L RDW 17.8 H Plt Count 282 Seg Neutrophils % Not Reportable Lymphocytes % Not Reportable Monocytes % Not Reportable Eosinophils % Not Reportable Basophils % Not Reportable Absolute Neutrophils Not Reportable Absolute Lymphocytes Not Reportable Absolute Monocytes Not Reportable Absolute Eosinophils Not Reportable Absolute Basophils Not Reportable Carbonic Acid HCO3/H2CO3 Ratio ABG pH ABG pCO2 ABG pO2 ABG HCO3 ABG O2 Saturation ABG Base Excess FiO2 Sodium 139.0 Potassium 3.7 Chloride 108 H Carbon Dioxide 18 L Anion Gap 13 BUN 11 Creatinine 0.79 Est GFR ( Amer) > 60 Est GFR (Non-Af Amer) > 60 Glucose 126 H Lactic Acid 2.4 H Calcium 7.9 L Magnesium Total Bilirubin 0.7 AST 33 ALT 33 Alkaline Phosphatase 121 Total Protein 5.2 L Albumin 2.6 L 08/19/17 08/19/17 08/19/17 05:30 05:30 07:50 WBC 4.1 RBC 3.51 L Hgb 8.1 L Hct 24.8 L MCV 71 L MCH 23.1 L MCHC 32.6 RDW 17.6 H Plt Count 230 Seg Neutrophils % 70.0 Lymphocytes % 12.4 L Monocytes % 10.4 Eosinophils % 6.3 H Basophils % 0.9 Absolute Neutrophils 2.9 Absolute Lymphocytes 0.5 Absolute Monocytes 0.4 Absolute Eosinophils 0.3 Absolute Basophils 0.0 Carbonic Acid 1.01 L HCO3/H2CO3 Ratio 21:1 ABG pH 7.43 ABG pCO2 33.5 L ABG pO2 99.2 ABG HCO3 21.6 ABG O2 Saturation 97.7 ABG Base Excess -2.4 FiO2 24% Sodium 142.4 Potassium 3.5 L Chloride 114 H Carbon Dioxide 22 Anion Gap 6 BUN 10 Creatinine 0.88 Est GFR ( Amer) > 60 Est GFR (Non-Af Amer) > 60 Glucose 138 H Lactic Acid Calcium 8.2 L Magnesium 2.2 Total Bilirubin AST ALT Alkaline Phosphatase Total Protein Albumin 08/17/17 08:20 Davis Catheter Urine Culture - Final NO GROWTH 2 DAYS Impressions: Abdomen/Pelvis CT 08/13/17 00:00 IMPRESSION: STABLE APPEARANCE OF LARGE VENTRAL WALL HERNIA AND INTRACUTANEOUS FISTULA STATUS POST FAILED MESH REPAIR. NO ACUTE FINDINGS OR SIGNIFICANT CHANGE COMPARED TO PRIOR STUDIES. Head CT 08/17/17 00:00 IMPRESSION: Very limited negative study EVIDENCE OF ACUTE STROKE: NO. Interventional Vascular Procedure 08/18/17 00:00 IMPRESSION: SUCCESSFUL PLACEMENT OF A 5 FR DUAL LUMEN 37 CM PICC IN THE RIGHT BASILIC VEIN. PICC Line Insertion 08/18/17 11:22 IMPRESSION: SUCCESSFUL PLACEMENT OF A 5 FR DUAL LUMEN 37 CM PICC IN THE RIGHT BASILIC VEIN. Chest X-Ray 08/19/17 07:00 IMPRESSION: Airspace opacity at the left lung base, may represent atelectasis or pneumonia. Assessment & Plan - Diagnosis (1) Acute respiratory failure Plan: The patient was intubated by the primary service due to continued agitation and restlessness. I Believe she was intubated more so for safety. Her ABG does not show any hypercapnia or hypoxia. This certainly would make it easier for her to detox safely. Chest x-ray was done and does show opacities in the left lower lung and there could be an underlying component of pneumonia there. I question whether or not this is due to aspiration with her withdrawal symptoms. (2) Sepsis Plan: Patient is septic as evidenced by episodes of hypotension, elevated lactic acid , elevated bilirubin. She also had symptoms of tachycardia as well as tachypnea and fever. Some of these symptoms overlap with withdrawal and could be related to that. Nevertheless the patient does have a new opacity on chest x -ray suggestive of a left lower lobe pneumonia and now bacteremia. It may be that her mesh from previous ventral hernia repair has become infected. Continue current antibiotics with Flagyl, aztreonam, vancomycin, and Cipro. Thus far cultures are growing out gram-positive cocci in clusters. Await identification and susceptibilities. Her white blood cell count has come down sharply to 4.1. It was 13 2 days ago. (3) Bacteremia Plan: Management as above. (4) Pneumonia Qualifiers: Pneumonia type: due to unspecified organism Laterality: left Lung location: lower lobe of lung Qualified Code(s): J18.1 - Lobar pneumonia, unspecified organism Plan: Management as above. 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 Management per primary team. As per their note, no abscess is evident and no surgery indicated at this time. Based on my discussion with the surgeon, it could be that her mesh has become infected. (6) Acute narcotic withdrawal Plan: The patient is currently intubated. She is receiving propofol. We can certainly have some as needed morphine or Dilaudid on hand (7) Chronic pain Plan: Patient is currently on oxycodone at home and recently had her prescription reduced. She usually goes to a pain clinic. Her chronic pain is secondary to her hernias. (8) Chronic narcotic dependence Plan: Chronic narcotic dependence with opioids. This is a continuous pattern of use. (9) Skin excoriation Plan: This is secondary to the patient's abdominal wall fistula. Continue to monitor. (10) Malnutrition of mild degree Plan: The patient was on TPN and octreotide as per the primary service. Continue to monitor. Somatostatin was also added. Current albumin is 3.0. According to her I's and O's the last time she consumed anything was 08/18. At that time she consumed 50% of her meal. Prior to this she was n.p.o. the previous day. At this time I am going to have a Dobbhoff placed and consult dietary for tube feeds. (11) Morbid obesity Plan: Weight loss through dietary restrictions and exercise as tolerated. (12) Ventral hernia Qualifiers: Obstruction and gangrene presence: without obstruction or gangrene Qualified Code(s): K43.9 - Ventral hernia without obstruction or gangrene Plan: Patient is high risk for surgical repair. (13) Toxic encephalopathy Plan: Believe her toxic encephalopathy is likely secondary to her opioid withdrawal and sepsis. CT of the head was negative after a fall in her previous room. Continue to monitor. (14) Diabetes mellitus type 2 in obese Plan: Continue sliding scale insulin and n.p.o. status for now. (15) Fall Qualifiers: Encounter type: initial encounter Qualified Code(s): W19.XXXA - Unspecified fall, initial encounter Plan: Patient was found on the floor of her previous room laying in her own bowel movement. It is unclear to me whether or not she hit her head. CT scan of the head was negative for any acute injuries.. (16) Hypokalemia Plan: This is currently being replaced. (17) Hypomagnesemia Plan: This will be replaced. (18) Anemia Plan: Patient has had a precipitous drop and her hemoglobin since admission. I suspect this is likely due to hemodilution. Will guaiac stools. Continue to monitor. (19) Lactic acidosis Plan: Her last pH was reasonable. I think she is compensating by slightly overbreathing the vent. This is secondary to her sepsis. - Time Time Spent with patient: 35 or more minutes - Inpatient Certification Medical Necessity: Need Close Monitoring Due to Risk of Patient Decompensation
[2017-08-19] MEDS ORDERED: NORMAL SALINE 1000 ML 1,000 ML IV PRN (10:38)
[2017-08-19] MEDS ORDERED: INFLUENZA ADLT QUAD (36MOS+) 2017-18 VAC 0.5 ML SYR IM PRN (11:30)
[2017-08-19] MEDS: HYDROMORPHONE HCL INJ/PF 2 MG/ML AMPULE IV PRN (12:35)
--- NOTE | 2017-08-19 17:44 | PDOC PROGRESS REPORT ---
Subjective Progress Note for:: 08/19/17 Subjective:: Intubated and sedated. Physical Exam Vital Signs: Temp Pulse Resp BP Pulse Ox 98.2 F 73 19 110/47 L 98 08/19/17 16:00 08/19/17 16:00 08/19/17 16:00 08/19/17 16:00 08/19/17 16:00 Intake & Output 08/18/17 08/19/17 08/20/17 06:59 06:59 06:59 Intake Total 5627 2625 894 Output Total 1385 2980 1420 Balance 4293 -355 -526 Weight 120.6 kg 120.9 kg General appearance: PRESENT: no acute distress Respiratory exam: PRESENT: clear to auscultation naa Cardiovascular exam: PRESENT: RRR GI/Abdominal exam: PRESENT: other - Soft, unable to determine tenderness. Patient with fistula at the mid abdomen with drainage of bile-stained clear liquid in small amounts. Surrounding skin demonstrates no excoriation. Results Laboratory Results: 08/19/17 05:30 08/19/17 05:30 08/19/17 08/19/17 08/19/17 05:30 05:30 07:50 WBC 4.1 RBC 3.51 L Hgb 8.1 L Hct 24.8 L MCV 71 L MCH 23.1 L MCHC 32.6 RDW 17.6 H Plt Count 230 Seg Neutrophils % 70.0 Lymphocytes % 12.4 L Monocytes % 10.4 Eosinophils % 6.3 H Basophils % 0.9 Absolute Neutrophils 2.9 Absolute Lymphocytes 0.5 Absolute Monocytes 0.4 Absolute Eosinophils 0.3 Absolute Basophils 0.0 Carbonic Acid 1.01 L HCO3/H2CO3 Ratio 21:1 ABG pH 7.43 ABG pCO2 33.5 L ABG pO2 99.2 ABG HCO3 21.6 ABG O2 Saturation 97.7 ABG Base Excess -2.4 FiO2 24% Sodium 142.4 Potassium 3.5 L Chloride 114 H Carbon Dioxide 22 Anion Gap 6 BUN 10 Creatinine 0.88 Est GFR ( Amer) > 60 Est GFR (Non-Af Amer) > 60 Glucose 138 H Calcium 8.2 L Magnesium 2.2 08/17/17 08:20 Davis Catheter Urine Culture - Final NO GROWTH 2 DAYS Impressions: Abdomen/Pelvis CT 08/13/17 00:00 IMPRESSION: STABLE APPEARANCE OF LARGE VENTRAL WALL HERNIA AND INTRACUTANEOUS FISTULA STATUS POST FAILED MESH REPAIR. NO ACUTE FINDINGS OR SIGNIFICANT CHANGE COMPARED TO PRIOR STUDIES. Head CT 08/17/17 00:00 IMPRESSION: Very limited negative study EVIDENCE OF ACUTE STROKE: NO. Interventional Vascular Procedure 08/18/17 00:00 IMPRESSION: SUCCESSFUL PLACEMENT OF A 5 FR DUAL LUMEN 37 CM PICC IN THE RIGHT BASILIC VEIN. PICC Line Insertion 08/18/17 11:22 IMPRESSION: SUCCESSFUL PLACEMENT OF A 5 FR DUAL LUMEN 37 CM PICC IN THE RIGHT BASILIC VEIN. Chest X-Ray 08/19/17 07:00 IMPRESSION: Airspace opacity at the left lung base, may represent atelectasis or pneumonia. Assessment & Plan - Diagnosis (1) Enterocutaneous fistula Is this a current diagnosis for this admission?: Yes Plan: Patient on enteral feedings. Will monitor fistulas output. Will attempt to place a ostomy bag to minimize skin irritation around the fistula. Continue supportive care. Patient being weaned from ventilator.
[2017-08-20] MEDS ORDERED: POTASSIUM CHLORIDE 20 MEQ/15 ML UDCUP NG ONE (00:49)
[2017-08-20] MEDS: PROPOFOL 100 ML IV PRN ×8 (00:56→22:12)
[2017-08-20] MEDS: METRONIDAZOLE 500 MG/NS RTU 100 ML IV SCH (01:34)
[2017-08-20] MEDS: FENTANYL CITRATE INJ/PF 100 MCG/2 ML AMPUL IV PRN ×3 (01:35→16:24)
[2017-08-20] MEDS: AZTREONAM 2 GM in DEXTROSE 5%-WATER 100 ML IV SCH (05:27)
[2017-08-20] MEDS: CIPROFLOXACIN 400 MG/D5W RTU 400 MG/200 ML RTUPB IV SCH (05:27)
[2017-08-20] MEDS: OCTREOTIDE ACETATE INJ/PF 100 MCG/1 ML SDV SUBCUT SCH ×3 (05:28→23:55)
[2017-08-20] MEDS: VANCOMYCIN HCL 1,250 MG in DEXTROSE 5%-WATER 250 ML IV SCH ×2 (05:28→17:46)
[2017-08-20 06:04] LABS: ARTERIAL BLOOD BASE EXCESS -4.2 mmol/L; ARTERIAL BLOOD O2 SATURATION 97.7 % (94-98)
[2017-08-20] MEDS: INSULIN REG, HUMAN 100 UNIT/ML 3 ML VIAL (PYX) SUBCUT PRN (06:48)
--- NOTE | 2017-08-20 07:33 | RADIOLOGY REPORT (SQ) ---
EXAM DESCRIPTION: CHEST SINGLE VIEW COMPLETED DATE/TIME: 08/20/2017 7:01 am REASON FOR STUDY: intubation COMPARISON: Chest x-ray 08/19/2017. EXAM PARAMETERS: NUMBER OF VIEWS: One view TECHNIQUE: Single frontal radiograph of the chest. RADIATION DOSE: N/A LIMITATIONS: None. FINDINGS: TEMPORARY SUPPORT DEVICES:The endotracheal tube has the tip at the brian. NG tube course s below the left merlin-diaphragm in to the stomach. PICC catheter from right peripheral approach is in expected location. LUNGS AND PLEURA: There are low lung volumes with bibasilar airspace opacities. No sizable pleural e ffusion or pneumothorax. MEDIASTINUM AND HILAR STRUCTURES: No masses. Contour normal. HEART AND VASCULAR STRUCTURES: The heart is mildly enlarged. There is no overt vascular congestion. BONES: No acute findings. IMPRESSION: Low lung volumes with bibasilar airspace opacities, may represent atelectasis or pneumon ia. Cardiomegaly. Low lying endotracheal tube with the tip at the brian, retraction by approximately 3 cm recommended. RECOMMENDATIONS: Retraction of the endotracheal tube. COMMENT: Pertinent findings of the imaging study reported as a CRITICAL EXAM to Loli, patient's nurse in the ICU, at07:25 hrs on 08/20/2017. Category of Critical Exam: Low lying endotracheal tube. TECHNICAL DOCUMENTATION: JOB ID: [id number] [id number] 2010 [employer]- All Rights Reserved
--- NOTE | 2017-08-20 08:35 | RADIOLOGY REPORT (SQ) ---
EXAM DESCRIPTION: CHEST SINGLE VIEW COMPLETED DATE/TIME: 08/20/2017 8:18 am REASON FOR STUDY: recheck ett placement COMPARISON: 08/20/2017 EXAM PARAMETERS: NUMBER OF VIEWS: One view. TECHNIQUE: Single frontal radiographic view of the chest acquired. RADIATION DOSE: NA LIMITATIONS: Patient has again made a shallow inspiration. FINDINGS: LUNGS AND PLEURA: The previously described bibasilar airspace opacities appear essentially unchanged. MEDIASTINUM AND HILAR STRUCTURES: No masses. Contour normal. HEART AND VASCULAR STRUCTURES: The configuration of the heart and mediastinal structures is unchanged . BONES: No acute findings. HARDWARE: The tip of the endotracheal tube is just above the level of the rbian. NG tube is again s een in course to the abdomen. PICC line is unchanged in position. OTHER: No other significant finding. IMPRESSION: The tip of the endotracheal tube is just above the level of the brian. Other findings as noted above TECHNICAL DOCUMENTATION: JOB ID: [id number]
--- NOTE | 2017-08-20 09:06 | PDOC PROGRESS REPORT ---
Subjective Progress Note for:: 08/20/17 Subjective:: Unable to obtain review of systems as patient is sedated on a ventilator. No acute events overnight. Physical Exam Vital Signs: Temp Pulse Resp BP Pulse Ox 98.4 F 73 22 H 123/47 L 97 08/20/17 07:29 08/20/17 07:29 08/20/17 07:29 08/20/17 07:29 08/20/17 07:45 Intake & Output 08/19/17 08/20/17 08/21/17 06:59 06:59 06:59 Intake Total 2625 3294 Output Total 2980 3465 75 Balance -355 -171 -75 Weight 120.9 kg 120.9 kg Ventilator: CPAP Drips: Propofol Lines: Left IJ Antibiotics: Flagyl, Cipro, aztreonam, vancomycin GENERAL: This is a well-developed well-nourished morbidly obese white female currently intubated. HEART: Regular rate and rhythm. No murmurs rubs or gallops. LUNGS: Clear to auscultation bilaterally with equal rise and fall of the chest. ABDOMEN: Soft, obese nontender, nondistended with hypoactive bowel sounds. Patient has fistula to the abdominal wall draining and soaking her bandages. She has large ventral hernia. : Davis catheter in place draining milagros colored urine. EXTREMETIES: No clubbing, cyanosis. 1-2+ edema. 1+ peripheral pulses bilaterally. NEURO: Sedated on propofol, but she responds to discomfort when I palpate for peripheral edema. Skin: Patient has some venous stasis changes on the shins. Results Laboratory Results: 08/19/17 05:30 08/19/17 05:30 08/20/17 05:45 Carbonic Acid 0.97 L HCO3/H2CO3 Ratio 20:1 ABG pH 7.41 ABG pCO2 32.2 L ABG pO2 101.0 H ABG HCO3 19.9 L ABG O2 Saturation 97.7 ABG Base Excess -4.2 FiO2 24% 08/17/17 17:35 Blood Blood Culture - Final Staphylococcus Epidermidis 08/17/17 17:50 Blood Blood Culture - Final Staphylococcus Epidermidis 08/17/17 08:20 Davis Catheter Urine Culture - Final NO GROWTH 2 DAYS Impressions: Abdomen/Pelvis CT 08/13/17 00:00 IMPRESSION: STABLE APPEARANCE OF LARGE VENTRAL WALL HERNIA AND INTRACUTANEOUS FISTULA STATUS POST FAILED MESH REPAIR. NO ACUTE FINDINGS OR SIGNIFICANT CHANGE COMPARED TO PRIOR STUDIES. Head CT 08/17/17 00:00 IMPRESSION: Very limited negative study EVIDENCE OF ACUTE STROKE: NO. Interventional Vascular Procedure 08/18/17 00:00 IMPRESSION: SUCCESSFUL PLACEMENT OF A 5 FR DUAL LUMEN 37 CM PICC IN THE RIGHT BASILIC VEIN. PICC Line Insertion 08/18/17 11:22 IMPRESSION: SUCCESSFUL PLACEMENT OF A 5 FR DUAL LUMEN 37 CM PICC IN THE RIGHT BASILIC VEIN. Chest X-Ray 08/20/17 07:00 IMPRESSION: Low lung volumes with bibasilar airspace opacities, may represent atelectasis or pneumonia. Cardiomegaly. Low lying endotracheal tube with the tip at the brian, retraction by approximately 3 cm recommended. Assessment & Plan - Diagnosis (1) Acute respiratory failure Plan: The patient was intubated by the Surgical service due to continued agitation and restlessness. I Believe she was intubated more so for safety. Her ABG does not show any hypercapnia or hypoxia. This certainly would make it easier for her to detox safely. Chest x-ray was done and does show opacities in the left lower lung and there could be an underlying component of pneumonia there. I asked the nursing staff to try her in CPAP mode to see if she would wean. The patient did nicely yesterday. We will do this again today and if it is all right with the surgical service I see no reason why this patient should remain intubated. 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 The central venous line was removed 2 days ago and has grown out staph epidermidis also in the blood. The organism is resistant to multiple medications. The patient is currently on Vanco to which the organism is susceptible. However, the DENTON is 2. The organism is also susceptible to clindamycin. However we can use as patient is allergic to clinic. Since the patient's white blood cell count has come down, I will continue on with vancomycin. I discussed with pharmacy that DENTON is 2 is more applicable to MRSA as opposed to MSSA. Will discontinue all other antibiotics, unless the surgical service has any objections to this. Continue to monitor. If her white count begins to rise again or if her blood cultures do not clear we may have to reconsider this plan. In the meantime I am going to ask the lab to run the specimen against Linezolid so that there is an additional p.o. option. (3) Bacteremia Plan: Management as above. (4) Pneumonia Qualifiers: Pneumonia type: due to unspecified organism Laterality: left Lung location: lower lobe of lung Qualified Code(s): J18.1 - Lobar pneumonia, unspecified organism Plan: Management as above. 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 Management per primary team. As per their note, no abscess is evident and no surgery indicated at this time. Based on my discussion with the surgeon, it could be that her mesh has become infected. (6) Acute narcotic withdrawal Plan: The patient is currently intubated. She is receiving propofol. We can certainly have some as needed morphine or Dilaudid on hand (7) Chronic pain Plan: Patient is currently on oxycodone at home and recently had her prescription reduced. She usually goes to a pain clinic. Her chronic pain is secondary to her hernias. (8) Chronic narcotic dependence Plan: Chronic narcotic dependence with opioids. This is a continuous pattern of use. (9) Skin excoriation Plan: This is secondary to the patient's abdominal wall fistula. Continue to monitor. (10) Malnutrition of mild degree Plan: The patient was on TPN and octreotide as per the primary service. Continue to monitor. Somatostatin was also added. Current albumin is 3.0. According to her I's and O's the last time she consumed anything was 08/18. At that time she consumed 50% of her meal. Prior to this she was n.p.o. the previous day. Continue tube feeds. (11) Morbid obesity Plan: Weight loss through dietary restrictions and exercise as tolerated. (12) Ventral hernia Qualifiers: Obstruction and gangrene presence: without obstruction or gangrene Qualified Code(s): K43.9 - Ventral hernia without obstruction or gangrene Plan: Patient is high risk for surgical repair. (13) Toxic encephalopathy Plan: Believe her toxic encephalopathy is likely secondary to her opioid withdrawal and sepsis. CT of the head was negative after a fall in her previous room. Continue to monitor. (14) Diabetes mellitus type 2 in obese Plan: Continue sliding scale insulin and n.p.o. status for now. (15) Fall Qualifiers: Encounter type: initial encounter Qualified Code(s): W19.XXXA - Unspecified fall, initial encounter Plan: Patient was found on the floor of her previous room laying in her own bowel movement. It is unclear to me whether or not she hit her head. CT scan of the head was negative for any acute injuries. (16) Hypokalemia Plan: This is currently being replaced. (17) Hypomagnesemia Plan: This will be replaced. (18) Anemia Plan: Patient has had a precipitous drop and her hemoglobin since admission. I suspect this is likely due to hemodilution. Will guaiac stools. Continue to monitor. (19) Lactic acidosis Plan: Her last pH was reasonable. I think she is compensating by slightly overbreathing the vent. This is secondary to her sepsis. - Time Time Spent with patient: 25-34 minutes - Inpatient Certification Medical Necessity: Need Close Monitoring Due to Risk of Patient Decompensation
[2017-08-20] MEDS ORDERED: FUROSEMIDE INJ/PF 20 MG/2 ML SDV IV ONE (09:47)
[2017-08-20] MEDS: NORMAL SALINE 10 ML SDV (SCHEDULED) IV SCH ×2 (10:07→23:55)
[2017-08-20] MEDS: PANTOPRAZOLE SODIUM 40 MG VIAL IV SCH ×2 (10:23→23:53)
[2017-08-20] MEDS: ENOXAPARIN SODIUM INJ 40 MG/0.4 ML DISP.SYRIN SUBCUT SCH (10:26)
[2017-08-20] MEDS ORDERED: FUROSEMIDE INJ/PF 40 MG/4 ML SDV IV ONE (10:30)
[2017-08-20 11:12] LABS: ANION GAP 8 (5-19); BLOOD UREA NITROGEN 10 mg/dL (7-20); CARBON DIOXIDE 23 mmol/L (22-30); CHLORIDE 115 mmol/L (98-107); CREATININE RESULT 0.79 mg/dL (0.52-1.25); GLUCOSE 144 mg/dL (75-110); SODIUM 145.8 mmol/L (137-145)
[2017-08-20] MEDS: BENAZEPRIL HCL 20 MG TABLET PO SCH (13:11)
--- NOTE | 2017-08-20 20:43 | PDOC PROGRESS REPORT ---
Subjective Progress Note for:: 08/20/17 Physical Exam Vital Signs: Temp Pulse Resp BP Pulse Ox 98.8 F 76 19 147/57 H 99 08/20/17 18:00 08/20/17 20:00 08/20/17 18:00 08/20/17 17:55 08/20/17 18:00 Intake & Output 08/19/17 08/20/17 08/21/17 06:59 06:59 06:59 Intake Total 2625 3294 1380 Output Total 2983 1650 3957 Balance -670 -631 -8870 Weight 120.9 kg 120.9 kg Results Laboratory Results: 08/19/17 05:30 08/20/17 10:30 08/20/17 08/20/17 05:45 10:30 Carbonic Acid 0.97 L HCO3/H2CO3 Ratio 20:1 ABG pH 7.41 ABG pCO2 32.2 L ABG pO2 101.0 H ABG HCO3 19.9 L ABG O2 Saturation 97.7 ABG Base Excess -4.2 FiO2 24% Sodium 145.8 H Potassium 4.0 Chloride 115 H Carbon Dioxide 23 Anion Gap 8 BUN 10 Creatinine 0.79 Est GFR ( Amer) > 60 Est GFR (Non-Af Amer) > 60 Glucose 144 H Calcium 8.0 L 08/17/17 23:20 Tracheal Aspirate Gram Stain - Final 08/17/17 23:20 Tracheal Aspirate Sputum Culture - Final C.albicans/C.dubliniensis Normal Maryam 08/18/17 15:55 Catheter Tip - Central Line Catheter Tip Culture - Final Staphylococcus Epidermidis 08/17/17 17:35 Blood Blood Culture - Final Staphylococcus Epidermidis 08/17/17 17:50 Blood Blood Culture - Final Staphylococcus Epidermidis Impressions: Abdomen/Pelvis CT 08/13/17 00:00 IMPRESSION: STABLE APPEARANCE OF LARGE VENTRAL WALL HERNIA AND INTRACUTANEOUS FISTULA STATUS POST FAILED MESH REPAIR. NO ACUTE FINDINGS OR SIGNIFICANT CHANGE COMPARED TO PRIOR STUDIES. Head CT 08/17/17 00:00 IMPRESSION: Very limited negative study EVIDENCE OF ACUTE STROKE: NO. Interventional Vascular Procedure 08/18/17 00:00 IMPRESSION: SUCCESSFUL PLACEMENT OF A 5 FR DUAL LUMEN 37 CM PICC IN THE RIGHT BASILIC VEIN. PICC Line Insertion 08/18/17 11:22 IMPRESSION: SUCCESSFUL PLACEMENT OF A 5 FR DUAL LUMEN 37 CM PICC IN THE RIGHT BASILIC VEIN. Chest X-Ray 08/20/17 07:00 IMPRESSION: Low lung volumes with bibasilar airspace opacities, may represent atelectasis or pneumonia. Cardiomegaly. Low lying endotracheal tube with the tip at the brian, retraction by approximately 3 cm recommended. Assessment & Plan - Diagnosis (1) Abdominal wall fistula Is this a current diagnosis for this admission?: Yes Plan: She has been stable today. She has been weaned from the ventilator plans to extubate tomorrow morning. Enterocutaneous fistula has cloudy fluid output. There is no significant change in the fistula today.
[2017-08-21] MEDS: PROPOFOL 100 ML IV PRN ×3 (00:36→06:11)
[2017-08-21] MEDS: FENTANYL CITRATE INJ/PF 100 MCG/2 ML AMPUL IV PRN ×2 (03:20→09:09)
[2017-08-21 06:09] LABS: ABSOLUTE EOSINOPHILS # (AUTO) 0.3 10^3/uL (0.0-0.6); ABSOLUTE MONOCYTES (AUTO) 0.4 10^3/uL (0.1-1.4); ABSOLUTE NEUT (AUTO) 3.2 10^3/uL (1.7-8.2); BASOPHILS % (AUTO) 0.8 % (0-2); EOSINOPHILS % (AUTO) 6.9 % (0-6); HEMATOCRIT 25.9 % (36.0-47.0); HEMOGLOBIN 8.3 g/dL (12.0-15.5); LYMPHOCYTES % (AUTO) 20.8 % (13-45); MEAN CORPUSCULAR HEMOGLOBIN 22.7 pg (27.0-33.4); MEAN CORPUSCULAR HGB CONC 32.1 g/dL (32.0-36.0); MEAN CORPUSCULAR VOLUME 71 fl (80-97); MONOCYTES % (AUTO) 7.8 % (3-13); RED BLOOD COUNT 3.66 10^6/uL (3.72-5.28); RED CELL DISTRIBUTION WIDTH 17.6 % (11.5-14.0); SEGMENTED NEUTROPHILS % (AUTO) 63.7 % (42-78)
[2017-08-21] MEDS: OCTREOTIDE ACETATE INJ/PF 100 MCG/1 ML SDV SUBCUT SCH ×3 (06:10→21:59)
[2017-08-21] MEDS: VANCOMYCIN HCL 1,000 MG in DEXTROSE 5%-WATER 250 ML IV SCH ×2 (06:10→17:13)
[2017-08-21 06:12] LABS: ARTERIAL BLOOD BASE EXCESS 2.2 mmol/L; ARTERIAL BLOOD O2 SATURATION 96.6 % (94-98)
--- NOTE | 2017-08-21 07:52 | RADIOLOGY REPORT (SQ) ---
EXAM DESCRIPTION: CHEST SINGLE VIEW COMPLETED DATE/TIME: 08/21/2017 7:40 am REASON FOR STUDY: intubation COMPARISON: Chest x-ray 08/20/2017. EXAM PARAMETERS: NUMBER OF VIEWS: One view TECHNIQUE: Single frontal radiograph of the chest. RADIATION DOSE: N/A LIMITATIONS: The patient is rotated. FINDINGS: TEMPORARY SUPPORT DEVICES:ETT in expected location. NG tube courses below the left merlin-d iaphragm in to the stomach. PICC catheter from right peripheral approach is in expected location. LUNGS AND PLEURA: There are low lung volumes with bronchovascular crowding. Left basilar atelectasis . No sizable pleural effusion or pneumothorax. MEDIASTINUM AND HILAR STRUCTURES: No masses. Contour normal. HEART AND VASCULAR STRUCTURES: The heart remains enlarged. No overt vascular congestion. BONES: Degenerative changes in the spine. IMPRESSION: Cardiomegaly. Low lung volumes. Left basilar atelectasis. TECHNICAL DOCUMENTATION: JOB ID: [id number] 2010 [facility]- All Rights Reserved
[2017-08-21 08:32] LABS: ANION GAP 7 (5-19); BLOOD UREA NITROGEN 10 mg/dL (7-20); CARBON DIOXIDE 27 mmol/L (22-30); CHLORIDE 112 mmol/L (98-107); CREATININE RESULT 0.71 mg/dL (0.52-1.25); GLUCOSE 179 mg/dL (75-110); POTASSIUM 3.9 mmol/L (3.6-5.0); SODIUM 145.8 mmol/L (137-145)
[2017-08-21] MEDS ORDERED: OXYCODONE HCL IR 5 MG TABLET PO PRN (08:52)
[2017-08-21] MEDS: PANTOPRAZOLE SODIUM 40 MG VIAL IV SCH ×2 (09:09→21:59)
[2017-08-21] MEDS: BENAZEPRIL HCL 20 MG TABLET PO SCH (09:10)
[2017-08-21] MEDS: NORMAL SALINE 10 ML SDV (SCHEDULED) IV SCH ×2 (09:10→22:00)
[2017-08-21] MEDS: ENOXAPARIN SODIUM INJ 40 MG/0.4 ML DISP.SYRIN SUBCUT SCH (09:11)
--- NOTE | 2017-08-21 09:37 | PROGRESS NOTE E ---
Progress Note NAME: CARMEN ROMERO : 1955 AGE: 61Y DATE: 08/21/2017 ROOM: 605 CHIEF COMPLAINT: Unable to be obtained due to intubation. SUBJECTIVE: The patient is currently intubated, sedated. The patient is arousable. Discussed patient with nursing. The patient is on both Fentanyl, propofol. The patient appears to be tolerating pressure support and given the patient's labs does appear stable. Therefore, will proceed with a weaning and extubation. Patient is unable to voice any specific concerns at this time. The patient has had a low grade temp of 99 but blood pressures have been in a good range. REVIEW OF SYSTEMS: Unobtainable. MEDICATIONS: Medications have been reviewed. OBJECTIVE: The patient is a 61-year-old female who is currently intubated, sedated, mechanically ventilated. Does not appear to be in any distress. VITAL SIGNS: Temperature is 99, pulse 77, respirations 18, blood pressure is 146/59, oxygen saturation 97% on 25% FiO2. SKIN: Warm and dry. No rash. Not diaphoretic. HEENT: Pupils are reactive. Conjunctivae pink. ET tube is in place. Secured with Omar. There is no JVP. CARDIOVASCULAR SYSTEM: Heart is regular. There is no murmur or rub. CHEST: Clear, symmetrical, mechanical. ABDOMEN: Obese, soft. EXTREMITIES: No clubbing, cyanosis. The patient does have bilateral lower extremity dependent edema. PSYCHIATRIC: Unable to fully assess. DIAGNOSTICS: Lab values are as follows: Hematology obtained on 08/21/2017: WBC are 5.0, hemoglobin is 9.3, hematocrit 25.9, platelet count 349,000. Chemistry obtained on 08/20/2017: Sodium 145, potassium 3.0, chloride 115, carbon dioxide 23, BUN 10, creatinine is 0.79, glucose 144, calcium 8.0, magnesium is 2.0. Other labs from this morning are pending. IMPRESSION AND PLAN: 1. BACTEREMIA. The patient's repeat cultures have been negative. It appears that catheter tip is sensitive to vancomycin. Will continue this for now and will follow. 2. ABDOMINAL ABSCESS STATUS POST OPERATIVE REPAIR. The patient's wound culture of Enterococcus appears sensitive to vancomycin as well. Further management as per Surgery. 3. SEPSIS SECONDARY TO BACTEREMIA AND ABDOMINAL ABSCESS STATUS POST OPERATIVE REPAIR. The patient's white count has improved significantly with no evidence of bandemia. Repeat cultures have been negative. Patient's white count has trended down. Overall appears to be moving in the right direction. 4. ACUTE HYPOXEMIC RESPIRATORY FAILURE. Most likely this is multifocal and secondary to the patient's acute infections as well as opiates. The patient's blood gas looks good. The patient tolerated pressure support and CPAP; therefore will proceed with weaning and extubation today. 5. POSSIBLY LOWER LOBE PNEUMONIA. The patient's lungs sound clear and tracheal aspirate from August 17 has revealed no growth. Will encourage incentive spirometry and monitor clinically. 6. ENTEROCUTANEOUS FISTULA MANAGEMENT PER SURGERY. 7. ACUTE NARCOTIC WITHDRAWAL. The patient has been on a Fentanyl drip. Will transition to oral opiates post extubation for pain management. Follow. 8. CHRONIC PAIN. The patient is followed by the Pain Clinic. Her chronic pain is due to hernias. 9. OPIATE DEPENDENCY CONTINUOUS. 10. SKIN EXCORIATION. This is secondary to abdominal fistula. Continue to monitor. 11. MALNUTRITION OF MILD DEGREE. The patient did have TPN. *------* added by the Primary Team. The patient currently receiving tube feedings. Further oral intake as per Surgery. 12. MORBID OBESITY. Will proceed with education post extubation. 13. VENTRAL HERNIA. High risk for surgical repair. 14. TOXIC ENCEPHALOPATHY. Was felt to be due to withdrawal and sepsis. The patient's CT was negative. Will continue to monitor. 15. DIABETES MELLITUS TYPE 2. Will continue sliding scale coverage and will resume the patient's metformin once she is taking p.o. 16. FALL. The patient was found on the floor previous. Uncertain of the mechanism of this. 17. HYPOKALEMIA. This is being repleted. Repeat chemistries are pending. 18. HYPOMAGNESEMIA. Resolved after repletion. 19. ANEMIA. The patient had precipitous drop in hemoglobin since admission most likely due to hemodilution. Will continue to monitory and stool guaiac is pending. DISPOSITION: The patient is a FULL CODE. Pending patient's symptomatology and diagnostic findings, will reevaluate as needed. Time spent on this critical care visit including assessment, plan, physical examination, attempted education, and multidisciplinary collaboration is 45 minutes. DICTATING PHYSICIAN: CHRIS JOY NP 3M [id number] PHY#: [id number] ID: [id number] JOB#: [id number] ACCT: [id number] cc: > [facility]
--- NOTE | 2017-08-21 18:41 | PDOC PROGRESS REPORT ---
Subjective Progress Note for:: 08/21/17 Subjective:: Clinically the patient is improved today. She was extubated. Vital signs are stable. Fistula drainage has decreased today. IV antibiotics Physical Exam Vital Signs: Temp Pulse Resp BP Pulse Ox 98.8 F 76 22 H 180/62 H 100 08/21/17 18:00 08/21/17 08:00 08/21/17 18:00 08/21/17 17:56 08/21/17 18:00 Intake & Output 08/20/17 08/21/17 08/22/17 06:59 06:59 06:59 Intake Total 3294 2900 300 Output Total 3465 4460 700 Balance -171 1560 -400 Weight 120.9 kg 119.3 kg General appearance: PRESENT: no acute distress Head exam: PRESENT: atraumatic Eye exam: PRESENT: EOMI Mouth exam: PRESENT: moist Neck exam: PRESENT: full ROM Respiratory exam: PRESENT: clear to auscultation naa Cardiovascular exam: PRESENT: RRR - Bowel sounds are positive. Abdominal exam is unchanged from yesterday. Rectal exam: PRESENT: deferred Neurological exam: PRESENT: awake - Patient is still somnolent. She is arousable. Results Laboratory Results: 08/21/17 05:55 08/21/17 07:55 08/21/17 08/21/17 08/21/17 05:55 05:55 05:58 WBC 5.0 RBC 3.66 L Hgb 8.3 L Hct 25.9 L MCV 71 L MCH 22.7 L MCHC 32.1 RDW 17.6 H Plt Count 349 Seg Neutrophils % 63.7 Lymphocytes % 20.8 Monocytes % 7.8 Eosinophils % 6.9 H Basophils % 0.8 Absolute Neutrophils 3.2 Absolute Lymphocytes 1.0 Absolute Monocytes 0.4 Absolute Eosinophils 0.3 Absolute Basophils 0.0 Carbonic Acid 1.25 HCO3/H2CO3 Ratio 21:1 ABG pH 7.43 ABG pCO2 41.4 ABG pO2 84.7 ABG HCO3 26.7 H ABG O2 Saturation 96.6 ABG Base Excess 2.2 FiO2 24% Sodium Potassium Chloride Carbon Dioxide Anion Gap BUN Creatinine Est GFR ( Amer) Est GFR (Non-Af Amer) Glucose Calcium Magnesium 2.0 08/21/17 07:55 WBC RBC Hgb Hct MCV MCH MCHC RDW Plt Count Seg Neutrophils % Lymphocytes % Monocytes % Eosinophils % Basophils % Absolute Neutrophils Absolute Lymphocytes Absolute Monocytes Absolute Eosinophils Absolute Basophils Carbonic Acid HCO3/H2CO3 Ratio ABG pH ABG pCO2 ABG pO2 ABG HCO3 ABG O2 Saturation ABG Base Excess FiO2 Sodium 145.8 H Potassium 3.9 Chloride 112 H Carbon Dioxide 27 Anion Gap 7 BUN 10 Creatinine 0.71 Est GFR ( Amer) > 60 Est GFR (Non-Af Amer) > 60 Glucose 179 H Calcium 8.0 L Magnesium 08/18/17 15:55 Abdomen - Abscess Gram Stain - Final 08/18/17 15:55 Abdomen - Abscess Wound Culture - Final Enterococcus Faecalis(Group D) Prevotella Species Impressions: Abdomen/Pelvis CT 08/13/17 00:00 IMPRESSION: STABLE APPEARANCE OF LARGE VENTRAL WALL HERNIA AND INTRACUTANEOUS FISTULA STATUS POST FAILED MESH REPAIR. NO ACUTE FINDINGS OR SIGNIFICANT CHANGE COMPARED TO PRIOR STUDIES. Head CT 08/17/17 00:00 IMPRESSION: Very limited negative study EVIDENCE OF ACUTE STROKE: NO. Interventional Vascular Procedure 08/18/17 00:00 IMPRESSION: SUCCESSFUL PLACEMENT OF A 5 FR DUAL LUMEN 37 CM PICC IN THE RIGHT BASILIC VEIN. PICC Line Insertion 08/18/17 11:22 IMPRESSION: SUCCESSFUL PLACEMENT OF A 5 FR DUAL LUMEN 37 CM PICC IN THE RIGHT BASILIC VEIN. Chest X-Ray 08/21/17 07:00 IMPRESSION: Cardiomegaly. Low lung volumes. Left basilar atelectasis. Assessment & Plan - Diagnosis (1) Abdominal wall fistula Is this a current diagnosis for this admission?: Yes Plan: Overall status is improved today. Still appears to be decreasing in volume. Surgery is not indicated at this time.
[2017-08-21] MEDS: HYDRALAZINE HCL INJ/PF 20 MG/1 ML SDV IV PRN (21:58)
[2017-08-22] MEDS: VANCOMYCIN HCL 1,000 MG in DEXTROSE 5%-WATER 250 ML IV SCH ×2 (05:57→18:06)
[2017-08-22] MEDS: OCTREOTIDE ACETATE INJ/PF 100 MCG/1 ML SDV SUBCUT SCH ×3 (05:57→22:27)
[2017-08-22 06:39] LABS: HEMATOCRIT 25.5 % (36.0-47.0); HEMOGLOBIN 8.3 g/dL (12.0-15.5); HGB HCT DIFFERENCE -0.6; MEAN CORPUSCULAR HEMOGLOBIN 22.8 pg (27.0-33.4); MEAN CORPUSCULAR HGB CONC 32.6 g/dL (32.0-36.0); MEAN CORPUSCULAR VOLUME 70 fl (80-97); RED BLOOD COUNT 3.64 10^6/uL (3.72-5.28); RED CELL DISTRIBUTION WIDTH 17.7 % (11.5-14.0)
[2017-08-22 06:57] LABS: ALANINE AMINOTRANSFERASE 28 U/L (9-52); ALBUMIN 2.4 g/dL (3.5-5.0); ALKALINE PHOSPHATASE 276 U/L (38-126); ANION GAP 7 (5-19); ASPARTATE AMINO TRANSFERASE 19 U/L (14-36); BILIRUBIN,DIRECT 0.5 mg/dL (0.0-0.4); BILIRUBIN,TOTAL 0.5 mg/dL (0.2-1.3); BLOOD UREA NITROGEN 7 mg/dL (7-20); CALCIUM 8.3 mg/dL (8.4-10.2); CARBON DIOXIDE 28 mmol/L (22-30); CHLORIDE 113 mmol/L (98-107); CREATININE RESULT 0.67 mg/dL (0.52-1.25); GLUCOSE 134 mg/dL (75-110); MAGNESIUM 2.1 mg/dL (1.6-2.3); POTASSIUM 3.8 mmol/L (3.6-5.0); TOTAL PROTEIN 5.3 g/dL (6.3-8.2)
--- NOTE | 2017-08-22 07:11 | RADIOLOGY REPORT (SQ) ---
EXAM DESCRIPTION: CHEST SINGLE VIEW COMPLETED DATE/TIME: 08/22/2017 6:52 am REASON FOR STUDY: intubation COMPARISON: Chest x-ray 08/21/2017. EXAM PARAMETERS: NUMBER OF VIEWS: One view TECHNIQUE: Single frontal radiograph of the chest. RADIATION DOSE: N/A LIMITATIONS: None. FINDINGS: TEMPORARY SUPPORT DEVICES:The endotracheal tube and the enteric tube have been removed. PICC catheter from right peripheral approach is in expected location. LUNGS AND PLEURA: Mild bibasilar atelectasis. No pleural effusion or pneumothorax. MEDIASTINUM AND HILAR STRUCTURES: No masses. Contour normal. HEART AND VASCULAR STRUCTURES: The heart is upper normal limit in size. No overt vascular congestion . BONES: Degenerative changes in the spine. IMPRESSION: Mild bibasilar atelectasis. TECHNICAL DOCUMENTATION: JOB ID: [id number] OH-64 2010 [employer]- All Rights Reserved
[2017-08-22 08:25] LABS: ANION GAP 8 (5-19); BLOOD UREA NITROGEN 7 mg/dL (7-20); CALCIUM 8.1 mg/dL (8.4-10.2); CARBON DIOXIDE 28 mmol/L (22-30); CHLORIDE 112 mmol/L (98-107); CREATININE RESULT 0.62 mg/dL (0.52-1.25); GLUCOSE 161 mg/dL (75-110); POTASSIUM 3.6 mmol/L (3.6-5.0); SODIUM 147.7 mmol/L (137-145)
--- NOTE | 2017-08-22 08:51 | PDOC PROGRESS REPORT ---
Subjective Progress Note for:: 08/22/17 Subjective:: The patient is extubated. She has lots of secretions that she is trying to bring up. She repetitively coughs in the room. Her nurse tells me that she is failed 2 swallowing evaluations. I did try a third attempt to get her to swallow but the patient repeatedly coughs even with a sip of water. She denies any current pain. She has difficulty articulating. Physical Exam Vital Signs: Temp Pulse Resp BP Pulse Ox 99.0 F 71 25 H 157/58 H 99 08/22/17 06:00 08/21/17 20:00 08/22/17 06:00 08/22/17 05:56 08/22/17 06:00 Intake & Output 08/21/17 08/22/17 08/23/17 06:59 06:59 06:59 Intake Total 2900 884 Output Total 4460 1550 Balance -1560 -666 Weight 119.3 kg 122.2 kg Ventilator: extubated 08/21/2017 Drips: none Lines:Right Picc Antibiotics: vancomycin GENERAL: This is a well-developed well-nourished morbidly obese white female currently resting in bed in no acute distress. HEART: Regular rate and rhythm. No murmurs rubs or gallops. LUNGS: Clear to auscultation bilaterally with equal rise and fall of the chest. ABDOMEN: Soft, obese nontender, nondistended with hypoactive bowel sounds. Patient has fistula to the abdominal wall draining into an ostomy bag. The fluid looks tannish. She has large ventral hernia. : Davis catheter in place draining milagros colored urine. EXTREMETIES: No clubbing, cyanosis. Trace to 1 + edema. 1+ peripheral pulses bilaterally. NEURO: Awake and alert. Not completely oriented. She moves all extremities. She is slow to speak and seems to have difficulty articulating. Results Laboratory Results: 08/22/17 06:25 08/21/17 08/22/17 08/22/17 07:55 06:25 06:25 WBC 6.0 RBC 3.64 L Hgb 8.3 L Hct 25.5 L MCV 70 L MCH 22.8 L MCHC 32.6 RDW 17.7 H Plt Count 373 Sodium 145.8 H 148.0 H Potassium 3.9 3.8 Chloride 112 H 113 H Carbon Dioxide 27 28 Anion Gap 7 7 BUN 10 7 Creatinine 0.71 0.67 Est GFR ( Amer) > 60 > 60 Est GFR (Non-Af Amer) > 60 > 60 Glucose 179 H 134 H Calcium 8.0 L 8.3 L Magnesium 2.1 Total Bilirubin 0.5 AST 19 ALT 28 Alkaline Phosphatase 276 H Total Protein 5.3 L Albumin 2.4 L 08/18/17 15:55 Abdomen - Abscess Gram Stain - Final 08/18/17 15:55 Abdomen - Abscess Wound Culture - Final Enterococcus Faecalis(Group D) Prevotella Species Impressions: Abdomen/Pelvis CT 08/13/17 00:00 IMPRESSION: STABLE APPEARANCE OF LARGE VENTRAL WALL HERNIA AND INTRACUTANEOUS FISTULA STATUS POST FAILED MESH REPAIR. NO ACUTE FINDINGS OR SIGNIFICANT CHANGE COMPARED TO PRIOR STUDIES. Head CT 08/17/17 00:00 IMPRESSION: Very limited negative study EVIDENCE OF ACUTE STROKE: NO. Interventional Vascular Procedure 08/18/17 00:00 IMPRESSION: SUCCESSFUL PLACEMENT OF A 5 FR DUAL LUMEN 37 CM PICC IN THE RIGHT BASILIC VEIN. PICC Line Insertion 08/18/17 11:22 IMPRESSION: SUCCESSFUL PLACEMENT OF A 5 FR DUAL LUMEN 37 CM PICC IN THE RIGHT BASILIC VEIN. Chest X-Ray 08/22/17 07:00 IMPRESSION: Mild bibasilar atelectasis. Assessment & Plan - Diagnosis (1) Acute respiratory failure Plan: The patient was intubated by the Surgical service due to continued agitation and restlessness. I Believe she was intubated more so for safety during detox. Her ABG at that time did not show any hypercapnia or hypoxia. She was extubated on 08/21/2017. She seems to be satting well at the bedside. (2) Sepsis Qualifiers: Sepsis type: methicillin susceptible Staphylococcus aureus Qualified Code(s ): A41.01 - Sepsis due to Methicillin susceptible Staphylococcus aureus Plan: Sepsis secondary to central venous line infection with staph epidermidis. The organism is resistant to multiple medications. The patient is currently on Vanco to which the organism is susceptible. However, the DENTON is 2. The organism is also susceptible to clindamycin. However we can use as patient is allergic to clindamycin. Since the patient's white blood cell count was coming down, I continued with vancomycin. All other antibiotics were discontinued. The patient's white count has continued to trend downward and is now within expected limits. She is afebrile. Her last blood cultures were done on the and are positive. Repeat blood cultures today. If these remain negative, the antibiotic count will begin today. The patient will need 14 days of coverage. (3) Bacteremia Plan: Management as above. (4) Pneumonia Qualifiers: Pneumonia type: due to unspecified organism Laterality: left Lung location: lower lobe of lung Qualified Code(s): J18.1 - Lobar pneumonia, unspecified organism Plan: Possible hospital-acquired pneumonia with gram-negative organisms. Chest x-ray done today shows atelectasis. The opacities that will there prior to this have cleared. At this point I think we can rule out pneumonia. Begin incentive spirometry. 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 Management per primary team. As per their note, no abscess is evident and no surgery indicated at this time. (6) Acute narcotic withdrawal Plan: The patient is currently calm. She is receiving fentanyl and as needed oxycodone. (7) Chronic pain Plan: Patient is currently on oxycodone at home and recently had her prescription reduced. She usually goes to a pain clinic. Her chronic pain is secondary to her hernias. (8) Chronic narcotic dependence Plan: Chronic narcotic dependence with opioids. This is a continuous pattern of use. (9) Skin excoriation Plan: This is secondary to the patient's abdominal wall fistula. Continue to monitor. (10) Malnutrition of mild degree Plan: The patient was on TPN and octreotide as per the primary service. Continue to monitor. Current albumin is 3.0. According to her I's and O's the last time she consumed anything was 08/18. At that time she consumed 50% of her meal. Prior to this she was n.p.o. the previous day. Status post tube feeds while on the vent. The patient has failed 3 bedside swallow evaluation. Begin D5 maintenance with a fluid restriction 1500 cc a day. Maintain n.p.o. status. (11) Morbid obesity Plan: Weight loss through dietary restrictions and exercise as tolerated. (12) Ventral hernia Qualifiers: Obstruction and gangrene presence: without obstruction or gangrene Qualified Code(s): K43.9 - Ventral hernia without obstruction or gangrene Plan: Patient is high risk for surgical repair. (13) Toxic encephalopathy Plan: Believe her toxic encephalopathy is likely secondary to her opioid withdrawal and sepsis. CT of the head was negative after a fall in her previous room. Her mentation has improved but is certainly not optimal. The patient is not oriented. She seems slow to mentate. I do not know what her baseline is. Continue to monitor (14) Diabetes mellitus type 2 in obese Plan: Continue sliding scale insulin and n.p.o. status for now. (15) Fall Qualifiers: Encounter type: initial encounter Qualified Code(s): W19.XXXA - Unspecified fall, initial encounter Plan: Patient was found on the floor of her previous room laying in her own bowel movement. It is unclear to me whether or not she hit her head. CT scan of the head was negative for any acute injuries. (16) Hypokalemia Plan: This is currently being replaced. (17) Hypomagnesemia Plan: This will be replaced. (18) Anemia Plan: Patient has had a precipitous drop and her hemoglobin since admission. I suspect this is likely due to hemodilution. Will guaiac stools. Continue to monitor. (19) Lactic acidosis Plan: Secondary to sepsis. Resolved. (20) Dysphasia Plan: Patient has failed 3 bedside swallow evaluations. Maintain n.p.o. status for now. Consult speech therapy in the morning when they return. (21) HTN (hypertension) Qualifiers: Hypertension type: essential hypertension Qualified Code(s): I10 - Essential (primary) hypertension Plan: The patient was on p.o. benazepril. However she is n.p.o. status. She has as needed hydralazine ordered. She is allergic to metoprolol. - Time Time Spent with patient: 35 or more minutes
[2017-08-22] MEDS ORDERED: DEXTROSE 5%-1/2 NORMAL SALINE 1,000 ML with POTASSIUM CHLORIDE 20 MEQ IV PRN ×2 (08:53)
[2017-08-22] MEDS: BENAZEPRIL HCL 20 MG TABLET PO SCH (09:16)
[2017-08-22] MEDS: PANTOPRAZOLE SODIUM 40 MG VIAL IV SCH ×2 (09:23→22:27)
[2017-08-22] MEDS: NORMAL SALINE 10 ML SDV (SCHEDULED) IV SCH ×2 (09:24→22:27)
[2017-08-22] MEDS: ENOXAPARIN SODIUM INJ 40 MG/0.4 ML DISP.SYRIN SUBCUT SCH (09:26)
--- NOTE | 2017-08-22 10:30 | PDOC PROGRESS REPORT ---
Subjective Progress Note for:: 08/22/17 Subjective:: She has no complaints. Physical Exam Vital Signs: Temp Pulse Resp BP Pulse Ox 98.6 F 76 24 H 162/60 H 100 08/22/17 10:00 08/22/17 08:00 08/22/17 10:00 08/22/17 09:56 08/22/17 10:00 Intake & Output 08/21/17 08/22/17 08/23/17 06:59 06:59 06:59 Intake Total 2900 884 Output Total 4460 1550 Balance -1560 -666 Weight 119.3 kg 122.2 kg Additional comments: Exam is unchanged from yesterday. Results Laboratory Results: 08/22/17 06:25 08/22/17 08:00 08/22/17 08/22/17 08/22/17 06:25 06:25 08:00 WBC 6.0 RBC 3.64 L Hgb 8.3 L Hct 25.5 L MCV 70 L MCH 22.8 L MCHC 32.6 RDW 17.7 H Plt Count 373 Sodium 148.0 H 147.7 H Potassium 3.8 3.6 Chloride 113 H 112 H Carbon Dioxide 28 28 Anion Gap 7 8 BUN 7 7 Creatinine 0.67 0.62 Est GFR ( Amer) > 60 > 60 Est GFR (Non-Af Amer) > 60 > 60 Glucose 134 H 161 H Calcium 8.3 L 8.1 L Magnesium 2.1 Total Bilirubin 0.5 AST 19 ALT 28 Alkaline Phosphatase 276 H Total Protein 5.3 L Albumin 2.4 L 08/18/17 15:55 Abdomen - Abscess Gram Stain - Final 08/18/17 15:55 Abdomen - Abscess Wound Culture - Final Enterococcus Faecalis(Group D) Prevotella Species Impressions: Abdomen/Pelvis CT 08/13/17 00:00 IMPRESSION: STABLE APPEARANCE OF LARGE VENTRAL WALL HERNIA AND INTRACUTANEOUS FISTULA STATUS POST FAILED MESH REPAIR. NO ACUTE FINDINGS OR SIGNIFICANT CHANGE COMPARED TO PRIOR STUDIES. Head CT 08/17/17 00:00 IMPRESSION: Very limited negative study EVIDENCE OF ACUTE STROKE: NO. Interventional Vascular Procedure 08/18/17 00:00 IMPRESSION: SUCCESSFUL PLACEMENT OF A 5 FR DUAL LUMEN 37 CM PICC IN THE RIGHT BASILIC VEIN. PICC Line Insertion 08/18/17 11:22 IMPRESSION: SUCCESSFUL PLACEMENT OF A 5 FR DUAL LUMEN 37 CM PICC IN THE RIGHT BASILIC VEIN. Chest X-Ray 08/22/17 07:00 IMPRESSION: Mild bibasilar atelectasis. Assessment & Plan - Diagnosis (1) Abdominal wall fistula Is this a current diagnosis for this admission?: Yes Plan: Appreciate the hospitalist assistance in managing this patient. The fistula volume has decreased. Character of the fluid has not changed. Her mental status is minimally better today. She has failed 2 swallowing studies and another is scheduled for tomorrow. We will place a feeding tube today with hopes of getting it transpyloric and instituting enteral feedings soon. No indication for surgery.
[2017-08-22] MEDS ORDERED: PHARMACY COMMUNICATION ORDER MC NR (11:00)
[2017-08-22] MEDS ORDERED: DIPHENHYDRAMINE HCL 25 MG CAPSULE NG PRN (11:30)
--- NOTE | 2017-08-22 12:58 | RADIOLOGY REPORT (SQ) ---
EXAM DESCRIPTION: KUB/ABDOMEN (SINGLE VIEW) COMPLETED DATE/TIME: 08/22/2017 12:18 pm REASON FOR STUDY: Check Placement of NG Tube COMPARISON: KUB 05/02/2017 CT abdomen pelvis 08/13/2017 NUMBER OF VIEWS: One view. TECHNIQUE: Supine radiographic image of the abdomen acquired, for Dobhoff tube placement. LIMITATIONS: None. FINDINGS: A nasoenteric feeding tube is present with the tip at the gastric outlet. Davis catheter in the bladder. Multiple clips in the periumbilical region unchanged. Clips right upper quadrant post cholecystectomy. BOWEL GAS PATTERN: Normal bowel gas pattern. No dilated loops. CALCIFICATIONS: No suspicious calcifications. SOFT TISSUES: No gross mass or suggestion of organomegaly. BONES: No acute fracture. No worrisome bone lesions. OTHER: No other significant finding. IMPRESSION: Nasoenteric feeding tube tip at the gastric outlet TECHNICAL DOCUMENTATION: JOB ID: [id number] [employer]- All Rights Reserved
[2017-08-22] MEDS: POTASSI CL 20 MEQ/D5-1/2NS 1L 1000 ML IV PRN (18:24)
[2017-08-23] MEDS: HYDRALAZINE HCL INJ/PF 20 MG/1 ML SDV IV PRN ×3 (04:19→21:29)
[2017-08-23] MEDS: OCTREOTIDE ACETATE INJ/PF 100 MCG/1 ML SDV SUBCUT SCH ×3 (05:53→22:47)
[2017-08-23] MEDS: VANCOMYCIN HCL 1,000 MG in DEXTROSE 5%-WATER 250 ML IV SCH ×2 (05:53→18:47)
[2017-08-23] MEDS: BENAZEPRIL HCL 20 MG TABLET NG SCH (09:27)
[2017-08-23] MEDS: ENOXAPARIN SODIUM INJ 40 MG/0.4 ML DISP.SYRIN SUBCUT SCH (09:31)
[2017-08-23] MEDS: PANTOPRAZOLE SODIUM 40 MG VIAL IV SCH ×2 (09:33→22:47)
[2017-08-23] MEDS: NORMAL SALINE 10 ML SDV (SCHEDULED) IV SCH ×2 (09:34→22:48)
[2017-08-23 14:49] LABS: ANION GAP 9 (5-19); BLOOD UREA NITROGEN 7 mg/dL (7-20); CARBON DIOXIDE 26 mmol/L (22-30); CHLORIDE 108 mmol/L (98-107); CREATININE RESULT 0.61 mg/dL (0.52-1.25); GLUCOSE 270 mg/dL (75-110); POTASSIUM 4.3 mmol/L (3.6-5.0); SODIUM 143.1 mmol/L (137-145)
--- NOTE | 2017-08-23 17:39 | PDOC PROGRESS REPORT ---
Subjective Progress Note for:: 08/23/17 Subjective:: Patient is asleep. Difficult to arouse. Review of systems cannot be obtained. Physical Exam Vital Signs: Temp Pulse Resp BP Pulse Ox 98.6 F 79 16 167/53 H 100 08/23/17 16:20 08/23/17 16:20 08/23/17 16:20 08/23/17 16:20 08/23/17 16:20 Intake & Output 08/22/17 08/23/17 08/24/17 06:59 06:59 06:59 Intake Total 884 1260 0 Output Total 1550 1250 600 Balance -666 10 -600 Weight 122.2 kg 121.9 kg GENERAL: This is a well-developed well-nourished morbidly obese white female currently resting in bed in no acute distress. HEART: Regular rate and rhythm. No murmurs rubs or gallops. LUNGS: Clear to auscultation anteriorly bilaterally with equal rise and fall of the chest. NG tube is in place. ABDOMEN: Soft, obese nontender, nondistended with hypoactive bowel sounds. Patient has fistula to the abdominal wall draining into an ostomy bag. The fluid looks tannish. She has large ventral hernia. : Davis catheter in place draining milagros colored urine. EXTREMETIES: No clubbing, cyanosis. Trace to 1 + edema. 1+ peripheral pulses bilaterally. NEURO: Asleep, difficult to arouse. Results Laboratory Results: 08/22/17 06:25 08/23/17 14:00 08/23/17 14:00 Sodium 143.1 Potassium 4.3 Chloride 108 H Carbon Dioxide 26 Anion Gap 9 BUN 7 Creatinine 0.61 Est GFR ( Amer) > 60 Est GFR (Non-Af Amer) > 60 Glucose 270 H Calcium 8.0 L 08/19/17 06:25 Blood Blood Culture - Final Staphylococcus Epidermidis Impressions: Abdomen/Pelvis CT 08/13/17 00:00 IMPRESSION: STABLE APPEARANCE OF LARGE VENTRAL WALL HERNIA AND INTRACUTANEOUS FISTULA STATUS POST FAILED MESH REPAIR. NO ACUTE FINDINGS OR SIGNIFICANT CHANGE COMPARED TO PRIOR STUDIES. Head CT 08/17/17 00:00 IMPRESSION: Very limited negative study EVIDENCE OF ACUTE STROKE: NO. Interventional Vascular Procedure 08/18/17 00:00 IMPRESSION: SUCCESSFUL PLACEMENT OF A 5 FR DUAL LUMEN 37 CM PICC IN THE RIGHT BASILIC VEIN. PICC Line Insertion 08/18/17 11:22 IMPRESSION: SUCCESSFUL PLACEMENT OF A 5 FR DUAL LUMEN 37 CM PICC IN THE RIGHT BASILIC VEIN. Chest X-Ray 08/22/17 07:00 IMPRESSION: Mild bibasilar atelectasis. KUB X-Ray 08/22/17 10:48 IMPRESSION: Nasoenteric feeding tube tip at the gastric outlet Assessment & Plan - Diagnosis (1) Acute respiratory failure Plan: The patient was intubated by the Surgical service due to continued agitation and restlessness. I Believe she was intubated more so for safety during detox. Her ABG at that time did not show any hypercapnia or hypoxia. She was extubated on 08/21/2017. She seems to be satting well at the bedside. (2) Sepsis Qualifiers: Sepsis type: methicillin susceptible Staphylococcus aureus Qualified Code(s ): A41.01 - Sepsis due to Methicillin susceptible Staphylococcus aureus Plan: Sepsis secondary to central venous line infection with staph epidermidis. The organism is resistant to multiple medications. The patient is currently on Vanco to which the organism is susceptible. However, the DENTON is 2. The organism is also susceptible to clindamycin. However we can use as patient is allergic to clindamycin. Since the patient's white blood cell count was coming down, I continued with vancomycin. All other antibiotics were discontinued. The patient's white count has continued to trend downward and is now within expected limits. She is afebrile. Her last blood cultures were done on the and are positive. Repeat blood cultures pending. If these remain negative , the antibiotic count will begin today. The patient will need 14 days of coverage. (3) Bacteremia Plan: Management as above. (4) Pneumonia Qualifiers: Pneumonia type: due to unspecified organism Laterality: left Lung location: lower lobe of lung Qualified Code(s): J18.1 - Lobar pneumonia, unspecified organism Plan: Possible hospital-acquired pneumonia with gram-negative organisms. Chest x-ray done today shows atelectasis. The opacities that will there prior to this have cleared. At this point I think we can rule out pneumonia. Begin incentive spirometry. 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 Management per primary team. As per their note, no abscess is evident and no surgery indicated at this time. (6) Acute narcotic withdrawal Plan: The patient is currently calm. She is receiving fentanyl and as needed oxycodone. (7) Chronic pain Plan: Patient is currently on oxycodone at home and recently had her prescription reduced. She usually goes to a pain clinic. Her chronic pain is secondary to her hernias. (8) Chronic narcotic dependence Plan: Chronic narcotic dependence with opioids. This is a continuous pattern of use. (9) Skin excoriation Plan: This is secondary to the patient's abdominal wall fistula. Continue to monitor. (10) Malnutrition of mild degree Plan: The patient was on TPN and octreotide as per the primary service. Continue to monitor. Current albumin is 3.0. According to her I's and O's the last time she consumed anything was 08/18. At that time she consumed 50% of her meal. Prior to this she was n.p.o. the previous day. Status post tube feeds while on the vent. The patient has failed 3 bedside swallow evaluation. Begin D5 maintenance with a fluid restriction 1500 cc a day. Maintain n.p.o. status. (11) Morbid obesity Plan: Weight loss through dietary restrictions and exercise as tolerated. (12) Ventral hernia Qualifiers: Obstruction and gangrene presence: without obstruction or gangrene Qualified Code(s): K43.9 - Ventral hernia without obstruction or gangrene Plan: Patient is high risk for surgical repair. (13) Toxic encephalopathy Plan: Believe her toxic encephalopathy is likely secondary to her opioid withdrawal and sepsis. CT of the head was negative after a fall in her previous room. Her mentation has improved but is certainly not optimal. The patient is not oriented. She seems slow to mentate. I do not know what her baseline is. Continue to monitor (14) Diabetes mellitus type 2 in obese Plan: Continue sliding scale insulin and n.p.o. status for now. (15) Fall Qualifiers: Encounter type: initial encounter Qualified Code(s): W19.XXXA - Unspecified fall, initial encounter Plan: Patient was found on the floor of her previous room laying in her own bowel movement. It is unclear to me whether or not she hit her head. CT scan of the head was negative for any acute injuries. (16) Hypokalemia Plan: This is currently being replaced. (17) Hypomagnesemia Plan: This will be replaced. (18) Anemia Plan: Patient has had a precipitous drop and her hemoglobin since admission. I suspect this is likely due to hemodilution. Will guaiac stools. Continue to monitor. (19) Lactic acidosis Plan: Secondary to sepsis. Resolved. (20) Dysphasia Plan: Patient has failed 3 bedside swallow evaluations. Maintain n.p.o. status for now. Speech therapy came to see her but the patient was not awake enough to participate with assessment. Hopefully they can come back later on this afternoon. (21) HTN (hypertension) Qualifiers: Hypertension type: essential hypertension Qualified Code(s): I10 - Essential (primary) hypertension Plan: The patient was on p.o. benazepril. However she is n.p.o. status. She has as needed hydralazine ordered. She is allergic to metoprolol. - Time Time Spent with patient: 15-24 minutes
[2017-08-23] MEDS: POTASSI CL 20 MEQ/D5-1/2NS 1L 1000 ML IV PRN (19:50)
[2017-08-23] MEDS ORDERED: HYDRALAZINE HCL INJ/PF 20 MG/1 ML SDV ONE (21:22)
--- NOTE | 2017-08-23 23:56 | PDOC PROGRESS REPORT ---
Subjective Progress Note for:: 08/23/17 Subjective:: pt. is w/o c/o Physical Exam Vital Signs: Temp Pulse Resp BP Pulse Ox 98.6 F 79 16 167/53 H 100 08/23/17 16:20 08/23/17 16:20 08/23/17 16:20 08/23/17 16:20 08/23/17 16:20 Intake & Output 08/22/17 08/23/17 08/24/17 06:59 06:59 06:59 Intake Total 884 1260 1100 Output Total 1550 1250 1500 Balance -666 10 -400 Weight 122.2 kg 121.9 kg General appearance: PRESENT: no acute distress Respiratory exam: PRESENT: clear to auscultation naa Cardiovascular exam: PRESENT: RRR GI/Abdominal exam: PRESENT: soft, other - Fistula output noted. ABSENT: rebound , rigid, tenderness Rectal exam: PRESENT: deferred Results Laboratory Results: 08/22/17 06:25 08/23/17 14:00 08/23/17 14:00 Sodium 143.1 Potassium 4.3 Chloride 108 H Carbon Dioxide 26 Anion Gap 9 BUN 7 Creatinine 0.61 Est GFR ( Amer) > 60 Est GFR (Non-Af Amer) > 60 Glucose 270 H Calcium 8.0 L 08/19/17 06:25 Blood Blood Culture - Final Staphylococcus Epidermidis Impressions: Abdomen/Pelvis CT 08/13/17 00:00 IMPRESSION: STABLE APPEARANCE OF LARGE VENTRAL WALL HERNIA AND INTRACUTANEOUS FISTULA STATUS POST FAILED MESH REPAIR. NO ACUTE FINDINGS OR SIGNIFICANT CHANGE COMPARED TO PRIOR STUDIES. Head CT 08/17/17 00:00 IMPRESSION: Very limited negative study EVIDENCE OF ACUTE STROKE: NO. Interventional Vascular Procedure 08/18/17 00:00 IMPRESSION: SUCCESSFUL PLACEMENT OF A 5 FR DUAL LUMEN 37 CM PICC IN THE RIGHT BASILIC VEIN. PICC Line Insertion 08/18/17 11:22 IMPRESSION: SUCCESSFUL PLACEMENT OF A 5 FR DUAL LUMEN 37 CM PICC IN THE RIGHT BASILIC VEIN. Chest X-Ray 08/22/17 07:00 IMPRESSION: Mild bibasilar atelectasis. KUB X-Ray 08/22/17 10:48 IMPRESSION: Nasoenteric feeding tube tip at the gastric outlet Assessment & Plan - Diagnosis (1) Abdominal wall fistula Is this a current diagnosis for this admission?: Yes - Plan Summary Plan Summary: Pt. to have swallowing study in AM. Has pulled out her NGT just now. Will leave out for now.
[2017-08-24] MEDS: OCTREOTIDE ACETATE INJ/PF 100 MCG/1 ML SDV SUBCUT SCH ×3 (05:30→22:59)
[2017-08-24] MEDS: VANCOMYCIN HCL 1,000 MG in DEXTROSE 5%-WATER 250 ML IV SCH ×2 (05:30→18:03)
[2017-08-24 07:33] LABS: ANION GAP 7 (5-19); BLOOD UREA NITROGEN 7 mg/dL (7-20); CALCIUM 7.9 mg/dL (8.4-10.2); CARBON DIOXIDE 27 mmol/L (22-30); CHLORIDE 106 mmol/L (98-107); CREATININE RESULT 0.65 mg/dL (0.52-1.25); GLUCOSE 294 mg/dL (75-110); MAGNESIUM 1.9 mg/dL (1.6-2.3); POTASSIUM 4.6 mmol/L (3.6-5.0); SODIUM 139.9 mmol/L (137-145)
[2017-08-24] MEDS: BENAZEPRIL HCL 20 MG TABLET NG SCH (11:51)
[2017-08-24] MEDS: ENOXAPARIN SODIUM INJ 40 MG/0.4 ML DISP.SYRIN SUBCUT SCH (11:52)
[2017-08-24] MEDS: PANTOPRAZOLE SODIUM 40 MG VIAL IV SCH ×2 (11:52→22:59)
[2017-08-24] MEDS: NORMAL SALINE 10 ML SDV (SCHEDULED) IV SCH ×2 (11:53→22:59)
--- NOTE | 2017-08-24 17:52 | PDOC PROGRESS REPORT ---
Subjective Progress Note for:: 08/24/17 Subjective:: This is a consult from the surgery service for medical management. Essentially the patient has been managed for sepsis secondary to line infection. The patient was initially felt to be withdrawing from opioid medication. When I saw the patient she was combative and in four-point restraints. She was sedated with Haldol which seemed to work well for the day. In the night of 17 August, the patient was intubated by the primary service for agitation.. A CVL which was placed on the floor prior to transfer was malfunctioning. The primary service repositioned it. However, it still was malfunctioning. The patient became septic with fever, tachycardia, tachypnea, fever. The CVL was discontinued and PICC line was placed. The tip of the CVL and blood cultures came back positive for MSSA. The most recent set of blood cultures dated 2016 have remained negative to date. They are not finalized. If they remain negative the patient will need 14 days of antibiotic therapy which would make her stop date September 03. Likely she can be switched to p.o. once her blood cultures are officially finalized. The patient is now on the floor. Today was her first good day where she was awake and talking. PT OT has been ordered for tomorrow. I expect she will need discharged to SNF. The patient is alert this morning. Her voice but seems to be speaking quite rationally. Pulled her NG tube out overnight. She asks if she can have some Jell-O. She tells me what she remembers from being admitted to the hospital and knows that she has a fistula that has been draining and that she had respiratory problems while she was here. She recalls having a central venous line placed by the surgical service and states that it hurt. There have been no acute events overnight. Physical Exam Vital Signs: Temp Pulse Resp BP Pulse Ox 98.5 F 90 18 168/59 H 97 08/24/17 05:31 08/24/17 14:00 08/24/17 05:31 08/24/17 05:31 08/24/17 05:31 Intake & Output 08/23/17 08/24/17 08/25/17 06:59 06:59 06:59 Intake Total 1260 2187 Output Total 1250 2235 30 Balance Weight 121.9 kg 121.3 kg GENERAL: This is a well-developed well-nourished morbidly obese white female currently resting in bed in no acute distress. HEART: Regular rate and rhythm. No murmurs rubs or gallops. LUNGS: Clear to auscultation bilaterally with equal rise and fall of the chest. NG tube is out.. ABDOMEN: Soft, obese nontender, nondistended with normal active bowel sounds. Patient has fistula to the abdominal wall draining into an ostomy bag. It has leaked onto her down. She has large ventral hernia. : Davis catheter in place draining milagros colored urine. EXTREMETIES: No clubbing, cyanosis. Trace to 1 + edema. 1+ peripheral pulses bilaterally. NEURO: Awake and alert. She has a hoarse voice. She is oriented today. Results Laboratory Results: 08/22/17 06:25 08/24/17 05:37 08/24/17 05:37 Sodium 139.9 Potassium 4.6 Chloride 106 Carbon Dioxide 27 Anion Gap 7 BUN 7 Creatinine 0.65 Est GFR ( Amer) > 60 Est GFR (Non-Af Amer) > 60 Glucose 294 H Calcium 7.9 L Magnesium 1.9 08/19/17 07:15 Blood Blood Culture - Final NO GROWTH IN 5 DAYS Impressions: Abdomen/Pelvis CT 08/13/17 00:00 IMPRESSION: STABLE APPEARANCE OF LARGE VENTRAL WALL HERNIA AND INTRACUTANEOUS FISTULA STATUS POST FAILED MESH REPAIR. NO ACUTE FINDINGS OR SIGNIFICANT CHANGE COMPARED TO PRIOR STUDIES. Head CT 08/17/17 00:00 IMPRESSION: Very limited negative study EVIDENCE OF ACUTE STROKE: NO. Interventional Vascular Procedure 08/18/17 00:00 IMPRESSION: SUCCESSFUL PLACEMENT OF A 5 FR DUAL LUMEN 37 CM PICC IN THE RIGHT BASILIC VEIN. PICC Line Insertion 08/18/17 11:22 IMPRESSION: SUCCESSFUL PLACEMENT OF A 5 FR DUAL LUMEN 37 CM PICC IN THE RIGHT BASILIC VEIN. Chest X-Ray 08/22/17 07:00 IMPRESSION: Mild bibasilar atelectasis. KUB X-Ray 08/22/17 10:48 IMPRESSION: Nasoenteric feeding tube tip at the gastric outlet Assessment & Plan - Diagnosis (1) Acute respiratory failure Plan: The patient was intubated by the Surgical service due to continued agitation and restlessness. I Believe she was intubated more so for safety during detox. Her ABG at that time did not show any hypercapnia or hypoxia. She was extubated on 08/21/2017. She seems to be satting well at the bedside. (2) Sepsis Qualifiers: Sepsis type: methicillin susceptible Staphylococcus aureus Qualified Code(s ): A41.01 - Sepsis due to Methicillin susceptible Staphylococcus aureus Plan: Sepsis secondary to central venous line infection with staph epidermidis. The organism is resistant to multiple medications. The patient is currently on Vanco to which the organism is susceptible. However, the DENTON is 2. The organism is also susceptible to clindamycin. However we can use as patient is allergic to clindamycin. Since the patient's white blood cell count was coming down, I continued with vancomycin. All other antibiotics were discontinued. The patient's white count has continued to trend downward and is now within expected limits. She is afebrile. Her last blood cultures were done on the and are positive. Repeat blood cultures pending. If these remain negative , the antibiotic count will begin from the . The patient will need 14 days of coverage. The stop date will be September 04. (3) Bacteremia Plan: Management as above. (4) Pneumonia Qualifiers: Pneumonia type: due to unspecified organism Laterality: left Lung location: lower lobe of lung Qualified Code(s): J18.1 - Lobar pneumonia, unspecified organism Plan: Possible hospital-acquired pneumonia with gram-negative organisms. Chest x-ray done today shows atelectasis. The opacities that will there prior to this have cleared. At this point I think we can rule out pneumonia. Begin incentive spirometry. 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 Management per primary team. As per their note, no abscess is evident and no surgery indicated at this time. (6) Acute narcotic withdrawal Plan: The patient is currently calm. She is receiving fentanyl and as needed oxycodone. (7) Chronic pain Plan: Patient is currently on oxycodone at home and recently had her prescription reduced. She usually goes to a pain clinic. Her chronic pain is secondary to her hernias. (8) Chronic narcotic dependence Plan: Chronic narcotic dependence with opioids. This is a continuous pattern of use. (9) Skin excoriation Plan: This is secondary to the patient's abdominal wall fistula. Continue to monitor. (10) Malnutrition of mild degree Plan: The patient was on TPN and octreotide as per the primary service. Continue to monitor. Current albumin is 3.0. According to her I's and O's the last time she consumed anything was 08/18. At that time she consumed 50% of her meal. Prior to this she was n.p.o. the previous day. Status post tube feeds while on the vent. The patient has failed 3 bedside swallow evaluation. Begin D5 maintenance with a fluid restriction 1500 cc a day. Maintain n.p.o. status. (11) Morbid obesity Plan: Weight loss through dietary restrictions and exercise as tolerated. (12) Ventral hernia Qualifiers: Obstruction and gangrene presence: without obstruction or gangrene Qualified Code(s): K43.9 - Ventral hernia without obstruction or gangrene Plan: Patient is high risk for surgical repair. (13) Toxic encephalopathy Plan: Believe her toxic encephalopathy is likely secondary to her opioid withdrawal and sepsis. CT of the head was negative after a fall in her previous room. Her mentation is much improved today. (14) Diabetes mellitus type 2 in obese Plan: Continue sliding scale insulin and n.p.o. status for now. (15) Fall Qualifiers: Encounter type: initial encounter Qualified Code(s): W19.XXXA - Unspecified fall, initial encounter Plan: Patient was found on the floor of her previous room laying in her own bowel movement. It is unclear to me whether or not she hit her head. CT scan of the head was negative for any acute injuries. (16) Hypokalemia Plan: This is currently being replaced. (17) Hypomagnesemia Plan: This will be replaced. (18) Anemia Plan: Patient has had a precipitous drop and her hemoglobin since admission. I suspect this is likely due to hemodilution. Continue to monitor. (19) Lactic acidosis Plan: Secondary to sepsis. Resolved. (20) Dysphasia Plan: Patient has failed 3 bedside swallow evaluations. Maintain n.p.o. status for now. Speech therapy is due to see her today. I await their evaluation. (21) HTN (hypertension) Qualifiers: Hypertension type: essential hypertension Qualified Code(s): I10 - Essential (primary) hypertension Plan: The patient was on p.o. benazepril. However she is n.p.o. status. She has as needed hydralazine ordered. She is allergic to metoprolol. - Time Time Spent with patient: 15-24 minutes
[2017-08-24] MEDS ORDERED: DIPHENHYDRAMINE HCL 50 MG CAPSULE PO PRN (21:03)
[2017-08-25] MEDS: VANCOMYCIN HCL 1,000 MG in DEXTROSE 5%-WATER 250 ML IV SCH ×2 (06:33→23:18)
[2017-08-25] MEDS: OCTREOTIDE ACETATE INJ/PF 100 MCG/1 ML SDV SUBCUT SCH ×2 (06:33→23:19)
--- NOTE | 2017-08-25 10:04 | PDOC PROGRESS REPORT ---
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 History of fistula stoma at over 2cm in size now down to 3mm area of granulation tissue. Issues chronic with management of output. High output fistula estimated given drainage amount. Patient wishes to pursue wound care rather than prolonged NPO with IV TPN to see if this could encourage closure. Physical Exam Vital Signs: Temp Pulse Resp BP Pulse Ox 98.6 F 94 24 H 167/94 H 96 08/25/17 07:54 08/25/17 07:54 08/25/17 07:54 08/25/17 07:54 08/25/17 09:52 Intake & Output 08/24/17 08/25/17 08/26/17 06:59 06:59 06:59 Intake Total 2187 1200 Output Total 2235 2450 Balance -48 -1250 Weight 121.3 kg 120.3 kg General appearance: PRESENT: no acute distress, obese Head exam: PRESENT: atraumatic, normocephalic Respiratory exam: PRESENT: wheezes. ABSENT: accessory muscle use, rales, rhonchi, stridor Cardiovascular exam: PRESENT: RRR. ABSENT: rubs Vascular exam: PRESENT: normal capillary refill GI/Abdominal exam: PRESENT: other - EC fistula site to RUQ scar site, unable to accomplish apposition of stoma device given abdomen contour. Will attempt with available materials but will require a stoma specialist outpatient to help. Skin in good condition surrounding site. Neurological exam: PRESENT: alert, oriented to person, oriented to place, oriented to time, CN II-XII grossly intact Results Laboratory Results: 08/22/17 06:25 08/24/17 05:37 08/19/17 07:15 Blood Blood Culture - Final NO GROWTH IN 5 DAYS Impressions: Abdomen/Pelvis CT 08/13/17 00:00 IMPRESSION: STABLE APPEARANCE OF LARGE VENTRAL WALL HERNIA AND INTRACUTANEOUS FISTULA STATUS POST FAILED MESH REPAIR. NO ACUTE FINDINGS OR SIGNIFICANT CHANGE COMPARED TO PRIOR STUDIES. Head CT 08/17/17 00:00 IMPRESSION: Very limited negative study EVIDENCE OF ACUTE STROKE: NO. Interventional Vascular Procedure 08/18/17 00:00 IMPRESSION: SUCCESSFUL PLACEMENT OF A 5 FR DUAL LUMEN 37 CM PICC IN THE RIGHT BASILIC VEIN. PICC Line Insertion 08/18/17 11:22 IMPRESSION: SUCCESSFUL PLACEMENT OF A 5 FR DUAL LUMEN 37 CM PICC IN THE RIGHT BASILIC VEIN. Chest X-Ray 08/22/17 07:00 IMPRESSION: Mild bibasilar atelectasis. KUB X-Ray 08/22/17 10:48 IMPRESSION: Nasoenteric feeding tube tip at the gastric outlet Assessment & Plan - Diagnosis (1) Abdominal wall fistula Is this a current diagnosis for this admission?: No Plan: Management of EC fistula during hospitalization for wound care. marketing and promotions manager outpatient management optimized with surgical evaluation and stoma medicaid collection specialist. Patient may benefit from outpatient NPO with CVC and TPN. Currently not wishing to pursue this. Wound care needed outpatient.
[2017-08-25] MEDS: ENOXAPARIN SODIUM INJ 40 MG/0.4 ML DISP.SYRIN SUBCUT SCH (13:22)
[2017-08-25] MEDS: NORMAL SALINE 10 ML SDV (SCHEDULED) IV SCH ×2 (13:22→23:20)
[2017-08-25] MEDS: PANTOPRAZOLE SODIUM 40 MG VIAL IV SCH ×2 (13:22→23:19)
[2017-08-25] MEDS: BENAZEPRIL HCL 20 MG TABLET NG SCH (13:23)
[2017-08-25 14:04] LABS: ABSOLUTE BASOPHILS # (AUTO) 0.1 10^3/uL (0.0-0.2); ABSOLUTE EOSINOPHILS # (AUTO) 0.5 10^3/uL (0.0-0.6); ABSOLUTE LYMPHOCYTES (AUTO) 1.4 10^3/uL (0.5-4.7); ABSOLUTE MONOCYTES (AUTO) 0.6 10^3/uL (0.1-1.4); ABSOLUTE NEUT (AUTO) 6.3 10^3/uL (1.7-8.2); BASOPHILS % (AUTO) 0.9 % (0-2); EOSINOPHILS % (AUTO) 5.7 % (0-6); HEMATOCRIT 30.8 % (36.0-47.0); HEMOGLOBIN 10.1 g/dL (12.0-15.5); HGB HCT DIFFERENCE -0.5; LYMPHOCYTES % (AUTO) 15.8 % (13-45); MEAN CORPUSCULAR HEMOGLOBIN 22.8 pg (27.0-33.4); MEAN CORPUSCULAR HGB CONC 32.7 g/dL (32.0-36.0); MEAN CORPUSCULAR VOLUME 70 fl (80-97); RED BLOOD COUNT 4.42 10^6/uL (3.72-5.28); RED CELL DISTRIBUTION WIDTH 17.9 % (11.5-14.0); SEGMENTED NEUTROPHILS % (AUTO) 70.6 % (42-78); WHITE BLOOD COUNT 8.9 10^3/uL (4.0-10.5)
[2017-08-25 14:14] LABS: ANION GAP 11 (5-19); BLOOD UREA NITROGEN 9 mg/dL (7-20); CALCIUM 8.7 mg/dL (8.4-10.2); CARBON DIOXIDE 27 mmol/L (22-30); CHLORIDE 105 mmol/L (98-107); GLUCOSE 152 mg/dL (75-110); POTASSIUM 3.7 mmol/L (3.6-5.0)
[2017-08-25] MEDS: OXYCODONE HCL IR 5 MG TABLET NG PRN (23:18)
[2017-08-26] MEDS: OCTREOTIDE ACETATE INJ/PF 100 MCG/1 ML SDV SUBCUT SCH ×3 (06:41→22:05)
--- NOTE | 2017-08-26 09:05 | PDOC PROGRESS REPORT ---
Subjective Progress Note for:: 08/26/17 Subjective:: Patient with innability to phonate since intubation ENT consult placed and MBSS held per his request Drainage from EC site moderate Minimal pain Physical Exam Vital Signs: Temp Pulse Resp BP Pulse Ox 97.3 F 117 H 18 124/83 99 08/26/17 07:27 08/26/17 07:27 08/26/17 07:27 08/26/17 07:27 08/26/17 07:27 Intake & Output 08/25/17 08/26/17 08/27/17 06:59 06:59 06:59 Intake Total 1200 578 Output Total 2450 25 Balance -1250 553 Weight 120.3 kg 119.6 kg General appearance: PRESENT: no acute distress, obese Head exam: PRESENT: atraumatic, normocephalic Eye exam: PRESENT: conjunctiva pink Mouth exam: PRESENT: moist, neck supple Neck exam: ABSENT: lymphadenopathy, thyromegaly, tracheal deviation Respiratory exam: PRESENT: symmetrical, unlabored. ABSENT: tachypnea Vascular exam: PRESENT: normal capillary refill GI/Abdominal exam: PRESENT: soft, other - EC site small, 3mm, will attempt new dressing today. ABSENT: distended, firm, guarding, rigid, tenderness Neurological exam: PRESENT: alert, awake, oriented to person, oriented to place , oriented to time, CN II-XII grossly intact Results Laboratory Results: 08/25/17 13:40 08/25/17 13:40 08/25/17 08/25/17 13:40 13:40 WBC 8.9 RBC 4.42 Hgb 10.1 L Hct 30.8 L MCV 70 L MCH 22.8 L MCHC 32.7 RDW 17.9 H Plt Count 529 H Seg Neutrophils % 70.6 Lymphocytes % 15.8 Monocytes % 7.0 Eosinophils % 5.7 Basophils % 0.9 Absolute Neutrophils 6.3 Absolute Lymphocytes 1.4 Absolute Monocytes 0.6 Absolute Eosinophils 0.5 Absolute Basophils 0.1 Sodium 143.0 Potassium 3.7 Chloride 105 Carbon Dioxide 27 Anion Gap 11 BUN 9 Creatinine 0.70 Est GFR ( Amer) > 60 Est GFR (Non-Af Amer) > 60 Glucose 152 H Calcium 8.7 Impressions: Abdomen/Pelvis CT 08/13/17 00:00 IMPRESSION: STABLE APPEARANCE OF LARGE VENTRAL WALL HERNIA AND INTRACUTANEOUS FISTULA STATUS POST FAILED MESH REPAIR. NO ACUTE FINDINGS OR SIGNIFICANT CHANGE COMPARED TO PRIOR STUDIES. Head CT 08/17/17 00:00 IMPRESSION: Very limited negative study EVIDENCE OF ACUTE STROKE: NO. Interventional Vascular Procedure 08/18/17 00:00 IMPRESSION: SUCCESSFUL PLACEMENT OF A 5 FR DUAL LUMEN 37 CM PICC IN THE RIGHT BASILIC VEIN. PICC Line Insertion 08/18/17 11:22 IMPRESSION: SUCCESSFUL PLACEMENT OF A 5 FR DUAL LUMEN 37 CM PICC IN THE RIGHT BASILIC VEIN. Chest X-Ray 08/22/17 07:00 IMPRESSION: Mild bibasilar atelectasis. KUB X-Ray 08/22/17 10:48 IMPRESSION: Nasoenteric feeding tube tip at the gastric outlet Assessment & Plan - Diagnosis (1) Abdominal wall fistula Is this a current diagnosis for this admission?: No Plan: Management of EC fistula during hospitalization for wound care. [facility] outpatient management optimized with surgical evaluation and stoma sports marketing specialist. Patient may benefit from outpatient NPO with CVC and TPN. Currently not wishing to pursue this. Wound care needed outpatient, ostomy specialist. ENT consult given dysphonia since intubation, holding MBSS
[2017-08-26] MEDS: ENOXAPARIN SODIUM INJ 40 MG/0.4 ML DISP.SYRIN SUBCUT SCH (11:29)
[2017-08-26] MEDS: BENAZEPRIL HCL 20 MG TABLET NG SCH (11:30)
[2017-08-26] MEDS: OXYCODONE HCL IR 5 MG TABLET NG PRN ×2 (11:30→23:04)
[2017-08-26] MEDS: NORMAL SALINE 10 ML SDV (SCHEDULED) IV SCH ×2 (11:50→22:06)
[2017-08-26] MEDS: VANCOMYCIN HCL 1,000 MG in DEXTROSE 5%-WATER 250 ML IV SCH (11:54)
[2017-08-26] MEDS: PANTOPRAZOLE SODIUM 40 MG VIAL IV SCH ×2 (11:55→22:05)
--- NOTE | 2017-08-26 14:01 | PDOC PROGRESS REPORT ---
Subjective Progress Note for:: 08/26/17 Subjective:: Patient is a 61-year-old female who was admitted to the surgery service however hospitalist consulted for medical management. Patient was septic due to a line infection. Patient was intubated on 08/17/2017. Patient is now extubated however appears to have developed vocal cord paralysis as her voice is now raspy. Patient is currently on a modified diet. Patient is sitting up in a chair. She states she is doing well but she is having pain and would like pain medication. Physical Exam Vital Signs: Temp Pulse Resp BP Pulse Ox 98.0 F 89 20 144/78 H 97 08/25/17 12:59 08/25/17 12:59 08/25/17 12:59 08/25/17 12:59 08/25/17 12:59 Intake & Output 08/24/17 08/25/17 08/26/17 06:59 06:59 06:59 Intake Total 2187 1200 238 Output Total 2235 2450 25 Balance -48 -1250 213 Weight 121.3 kg 120.3 kg General appearance: PRESENT: no acute distress, obese Head exam: PRESENT: normocephalic Eye exam: PRESENT: EOMI. ABSENT: scleral icterus Ear exam: PRESENT: normal external ear exam Mouth exam: PRESENT: moist, tongue midline, other - hoarse voice Neck exam: ABSENT: carotid bruit, JVD, lymphadenopathy, thyromegaly Respiratory exam: PRESENT: clear to auscultation naa. ABSENT: rales, rhonchi, stridor, wheezes Cardiovascular exam: PRESENT: RRR. ABSENT: diastolic murmur, rubs, systolic murmur Pulses: PRESENT: normal dorsalis pedis pul Vascular exam: PRESENT: normal capillary refill GI/Abdominal exam: PRESENT: normal bowel sounds, soft, other - abdominal bandage. ABSENT: distended, guarding, mass, organolmegaly, rebound, tenderness Rectal exam: PRESENT: deferred Extremities exam: PRESENT: full ROM. ABSENT: calf tenderness, clubbing, pedal edema Neurological exam: PRESENT: alert, awake, oriented to person, oriented to place , oriented to time, oriented to situation, CN II-XII grossly intact. ABSENT: motor sensory deficit Psychiatric exam: PRESENT: appropriate affect, normal mood. ABSENT: homicidal ideation, suicidal ideation Skin exam: PRESENT: dry, intact, warm. ABSENT: cyanosis, rash Results Laboratory Results: 08/25/17 13:40 08/25/17 13:40 08/25/17 08/25/17 13:40 13:40 WBC 8.9 RBC 4.42 Hgb 10.1 L Hct 30.8 L MCV 70 L MCH 22.8 L MCHC 32.7 RDW 17.9 H Plt Count 529 H Seg Neutrophils % 70.6 Lymphocytes % 15.8 Monocytes % 7.0 Eosinophils % 5.7 Basophils % 0.9 Absolute Neutrophils 6.3 Absolute Lymphocytes 1.4 Absolute Monocytes 0.6 Absolute Eosinophils 0.5 Absolute Basophils 0.1 Sodium 143.0 Potassium 3.7 Chloride 105 Carbon Dioxide 27 Anion Gap 11 BUN 9 Creatinine 0.70 Est GFR ( Amer) > 60 Est GFR (Non-Af Amer) > 60 Glucose 152 H Calcium 8.7 Impressions: Abdomen/Pelvis CT 08/13/17 00:00 IMPRESSION: STABLE APPEARANCE OF LARGE VENTRAL WALL HERNIA AND INTRACUTANEOUS FISTULA STATUS POST FAILED MESH REPAIR. NO ACUTE FINDINGS OR SIGNIFICANT CHANGE COMPARED TO PRIOR STUDIES. Head CT 08/17/17 00:00 IMPRESSION: Very limited negative study EVIDENCE OF ACUTE STROKE: NO. Interventional Vascular Procedure 08/18/17 00:00 IMPRESSION: SUCCESSFUL PLACEMENT OF A 5 FR DUAL LUMEN 37 CM PICC IN THE RIGHT BASILIC VEIN. PICC Line Insertion 08/18/17 11:22 IMPRESSION: SUCCESSFUL PLACEMENT OF A 5 FR DUAL LUMEN 37 CM PICC IN THE RIGHT BASILIC VEIN. Chest X-Ray 08/22/17 07:00 IMPRESSION: Mild bibasilar atelectasis. KUB X-Ray 08/22/17 10:48 IMPRESSION: Nasoenteric feeding tube tip at the gastric outlet Assessment & Plan - Diagnosis (1) Acute respiratory failure Is this a current diagnosis for this admission?: Yes Plan: Patient intubated 08/17 and extubated 08/21. Thought be done for airway protection. Patient is stable for a respiratory stand point. (2) Acute narcotic withdrawal Is this a current diagnosis for this admission?: Yes Plan: Resolved. Patient is on PRN narcotics for pain. (3) Anemia Qualifiers: Anemia type: iron deficiency Is this a current diagnosis for this admission?: Yes Plan: Patient may possibly have iron deficient anemia with an MCV of 70. Patient hemoglobin has however trended up and is 10.1 today. However do to her acute infection, iron supplement will not be given but can be started on discharge. (4) Bacteremia Plan: Sepsis secondary to central venous line infection with staph epidermidis. The organism is resistant to multiple medications. The patient is currently on Vanco to which the organism is susceptible. Patient blood culture from 08/22 shows no growth. Patient will need 14 days of antibiotics starting from 08/22. Therefore the stop date will be September 04. (5) Chronic narcotic dependence Is this a current diagnosis for this admission?: Yes Plan: Patient follows at the pain clinic and has an appointment on Wednesday. Patent is on oxycodone. (6) Chronic pain Is this a current diagnosis for this admission?: Yes Plan: Patient follows at the pain clinic. (7) Dysphasia Is this a current diagnosis for this admission?: Yes Plan: Patient also had dysphonia which may have resulted from trauma to the vocal cord during intubation or when patient pulled out NG tube. Speech therapy would like to do a barium swallow. 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 Management per primary team. As per their note, no abscess is evident and no surgery indicated at this time. (9) Hypokalemia Is this a current diagnosis for this admission?: Yes Plan: Resolved. (10) Hypomagnesemia Is this a current diagnosis for this admission?: Yes Plan: Resolved (11) Lactic acidosis Is this a current diagnosis for this admission?: Yes Plan: Secondary to sepsis. Resolved. (14) Sepsis Qualifiers: Sepsis type: methicillin susceptible Staphylococcus aureus Qualified Code(s ): A41.01 - Sepsis due to Methicillin susceptible Staphylococcus aureus (15) Toxic encephalopathy Is this a current diagnosis for this admission?: Yes Plan: Do to opiate withdrawal and sepsis. Now resolved. (16) Ventral hernia Qualifiers: Obstruction and gangrene presence: without obstruction or gangrene Qualified Code(s): K43.9 - Ventral hernia without obstruction or gangrene Is this a current diagnosis for this admission?: Yes Plan: Patient high risk for surgery. Surgery following. (17) Diabetes mellitus type 2 in obese Is this a current diagnosis for this admission?: Yes Plan: Stable on SSI. Blood glucoses below 200s. (18) HTN (hypertension) Qualifiers: Hypertension type: essential hypertension Qualified Code(s): I10 - Essential (primary) hypertension Is this a current diagnosis for this admission?: Yes Plan: Stable on current medications. Will continue to monitor. - Time Time Spent with patient: Less than 15 minutes Anticipated discharge: SNF - Patient wound still being monitored closely by surgery.
[2017-08-26 14:15] LABS: ANION GAP 9 (5-19); BLOOD UREA NITROGEN 8 mg/dL (7-20); CALCIUM 8.6 mg/dL (8.4-10.2); CARBON DIOXIDE 28 mmol/L (22-30); CHLORIDE 106 mmol/L (98-107); GLUCOSE 150 mg/dL (75-110); POTASSIUM 3.4 mmol/L (3.6-5.0); SODIUM 142.7 mmol/L (137-145)
--- NOTE | 2017-08-26 14:21 | PDOC PROGRESS REPORT ---
Subjective Progress Note for:: 08/26/17 Subjective:: Patient is a 61-year-old female who was admitted to the surgery service however hospitalist consulted for medical management. Patient was septic due to a line infection. Patient was intubated on 08/17/2017. Patient is now extubated however appears to have developed vocal cord paralysis as her voice is now raspy. Patient is currently on a modified diet. Patient is sitting up in a chair. Patient feels better especially after she had some pain medication. Patient states that it is cold in her room. Patient also stated that she was given the wrong patient try and did not eat very much. Physical Exam Vital Signs: Temp Pulse Resp BP Pulse Ox 97.8 F 83 24 H 136/90 H 95 08/26/17 12:31 08/26/17 12:31 08/26/17 12:31 08/26/17 12:31 08/26/17 12:31 Intake & Output 08/25/17 08/26/17 08/27/17 06:59 06:59 06:59 Intake Total 1200 578 118 Output Total 2450 25 Balance -1250 553 118 Weight 120.3 kg 119.6 kg General appearance: PRESENT: no acute distress, morbidly obese Head exam: PRESENT: normocephalic Eye exam: PRESENT: EOMI. ABSENT: scleral icterus Ear exam: PRESENT: normal external ear exam Mouth exam: PRESENT: moist, other - hoarse voice Neck exam: PRESENT: lymphadenopathy. ABSENT: carotid bruit, JVD, thyromegaly Respiratory exam: PRESENT: clear to auscultation naa, rales. ABSENT: rhonchi, stridor, wheezes Cardiovascular exam: PRESENT: RRR. ABSENT: diastolic murmur, rubs, systolic murmur Pulses: PRESENT: normal dorsalis pedis pul Vascular exam: PRESENT: normal capillary refill GI/Abdominal exam: PRESENT: soft, other - abdominal dressing in place clean and dry. ABSENT: distended, guarding, mass, organolmegaly, rebound, tenderness Rectal exam: PRESENT: deferred Extremities exam: PRESENT: full ROM. ABSENT: calf tenderness, clubbing, pedal edema Musculoskeletal exam: PRESENT: full ROM, normal inspection Neurological exam: PRESENT: alert, awake, oriented to person, oriented to place , oriented to time, oriented to situation, CN II-XII grossly intact. ABSENT: motor sensory deficit Psychiatric exam: PRESENT: appropriate affect, normal mood. ABSENT: homicidal ideation, suicidal ideation Skin exam: PRESENT: dry, intact, warm. ABSENT: cyanosis, rash Results Laboratory Results: 08/25/17 13:40 08/25/17 08/25/17 13:40 13:40 WBC 8.9 RBC 4.42 Hgb 10.1 L Hct 30.8 L MCV 70 L MCH 22.8 L MCHC 32.7 RDW 17.9 H Plt Count 529 H Seg Neutrophils % 70.6 Lymphocytes % 15.8 Monocytes % 7.0 Eosinophils % 5.7 Basophils % 0.9 Absolute Neutrophils 6.3 Absolute Lymphocytes 1.4 Absolute Monocytes 0.6 Absolute Eosinophils 0.5 Absolute Basophils 0.1 Sodium 143.0 Potassium 3.7 Chloride 105 Carbon Dioxide 27 Anion Gap 11 BUN 9 Creatinine 0.70 Est GFR ( Amer) > 60 Est GFR (Non-Af Amer) > 60 Glucose 152 H Calcium 8.7 Impressions: Abdomen/Pelvis CT 08/13/17 00:00 IMPRESSION: STABLE APPEARANCE OF LARGE VENTRAL WALL HERNIA AND INTRACUTANEOUS FISTULA STATUS POST FAILED MESH REPAIR. NO ACUTE FINDINGS OR SIGNIFICANT CHANGE COMPARED TO PRIOR STUDIES. Head CT 08/17/17 00:00 IMPRESSION: Very limited negative study EVIDENCE OF ACUTE STROKE: NO. Interventional Vascular Procedure 08/18/17 00:00 IMPRESSION: SUCCESSFUL PLACEMENT OF A 5 FR DUAL LUMEN 37 CM PICC IN THE RIGHT BASILIC VEIN. PICC Line Insertion 08/18/17 11:22 IMPRESSION: SUCCESSFUL PLACEMENT OF A 5 FR DUAL LUMEN 37 CM PICC IN THE RIGHT BASILIC VEIN. Chest X-Ray 08/22/17 07:00 IMPRESSION: Mild bibasilar atelectasis. KUB X-Ray 08/22/17 10:48 IMPRESSION: Nasoenteric feeding tube tip at the gastric outlet Assessment & Plan - Diagnosis (1) Acute respiratory failure Is this a current diagnosis for this admission?: Yes Plan: Patient intubated 08/17 and extubated 08/21. Thought be done for airway protection. Patient now stable. (2) Acute narcotic withdrawal Is this a current diagnosis for this admission?: Yes Plan: Resolved. Patient is on PRN narcotics for pain. (3) Anemia Qualifiers: Anemia type: iron deficiency Is this a current diagnosis for this admission?: Yes Plan: Patient may possibly have iron deficient anemia with an MCV of 70. Patient hemoglobin has however trended up and is 10.1 today. However do to her acute infection, iron supplement will not be given but can be started on discharge. (4) Bacteremia Plan: Sepsis secondary to central venous line infection with staph epidermidis. The organism is resistant to multiple medications. The patient is currently on Vanco to which the organism is susceptible. Patient blood culture from 08/22 shows no growth. Patient will need 14 days of antibiotics starting from 08/22. Therefore the stop date will be September 04. (5) Chronic narcotic dependence Is this a current diagnosis for this admission?: Yes Plan: Patient follows at the pain clinic and has an appointment on Monday 08/27. Patent is on oxycodone. (6) Chronic pain Is this a current diagnosis for this admission?: Yes Plan: Patient follows at the pain clinic. (7) Dysphasia Is this a current diagnosis for this admission?: Yes Plan: Patient also had dysphonia which may have resulted from trauma to the vocal cord during intubation or when patient pulled out NG tube. Speech therapy would like to do a barium swallow. Patient barium swallow was held per ENT request. May be able to complete modified barium swallow tomorrow. 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 Management per primary team. As per their note, no abscess is evident and no surgery indicated at this time. (9) Hypokalemia Is this a current diagnosis for this admission?: Yes Plan: Resolved. (10) Hypomagnesemia Is this a current diagnosis for this admission?: Yes Plan: Resolved (11) Lactic acidosis Is this a current diagnosis for this admission?: Yes Plan: Secondary to sepsis. Resolved. (12) Malnutrition of mild degree Is this a current diagnosis for this admission?: Yes Plan: Patient is currently taking po although modified. Concern that patient may not be consuming enough which may be affecting her healing. Patient does not want to be made NPO and started on TPN which would encourage healing. Will place on supplement if patient is not already on any. (13) Morbid obesity Is this a current diagnosis for this admission?: Yes Plan: Patient BMI is 48.2. Patient cannot restrict her diet however increased protein intake may encourage muscle development and healing. Patient should participate in activity as tolerated. (14) Sepsis Qualifiers: Sepsis type: methicillin susceptible Staphylococcus aureus Qualified Code(s ): A41.01 - Sepsis due to Methicillin susceptible Staphylococcus aureus Is this a current diagnosis for this admission?: Yes (15) Toxic encephalopathy Is this a current diagnosis for this admission?: Yes Plan: Due to opiate withdrawal and sepsis. Now resolved. (16) Ventral hernia Qualifiers: Obstruction and gangrene presence: without obstruction or gangrene Qualified Code(s): K43.9 - Ventral hernia without obstruction or gangrene Is this a current diagnosis for this admission?: Yes Plan: Patient high risk for surgery. Surgery following. (17) Diabetes mellitus type 2 in obese Is this a current diagnosis for this admission?: Yes Plan: Stable on SSI. Blood glucoses below 200s. (18) HTN (hypertension) Qualifiers: Hypertension type: essential hypertension Qualified Code(s): I10 - Essential (primary) hypertension Is this a current diagnosis for this admission?: Yes Plan: Stable on current medications. Will continue to monitor. - Time Time Spent with patient: Less than 15 minutes Anticipated discharge: SNF - Patient wound is still being followed closely by surgery.
[2017-08-26] MEDS: INSULIN REG, HUMAN 100 UNIT/ML 3 ML VIAL (PYX) SUBCUT PRN (17:45)
--- NOTE | 2017-08-26 22:23 | CONSULTATION REPORT E ---
Consultation Report NAME: CARMEN ROMERO : 1955 AGE: 61Y DATE: 08/26/2017 ROOM: 308 A TO: LEXIE OROURKE D.O. FROM: PARAMJIT ZAZUETA M.D. Requesting Physician Consultation request by the general surgery service. HISTORY OF PRESENT ILLNESS/SUBJECTIVE: This is a 61-year-old white female patient who was admitted to the surgery service with a ventral hernia with cutaneous fistula. The hospitalists are also following for medical management. The patient was septic due to a line infection and was intubated on 08/17/2017. The patient was extubated around 08/21/2017 and has been with post-extubation dysphonia. Since extubation she has remained with breathy voice quality. She was placed on a thickened diet. On walking into the patient's room she was noted to be sitting comfortably in a chair next to her bed and speaking on her cell phone and with her son. She stated that today is the best her voice has been/sounded since extubation. PMH/PSH/ROS/MEDS/FH/SH: See EHR PHYSICAL EXAMINATION: GENERAL APPEARANCE: No acute distress and obese. HEAD: Normocephalic, atraumatic. EYES: Extraocular muscles are intact. EARS: The ear canals were clear, tympanic membranes were intact, and no middle ear effusions present. NOSE: Nasal septal deviation right and no polyps or bleeding noted. ORAL CAVITY/OROPHARYNX: moist mucous membranes, tongue midline, and tonsils unremarkable except for the appearance of a left superior tonsil concretion. NECK: Supple with no lymphadenopathy and the thyroid was unremarkable on palpation. MUSCULOSKELETAL: Temporomandibular joints were unremarkable to palpation. FLEXIBLE FIBEROPTIC AND NPL ENDOSCOPIC EVALUATION: The procedure was verbally discussed with the patient and she verbally consented to an endoscopic evaluation. Topical medication was administered through the patient's nose consisting of saline with 4% lidocaine. The left nasal passage was unremarkable, no sinonasal polyps, the nasopharynx/bao were unremarkable and clear, the oropharynx/hypopharynx were widely patent, mild base of tongue fullness, there were no vocal cord cysts, nodules, or polyps noted. The right true vocal was with normal range of motion to include the arytenoid complex. The left true vocal cord and arytenoid complex was with decreased mobility and appeared paramedian in position. The patient's voice quality was breathy. She was able to drink water through a straw repeatedly without difficulty with no signs of aspiration and no choking noted. There appeared to be mild erythema with tissue thickening/edema at the vocal process of the arytenoids bilateral, and there appeared to be signs consistent with reflux with interarytenoid edema noted. ASSESSMENT: 1) Post-extubation dysphonia. PLAN: The patient was intubated on 08/17, and was extubated on 08/21/2017 with post-extubation dysphonia noted. The patient has slowly improved in voice quality with concern for post-extubation edema, and nerupraxia and not paralysis. The patient has been maintained on a thickened p.o. diet. Agree with plan to now perform a modified barium swallow evaluation. Speech pathology can also progress the patient's p.o. intake as tolerated. Also consideration for steroids and increased reflux mgmt in the setting of post-extubation dysphonia. Otolaryngology will remain available as needed, please contact Dr. Orourke as needed. DICTATING PHYSICIAN: LEXIE OROURKE D.O. [id number] PHY#: [id number] ID: [id number] JOB#: [id number] ACCT: [id number] cc:LEXIE OROURKE D.O. > MTDD
[2017-08-27] MEDS: VANCOMYCIN HCL 1,000 MG in DEXTROSE 5%-WATER 250 ML IV SCH ×2 (00:15→13:28)
[2017-08-27] MEDS: OCTREOTIDE ACETATE INJ/PF 100 MCG/1 ML SDV SUBCUT SCH ×2 (06:14→13:26)
[2017-08-27] MEDS: OXYCODONE HCL IR 5 MG TABLET NG PRN (07:52)
[2017-08-27] MEDS ORDERED: POTASSIUM CHLORIDE 20 MEQ/15 ML UDCUP PO ONE (08:00)
--- NOTE | 2017-08-27 08:47 | PDOC PROGRESS REPORT ---
Subjective Progress Note for:: 08/27/17 Subjective:: No events overnight Phonation continues to improve ENT evaluated patient last PM with note for vocal cord trauma, not permanent some mucus on vocal cords Patient passing flattus, hungry and wanting to go home Physical Exam Vital Signs: Temp Pulse Resp BP Pulse Ox 97.7 F 89 20 132/51 H 99 08/27/17 07:26 08/27/17 07:26 08/27/17 07:26 08/27/17 07:26 08/27/17 07:26 Intake & Output 08/26/17 08/27/17 08/28/17 06:59 06:59 06:59 Intake Total 578 1123 Output Total 25 0 Balance 553 1123 Weight 119.6 kg 119.2 kg General appearance: PRESENT: no acute distress, obese Head exam: PRESENT: atraumatic, normocephalic Eye exam: PRESENT: conjunctiva pink Mouth exam: PRESENT: moist, neck supple Neck exam: ABSENT: lymphadenopathy, thyromegaly, tracheal deviation Respiratory exam: PRESENT: symmetrical, unlabored. ABSENT: tachypnea Vascular exam: PRESENT: normal capillary refill GI/Abdominal exam: PRESENT: soft, tenderness - at EC fistula site Dressing placed as stoma device did not hold. ABSENT: firm, guarding, hernia Extremities exam: ABSENT: calf tenderness, tenderness Musculoskeletal exam: PRESENT: ambulatory Neurological exam: PRESENT: alert, awake, oriented to person, oriented to place , oriented to time, CN II-XII grossly intact Results Laboratory Results: 08/25/17 13:40 08/26/17 13:45 08/26/17 13:45 Sodium 142.7 Potassium 3.4 L Chloride 106 Carbon Dioxide 28 Anion Gap 9 BUN 8 Creatinine 0.80 Est GFR ( Amer) > 60 Est GFR (Non-Af Amer) > 60 Glucose 150 H Calcium 8.6 08/22/17 08:35 Blood Blood Culture - Final NO GROWTH IN 5 DAYS Impressions: Abdomen/Pelvis CT 08/13/17 00:00 IMPRESSION: STABLE APPEARANCE OF LARGE VENTRAL WALL HERNIA AND INTRACUTANEOUS FISTULA STATUS POST FAILED MESH REPAIR. NO ACUTE FINDINGS OR SIGNIFICANT CHANGE COMPARED TO PRIOR STUDIES. Head CT 08/17/17 00:00 IMPRESSION: Very limited negative study EVIDENCE OF ACUTE STROKE: NO. Interventional Vascular Procedure 08/18/17 00:00 IMPRESSION: SUCCESSFUL PLACEMENT OF A 5 FR DUAL LUMEN 37 CM PICC IN THE RIGHT BASILIC VEIN. PICC Line Insertion 08/18/17 11:22 IMPRESSION: SUCCESSFUL PLACEMENT OF A 5 FR DUAL LUMEN 37 CM PICC IN THE RIGHT BASILIC VEIN. Chest X-Ray 08/22/17 07:00 IMPRESSION: Mild bibasilar atelectasis. KUB X-Ray 08/22/17 10:48 IMPRESSION: Nasoenteric feeding tube tip at the gastric outlet Assessment & Plan - Diagnosis (1) Abdominal wall fistula Is this a current diagnosis for this admission?: No Plan: Wound care nurse outpatient to assess for possible stoma placement Home IV antibiotics of vancomycin until 09/04/17 Patient refusing SNF/rehab, home health care nurse ordered Pain control Home soon
--- NOTE | 2017-08-27 12:15 | RADIOLOGY REPORT (SQ) ---
EXAM DESCRIPTION: SALLIE SWALLOW COMPLETED DATE/TIME: 08/27/2017 11:09 am REASON FOR STUDY: Dysphagia unspecified R 13.10, food in pharynx causing other injury, sequela T17.2 28S swallow evaluation, discharge dependant COMPARISON: None. TECHNIQUE: Videofluoroscopic swallowing examination was performed in conjunction with speech patholo gy. Videofluoroscopic imaging was obtained and reviewed and these are the findings: RADIATION DOSE: Total fluoroscopy time: 1.2 minutes 1 fluoroscopy image saved to PACS. LIMITATIONS: None FINDINGS: The patient was brought into the fluoro room and placed upright on a modified barium swall ow chair. The patient was then given multiple consistencies mixed with barium to swallow under live fluoroscopic video guidance. According to the Speech Pathologist there was no laryngeal penetration and no tracheal aspiration. Mild premature spillage over the base of tongue into vallecula prior to swallow initiation is noted. No significant post swallow residual was seen. Please see speech patho logy report for further details and recommendations. IMPRESSION: NO EVIDENCE OF LARYNGEAL PENETRATION OR TRACHEAL ASPIRATION.PLEASE SEE SPEECH PATHOLOGIS T REPORT FOR OTHER FINDINGS AND RECOMMENDATIONS. COMMENT: Quality ID [id number]: Final reports for procedures using fluoroscopy that document radiation exp osure indices, or exposure time and number of fluorographic images (if radiation exposure indices are not available) TECHNICAL DOCUMENTATION: JOB ID: [id number] [employer]- All Rights Reserved
--- NOTE | 2017-08-27 12:21 | RADIOLOGY REPORT (SQ) ---
EXAM DESCRIPTION: PICC INSERTION; U/S GUIDE FOR VASCULAR ACCESS; FLUORO/CV PLACEMENT COMPLETED DATE/TIME: 08/27/2017 11:49 am REASON FOR STUDY: poor access requires IV antibitiotics. ; IV ACCESS, IV ABX; IV ACCESS, KASEY BX COMPARISON: None. FLUOROSCOPY TIME: 0.1 minute. 2 images saved to PACS. TECHNIQUE: Fluoroscopic and ultrasound guided PICC placement. LIMITATIONS: None. PROCEDURE: After written consent and assessment were obtained, the patient was brought into the fluo roscopy room and place supine on the table. Ultrasound was used on the patient's left arm for PICC a ccess. The left arm was prepped and draped in a sterile fashion along with the ultrasound probe. The entry site was anesthetized with 1% lidocaine. A 21 gauge 7 cm needle was advanced through the skin a nd into the basilic vein under live ultrasound guidance. An ultrasound image was saved to PACS confi rming access site. A .018 guide wire was then inserted through the needle and into the venous system . The needle was the removed and an 11 blade scalpel was used to make a 1cm skin incision. A 5 fr pe el-away sheath was advanced over the wire and into the venous system. A measurement was then made usi ng the existing wire and live fluoroscopic guidance. The wire was then removed and the trimmed. The P ICC was advanced through the peel-away sheath and into the venous system. The peel-away sheath was re moved and the catheter was adhered to the patients arm with a stat lock. The catheter was then aspira kaiden and flushed and a sterile bandage was placed over the access site. A fluoroscopic spot image was saved to PACS confirming the catheter tip within the superior vena cava. IMPRESSION: SUCCESSFUL PLACEMENT OF A 5 FR DUAL LUMEN 39 CM PICC IN THE LEFT BASILIC VEIN. COMMENT: Patient medication list reviewed: Yes- Quality ID# [id number]:Eligible professional attests to doc umenting in the medical record they obtained, updated, or reviewed the patient's current medications. . Quality ID 145: Final reports for procedures using fluoroscopy that document radiation exposure wagner jasen, or exposure time and number of fluorographic images (if radiation exposure indices are not avail able) Quality ID #76: The patient was prepped and draped using maximum sterile barrier technique including cap, mask, sterile gown, sterile gloves, a large sterile sheet, hand hygiene, and 2% Chlorhexidine fo r cutaneous antisepsis. When ultrasound is used, sterile ultrasound techniques are followed requiring sterile gel and sterile probes. TECHNICAL DOCUMENTATION: JOB ID: [id number] [employer]- All Rights Reserved
--- NOTE | 2017-08-27 12:32 | PDOC PROGRESS REPORT ---
Subjective Progress Note for:: 08/27/17 Subjective:: Patient is a 61-year-old female who was admitted to the surgery service however hospitalist consulted for medical management. Patient was septic due to a line infection. Patient was intubated on 08/17/2017. Patient is now extubated however appears to have developed vocal cord paralysis as her voice is now raspy. Patient states her voice was actually doing better last night but after all of the talking she is no having problems with hoarseness. She states she is ready to go home. She has everything she needs at home. Physical Exam Vital Signs: Temp Pulse Resp BP Pulse Ox 97.7 F 89 20 132/51 H 99 08/27/17 07:26 08/27/17 07:26 08/27/17 07:26 08/27/17 07:26 08/27/17 07:26 Intake & Output 08/26/17 08/27/17 08/28/17 06:59 06:59 06:59 Intake Total 578 1123 Output Total 25 0 Balance 553 1123 Weight 119.6 kg 119.2 kg General appearance: PRESENT: morbidly obese Head exam: PRESENT: normocephalic Eye exam: PRESENT: EOMI. ABSENT: scleral icterus Ear exam: PRESENT: normal external ear exam Mouth exam: PRESENT: moist, tongue midline Neck exam: ABSENT: carotid bruit, JVD, lymphadenopathy, thyromegaly Respiratory exam: PRESENT: clear to auscultation naa. ABSENT: rales, rhonchi, wheezes Cardiovascular exam: PRESENT: RRR. ABSENT: diastolic murmur, rubs, systolic murmur Pulses: PRESENT: normal dorsalis pedis pul Vascular exam: PRESENT: normal capillary refill GI/Abdominal exam: PRESENT: other - abdominal dressing in place. ABSENT: distended, guarding, mass, organolmegaly, rebound, tenderness Rectal exam: PRESENT: deferred Extremities exam: PRESENT: full ROM. ABSENT: calf tenderness, clubbing, pedal edema Neurological exam: PRESENT: alert, awake, oriented to person, oriented to place , oriented to time, oriented to situation, CN II-XII grossly intact. ABSENT: motor sensory deficit Psychiatric exam: PRESENT: appropriate affect, normal mood. ABSENT: homicidal ideation, suicidal ideation Skin exam: PRESENT: dry, intact, warm. ABSENT: cyanosis, rash Results Laboratory Results: 08/25/17 13:40 08/26/17 13:45 08/26/17 13:45 Sodium 142.7 Potassium 3.4 L Chloride 106 Carbon Dioxide 28 Anion Gap 9 BUN 8 Creatinine 0.80 Est GFR ( Amer) > 60 Est GFR (Non-Af Amer) > 60 Glucose 150 H Calcium 8.6 08/22/17 08:47 Blood Blood Culture - Final NO GROWTH IN 5 DAYS 08/22/17 08:35 Blood Blood Culture - Final NO GROWTH IN 5 DAYS Impressions: Abdomen/Pelvis CT 08/13/17 00:00 IMPRESSION: STABLE APPEARANCE OF LARGE VENTRAL WALL HERNIA AND INTRACUTANEOUS FISTULA STATUS POST FAILED MESH REPAIR. NO ACUTE FINDINGS OR SIGNIFICANT CHANGE COMPARED TO PRIOR STUDIES. Head CT 08/17/17 00:00 IMPRESSION: Very limited negative study EVIDENCE OF ACUTE STROKE: NO. Chest X-Ray 08/22/17 07:00 IMPRESSION: Mild bibasilar atelectasis. KUB X-Ray 08/22/17 10:48 IMPRESSION: Nasoenteric feeding tube tip at the gastric outlet Guidance Fluoroscopy 08/27/17 00:00 IMPRESSION: SUCCESSFUL PLACEMENT OF A 5 FR DUAL LUMEN 39 CM PICC IN THE LEFT BASILIC VEIN. Interventional Vascular Procedure 08/27/17 00:00 IMPRESSION: SUCCESSFUL PLACEMENT OF A 5 FR DUAL LUMEN 39 CM PICC IN THE LEFT BASILIC VEIN. Modified Barium Swallow 08/27/17 00:00 IMPRESSION: NO EVIDENCE OF LARYNGEAL PENETRATION OR TRACHEAL ASPIRATION.PLEASE SEE SPEECH PATHOLOGIST REPORT FOR OTHER FINDINGS AND RECOMMENDATIONS. PICC Line Insertion 08/27/17 00:00 IMPRESSION: SUCCESSFUL PLACEMENT OF A 5 FR DUAL LUMEN 39 CM PICC IN THE LEFT BASILIC VEIN. Assessment & Plan - Diagnosis (1) Acute respiratory failure Is this a current diagnosis for this admission?: Yes Plan: Resolved. Patient intubated 08/17 and extubated 08/21. Thought be done for airway protection. (2) Acute narcotic withdrawal Is this a current diagnosis for this admission?: Yes Plan: Resolved. Patient is on PRN narcotics for pain. (3) Anemia Qualifiers: Anemia type: iron deficiency Is this a current diagnosis for this admission?: Yes Plan: Patient may possibly have iron deficient anemia with an MCV of 70. Patient hemoglobin has however trended up and is 10.1 today. Can start ferrous sulfate daily on discharge. Patient should also be on a stool softener. (4) Bacteremia Plan: Sepsis secondary to central venous line infection with staph epidermidis. The organism is resistant to multiple medications. The patient is currently on Vanco to which the organism is susceptible. Patient blood culture from 08/22 shows no growth. Patient will need 14 days of antibiotics starting from 08/22. Therefore the stop date will be September 04. Patient is having picc line placed 08/27. (5) Chronic narcotic dependence Is this a current diagnosis for this admission?: Yes Plan: Patient follows at the pain clinic and has an appointment on Monday 08/27. Patent is on oxycodone. Patient will have to call and reschedule. (6) Chronic pain Is this a current diagnosis for this admission?: Yes Plan: Patient follows at the pain clinic. Patient pain is currently well controlled. (7) Dysphasia Is this a current diagnosis for this admission?: Yes Plan: Patient also had dysphonia which may have resulted from trauma to the vocal cord during intubation or when patient pulled out NG tube. She was may have suffered some vocal cord paralysis. ENT states that this will resolve. Patient did not show any aspiration on modified barium swallow. 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 Management per primary team. As per their note, no abscess is evident and no surgery indicated at this time. (9) Hypokalemia Is this a current diagnosis for this admission?: Yes Plan: Resolved. (10) Hypomagnesemia Is this a current diagnosis for this admission?: Yes Plan: Resolved (11) Lactic acidosis Is this a current diagnosis for this admission?: Yes Plan: Secondary to sepsis. Resolved. (12) Malnutrition of mild degree Is this a current diagnosis for this admission?: Yes Plan: Patient should continue taking ensure or some kind of supplement on discharge. Now that she is able to have normal consistency of food patient should be able to take in more protein. (13) Morbid obesity Is this a current diagnosis for this admission?: Yes Plan: Patient BMI is 48.2. Patient cannot restrict her diet however increased protein intake may encourage muscle development and healing. Patient should participate in activity as tolerated. (14) Sepsis Qualifiers: Sepsis type: methicillin susceptible Staphylococcus aureus Qualified Code(s ): A41.01 - Sepsis due to Methicillin susceptible Staphylococcus aureus Is this a current diagnosis for this admission?: Yes (15) Toxic encephalopathy Is this a current diagnosis for this admission?: Yes Plan: Due to opiate withdrawal and sepsis. Now resolved. (16) Ventral hernia Qualifiers: Obstruction and gangrene presence: without obstruction or gangrene Qualified Code(s): K43.9 - Ventral hernia without obstruction or gangrene Is this a current diagnosis for this admission?: Yes Plan: Patient high risk for surgery. Surgery following. (17) Diabetes mellitus type 2 in obese Is this a current diagnosis for this admission?: Yes Plan: Stable on SSI. Blood glucoses below 200s. (18) HTN (hypertension) Qualifiers: Hypertension type: essential hypertension Qualified Code(s): I10 - Essential (primary) hypertension Is this a current diagnosis for this admission?: Yes Plan: Stable on current medications. Will continue to monitor. - Time Time Spent with patient: Less than 15 minutes Anticipated discharge: Home with Homehealth Within: Other - Patient is stable for a medical stand point to be discharge. Will signoff.
--- NOTE | 2017-08-27 12:58 | ST Inp Modified Barium Swallow ---
Medical Diagnosis - Medical Diagnoses Medical Diagnosis Description & ICD-10 Code(s): dysphagia, R13.10 ST Inpatient [facility] [place] - General Date: 08/27/17 - History History Obtained From: Other - EMR -: Medical Medications: Medications Reviewed Allergies: Refer to medical record - Subjective Current Nutritional Means: PO Current PO Diet: Mechanical- ground, Thickened liquids Current Symptoms: Coughing Pain: 0/5 - Objective Assessment: Upright, Left Lateral - Food Trials Food Trials Used: Thin liquids, Pureed, Regular The Patient: Was Able to Self Feed - Assessment Labial Function: Within Normal Limits Lingual Function: Within Normal Limits Mandibular Function: Within Normal Limits Dentition: Partial Laryngeal Function: breathy voice - weak voicing since extubation - Pharyngeal Stage Initiation of Pharyngeal Stage: Delayed Reflex Delay Time (seconds): 3 Decreased Laryngeal Elevation: No Reduced Velo-Pharyngeal Closure: no Reduced Pressure Generation: No Reduced Tongue Base Retraction: No Pre-Swallowing Pooling in Valleculae: Moderate Pre-Swallowing Pooling in Pyriforms: None Reduced Thyro-Hyiod Approximation: No Reduced Epiglottic Excursion: No Reduced Pharyngeal Peristalsis: No Multiple Swallows With: Cleared w/ Dry Swallow Post Swallow Residuals in Valleculae: Moderate Post Swallow Residuals in Pyriforms: None Pahryngeal Stage Comments: Patient noted to have premature spillage into valleculae with multiple consistencies. Moderate residue present after the swallow, cleared with dry swallow. - Impression/Summary Laryngeal Penetration: No Tracheal Aspiration: no Patient Presents With: Oral-Pharyngeal dysph., Mild-Moderate Risk of Aspiration: Mild Risk of Nutritional Compromise: None - Recommendations Solid Diet Recommendations: Chopped Meat Liquid Diet Recommendations: Thin Strict Aspitarion Precautions: Yes Dysphagia Therapy with RESTORATION OFFICER: Follow Up PRN Recommended Techniques: Fully Upright During Meal, Small Bites and Sips Supervision: Distant - Time Total Time: 15 Total Timed Minutes: 15
--- NOTE | 2017-08-27 13:04 | PDOC DISCHARGE SUMMARY ---
Discharge Summary (SDC) - Discharge Final Diagnosis: Sepsis Pneumonia Bacteremia Enterocutaneous fistula Opioid withdrawal Discharge Date: 08/27/17 Condition: Good Forms: [facility] Discharge Plan Treatment or Instructions: Home with PICC line infusion of IV Vancomycin for 8 days Home health nurse to follow up with patient to assess wounds, instruct on IV antibiotic administration, maintain PICC, assist with EC fistula management site Symptoms of Vancomycin/allegy symptoms discussed with the patient, instructed to immediately discontinue antibiotic and call/present to ER/clinic Outpatient follow up with wound care/stoma nurse to assist in EC fistula management Outpatient follow up with PCP and Surgery for reassessment of recovery in 7-10 days Prescriptions: Vancomycin/0.9 % Sod Chloride [Vancomycin 1 G/100Ml-0.9% NaCl] 1 gm IV Q12 8 Days #16 plast..bag Referrals: ZAYNAB LEIGH MD [COMMUNITY BASED STAFF] - 09/01/17 4:00 pm Discharge Diet: As Tolerated - Passed most recent MBSS Respiratory Treatments at Home: Deep Breathing/Coughing, Incentive Spirometer Discharge Activity: Activity As Tolerated Home Care Assistance: Provided by Family, Home Health Activities Provided by Home Health Agency: [facility] Report the Following to Your Physician Immediately: Shortness of Breath, Nausea , Vomiting, Increase in Pain, Signs of Hyperglycemia, Signs of Hypoglycemia, Yellow Skin, Fever over 101 Degrees, Unusual Bleeding, Redness, Swelling, Warmth , Increased Soreness, Drainage-Yellow, Drainage-Luther, Drainage-Green, Drainage- Foul Smelling, Increased Vaginal Bleed, Large Clots, Numbness, Tingling Sensation, Visual Disturbance, Weight Gain 2-3lbs a day, Weight Gain 3-5lbs a week, Wheezing, Seizure, IV Site Infection Signs, Urinary Infection Signs
[2017-08-27] MEDS: PANTOPRAZOLE SODIUM 40 MG VIAL IV SCH (13:27)
[2017-08-27] MEDS: BENAZEPRIL HCL 20 MG TABLET NG SCH (13:27)
[2017-08-27] MEDS: NORMAL SALINE 10 ML SDV (SCHEDULED) IV SCH (13:28)
[2017-08-27] MEDS: ENOXAPARIN SODIUM INJ 40 MG/0.4 ML DISP.SYRIN SUBCUT SCH (13:29)
[2017-08-27 16:21] VITALS: BP 139/52
--- NOTE | 2017-10-01 21:54 | PDOC DISCHARGE SUMMARY ---
General - Admit/Disc Date/PCP Admission Date/Primary Care Provider: 08/16/17 05:41 Discharge Date: 08/27/17 - Discharge Diagnosis (1) Abdominal wall fistula Is this a current diagnosis for this admission?: No Summary: Patient admitted for Dehydration 2nd to abdominal wall fistula - Additional Information Resuscitation Status: Full Code Discharge Diet: As Tolerated Discharge Activity: Activity As Tolerated Home Medications: Benazepril HCl [Lotensin] 40 mg PO DAILY 08/13/17 Esomeprazole Mag Trihydrate [Nexium] 40 mg PO DAILY 08/13/17 Fluticasone/Salmeterol [Advair 250-50 Diskus 28 dose] 1 puff IH Q12 08/13/17 Metformin HCl [Glucophage 500 mg Tablet] 250 mg PO DAILY 08/13/17 Oxycodone HCl 15 mg PO Q6HP PRN 08/13/17 Potassium Chloride [Klor-Con M10] 10 meq PO DAILY 08/13/17 Vancomycin/0.9 % Sod Chloride [Vancomycin 1 G/100Ml-0.9% NaCl] 1 gm IV Q12 8 Days #16 plast..bag 08/27/17 Sulfamethoxazole/Trimethoprim [Bactrim Ds Tablet] 2 each PO BID #40 tablet 09/16 History of Present Illness Patient complains of: Fatigue, chronic drainage from abdominal wall fistula History of Present Illness: CARMEN ROMERO is a 62 year old female admitted by Dr Espino on 08/23/17. She had most recent hernia repair at [facility] within the last year. About 2 months subsequently the patient developed an enterocutaneous fistula. This has been recalcitrant to any conservative management. On admission she had a CT of her abdomen which was unchanged. Patient denies nausea vomiting diarrhea or constipation. She does complain of some pains along the fistula site. She was admitted by Dr Espino to manage her signs of dehydration and attempt to treat her EC fistula. During hospitalization she developed bacteremia and sepsis 2nd to an infection of a central line. She subsequently had acute respiratory failure with intubation to protect her airway. Concommittent problems included anemia, electrolyte disturbances, dysphasia. Chronic problems included morbid obesity, DM, HTN, EC fistula and recurrent incisional hernia. After extubation she had progressive improvement with conservative measures and IV antibiotics. Given bacteremia she required PICC line placement for outpatient IV antibiotic therapy as directed by the medicine team to complete 14 day course. Instructions were given to home health care service and patient to enable IV antibiotic treatment at home as patient refused SNF/rehab placement. Patient was stable at discharge and agreed with plan. Outpatient follow up with PCP and General Surgery to be completed within 4 weeks of discharge for reassessment. She was instructed to call with any questions or represent to the ER with any recurrence of symptoms. Final diagnosis was Bacteremia, Sepsis, Acute respiratory failure, Chronic EC fistula Hospital Course Hospital Course: Complicated, refer to HPI Progressive worsened symptoms after insertion of CVC for TPN with bacteremia with subsequent sepsis and acute respiratory failure. With extubation she had recovery from acute respiratory failure and she had progressive improvement with conservative measures. No improvement noted of EC fistula output. Patient was tolerative of oral intake. Discharged home with home health care nursing and patient instructed on IV antibiotics. Physical Exam Vital Signs: Temp Pulse Resp BP Pulse Ox 97.5 F 86 20 139/52 H 100 08/27/17 15:52 08/27/17 15:52 08/27/17 15:52 08/27/17 15:52 08/27/17 15:52 General appearance: PRESENT: no acute distress, well-developed, well-nourished Head exam: PRESENT: atraumatic, normocephalic Eye exam: PRESENT: conjunctiva pink, EOMI, PERRLA. ABSENT: scleral icterus Ear exam: PRESENT: normal external ear exam Mouth exam: PRESENT: moist, tongue midline Neck exam: ABSENT: carotid bruit, JVD, lymphadenopathy, thyromegaly Respiratory exam: PRESENT: clear to auscultation naa. ABSENT: rales, rhonchi, wheezes Cardiovascular exam: PRESENT: RRR. ABSENT: diastolic murmur, rubs, systolic murmur Pulses: PRESENT: normal dorsalis pedis pul Vascular exam: PRESENT: normal capillary refill GI/Abdominal exam: PRESENT: normal bowel sounds, soft. ABSENT: distended, guarding, mass, organolmegaly, rebound, tenderness Rectal exam: PRESENT: deferred Extremities exam: PRESENT: full ROM. ABSENT: calf tenderness, clubbing, pedal edema Neurological exam: PRESENT: alert, awake, oriented to person, oriented to place , oriented to time, oriented to situation, CN II-XII grossly intact. ABSENT: motor sensory deficit Psychiatric exam: PRESENT: appropriate affect, normal mood. ABSENT: homicidal ideation, suicidal ideation Skin exam: PRESENT: dry, intact, warm. ABSENT: cyanosis, rash Results Laboratory Results: 08/25/17 13:40 08/26/17 13:45 Impressions: Abdomen/Pelvis CT 08/13/17 00:00 IMPRESSION: STABLE APPEARANCE OF LARGE VENTRAL WALL HERNIA AND INTRACUTANEOUS FISTULA STATUS POST FAILED MESH REPAIR. NO ACUTE FINDINGS OR SIGNIFICANT CHANGE COMPARED TO PRIOR STUDIES. Head CT 08/17/17 00:00 IMPRESSION: Very limited negative study EVIDENCE OF ACUTE STROKE: NO. Chest X-Ray 08/22/17 07:00 IMPRESSION: Mild bibasilar atelectasis. KUB X-Ray 08/22/17 10:48 IMPRESSION: Nasoenteric feeding tube tip at the gastric outlet Guidance Fluoroscopy 08/27/17 00:00 IMPRESSION: SUCCESSFUL PLACEMENT OF A 5 FR DUAL LUMEN 39 CM PICC IN THE LEFT BASILIC VEIN. Interventional Vascular Procedure 08/27/17 00:00 IMPRESSION: SUCCESSFUL PLACEMENT OF A 5 FR DUAL LUMEN 39 CM PICC IN THE LEFT BASILIC VEIN. Modified Barium Swallow 08/27/17 00:00 IMPRESSION: NO EVIDENCE OF LARYNGEAL PENETRATION OR TRACHEAL ASPIRATION.PLEASE SEE SPEECH PATHOLOGIST REPORT FOR OTHER FINDINGS AND RECOMMENDATIONS. PICC Line Insertion 08/27/17 00:00 IMPRESSION: SUCCESSFUL PLACEMENT OF A 5 FR DUAL LUMEN 39 CM PICC IN THE LEFT BASILIC VEIN. Qualifiers PATEINT BEING DISCHARGED WITH ANY OF THE FOLLOWING DIAGNOSIS?: No Plan Discharge Plan: Discharge plan as per HPI. Short term follow up with PCP and General surgery in next 4 weeks. Call with any questions and represent to the ER with any return of symptoms. IV antibiotics via PICC line to complete 14 day course for bacteremia. Time Spent: Greater than 30 Minutes
== END 2017-08-27 16:20 | disposition home or self-care (01) | DRG 698 ==
LOC: ER 11:01 → EH 18:48 → INTOOBSV 18:48 → 2N 22:00 → OBSVTOIN 08-16 05:41 → ICU 08-17 02:52 → 3N 08-22 17:03
PROVIDERS: ADMIT Surgery; ATTEND Surgery
PROC: 02HV33Z Insertion of Infusion Device into Superior Vena Cava, Percutaneous Approach (ICD-10-PCS; 2017-08-13)
PROC: B548ZZA Ultrasonography of Superior Vena Cava, Guidance (ICD-10-PCS; 2017-08-13)
PROC: 02PY33Z Removal of Infusion Device from Great Vessel, Percutaneous Approach (ICD-10-PCS; principal; 2017-08-17)
PROC: 02HV33Z Insertion of Infusion Device into Superior Vena Cava, Percutaneous Approach (ICD-10-PCS; 2017-08-17)
PROC: 5A1945Z Respiratory Ventilation, 24-96 Consecutive Hours (ICD-10-PCS; 2017-08-17)
PROC: 0BH17EZ Insertion of Endotracheal Airway into Trachea, Via Natural or Artificial Opening (ICD-10-PCS; 2017-08-17)
PROC: 5A09357 Assistance with Respiratory Ventilation, Less than 24 Consecutive Hours, Continuous Positive Airway Pressure (ICD-10-PCS; 2017-08-17)
PROC: 0DH67UZ Insertion of Feeding Device into Stomach, Via Natural or Artificial Opening (ICD-10-PCS; 2017-08-17)
PROC: 02HV33Z Insertion of Infusion Device into Superior Vena Cava, Percutaneous Approach (ICD-10-PCS; 2017-08-18)
PROC: 3E0436Z Introduction of Nutritional Substance into Central Vein, Percutaneous Approach (ICD-10-PCS; 2017-08-19)
PROC: 02HV33Z Insertion of Infusion Device into Superior Vena Cava, Percutaneous Approach (ICD-10-PCS; 2017-08-27)
PROC: B548ZZA Ultrasonography of Superior Vena Cava, Guidance (ICD-10-PCS; 2017-08-27)
PROC: B518ZZA Fluoroscopy of Superior Vena Cava, Guidance (ICD-10-PCS; 2017-08-27)
DX: T83.718A Erosion of other implanted mesh to organ or tissue, initial encounter (principal); A41.01 Sepsis due to Methicillin susceptible Staphylococcus aureus; J18.1 Lobar pneumonia, unspecified organism; J96.01 Acute respiratory failure with hypoxia; K63.2 Fistula of intestine; F11.23 Opioid dependence with withdrawal; Z68.42 Body mass index [BMI] 45.0-49.9, adult; E44.1 Mild protein-calorie malnutrition; T82.7XXA Infection and inflammatory reaction due to other cardiac and vascular devices, implants and grafts, initial encounter; T80.211A Bloodstream infection due to central venous catheter, initial encounter; R49.0 Dysphonia; E78.5 Hyperlipidemia, unspecified; I10 Essential (primary) hypertension; J44.9 Chronic obstructive pulmonary disease, unspecified; E11.9 Type 2 diabetes mellitus without complications; K21.9 Gastro-esophageal reflux disease without esophagitis; M19.90 Unspecified osteoarthritis, unspecified site; F32.9 Major depressive disorder, single episode, unspecified; E66.01 Morbid (severe) obesity due to excess calories; Z16.342 Resistance to multiple antimycobacterial drugs; W19.XXXA Unspecified fall, initial encounter; E83.42 Hypomagnesemia; E87.6 Hypokalemia; B95.2 Enterococcus as the cause of diseases classified elsewhere; D50.9 Iron deficiency anemia, unspecified; K43.9 Ventral hernia without obstruction or gangrene; Z90.49 Acquired absence of other specified parts of digestive tract; Z79.899 Other long term (current) drug therapy; Z88.6 Allergy status to analgesic agent; Z88.1 Allergy status to other antibiotic agents; Z88.3 Allergy status to other anti-infective agents; Z88.8 Allergy status to other drugs, medicaments and biological substances; Z88.0 Allergy status to penicillin; Z93.2 Ileostomy status; Z78.1 Physical restraint status
CPT/HCPCS: 31500; 36415; 36569; 70450; 71010; 74000; 74177; 74230; 76937; 77001; 80048; 80053; 80202; 80307; 81001; 82140; 82803; 82962; 83605; 83735; 84100; 84134; 84478; 85025; 85027; 85610; 87040; 87070; 87075; 87077; 87086; 87186; 87205; 93005; 93010; 94002; 94003; 94799; 96374; 99285; C1751; G0378; J0131; J0330; J0360; J0744; J1170; J1630; J1642; J1650; J1815; J1940; J2060; J2354; J2704; J3010; J3370; J3475; J3480; J3490; J7030; J7060; S0164

== ENCOUNTER 2017-08-28 06:32 | Emergency (ER) | payer MEDICAID ==
--- NOTE | 2017-08-28 06:46 | ER Document Report ---
ED General - General Stated Complaint: GENERAL WEAKNESS Time Seen by Provider: 08/28/17 06:33 Mode of Arrival: Medic Information source: Patient, Emergency Med Personnel, [facility] Records TRAVEL OUTSIDE OF THE [place] IN LAST 30 DAYS: No - HPI Patient complains to provider of: Social issues Onset: Just prior to arrival Similar symptoms previously: Yes Recently seen / treated by doctor: Yes Notes: Patient is a 61-year-old female who is extremely well-known to this emergency department for frequent utilization. Patient was discharged from inpatient service yesterday after being admitted for her multiple chronic medical problems. Patient is on chronic opioid therapy oxycodone 15mg tablets #120. After being discharged home yesterday, patient has called EMS a total of 5 times overnight for various issues including lifting assistance and help with getting some closed. Finally, EMS brought the patient to the emergency department this morning after the fifth EMS visit. Upon arrival to the emergency department. Patient has no medical complaints. She is wondering how she is supposed to get her close. She also is wondering how she can be transported to a different location. There are no acute emergency department issues at the present time. - Related Data Allergies/Adverse Reactions: celecoxib [From Celebrex] Allergy (Mild, Verified 07/20/17 19:11) Urticaria aspirin [Aspirin] Allergy (Verified 07/20/17 19:11) Hives cephalexin monohydrate [From Keflex] Allergy (Verified 07/20/17 19:11) clindamycin [Clindamycin] Allergy (Verified 07/20/17 19:11) Hives lisinopril [Lisinopril] Allergy (Verified 07/20/17 19:11) methadone [Methadone] Allergy (Verified 07/20/17 19:11) metoprolol tartrate [From Lopressor] Allergy (Verified 07/20/17 19:11) Penicillins Allergy (Verified 07/20/17 19:11) Past Medical History - General Information source: Patient, POA - Power of Diabetes Trainer, [facility] Records - Social History Smoking Status: Former Smoker Family History: Other - The patient is delirious and family history cannot be obtained. - Past Medical History Cardiac Medical History: Reports: Hx Hypercholesterolemia, Hx Hypertension Pulmonary Medical History: Reports: Hx Asthma, Hx Bronchitis, Hx COPD Denies: Hx Tuberculosis Endocrine Medical History: Reports: Hx Diabetes Mellitus Type 1, Hx Diabetes Mellitus Type 2 GI Medical History: Reports: Hx Gastroesophageal Reflux Disease, Hx Hiatal Hernia Musculoskeltal Medical History: Reports Hx Arthritis Skin Medical History: Reports Hx Cellulitis - Both lower legs for about 4-6 months Psychiatric Medical History: Reports: Hx Anxiety, Hx Depression Infectious Medical History: Past Surgical History: Reports: Hx Abdominal Surgery - MULTIPLE VENTRAL HERNIA REPAIRS WITH DEBRIDEMENT. BOWEL OBSTRUCTION. NON-HEALING ABD WOUNDS WITH CHRONIC PAIN, Hx Bowel Surgery - Right abdominal fistula., Hx Section - x3, Hx Cholecystectomy, Hx Tubal Ligation, Other - 9 hernia repairs the last 1 was in 2010 when it was done here at [facility] - Immunizations Hx Diphtheria, Pertussis, Tetanus Vaccination: Yes Hx Pneumococcal Vaccination: 02/28/12 Review of Systems - Review of Systems -: Yes All other systems reviewed and negative Physical Exam - Vital signs Vitals: Temp Pulse Resp BP Pulse Ox 97.5 F 98 18 123/75 95 08/28/17 06:38 08/28/17 06:38 08/28/17 06:38 08/28/17 06:38 08/28/17 06:38 Interpretation: Normal - General General appearance: Appears well, Alert Notes: Patient is chronically ill-appearing but there does not appear to be any acute issues at this time - HEENT Head: Normocephalic, Atraumatic Eyes: Normal Pupils: PERRL - Respiratory Respiratory status: No respiratory distress Chest status: Nontender Breath sounds: Normal Chest palpation: Normal - Cardiovascular Rhythm: Regular Heart sounds: Normal auscultation Murmur: No - Abdominal Inspection: Normal Distension: No distension Bowel sounds: Normal Tenderness: Nontender Organomegaly: No organomegaly - Back Back: Normal, Nontender - Extremities General upper extremity: Normal inspection, Nontender, Normal color, Normal ROM , Normal temperature General lower extremity: Normal inspection, Nontender, Normal color, Normal ROM , Normal temperature, Normal weight bearing. No: Osvaldo's sign - Neurological Neuro grossly intact: Yes Cognition: Normal Orientation: AAOx4 James Coma Scale Eye Opening: Spontaneous Anderson Coma Scale Verbal: Oriented James Coma Scale Motor: Obeys Commands James Coma Scale Total: 15 Speech: Normal Motor strength normal: LUE, RUE, LLE, RLE Sensory: Normal - Psychological Associated symptoms: Normal affect, Normal mood - Skin Skin Temperature: Warm Skin Moisture: Dry Skin Color: Normal Course - Re-evaluation Re-evalutation: 08/28/17 06:45 I have reviewed the patient's discharge summary from yesterday. There are no issues that appeared to require immediate intervention. Patient was to be discharged home with home health and intermediate at the home. Patient can therefore safely be discharged back home for her scheduled home health care. - Vital Signs Vital signs: Temp Pulse Resp BP Pulse Ox 97.5 F 98 18 123/75 95 08/28/17 06:38 08/28/17 06:38 08/28/17 06:38 08/28/17 06:38 08/28/17 06:38 Discharge - Discharge Clinical Impression: COPD (chronic obstructive pulmonary disease), Chronic pain, Malnutrition of mild degree Condition: Good Disposition: HOME, SELF-CARE Instructions: Chronic Obstructive Lung Disease ([facility]) Additional Instructions: Continue on the medications that you are discharged home with yesterday. Follow -up with the appropriate specialists and other agencies that you were also instructed to do so at the time of your hospital discharge. Return to the emergency department if worse or for any problems.
[2017-08-28 10:16] VITALS: BP 105/72
== END 2017-08-28 10:15 | disposition home or self-care (01) ==
LOC: ER 06:32
DX: J44.9 Chronic obstructive pulmonary disease, unspecified (principal); G89.29 Other chronic pain; E46 Unspecified protein-calorie malnutrition; R53.1 Weakness; Z79.899 Other long term (current) drug therapy; Z87.891 Personal history of nicotine dependence
CPT/HCPCS: 99284

== ENCOUNTER 2017-09-11 14:20 | Emergency (ER) | payer MEDICAID ==
--- NOTE | 2017-09-11 15:14 | ER Document Report ---
ED General - General Stated Complaint: ABDOMINAL,ARM PAIN Time Seen by Provider: 09/11/17 15:10 Notes: This is a 62-year-old female presents emergency department via EMS for evaluation of multiple complaints. Patient states that she has drainage coming out of her abdomen. Also complaining of swelling of her legs. Complaining of chronic abdominal pain. Patient was seen here not too long ago for the very same complaints. Has been seen on multiple occasions. Reportedly had a positive blood culture. Was instructed to begin vancomycin. Patient states that home health was supposed to come and see her but there were bedbugs in the house. Home health nurses refused to come into the home until it was fumigated. Patient states that after proof was given to the home health nurses that the house had been treated by a pest control [employer] they never came back. Patient is receiving packages of vancomycin that are supposed to be refrigerated but she does not have room in the refrigerator for the vancomycin. Has not received any vancomycin since she has been discharged back home. Patient still has a PICC line in place in the left upper extremity that she states nobody has even accessed except for when she comes to the ER. TRAVEL OUTSIDE OF THE [place] IN LAST 30 DAYS: No - Related Data Allergies/Adverse Reactions: celecoxib [From Celebrex] Allergy (Mild, Verified 09/03/17 20:48) Urticaria aspirin [Aspirin] Allergy (Verified 09/03/17 20:48) Hives cephalexin monohydrate [From Keflex] Allergy (Verified 09/03/17 20:48) clindamycin [Clindamycin] Allergy (Verified 09/03/17 20:48) Hives lisinopril [Lisinopril] Allergy (Verified 09/03/17 20:48) methadone [Methadone] Allergy (Verified 09/03/17 20:48) metoprolol tartrate [From Lopressor] Allergy (Verified 09/03/17 20:48) Penicillins Allergy (Verified 09/03/17 20:48) Past Medical History - General Information source: Patient - Social History Smoking Status: Former Smoker Drug Abuse: None Lives with: Family Family History: Reviewed & Not Pertinent, Other - The patient is delirious and family history cannot be obtained. - Past Medical History Cardiac Medical History: Reports: Hx Hypercholesterolemia, Hx Hypertension Pulmonary Medical History: Reports: Hx Asthma, Hx Bronchitis, Hx COPD Denies: Hx Tuberculosis Endocrine Medical History: Reports: Hx Diabetes Mellitus Type 1, Hx Diabetes Mellitus Type 2 Renal/ Medical History: Denies: Hx Peritoneal Dialysis GI Medical History: Reports: Hx Gastroesophageal Reflux Disease, Hx Hiatal Hernia Musculoskeltal Medical History: Reports Hx Arthritis Skin Medical History: Reports Hx Cellulitis - Both lower legs for about 4-6 months Psychiatric Medical History: Reports: Hx Anxiety, Hx Depression Infectious Medical History: Past Surgical History: Reports: Hx Abdominal Surgery - MULTIPLE VENTRAL HERNIA REPAIRS WITH DEBRIDEMENT. BOWEL OBSTRUCTION. NON-HEALING ABD WOUNDS WITH CHRONIC PAIN, Hx Bowel Surgery - Right abdominal fistula, Hx Section - x3, Hx Cholecystectomy, Hx Tubal Ligation, Other - 9 hernia repairs the last 1 was in 2010 when it was done here at [facility] - Immunizations Hx Diphtheria, Pertussis, Tetanus Vaccination: Yes Hx Pneumococcal Vaccination: 02/28/12 Review of Systems - Review of Systems Constitutional: No symptoms reported EENT: No symptoms reported Cardiovascular: No symptoms reported Respiratory: No symptoms reported Gastrointestinal: Abdomen distended, Abdominal pain, Nausea, Other - Chronic abdominal fistula with drainage Female Genitourinary: No symptoms reported Musculoskeletal: Other - Bilateral lower extremity swelling and pain Skin: Other - Redness to the legs bilaterally Neurological/Psychological: No symptoms reported Physical Exam - Vital signs Vitals: Temp Pulse BP Pulse Ox 97.5 F 95 130/44 H 100 09/11/17 14:53 09/11/17 14:53 09/11/17 14:53 09/11/17 14:53 Interpretation: Normal - General General appearance: Appears well, Alert In distress: None Notes: Is a 62-year-old morbidly obese female with open abdominal fistula and drainage present - HEENT Head: Normocephalic, Atraumatic Eyes: Normal Pupils: PERRL - Respiratory Respiratory status: No respiratory distress Chest status: Nontender Breath sounds: Normal Chest palpation: Normal - Cardiovascular Rhythm: Regular Heart sounds: Normal auscultation Murmur: No - Abdominal Inspection: Normal Distension: No distension Bowel sounds: Normal Tenderness: Other - Mild tenderness diffusely Organomegaly: No organomegaly Notes: She has multiple scars on the abdomen. Has a very large pannus. Has a draining fistula in the right mid abdomen. Appears very chronic in nature. - Back Back: Normal, Nontender - Extremities General upper extremity: Normal inspection, Nontender, Edema, Normal ROM, Other - Vision has a mild erythema to the bilateral lower extremities with 2+ pitting edema bilaterally. Strong pulses present in the right lower extremity. Decreased pulses palpable in the left lower extremity. General lower extremity: Normal inspection, Nontender, Normal color, Normal ROM , Normal temperature, Normal weight bearing. No: Osvaldo's sign - Neurological Neuro grossly intact: Yes Cognition: Normal Orientation: AAOx4 James Coma Scale Eye Opening: Spontaneous James Coma Scale Verbal: Oriented [place] Coma Scale Motor: Obeys Commands James Coma Scale Total: 15 Speech: Normal Motor strength normal: LUE, RUE, LLE, RLE Sensory: Normal - Psychological Associated symptoms: Normal affect, Normal mood - Skin Skin Temperature: Warm - Redness noted lateral lower extremities Skin Moisture: Dry Skin Color: Normal Course - Re-evaluation Re-evalutation: 09/11/17 16:48 This is a 62-year-old female with some chronic problems. Patient gives a long story of being hospitalized for sepsis. Has chronic abdominal fistulas which drain externally. Has been seen by multiple surgeons. Not a candidate for surgical intervention at this facility or even at [facility]. Patient was discharged on 27 August with a PICC line in place that was placed there by radiology. Patient states that she was supposed to get vancomycin. This is confirmed by the medical records. Patient denies ever receiving any vancomycin as an outpatient. Patient has had a total of 3 ER visits since her discharge. Nothing has been found to be off of her baseline. Patient has no fever today. Normal WBC count. We will ultrasound the left lower extremity to look for blood clot in the vein as well as assess for arterial flow. Consulted with general surgeon, Dr. Espino who did an inpatient evaluation on her. Does not recommend that we take the PICC line out but to have her outpatient team manage that. Patient is requesting pain medication. Looks like patient has chronic pain management. Do not mind at this time giving her a tablet do not feel comfortable doing anything further until I know with the results of the ultrasound are. 09/11/17 17:50 Ultrasound is unremarkable for DVT or decreased arterial flow. Comfortable at this time discharging. - Vital Signs Vital signs: Temp Pulse Resp BP Pulse Ox 97.5 F 85 20 130/44 H 100 09/11/17 15:15 09/11/17 15:15 09/11/17 15:25 09/11/17 15:15 09/11/17 15:15 - Laboratory Result Diagrams: 09/11/17 15:50 Laboratory results interpreted by me: 09/11/17 15:50 RBC 3.64 L Hgb 8.1 L Hct 25.0 L MCV 69 L MCH 22.2 L RDW 18.4 H Seg Neutrophils % 81.3 H Lymphocytes % 11.7 L Discharge - Discharge Clinical Impression: Abdominal pain Chronic pain Qualifiers: Chronic pain type: other chronic pain Qualified Code(s): G89.29 - Other chronic pain Disposition: HOME, SELF-CARE Instructions: Abdominal Pain ([facility]) Additional Instructions: Leg Pain, Nonspecific We did not find an obvious cause for your leg pain. There's no sign of blood clot, infection, or other serious disease. Possible causes of vague leg pain include muscle or joint inflammation, disc disease in the lower back, pressure on the nerves in the back, or reduced blood flow through the arteries of the leg. Rest the leg. Pain can be eased with an antiinflammatory pain medicine such as ibuprofen. If the pain involves a small area, a heating pad might help. Call the doctor or return if the leg becomes swollen, weak, discolored, or increasingly painful, or if you develop any other significant change in your health. You have chronic pain and chronic abdominal fistulas. We have found nothing acute today. Your blood counts were within normal limits. Your ultrasound was unremarkable for blood clot or for decreased blood flow. Please try to ambulate more. This means get up and walk around and when you are sitting try to elevate her feet above your heart. It will be very important that you follow -up with your primary care doctor to discuss the removal of the PICC line which by your report is not being used. We did not feel it was important to remove today as it may be needed in the future. This decision was made with the consultation of your surgical team which saw you while you were hospitalized. If you develop fever, worsening symptoms or concerns please return for repeat evaluation. Referrals: ZAYNAB LEIGH MD [Primary Care Provider] - Follow up as needed
[2017-09-11 15:59] LABS: ABSOLUTE EOSINOPHILS # (AUTO) 0.2 10^3/uL (0.0-0.6); ABSOLUTE MONOCYTES (AUTO) 0.3 10^3/uL (0.1-1.4); ABSOLUTE NEUT (AUTO) 6.7 10^3/uL (1.7-8.2); BASOPHILS % (AUTO) 0.4 % (0-2); EOSINOPHILS % (AUTO) 2.9 % (0-6); HEMOGLOBIN 8.1 g/dL (12.0-15.5); HGB HCT DIFFERENCE -0.7; LYMPHOCYTES % (AUTO) 11.7 % (13-45); MEAN CORPUSCULAR HEMOGLOBIN 22.2 pg (27.0-33.4); MEAN CORPUSCULAR HGB CONC 32.3 g/dL (32.0-36.0); MEAN CORPUSCULAR VOLUME 69 fl (80-97); MONOCYTES % (AUTO) 3.7 % (3-13); RED BLOOD COUNT 3.64 10^6/uL (3.72-5.28); RED CELL DISTRIBUTION WIDTH 18.4 % (11.5-14.0); SEGMENTED NEUTROPHILS % (AUTO) 81.3 % (42-78); WHITE BLOOD COUNT 8.2 10^3/uL (4.0-10.5)
[2017-09-11] MEDS ORDERED: OXYCODONE-ACETAMINOPHEN 5-325 MG TABLET PO ONE (16:50)
[2017-09-11 18:24] VITALS: BP 143/52
--- NOTE | 2017-09-11 18:47 | RADIOLOGY REPORT (SQ) ---
EXAM DESCRIPTION: VENOUS UNILATERAL LOWER COMPLETED DATE/TIME: 09/11/2017 6:30 pm REASON FOR STUDY: left leg, pain, swelling, decreased palpable pulse COMPARISON: 05/02/2017 TECHNIQUE: Dynamic and static hanson scale and color images acquired of the left leg venous system. Se lected spectral images acquired with additional compression and augmentation maneuvers. The contralat eral common femoral vein and saphenofemoral junction were also imaged. Images stored on PACS. LIMITATIONS: None. FINDINGS: COMMON FEMORAL: Normal phasicity, compression and augmentation. No visualized echogenic ma terial on hanson scale. No defects on color images. FEMORAL: Normal compression and augmentation. No visualized echogenic material on hanson scale. No defe cts on color images. POPLITEAL: Normal compression, augmentation. No visualized echogenic material on hanson scale. No defec ts on color images. CALF VESSELS: Normal compression, augmentation. No visualized echogenic material on hanson scale. No de fects on color images. GSV and SSV: Normal compression, augmentation. No visualized echogenic material on hanson scale. No def ects on color images. ANY DEEP VENOUS INSUFFICIENCY: Not evaluated. ANY EVIDENCE OF POPLITEAL CYST: No. OTHER: No other significant finding. CONTRALATERAL COMMON FEMORAL VEIN AND SAPHENOFEMORAL JUNCTION: Normal phasicity, compression and augmentation. No visualized echogenic material on hanson scale. No de fects on color images. IMPRESSION: NO EVIDENCE OF DVT OR SVT IN THE LEFT LEG. TECHNICAL DOCUMENTATION: JOB ID: [id number] [employer]- All Rights Reserved
--- NOTE | 2017-09-12 15:28 | XCELERA REPORT ---
[address] [address] Lower Extremity Arterial Evaluation Name: CARMEN ROMERO Age: 62 yrs Gender: Female : 1955 Patient Status: Emergency Patient Location: ER Study Date: 09/11/2017 04:57 PM Procedure: A color flow and duplex scan of the lower extremity arteries was performed on the left with velocity and waveform anaylsis. Reason For Study: pain, swelling, decreased pulse left leg Ordering Physician: YADIRA BILLY Performed By: Rizwana Mahan Measurements and Calculations Right Left PIPELINE EXECUTIVE PSV 169.7 cm/sec Prox PFA PSV 85.5 cm/sec Prox SFA PSV 243.6 cm/sec Mid SFA PSV -237.6 cm/sec Dist SFA PSV -241.4 cm/sec Prox Pop A PSV 161.5 cm/sec Dist DEENA PSV 109.2 cm/sec Dist BAKER PSV 193.5 cm/sec Kelvin Pedis PSV 86.9 66.4 cm/sec Right Side Arterial Evaluation Limited study, normal triphasic waveform in the Dorsalis Pedis artery. Left Side Arterial Evaluation Normal velocity and triphasic waveforms noted in the Common Femoral artery Biphasic with well preserved velocities to the infrageniculate vessels. 0-19% stenosis at the Femoral artery. Ankle Brachial index was not done. Interpretation Summary Mild hemodynamically significant lesions in the left lower extremity only, on duplex imaging, at rest. : YADIRA BILLY > Willian Sullivan
== END 2017-09-11 18:25 | disposition home or self-care (01) ==
LOC: ER 14:20
DX: G89.29 Other chronic pain (principal); R10.84 Generalized abdominal pain; K63.2 Fistula of intestine; R60.0 Localized edema; E11.9 Type 2 diabetes mellitus without complications; M79.604 Pain in right leg; M79.605 Pain in left leg; E66.01 Morbid (severe) obesity due to excess calories; Z68.42 Body mass index [BMI] 45.0-49.9, adult; I10 Essential (primary) hypertension; J44.9 Chronic obstructive pulmonary disease, unspecified; Z88.8 Allergy status to other drugs, medicaments and biological substances; Z88.6 Allergy status to analgesic agent; Z88.1 Allergy status to other antibiotic agents; Z88.5 Allergy status to narcotic agent; Z88.0 Allergy status to penicillin; Z87.891 Personal history of nicotine dependence; Z87.19 Personal history of other diseases of the digestive system; Z98.890 Other specified postprocedural states
CPT/HCPCS: 36415; 85025; 93926; 93971; 99284

== ENCOUNTER 2017-09-14 16:44 | Emergency (ER) | payer MEDICAID ==
--- NOTE | 2017-09-14 19:32 | ER Document Report ---
ED General - General Chief Complaint: Wound Infection Stated Complaint: LEFT ARM PAIN,ABDOMINAL PAIN Time Seen by Provider: 09/14/17 19:13 Notes: Patient is a 62 year old female who presents ot the ED complaining of her PICC line. She had it placed prior to discharge after recent hospital admission here for sepsis. She was supposed to be receiving home vanco but hasnt been able to receive it due to home health not able to make i to her home. She was referred to the ED to have it removed. She denies any fevers, chills, nausea, vomiting, redness, swelling. She states its uncomfortable in her arm but nontender TRAVEL OUTSIDE OF THE [place] IN LAST 30 DAYS: No - Related Data Allergies/Adverse Reactions: celecoxib [From Celebrex] Allergy (Mild, Verified 09/03/17 20:48) Urticaria aspirin [Aspirin] Allergy (Verified 09/03/17 20:48) Hives cephalexin monohydrate [From Keflex] Allergy (Verified 09/03/17 20:48) clindamycin [Clindamycin] Allergy (Verified 09/03/17 20:48) Hives lisinopril [Lisinopril] Allergy (Verified 09/03/17 20:48) methadone [Methadone] Allergy (Verified 09/03/17 20:48) metoprolol tartrate [From Lopressor] Allergy (Verified 09/03/17 20:48) Penicillins Allergy (Verified 09/03/17 20:48) Past Medical History - Social History Smoking Status: Unknown if Ever Smoked Family History: Reviewed & Not Pertinent, Other - The patient is delirious and family history cannot be obtained. Patient has suicidal ideation: No Patient has homicidal ideation: No - Past Medical History Cardiac Medical History: Reports: Hx Hypercholesterolemia, Hx Hypertension Pulmonary Medical History: Reports: Hx Asthma, Hx Bronchitis, Hx COPD Denies: Hx Tuberculosis Endocrine Medical History: Reports: Hx Diabetes Mellitus Type 1, Hx Diabetes Mellitus Type 2 Renal/ Medical History: Denies: Hx Peritoneal Dialysis GI Medical History: Reports: Hx Gastroesophageal Reflux Disease, Hx Hiatal Hernia Musculoskeltal Medical History: Reports Hx Arthritis Skin Medical History: Reports Hx Cellulitis - Both lower legs for about 4-6 months Psychiatric Medical History: Reports: Hx Anxiety, Hx Depression Infectious Medical History: Past Surgical History: Reports: Hx Abdominal Surgery - MULTIPLE VENTRAL HERNIA REPAIRS WITH DEBRIDEMENT. BOWEL OBSTRUCTION. NON-HEALING ABD WOUNDS WITH CHRONIC PAIN, Hx Bowel Surgery - Right abdominal fistula, Hx Section - x3, Hx Cholecystectomy, Hx Tubal Ligation, Other - 9 hernia repairs the last 1 was in 2010 when it was done here at [facility] - Immunizations Hx Diphtheria, Pertussis, Tetanus Vaccination: Yes Hx Pneumococcal Vaccination: 02/28/12 Review of Systems - Review of Systems Constitutional: No symptoms reported Cardiovascular: No symptoms reported Respiratory: No symptoms reported Musculoskeletal: See HPI Skin: See HPI -: Yes All other systems reviewed and negative Physical Exam - Vital signs Vitals: Temp Pulse BP Pulse Ox 98.7 F 98 150/77 H 93 09/14/17 19:40 09/14/17 19:40 09/14/17 19:40 09/14/17 19:40 - General General appearance: Appears well, Alert In distress: None - Respiratory Respiratory status: No respiratory distress Chest status: Nontender Breath sounds: Normal Chest palpation: Normal - Cardiovascular Rhythm: Regular Heart sounds: Normal auscultation, S1 appreciated, S2 appreciated Gallop: None auscultated Pulses: Normal: Radial, Dorsalis pedis Normal capillary refill: Yes - Abdominal Inspection: Wounds - chronic fisutla on RLQ with mild clear yellow drainage and healing area LLQ with scabbing without erythema, induration, Morbidly Obese Distension: No distension Bowel sounds: Normal Tenderness: Nontender Organomegaly: No organomegaly - Extremities General upper extremity: Normal inspection, Nontender, Normal color, Normal ROM , Normal strength, Normal temperature, Other - left PICC line with old dressing , no surrounding erythema, induration, tenderness General lower extremity: Nontender, Edema, Normal ROM, Normal strength, Normal temperature, Normal weight bearing. No: Normal color - erythematous - Neurological Neuro grossly intact: Yes Cognition: Normal Orientation: AAOx4 James Coma Scale Eye Opening: Spontaneous [place] Coma Scale Verbal: Oriented [place] Coma Scale Motor: Obeys Commands [place] Coma Scale Total: 15 - Skin Skin Temperature: Warm Skin Moisture: Dry Skin Color: Normal Skin Turgor: Elastic Course - Re-evaluation Re-evalutation: 09/14/17 21:01 Patient is a 62-year-old female is hemodynamically stable, no acute distress and afebrile. no evidence of cellulitis or concerns for sepsis. Patient normotensive, absence of tachycardia or fever. Discussed with Dr. Espino who recommends removal of PICC line and to follow-up with primary care. PICC line removed at the bedside, patient held the procedure well. Patient educated on wound care. regarding her lower extremity findings, patient has been evaluated 3 days ago without evidence of DVT noted on ultrasound. Patient to follow-up with primary care for extremity edema - Vital Signs Vital signs: Temp Pulse Resp BP Pulse Ox 98.2 F 104 H 18 127/68 H 94 09/14/17 21:54 09/14/17 21:54 09/14/17 21:54 09/14/17 21:54 09/14/17 21:54 - Laboratory Result Diagrams: 09/14/17 20:15 Laboratory results interpreted by me: 09/14/17 20:15 Hgb 8.5 L Hct 27.0 L MCV 69 L MCH 21.7 L MCHC 31.4 L RDW 18.6 H Seg Neutrophils % 79.8 H Discharge - Discharge Clinical Impression: PIC line (peripherally inserted central catheter) removal Condition: Good Disposition: HOME, SELF-CARE Instructions: Antibiotic Ointment Protection ([facility]), Soap Cleansing ([facility]) Additional Instructions: Your picc line was removed today due to poor management at home and risk of infection Please keep the site clean, and covered with a bandaid. Please do a dressing change twice a day, clean gently with warm soap and water Referrals: ZAYNAB LEIGH MD [Primary Care Provider] - Follow up tomorrow
[2017-09-14] MEDS ORDERED: OXYCODONE HCL IR 5 MG TABLET PO ONE (19:57)
[2017-09-14] MEDS ORDERED: ONDANSETRON 4 MG TAB.RAPDIS PO ONE (19:59)
[2017-09-14 20:28] LABS: ABSOLUTE EOSINOPHILS # (AUTO) 0.2 10^3/uL (0.0-0.6); ABSOLUTE LYMPHOCYTES (AUTO) 0.9 10^3/uL (0.5-4.7); ABSOLUTE MONOCYTES (AUTO) 0.3 10^3/uL (0.1-1.4); ABSOLUTE NEUT (AUTO) 5.7 10^3/uL (1.7-8.2); BASOPHILS % (AUTO) 0.4 % (0-2); EOSINOPHILS % (AUTO) 2.4 % (0-6); HEMOGLOBIN 8.5 g/dL (12.0-15.5); HGB HCT DIFFERENCE -1.5; LYMPHOCYTES % (AUTO) 13.3 % (13-45); MEAN CORPUSCULAR HEMOGLOBIN 21.7 pg (27.0-33.4); MEAN CORPUSCULAR HGB CONC 31.4 g/dL (32.0-36.0); MEAN CORPUSCULAR VOLUME 69 fl (80-97); MONOCYTES % (AUTO) 4.1 % (3-13); RED BLOOD COUNT 3.91 10^6/uL (3.72-5.28); RED CELL DISTRIBUTION WIDTH 18.6 % (11.5-14.0); SEGMENTED NEUTROPHILS % (AUTO) 79.8 % (42-78); WHITE BLOOD COUNT 7.1 10^3/uL (4.0-10.5)
[2017-09-14 21:55] VITALS: BP 127/68
== END 2017-09-14 21:56 | disposition home or self-care (01) ==
LOC: ER 16:44
DX: Z45.2 Encounter for adjustment and management of vascular access device (principal); I10 Essential (primary) hypertension; J44.9 Chronic obstructive pulmonary disease, unspecified; E11.9 Type 2 diabetes mellitus without complications; Z88.1 Allergy status to other antibiotic agents; Z88.8 Allergy status to other drugs, medicaments and biological substances; Z88.5 Allergy status to narcotic agent; Z88.0 Allergy status to penicillin; Z88.6 Allergy status to analgesic agent
CPT/HCPCS: 99283; 36415; 85025; S0119; J3490

== ENCOUNTER 2017-09-16 13:11 | Emergency (ER) | payer MEDICAID ==
[2017-09-16 13:27] VITALS: BP 120/60
--- NOTE | 2017-09-16 14:09 | ER Document Report ---
ED Medical Screen (RME) - General Chief Complaint: Abdominal Problem Stated Complaint: ACCESS LEAKAGE Time Seen by Provider: 09/16/17 14:08 Notes: Patient is a 62-year-old female with a leaking right lower quadrant abdominal fistula. She is noticing yellow drainage out of the open wound. PE: Open wound in RLQ with yellow drainage. No acute distress. Afebrile. I have greeted and performed a rapid initial assessment of this patient. A comprehensive ED assessment and evaluation of the patient, analysis of test results and completion of the medical decision making process will be conducted by additional ED providers. TRAVEL OUTSIDE OF THE [place] IN LAST 30 DAYS: No - Related Data Allergies/Adverse Reactions: celecoxib [From Celebrex] Allergy (Mild, Verified 09/16/17 13:25) Urticaria aspirin [Aspirin] Allergy (Verified 09/16/17 13:25) Hives cephalexin monohydrate [From Keflex] Allergy (Verified 09/16/17 13:25) clindamycin [Clindamycin] Allergy (Verified 09/16/17 13:25) Hives lisinopril [Lisinopril] Allergy (Verified 09/16/17 13:25) methadone [Methadone] Allergy (Verified 09/16/17 13:25) metoprolol tartrate [From Lopressor] Allergy (Verified 09/16/17 13:25) Penicillins Allergy (Verified 09/16/17 13:25) Past Medical History - Past Medical History Cardiac Medical History: Reports: Hx Hypercholesterolemia, Hx Hypertension Pulmonary Medical History: Reports: Hx Asthma, Hx Bronchitis, Hx COPD Denies: Hx Tuberculosis Endocrine Medical History: Reports: Hx Diabetes Mellitus Type 1, Hx Diabetes Mellitus Type 2 Renal/ Medical History: Denies: Hx Peritoneal Dialysis GI Medical History: Reports: Hx Gastroesophageal Reflux Disease, Hx Hiatal Hernia Musculoskeltal Medical History: Reports Hx Arthritis Skin Medical History: Reports Hx Cellulitis - Both lower legs for about 4-6 months Psychiatric Medical History: Reports: Hx Anxiety, Hx Depression Infectious Medical History: Past Surgical History: Reports: Hx Abdominal Surgery - MULTIPLE VENTRAL HERNIA REPAIRS WITH DEBRIDEMENT. BOWEL OBSTRUCTION. NON-HEALING ABD WOUNDS WITH CHRONIC PAIN, Hx Bowel Surgery - Right abdominal fistula, Hx Section - x3, Hx Cholecystectomy, Hx Tubal Ligation, Other - 9 hernia repairs the last 1 was in 2010 when it was done here at [facility] - Immunizations Hx Diphtheria, Pertussis, Tetanus Vaccination: Yes History of Influenza Vaccine for 08/2017 - 12/2017 Season: No Physical Exam - Vital signs Vitals: Temp Pulse Resp BP Pulse Ox 97.5 F 86 16 120/60 99 09/16/17 13:22 09/16/17 13:22 09/16/17 13:22 09/16/17 13:22 09/16/17 13:22 Course - Vital Signs Vital signs: Temp Pulse Resp BP Pulse Ox 97.5 F 86 16 120/60 99 09/16/17 13:22 09/16/17 13:22 09/16/17 13:22 09/16/17 13:22 09/16/17 13:22
[2017-09-16] MEDS ORDERED: SULFAMETHOXAZOLE/TRIMETHOPRIM 800-160 MG TABLET PO ONE (15:29)
--- NOTE | 2017-09-16 15:35 | ER Document Report ---
ED General - General Chief Complaint: Abdominal Problem Stated Complaint: ACCESS LEAKAGE Time Seen by Provider: 09/16/17 14:08 Mode of Arrival: Medic Information source: Patient, [facility] Records Notes: 62-year-old female who has had an abdominal fistula for which she is seen approximately every 2-3 days in the emergency department results with complaints of drainage from her fistula. Patient notes that today's drainage is different from her normal drainage. But that it this is also documented multiple previous visits as well. She denies any fevers or chills denies any nausea vomiting or diarrhea. Patient notes the last time she was on antibiotics was when she was intubated in August TRAVEL OUTSIDE OF THE [place] IN LAST 30 DAYS: No - HPI Onset: Yesterday Onset/Duration: Sudden Quality of pain: Achy Severity: Mild Pain Level: 1 Associated symptoms: Other Exacerbated by: Denies Relieved by: Denies Similar symptoms previously: Yes Recently seen / treated by doctor: Yes - Related Data Allergies/Adverse Reactions: celecoxib [From Celebrex] Allergy (Mild, Verified 09/16/17 13:25) Urticaria aspirin [Aspirin] Allergy (Verified 09/16/17 13:25) Hives cephalexin monohydrate [From Keflex] Allergy (Verified 09/16/17 13:25) clindamycin [Clindamycin] Allergy (Verified 09/16/17 13:25) Hives lisinopril [Lisinopril] Allergy (Verified 09/16/17 13:25) methadone [Methadone] Allergy (Verified 09/16/17 13:25) metoprolol tartrate [From Lopressor] Allergy (Verified 09/16/17 13:25) Penicillins Allergy (Verified 09/16/17 13:25) Past Medical History - Social History Smoking Status: Never Smoker Cigarette use (# per day): No Chew tobacco use (# tins/day): No Smoking Education Provided: No Frequency of alcohol use: None Drug Abuse: None Family History: Reviewed & Not Pertinent, Other - The patient is delirious and family history cannot be obtained. Patient has suicidal ideation: No Patient has homicidal ideation: No - Past Medical History Cardiac Medical History: Reports: Hx Hypercholesterolemia, Hx Hypertension Pulmonary Medical History: Reports: Hx Asthma, Hx Bronchitis, Hx COPD Denies: Hx Tuberculosis Endocrine Medical History: Reports: Hx Diabetes Mellitus Type 1, Hx Diabetes Mellitus Type 2 Renal/ Medical History: Denies: Hx Peritoneal Dialysis GI Medical History: Reports: Hx Gastroesophageal Reflux Disease, Hx Hiatal Hernia Musculoskeltal Medical History: Reports Hx Arthritis Skin Medical History: Reports Hx Cellulitis - Both lower legs for about 4-6 months Psychiatric Medical History: Reports: Hx Anxiety, Hx Depression Infectious Medical History: Past Surgical History: Reports: Hx Abdominal Surgery - MULTIPLE VENTRAL HERNIA REPAIRS WITH DEBRIDEMENT. BOWEL OBSTRUCTION. NON-HEALING ABD WOUNDS WITH CHRONIC PAIN, Hx Bowel Surgery - Right abdominal fistula, Hx Section - x3, Hx Cholecystectomy, Hx Tubal Ligation, Other - 9 hernia repairs the last 1 was in 2010 when it was done here at [facility] - Immunizations Hx Diphtheria, Pertussis, Tetanus Vaccination: Yes Hx Pneumococcal Vaccination: 02/28/12 Review of Systems - Review of Systems Notes: REVIEW OF SYSTEMS: CONSTITUTIONAL : Denies fever, chills, or sweats. Denies recent illness. EENT: Denies eye, ear, throat, or mouth pain or symptoms. Denies nasal or sinus congestion or discharge. Denies throat, tongue, or mouth swelling or difficulty swallowing. CARDIOVASCULAR: Denies chest pain. Denies palpitations or racing or irregular heart beat. Denies ankle edema. RESPIRATORY: Denies cough, cold, or chest congestion. Denies shortness of breath, difficulty breathing, or wheezing. GASTROINTESTINAL: Abdominal fistula GENITOURINARY: Denies difficulty urinating, painful urination, burning, frequency, blood in urine, or discharge. FEMALE GENITOURINARY: Denies vaginal bleeding, heavy or abnormal periods, irregular periods. Denies vaginal discharge or odor. MUSCULOSKELETAL: Denies back or neck pain or stiffness. Denies joint pain or swelling. SKIN: Denies rash, lesions or sores. HEMATOLOGIC : Denies easy bruising or bleeding. LYMPHATIC: Denies swollen, enlarged glands. NEUROLOGICAL: Denies confusion or altered mental status. Denies passing out or loss of consciousness. Denies dizziness or lightheadedness. Denies headache. Denies weakness or paralysis or loss of use of either side. Denies problems with gait or speech. Denies sensory loss, numbness, or tingling. Denies seizures. PSYCHIATRIC: Denies anxiety or stress. Denies depression, suicidal ideation, or homicidal ideation. ALL OTHER SYSTEMS REVIEWED AND NEGATIVE. PHYSICAL EXAMINATION: GENERAL: Well-appearing, well-nourished and in no acute distress. HEAD: Atraumatic, normocephalic. EYES: Pupils equal round and reactive to light, extraocular movements intact, conjunctiva are normal. ENT: Nares patent, oropharynx clear without exudates. Moist mucous membranes. NECK: Normal range of motion, supple without lymphadenopathy LUNGS: Breath sounds clear to auscultation bilaterally and equal. No wheezes rales or rhonchi. HEART: Regular rate and rhythm without murmurs ABDOMEN: Soft, nontender, nondistended abdomen. No guarding, no rebound. No masses appreciated. Female : deferred Musculoskeletal: Normal range of motion, no pitting or edema. No cyanosis. NEUROLOGICAL: Cranial nerves grossly intact. Normal speech, normal gait. Normal sensory, motor exams PSYCH: Normal mood, normal affect. SKIN: Fistula noted on the right lower abdomen with purulent drainage Healing ulcer left lower abdomen Dictation was performed using [employer] voice recognition software Physical Exam - Vital signs Vitals: Temp Pulse Resp BP Pulse Ox 97.5 F 86 16 120/60 99 09/16/17 13:22 09/16/17 13:22 09/16/17 13:22 09/16/17 13:22 09/16/17 13:22 Course - Re-evaluation Re-evalutation: 09/16/17 23:16 Patient will be started on antibiotics given that she states this drainage is new even though it is documented that it is not in fact near. She is afebrile I do not believe there is any life-threatening issues and she is not septic. I will start the patient on antibiotics as requested Very strict return precautions have been provided to the patient After performing a Medical Screening Examination, I estimate there is LOW risk for OPEN FRACTURE, COMPARTMENT SYNDROME, TENDON RUPTURE, ACUTE NEUROVASCULAR INJURY, or RETAINED FOREIGN BODY, thus I consider the discharge disposition reasonable. Also, there is no evidence or peritonitis, sepsis, or toxicity. I have reevaluated this patient multiple times and no significant life threatening changes are noted. The patient and I have discussed the diagnosis and risks, and we agree with discharging home with close follow-up with the understanding that symptoms and presentations can change. We also discussed returning to the Emergency Department immediately if new or worsening symptoms occur. We have discussed the symptoms which are most concerning (e.g., changing or worsening pain, fever, numbness, weakness, cool or painful digits) that necessitate immediate return. - Vital Signs Vital signs: Temp Pulse Resp BP Pulse Ox 97.5 F 86 16 120/60 99 09/16/17 13:22 09/16/17 13:22 09/16/17 13:22 09/16/17 13:22 09/16/17 13:22 Discharge - Discharge Clinical Impression: Abdominal wall fistula Condition: Stable Disposition: HOME, SELF-CARE Instructions: Fever ([facility]) Additional Instructions: Follow up with your physician tomorrow for further care or return to the ED IMMEDIATELY if symptoms worsen or new concerns occur. If you cannot afford to follow up with your primary care physician a list of low cost clinics have been provided at the end of your discharge papers as well. Prescriptions: Sulfamethoxazole/Trimethoprim [Bactrim Ds Tablet] 2 each PO BID #40 tablet Referrals: ZAYNAB LEIGH MD [Primary Care Provider] - Follow up as needed
== END 2017-09-16 14:10 | disposition home or self-care (01) ==
LOC: ER 13:11
DX: K63.2 Fistula of intestine (principal); E78.00 Pure hypercholesterolemia, unspecified; I10 Essential (primary) hypertension; J44.9 Chronic obstructive pulmonary disease, unspecified; E11.9 Type 2 diabetes mellitus without complications; Z88.6 Allergy status to analgesic agent; Z88.3 Allergy status to other anti-infective agents; Z88.0 Allergy status to penicillin; Z90.49 Acquired absence of other specified parts of digestive tract; Z98.51 Tubal ligation status
CPT/HCPCS: 99283; J3490

== ENCOUNTER 2017-11-13 07:38 | Emergency (ER) | payer MEDICAID ==
[2017-11-13 07:54] VITALS: BP 152/52
--- NOTE | 2017-11-13 08:09 | ER Document Report ---
ED Wound - General Chief Complaint: Wound Recheck Stated Complaint: WOUND CHECK Time Seen by Provider: 11/13/17 07:43 Notes: Patient is a 62-year-old female who is well-known to this emergency department who returns today complaining of drainage from her chronic right lower quadrant abdominal fistula. Patient states that she coughed and she had fluid draining from the site. She denies any tenderness, purulent drainage, fever, chills, any worsening redness or swelling of the site. States she has been tolerating p.o. without any difficulty and admits to normal bowel movements. She states that she has been following with [facility] for primary medicine and with Dr. Hunt for pain management. She states she is due to follow-up with Dr. Hunt on Wednesday. She states that she has not been compliant with wound care due to recent bedbug issues at her home. TRAVEL OUTSIDE OF THE [place] IN LAST 30 DAYS: No - Related Data Allergies/Adverse Reactions: celecoxib [From Celebrex] Allergy (Mild, Verified 09/16/17 13:25) Urticaria aspirin [Aspirin] Allergy (Verified 09/16/17 13:25) Hives cephalexin monohydrate [From Keflex] Allergy (Verified 09/16/17 13:25) clindamycin [Clindamycin] Allergy (Verified 09/16/17 13:25) Hives lisinopril [Lisinopril] Allergy (Verified 09/16/17 13:25) methadone [Methadone] Allergy (Verified 09/16/17 13:25) metoprolol tartrate [From Lopressor] Allergy (Verified 09/16/17 13:25) Penicillins Allergy (Verified 09/16/17 13:25) Past Medical History - Social History Smoking Status: Former Smoker Chew tobacco use (# tins/day): No Frequency of alcohol use: None Drug Abuse: None Family History: Reviewed & Not Pertinent, Other - The patient is delirious and family history cannot be obtained. Patient has suicidal ideation: No Patient has homicidal ideation: No - Past Medical History Cardiac Medical History: Reports: Hx Hypercholesterolemia, Hx Hypertension Pulmonary Medical History: Reports: Hx Asthma, Hx Bronchitis, Hx COPD Denies: Hx Tuberculosis Endocrine Medical History: Reports: Hx Diabetes Mellitus Type 1, Hx Diabetes Mellitus Type 2 Renal/ Medical History: Denies: Hx Peritoneal Dialysis GI Medical History: Reports: Hx Gastroesophageal Reflux Disease, Hx Hiatal Hernia Musculoskeltal Medical History: Reports Hx Arthritis Skin Medical History: Reports Hx Cellulitis - Both lower legs for about 4-6 months Psychiatric Medical History: Reports: Hx Anxiety, Hx Depression Infectious Medical History: Past Surgical History: Reports: Hx Abdominal Surgery - MULTIPLE VENTRAL HERNIA REPAIRS WITH DEBRIDEMENT. BOWEL OBSTRUCTION. NON-HEALING ABD WOUNDS WITH CHRONIC PAIN, Hx Bowel Surgery - Right abdominal fistula, Hx Section - x3, Hx Cholecystectomy, Hx Tubal Ligation, Other - 9 hernia repairs the last 1 was in 2010 when it was done here at [facility] - Immunizations Hx Diphtheria, Pertussis, Tetanus Vaccination: Yes Hx Pneumococcal Vaccination: 02/28/12 Review of Systems - Review of Systems Constitutional: No symptoms reported Cardiovascular: No symptoms reported Respiratory: No symptoms reported Gastrointestinal: No symptoms reported Musculoskeletal: No symptoms reported Skin: See HPI -: Yes All other systems reviewed and negative Physical Exam - Vital signs Vitals: Temp Pulse Resp BP Pulse Ox 97.5 F 89 18 152/52 H 100 11/13/17 07:49 11/13/17 07:49 11/13/17 07:49 11/13/17 07:49 11/13/17 07:49 - Notes Notes: PHYSICAL EXAM GENERAL: Alert, interacts well. LUNGS: Clear to auscultation bilaterally, no wheezes, rales, or rhonchi. No respiratory distress. HEART: Regular rate and rhythm. No murmurs, gallops, or rubs. ABDOMEN: Soft, nondistended, nontender. No guarding, rebound, or rigidity.. Bowel sounds present in all 4 quadrants. EXTREMITIES: Moves all 4 extremities spontaneously. No edema, radial and dorsalis pedis pulses 2/4 bilaterally. No cyanosis. NEUROLOGICAL: Alert and oriented x4. Normal speech. PSYCH: Normal affect, normal mood. SKIN: Fistula noted on the right lower abdomen without active drainage. Healing ulcer left lower abdomen Course - Re-evaluation Re-evalutation: 11/13/17 08:17 Patient is a 62-year-old female who is hemodynamically stable, no acute distress and afebrile. Patient presents with chronic draining fistula. I have examined her multiple times in the past and her drainage today is consistent with her chronic drainage. I discussed with her that the reason it was probably draining was as she Valsalva's it pushes fluid out of the site. Upon my exam there is no concern for obstruction, cellulitis, any abscess. Discussed with her to follow-up with her primary care doctor on Wednesday we will give her contact numbers for [facility] as well as [facility] given that she is not able to follow-up with [facility] anymore. Discussed with her to continue her scheduled appointment with Dr. Hunt on Wednesday. Patient agrees with plan and is stable for discharge - Vital Signs Vital signs: Temp Pulse Resp BP Pulse Ox 97.5 F 89 18 152/52 H 100 11/13/17 07:49 11/13/17 07:49 11/13/17 07:49 11/13/17 07:49 11/13/17 07:49 Discharge - Discharge Clinical Impression: Abdominal wall fistula, Enterocutaneous fistula Condition: Stable Disposition: HOME, SELF-CARE Additional Instructions: Your drainage today is not concerning for any evidence of an acute infection. Unfortunately the nature of your wounds will allow for chronic drainage. It is expected of you to follow-up with the wound care clinic to help assist with you in the community to help this area heal. Please see this listed phone numbers for wound care clinics at [facility] as well as [facility]. Please return to the emergency department with any fever, abdominal pain, redness or tenderness at the site or any symptoms that are worrisome to you. Please keep your follow-up appointment with Dr. Hunt as scheduled [facility] Address: [address] [place] [id number] [facility] [address] [place] [id number] Referrals: CHARLENE HUNT DO [NO LOCAL MD] - Follow up in 1 week
[2017-11-13] MEDS ORDERED: OXYCODONE HCL IR 5 MG TABLET PO ONE (08:22)
== END 2017-11-13 08:45 | disposition home or self-care (01) ==
LOC: ER 07:38
DX: K63.2 Fistula of intestine (principal); L98.8 Other specified disorders of the skin and subcutaneous tissue; E78.00 Pure hypercholesterolemia, unspecified; I10 Essential (primary) hypertension; J44.9 Chronic obstructive pulmonary disease, unspecified; Z88.6 Allergy status to analgesic agent; Z88.0 Allergy status to penicillin; Z88.3 Allergy status to other anti-infective agents; Z90.49 Acquired absence of other specified parts of digestive tract; Z98.51 Tubal ligation status
CPT/HCPCS: 99282; J3490

== ENCOUNTER 2017-12-13 19:14 | Emergency (ER) | payer MEDICAID ==
--- NOTE | 2017-12-13 19:46 | ER Document Report ---
ED Medical Screen (RME) - General Chief Complaint: Abdominal Pain Stated Complaint: INTESTINAL PROBLEMS Time Seen by Provider: 12/13/17 19:40 Mode of Arrival: Ambulatory Information source: Patient TRAVEL OUTSIDE OF THE [place] IN LAST 30 DAYS: No - HPI Notes: 62 yr old female presents today with complaints of intestinal fistula that is draining yellow, purulent drainage along with sharp RLQ abdominal pain x1 day. reports constant drainage from site. Reports she has had her intestinal fistula since 2010. reports fistula drains "all the time", but today she is seeing yellow drainage, malodor "smells like feces" that started today. denies fevers or chills. Denies any cp, sob, v, d. reports nausea. denies dysuria. Her pcp, dr. pichardo [facility]. denies rashes. I have greeted and performed a rapid initial assessment of this patient. A comprehensive ED assessment and evaluation of the patient, analysis of test results and completion of medical decision making process will be conducted by an additional ED providers. - Related Data Allergies/Adverse Reactions: celecoxib [From Celebrex] Allergy (Mild, Verified 09/16/17 13:25) Urticaria aspirin [Aspirin] Allergy (Verified 09/16/17 13:25) Hives cephalexin monohydrate [From Keflex] Allergy (Verified 09/16/17 13:25) clindamycin [Clindamycin] Allergy (Verified 09/16/17 13:25) Hives lisinopril [Lisinopril] Allergy (Verified 09/16/17 13:25) methadone [Methadone] Allergy (Verified 09/16/17 13:25) metoprolol tartrate [From Lopressor] Allergy (Verified 09/16/17 13:25) Penicillins Allergy (Verified 09/16/17 13:25) Past Medical History - General Information source: Patient - Past Medical History Cardiac Medical History: Reports: Hx Hypercholesterolemia, Hx Hypertension Pulmonary Medical History: Reports: Hx Asthma, Hx Bronchitis, Hx COPD Denies: Hx Tuberculosis Endocrine Medical History: Reports: Hx Diabetes Mellitus Type 1, Hx Diabetes Mellitus Type 2 Renal/ Medical History: Denies: Hx Peritoneal Dialysis GI Medical History: Reports: Hx Gastroesophageal Reflux Disease, Hx Hiatal Hernia Musculoskeltal Medical History: Reports Hx Arthritis Skin Medical History: Reports Hx Cellulitis - Both lower legs for about 4-6 months Psychiatric Medical History: Reports: Hx Anxiety, Hx Depression Infectious Medical History: Past Surgical History: Reports: Hx Abdominal Surgery - MULTIPLE VENTRAL HERNIA REPAIRS WITH DEBRIDEMENT. BOWEL OBSTRUCTION. NON-HEALING ABD WOUNDS WITH CHRONIC PAIN, Hx Bowel Surgery - Right abdominal fistula, Hx Section - x3, Hx Cholecystectomy, Hx Tubal Ligation, Other - 9 hernia repairs the last 1 was in 2010 when it was done here at [facility] - Immunizations Hx Diphtheria, Pertussis, Tetanus Vaccination: Yes History of Influenza Vaccine for 08/2017 - 12/2017 Season: No Physical Exam - Vital signs Vitals: Temp Pulse Resp BP Pulse Ox 97.7 F 93 21 H 166/64 H 97 12/13/17 19:19 12/13/17 19:19 12/13/17 19:19 12/13/17 19:19 12/13/17 19:19 Interpretation: Normal - Abdominal Inspection: Normal Distension: No distension Tenderness: Tender - RLQ pain. fistula draining purulent drainage Course - Vital Signs Vital signs: Temp Pulse Resp BP Pulse Ox 97.7 F 93 21 H 166/64 H 97 12/13/17 19:19 12/13/17 19:19 12/13/17 19:19 12/13/17 19:19 12/13/17 19:19
[2017-12-13] MEDS ORDERED: NORMAL SALINE 1000 ML 1,000 ML IV PRN (19:50)
[2017-12-13] MEDS ORDERED: KETOROLAC TROMETHAMINE INJ/PF 30 MG/1 ML SDV IV ONE (19:51)
[2017-12-13] MEDS ORDERED: HYDROMORPHONE HCL 2 MG TABLET PO ONE (19:53)
[2017-12-13] MEDS ORDERED: OXYCODONE HCL IR 5 MG TABLET PO ONE (21:13)
[2017-12-13 22:27] LABS: ABSOLUTE EOSINOPHILS # (AUTO) 0.2 10^3/uL (0.0-0.6); ABSOLUTE LYMPHOCYTES (AUTO) 1.4 10^3/uL (0.5-4.7); ABSOLUTE MONOCYTES (AUTO) 0.6 10^3/uL (0.1-1.4); ABSOLUTE NEUT (AUTO) 7.8 10^3/uL (1.7-8.2); BASOPHILS % (AUTO) 0.3 % (0-2); EOSINOPHILS % (AUTO) 1.6 % (0-6); HEMATOCRIT 30.5 % (36.0-47.0); HEMOGLOBIN 9.6 g/dL (12.0-15.5); LYMPHOCYTES % (AUTO) 13.7 % (13-45); MEAN CORPUSCULAR HEMOGLOBIN 21.2 pg (27.0-33.4); MEAN CORPUSCULAR HGB CONC 31.5 g/dL (32.0-36.0); MEAN CORPUSCULAR VOLUME 67 fl (80-97); MONOCYTES % (AUTO) 6.2 % (3-13); PLATELET COUNT 608 10^3/uL (150-450); RED BLOOD COUNT 4.54 10^6/uL (3.72-5.28); RED CELL DISTRIBUTION WIDTH 18.5 % (11.5-14.0); SEGMENTED NEUTROPHILS % (AUTO) 78.2 % (42-78); TOTAL CELLS COUNTED % (AUTO) 100 %
[2017-12-13 22:33] LABS: APPEARANCE,URINE SLIGHTLY-CLOUDY; BILIRUBIN,URINE NEGATIVE (NEGATIVE); COLOR,URINE YELLOW; GLUCOSE, URINE NEGATIVE (NEGATIVE); KETONES,URINE NEGATIVE (NEGATIVE); LEUKOCYTE ESTERASE,URINE NEGATIVE (NEGATIVE); NITRITE,URINE POSITIVE (NEGATIVE); PROTEIN,URINE NEGATIVE (NEGATIVE); URINE SPECIFIC GRAVITY 1.015
[2017-12-13 22:41] LABS: ALANINE AMINOTRANSFERASE 30 U/L (9-52); ALBUMIN 3.8 g/dL (3.5-5.0); ALKALINE PHOSPHATASE 206 U/L (38-126); ANION GAP 9 (5-19); ASPARTATE AMINO TRANSFERASE 22 U/L (14-36); BILIRUBIN,DIRECT 0.2 mg/dL (0.0-0.4); BILIRUBIN,TOTAL 0.3 mg/dL (0.2-1.3); BLOOD UREA NITROGEN 10 mg/dL (7-20); CALCIUM 9.7 mg/dL (8.4-10.2); CARBON DIOXIDE 29 mmol/L (22-30); CHLORIDE 102 mmol/L (98-107); GLUCOSE 119 mg/dL (75-110); LIPASE 57.8 U/L (23-300); POTASSIUM 4.2 mmol/L (3.6-5.0); SODIUM 139.5 mmol/L (137-145); TOTAL PROTEIN 7.1 g/dL (6.3-8.2)
[2017-12-14] MEDS ORDERED: HYDROMORPHONE HCL INJ/PF 2 MG/ML AMPULE IM ONE (00:57)
[2017-12-14] MEDS ORDERED: SULFAMETHOXAZOLE/TRIMETHOPRIM 800-160 MG TABLET PO ONE (00:57)
--- NOTE | 2017-12-14 01:02 | ER Document Report ---
ED General - General Chief Complaint: Abdominal Pain Stated Complaint: INTESTINAL PROBLEMS Time Seen by Provider: 12/13/17 19:40 Mode of Arrival: Ambulatory Notes: Patient is a 62-year-old female well-known to this emergency department with a history of diabetes, morbid obesity, and a chronic abdominal wall wound drainage who presents complaining of increased pain to the area as well as increasing drainage. Patient states that this is new and different relative to prior ED visits. She notes a dull, constant pain to the area which she states it is not currently controlled by her oxycodone 20 mg tablets at home. Nothing worsens her pain. She denies any fever or constitutional symptoms. She goes to wound management and [place] and has not yet followed up with her primary care doctor regarding her concerns of increasing pain and drainage from the area. TRAVEL OUTSIDE OF THE [place] IN LAST 30 DAYS: No - Related Data Allergies/Adverse Reactions: celecoxib [From Celebrex] Allergy (Mild, Verified 09/16/17 13:25) Urticaria aspirin [Aspirin] Allergy (Verified 09/16/17 13:25) Hives cephalexin monohydrate [From Keflex] Allergy (Verified 09/16/17 13:25) clindamycin [Clindamycin] Allergy (Verified 09/16/17 13:25) Hives lisinopril [Lisinopril] Allergy (Verified 09/16/17 13:25) methadone [Methadone] Allergy (Verified 09/16/17 13:25) metoprolol tartrate [From Lopressor] Allergy (Verified 09/16/17 13:25) Penicillins Allergy (Verified 09/16/17 13:25) Past Medical History - General Information source: Patient - Social History Smoking Status: Current Every Day Smoker Frequency of alcohol use: None Drug Abuse: None Lives with: Alone Family History: Reviewed & Not Pertinent, Other - The patient is delirious and family history cannot be obtained. Patient has suicidal ideation: No Patient has homicidal ideation: No - Past Medical History Cardiac Medical History: Reports: Hx Hypercholesterolemia, Hx Hypertension Pulmonary Medical History: Reports: Hx Asthma, Hx Bronchitis, Hx COPD Denies: Hx Tuberculosis Endocrine Medical History: Reports: Hx Diabetes Mellitus Type 1, Hx Diabetes Mellitus Type 2 Renal/ Medical History: Denies: Hx Peritoneal Dialysis GI Medical History: Reports: Hx Gastroesophageal Reflux Disease, Hx Hiatal Hernia Musculoskeltal Medical History: Reports Hx Arthritis Skin Medical History: Reports Hx Cellulitis - Both lower legs for about 4-6 months Psychiatric Medical History: Reports: Hx Anxiety, Hx Depression Infectious Medical History: Past Surgical History: Reports: Hx Abdominal Surgery - MULTIPLE VENTRAL HERNIA REPAIRS WITH DEBRIDEMENT. BOWEL OBSTRUCTION. NON-HEALING ABD WOUNDS WITH CHRONIC PAIN, Hx Bowel Surgery - Right abdominal fistula, Hx Section - x3, Hx Cholecystectomy, Hx Tubal Ligation, Other - 9 hernia repairs the last 1 was in 2010 when it was done here at [facility] - Immunizations Hx Diphtheria, Pertussis, Tetanus Vaccination: Yes Hx Pneumococcal Vaccination: 02/28/12 Review of Systems - Review of Systems Notes: Constitutional: Negative for fever. HENT: Negative for sore throat. Eyes: Negative for visual changes. Cardiovascular: Negative for chest pain. Respiratory: Negative for shortness of breath. Gastrointestinal: Positive for abdominal pain Genitourinary: Negative for dysuria. Musculoskeletal: Negative for back pain. Skin: Positive for chronic abdominal wound draining Neurological: Negative for headaches, weakness or numbness. 10 point ROS negative except as marked above and in HPI. Physical Exam - Vital signs Vitals: Temp Pulse Resp BP Pulse Ox 97.7 F 93 21 H 166/64 H 97 12/13/17 19:19 12/13/17 19:19 12/13/17 19:19 12/13/17 19:19 12/13/17 19:19 Interpretation: Hypertensive Notes: PHYSICAL EXAMINATION: GENERAL: Well-appearing, well-nourished and in no acute distress. HEAD: Atraumatic, normocephalic. EYES: Pupils equal round and reactive to light, extraocular movements intact, sclera anicteric, conjunctiva are normal. ENT: nares patent, oropharynx clear without exudates. Moist mucous membranes. NECK: Normal range of motion, supple without lymphadenopathy LUNGS: Breath sounds clear to auscultation bilaterally and equal. No wheezes rales or rhonchi. HEART: Regular rate and rhythm without murmurs ABDOMEN: Soft, morbidly obese abdomen, punctate wound in the right mid lower abdomen that is draining a purulent, malodorous drainage. Pain on palpation of the surrounding region to the area of drainage.. EXTREMITIES: Normal range of motion, no pitting or edema. No cyanosis. NEUROLOGICAL: No focal neurological deficits. Moves all extremities spontaneously and on command. PSYCH: Normal mood, normal affect. SKIN: Warm, Dry, normal turgor, no rashes or lesions noted. Course - Re-evaluation Re-evalutation: 12/14/17 01:01 Patient presents with chronic abdominal pain in the setting of a chronic abdominal wound. This patient is very well-known to me as well as the rest of the staff in this emergency department. The wound appears exactly the same as it has a history of prior occasions that I have assessed her. The drainage does not appear different than it usually does. Her vital signs are unremarkable, no white count, nothing to suggest sepsis or acute change in her chronic wound infection. I have started her on Bactrim as she states that her doctor was "upset" last time when she did not receive antibiotics. She has been given a single dose of pain medication but will not be prescribed any medications for discharge home. At this time will discharge with return precautions and follow-up recommendations. Verbal discharge instructions given a the bedside and opportunity for questions given. Medication warnings reviewed. Patient is in agreement with this plan and has verbalized understanding of return precautions and the need for primary care follow-up in the next 24-72 hours. - Vital Signs Vital signs: Temp Pulse Resp BP Pulse Ox 97.7 F 87 20 159/90 H 97 12/13/17 19:19 12/14/17 01:14 12/14/17 01:14 12/14/17 01:14 12/14/17 01:14 - Laboratory Result Diagrams: 12/13/17 22:00 12/13/17 22:00 Laboratory results interpreted by me: 12/13/17 12/13/17 12/13/17 22:00 22:00 22:00 Hgb 9.6 L Hct 30.5 L MCV 67 L MCH 21.2 L MCHC 31.5 L RDW 18.5 H Plt Count 608 H Seg Neutrophils % 78.2 H Glucose 119 H Alkaline Phosphatase 206 H Urine Nitrite POSITIVE H Urine Urobilinogen 2.0 H Discharge - Discharge Clinical Impression: Chronic narcotic dependence, Morbid obesity Chronic abdominal wound infection Qualifiers: Encounter type: initial encounter Qualified Code(s): S31.109A - Unspecified open wound of abdominal wall, unspecified quadrant without penetration into peritoneal cavity, initial encounter Condition: Stable Disposition: HOME, SELF-CARE Additional Instructions: You have a chronic abdominal wound. You need to follow-up with your family services specialist. The emergency department is not the correct place received care for this wound. Your labs are normal today. Return for any additional concerns he may have including fever, persistent vomiting, or any other worries you may have. Prescriptions: Sulfamethoxazole/Trimethoprim [Bactrim Ds Tablet] 2 tab PO BID #28 tablet Referrals: ZAYNAB LEIGH MD [Primary Care Provider] - Follow up as needed
[2017-12-14 01:14] VITALS: BP 159/90
== END 2017-12-14 01:20 | disposition home or self-care (01) ==
LOC: ER 19:14
DX: S31.109A Unspecified open wound of abdominal wall, unspecified quadrant without penetration into peritoneal cavity, initial encounter (principal); F19.10 Other psychoactive substance abuse, uncomplicated; R10.9 Unspecified abdominal pain; E11.9 Type 2 diabetes mellitus without complications; E66.01 Morbid (severe) obesity due to excess calories; G89.29 Other chronic pain; Z79.899 Other long term (current) drug therapy; F17.200 Nicotine dependence, unspecified, uncomplicated; X58.XXXA Exposure to other specified factors, initial encounter
CPT/HCPCS: 99284; 96372; 36415; 87086; 83690; 85025; 87088; 80053; 81001; 87186; J1170; J3490 ×2

== ENCOUNTER 2018-01-06 09:53 | Emergency (ER) | payer MEDICAID ==
--- NOTE | 2018-01-06 10:11 | ER Document Report ---
ED General - General Chief Complaint: Wound Infection Stated Complaint: WOUND CHECK Time Seen by Provider: 01/06/18 10:10 TRAVEL OUTSIDE OF THE [place] IN LAST 30 DAYS: No - HPI Patient complains to provider of: Increased fistula output, increased pain abdomen. Notes: 62-year-old morbidly obese female with chronic upper abdomen fistula presents with increasing output and malodorous smell from her fistula. Patient says she has had a fistula for 7 years. The last 2 days she has had profound increase in output is yellow foul-smelling material. Patient change increasing pain as well 8/10 burning in nature without radiation. She denies nausea or vomiting. Patient had a normal bowel movement yesterday. States she is concerned the fistula is gotten worse. - Related Data Allergies/Adverse Reactions: celecoxib [From Celebrex] Allergy (Mild, Verified 01/06/18 10:09) Urticaria aspirin [Aspirin] Allergy (Verified 01/06/18 10:09) Hives cephalexin monohydrate [From Keflex] Allergy (Verified 01/06/18 10:09) clindamycin [Clindamycin] Allergy (Verified 01/06/18 10:09) Hives lisinopril [Lisinopril] Allergy (Verified 01/06/18 10:09) methadone [Methadone] Allergy (Verified 01/06/18 10:09) metoprolol tartrate [From Lopressor] Allergy (Verified 01/06/18 10:09) Penicillins Allergy (Verified 01/06/18 10:09) Past Medical History - Social History Smoking Status: Unknown if Ever Smoked Family History: Reviewed & Not Pertinent, Other - The patient is delirious and family history cannot be obtained. - Past Medical History Cardiac Medical History: Reports: Hx Hypercholesterolemia, Hx Hypertension Pulmonary Medical History: Reports: Hx Asthma, Hx Bronchitis, Hx COPD Denies: Hx Tuberculosis Endocrine Medical History: Reports: Hx Diabetes Mellitus Type 1, Hx Diabetes Mellitus Type 2 Renal/ Medical History: Denies: Hx Peritoneal Dialysis GI Medical History: Reports: Hx Gastroesophageal Reflux Disease, Hx Hiatal Hernia Musculoskeltal Medical History: Reports Hx Arthritis Skin Medical History: Reports Hx Cellulitis - Both lower legs for about 4-6 months Psychiatric Medical History: Reports: Hx Anxiety, Hx Depression Infectious Medical History: Past Surgical History: Reports: Hx Abdominal Surgery - MULTIPLE VENTRAL HERNIA REPAIRS WITH DEBRIDEMENT. BOWEL OBSTRUCTION. NON-HEALING ABD WOUNDS WITH CHRONIC PAIN, Hx Bowel Surgery - Right abdominal fistula, Hx Section - x3, Hx Cholecystectomy, Hx Tubal Ligation, Other - 9 hernia repairs the last 1 was in 2010 when it was done here at [facility] - Immunizations Hx Diphtheria, Pertussis, Tetanus Vaccination: Yes Hx Pneumococcal Vaccination: 02/28/12 Review of Systems - Review of Systems Notes: REVIEW OF SYSTEMS: CONSTITUTIONAL: -fevers, -chills EENT: -eye pain, -difficulty swallowing, -nasal congestion CARDIOVASCULAR: -chest pain, -syncope. RESPIRATORY: -cough, -SOB GASTROINTESTINAL: -Positive abdominal pain, positive fistula output increased GENITOURINARY: -dysuria, -hematuria MUSCULOSKELETAL: -back pain, -neck pain SKIN: -rash or skin lesions. HEMATOLOGIC: -easy bruising or bleeding. LYMPHATIC: -swollen, enlarged glands. NEUROLOGICAL: -altered mental status or loss of consciousness, -headache, - neurologic symptoms PSYCHIATRIC: -anxiety, -depression. ALL OTHER SYSTEMS REVIEWED AND NEGATIVE. Physical Exam - Vital signs Vitals: Temp Pulse Resp BP Pulse Ox 97.4 F 82 20 144/58 H 100 01/06/18 09:53 01/06/18 09:53 01/06/18 09:53 01/06/18 09:53 01/06/18 09:53 - Notes Notes: PHYSICAL EXAMINATION: GENERAL: Well-appearing, well-nourished and in no acute distress. HEAD: Atraumatic, normocephalic. EYES: Pupils equal round and reactive to light, extraocular movements intact, sclera anicteric, conjunctiva are normal. ENT: nares patent, oropharynx clear without exudates. Moist mucous membranes. NECK: Normal range of motion, supple without lymphadenopathy LUNGS: Breath sounds clear to auscultation bilaterally and equal. No wheezes rales or rhonchi. HEART: Regular rate and rhythm without murmurs ABDOMEN: Soft, nontender, normoactive bowel sounds. No guarding, no rebound. No masses appreciated. EXTREMITIES: Normal range of motion, no pitting or edema. No cyanosis. NEUROLOGICAL: Cranial nerves grossly intact. Normal speech, normal gait. Normal sensory and motor exams. PSYCH: Normal mood, normal affect. SKIN: Small fistula noted right upper quadrant near epigastric area. Malodorous output. Yellow in color different color does not appear to be purulent material may be intestinal content. Course - Re-evaluation Re-evalutation: 01/06/18 14:43 Patient with chronic right upper abdomen fistula presents with continued discharge from her fistula. Patient is a new periodically for checks of this fistula. Today does appear to be mildly inflamed leaking material. She denies fever, chills or any other constitutional symptoms, stable vital signs within normal limits. Patient's extensive lab workup unremarkable Patient has a CAT scan of abdomen pelvis performed with IV and oral contrast. It has been sometime since she had advanced imaging studies it shows mild edematous changes next to the fistula but no connection or enterotomy. Patient will be given prescription for possible Bactrim for possible infection. Patient will follow up with her surgeon Dr. Dumont Patient given strict return precautions if anything should change please return. Patient is scheduled to see her wound management doctor Wednesday. I recommend she discuss the case with him - Vital Signs Vital signs: Temp Pulse Resp BP Pulse Ox 97.4 F 82 20 144/58 H 100 01/06/18 09:53 01/06/18 09:53 01/06/18 09:53 01/06/18 09:53 01/06/18 09:53 - Laboratory Result Diagrams: 01/06/18 10:52 01/06/18 10:52 Laboratory results interpreted by me: 01/06/18 01/06/18 10:52 10:52 Hgb 9.2 L Hct 29.8 L MCV 69 L MCH 21.3 L MCHC 30.8 L RDW 19.2 H Plt Count 513 H Seg Neutrophils % 78.8 H Lymphocytes % 12.1 L Glucose 112 H AST 9 L Albumin 3.3 L Discharge - Discharge Clinical Impression: Fistula Condition: Good Disposition: HOME, SELF-CARE Instructions: Laceration Care ([facility]), Prophylactic Antibiotic ([facility]) Referrals: CHARLENE GAMEZ DO [Primary Care Provider] - Follow up as needed PARAMJIT ZAZUETA MD [[facility]] - Follow up as needed
[2018-01-06] MEDS ORDERED: RINGERS SOLUTION,LACTATED 1,000 ML IV ONE (10:17)
[2018-01-06 11:03] LABS: ABSOLUTE EOSINOPHILS # (AUTO) 0.2 10^3/uL (0.0-0.6); ABSOLUTE MONOCYTES (AUTO) 0.5 10^3/uL (0.1-1.4); ABSOLUTE NEUT (AUTO) 6.3 10^3/uL (1.7-8.2); BASOPHILS % (AUTO) 0.5 % (0-2); EOSINOPHILS % (AUTO) 1.9 % (0-6); HEMATOCRIT 29.8 % (36.0-47.0); HEMOGLOBIN 9.2 g/dL (12.0-15.5); LYMPHOCYTES % (AUTO) 12.1 % (13-45); MEAN CORPUSCULAR HEMOGLOBIN 21.3 pg (27.0-33.4); MEAN CORPUSCULAR HGB CONC 30.8 g/dL (32.0-36.0); MEAN CORPUSCULAR VOLUME 69 fl (80-97); MONOCYTES % (AUTO) 6.7 % (3-13); PLATELET COUNT 513 10^3/uL (150-450); RED BLOOD COUNT 4.31 10^6/uL (3.72-5.28); RED CELL DISTRIBUTION WIDTH 19.2 % (11.5-14.0); SEGMENTED NEUTROPHILS % (AUTO) 78.8 % (42-78); TOTAL CELLS COUNTED % (AUTO) 100 %
[2018-01-06] MEDS ORDERED: MORPHINE SULFATE 10 MG/ML INJ IV ONE (11:03)
[2018-01-06] MEDS ORDERED: NORMAL SALINE 1000 ML 1,000 ML IV ONE (11:03)
[2018-01-06 11:19] LABS: ALANINE AMINOTRANSFERASE 22 U/L (9-52); ALBUMIN 3.3 g/dL (3.5-5.0); ALKALINE PHOSPHATASE 118 U/L (38-126); ANION GAP 11 (5-19); ASPARTATE AMINO TRANSFERASE 9 U/L (14-36); BILIRUBIN,DIRECT 0.4 mg/dL (0.0-0.4); BILIRUBIN,TOTAL 0.4 mg/dL (0.2-1.3); BLOOD UREA NITROGEN 8 mg/dL (7-20); CARBON DIOXIDE 24 mmol/L (22-30); CHLORIDE 105 mmol/L (98-107); GLUCOSE 112 mg/dL (75-110); POTASSIUM 3.8 mmol/L (3.6-5.0); SODIUM 139.6 mmol/L (137-145); TOTAL PROTEIN 6.7 g/dL (6.3-8.2)
[2018-01-06] MEDS ORDERED: HYDROMORPHONE HCL INJ/PF 2 MG/ML AMPULE IV ONE (11:35)
[2018-01-06] MEDS ORDERED: METOCLOPRAMIDE HCL INJ/PF 10 MG/2 ML SDV IV ONE (11:49)
--- NOTE | 2018-01-06 14:18 | RADIOLOGY REPORT (SQ) ---
EXAM DESCRIPTION: CT ABD/PELVIS WITH IV ORAL COMPLETED DATE/TIME: 01/06/2018 1:26 pm REASON FOR STUDY: fistula increased output COMPARISON: August 2017 TECHNIQUE: CT scan of the abdomen and pelvis performed using helical scanning technique with dynamic intravenous contrast injection. No oral contrast. Images reviewed with lung, soft tissue, and bone windows. Reconstructed coronal and sagittal MPR images reviewed. Delayed images for evaluation of the urinary system also acquired. All images stored on PACS. All CT scanners at this facility use dose modulation, iterative reconstruction, and/or weight based d osing when appropriate to reduce radiation dose to as low as reasonably achievable (ALARA). [facility]: Dose Right [facility]: CareDose [facility]: Dose Right [facility]: Teradose 4D [facility]: ViaSat CONTRAST TYPE AND DOSE: contrast/concentration: Isovue 370.00 mg/ml; Total Contrast Delivered: 100.0 ml; Total Saline Delivered: 72.0 ml RENAL FUNCTION: Creatinine 0.85 RADIATION DOSE: CT Rad equipment meets quality standard of care and radiation dose reduction techniq ues were employed. CTDIvol: 19.5 - 25.4 mGy. DLP: 2626 mGy-cm.. LIMITATIONS: None. FINDINGS: LOWER CHEST: No significant findings. No nodules or infiltrates. LIVER: Normal size. No masses. No dilated ducts. SPLEEN: Normal size. No focal lesions. PANCREAS: No masses. No significant calcifications. No adjacent inflammation or peripancreatic fluid collections. Pancreatic duct not dilated. GALLBLADDER: Status post cholecystectomy ADRENAL GLANDS: No significant masses or asymmetry. RIGHT KIDNEY AND URETER: No solid masses. No significant calcifications. No hydronephrosis or hyd roureter. LEFT KIDNEY AND URETER: No solid masses. No significant calcifications. No hydronephrosis or hydr oureter. AORTA AND VESSELS: No aneurysm. No dissection. Renal arteries, SMA, celiac without stenosis. RETROPERITONEUM: No retroperitoneal adenopathy, hemorrhage or masses. BOWEL AND PERITONEAL CAVITY: The previously described large ventral hernia sac extending anterolatera lly on the left is again identified and appears essentially unchanged. The sac contains multiple bow el loops without evidence for obstruction. The previously described central cutaneous fistula is aga in identified. There is increased density in the subcutaneous fat surrounding the fistulous tract wh ich could represent edematous or inflammatory changes. There is also increased density in the adjace nt abdominal wall and adjacent mesh which could represent edematous or inflammatory changes. APPENDIX: Not identified PELVIS: No mass. No free fluid. Normal bladder. ABDOMINAL WALL: No masses. No hernias. BONES: No significant or acute findings. OTHER: No other significant finding. IMPRESSION: The previously described large ventral hernia sac extending anterior laterally on the le ft is again identified and appears essentially unchanged. The sac contains multiple bowel loops with out evidence for obstruction. The previously described central cutaneous fistula is again identified . There is increased density in the adjacent subcutaneous fat surrounding the fistulous track which extends into the adjacent abdominal wall and adjacent mesh which could represent edematous or inflamm atory changes. Other findings as noted above. TECHNICAL DOCUMENTATION: JOB ID: [id number] Quality ID # [id number]: Final reports with documentation of one or more dose reduction techniques (e.g., Au tomated exposure control, adjustment of the mA and/or kV according to patient size, use of iterative reconstruction technique) 2010 [employer]- All Rights Reserved Reading location - IP/workstation name: [email or web address]
[2018-01-06 15:25] VITALS: BP 145/55
== END 2018-01-06 15:25 | disposition home or self-care (01) ==
LOC: ER 09:53
DX: K63.2 Fistula of intestine (principal); I10 Essential (primary) hypertension; J44.9 Chronic obstructive pulmonary disease, unspecified; E11.9 Type 2 diabetes mellitus without complications; Z88.8 Allergy status to other drugs, medicaments and biological substances; Z88.6 Allergy status to analgesic agent; Z88.1 Allergy status to other antibiotic agents; Z88.5 Allergy status to narcotic agent; Z88.0 Allergy status to penicillin
CPT/HCPCS: 99284; 96361; 96374; 96375; 36415; 83605; 85025; 80076; 80048; 74177; J2765; J1170; J7030

== ENCOUNTER 2018-01-09 12:55 | Emergency (ER) | payer MEDICAID ==
[2018-01-09] MEDS ORDERED: OXYCODONE HCL IR 5 MG TABLET PO ONE (14:51)
[2018-01-09] MEDS ORDERED: PROMETHAZINE HCL 25 MG TABLET PO ONE (14:51)
[2018-01-09 15:29] LABS: ABSOLUTE EOSINOPHILS # (AUTO) 0.3 10^3/uL (0.0-0.6); ABSOLUTE LYMPHOCYTES (AUTO) 1.1 10^3/uL (0.5-4.7); ABSOLUTE MONOCYTES (AUTO) 0.5 10^3/uL (0.1-1.4); ABSOLUTE NEUT (AUTO) 6.2 10^3/uL (1.7-8.2); BASOPHILS % (AUTO) 0.4 % (0-2); EOSINOPHILS % (AUTO) 3.3 % (0-6); HEMATOCRIT 28.8 % (36.0-47.0); LYMPHOCYTES % (AUTO) 13.7 % (13-45); MEAN CORPUSCULAR HEMOGLOBIN 21.5 pg (27.0-33.4); MEAN CORPUSCULAR HGB CONC 31.4 g/dL (32.0-36.0); MEAN CORPUSCULAR VOLUME 69 fl (80-97); MONOCYTES % (AUTO) 5.8 % (3-13); PLATELET COUNT 490 10^3/uL (150-450); RED BLOOD COUNT 4.19 10^6/uL (3.72-5.28); RED CELL DISTRIBUTION WIDTH 18.8 % (11.5-14.0); SEGMENTED NEUTROPHILS % (AUTO) 76.8 % (42-78); TOTAL CELLS COUNTED % (AUTO) 100 %; WHITE BLOOD COUNT 8.1 10^3/uL (4.0-10.5)
[2018-01-09 15:42] LABS: APPEARANCE,URINE CLEAR; BILIRUBIN,URINE NEGATIVE (NEGATIVE); COLOR,URINE YELLOW; GLUCOSE, URINE NEGATIVE (NEGATIVE); KETONES,URINE NEGATIVE (NEGATIVE); LEUKOCYTE ESTERASE,URINE NEGATIVE (NEGATIVE); NITRITE,URINE NEGATIVE (NEGATIVE); PROTEIN,URINE NEGATIVE (NEGATIVE); URINE SPECIFIC GRAVITY 1.013; UROBILINOGEN,URINE NEGATIVE mg/dL (<2.0)
[2018-01-09 15:44] LABS: ALANINE AMINOTRANSFERASE 16 U/L (9-52); ALBUMIN 3.4 g/dL (3.5-5.0); ALKALINE PHOSPHATASE 121 U/L (38-126); ANION GAP 11 (5-19); ASPARTATE AMINO TRANSFERASE 10 U/L (14-36); BILIRUBIN,DIRECT 0.2 mg/dL (0.0-0.4); BILIRUBIN,TOTAL 0.3 mg/dL (0.2-1.3); BLOOD UREA NITROGEN 11 mg/dL (7-20); CALCIUM 9.1 mg/dL (8.4-10.2); CARBON DIOXIDE 24 mmol/L (22-30); CHLORIDE 100 mmol/L (98-107); GLUCOSE 97 mg/dL (75-110); POTASSIUM 4.4 mmol/L (3.6-5.0); SODIUM 135.4 mmol/L (137-145)
--- NOTE | 2018-01-09 16:57 | ER Document Report ---
ED General - General Chief Complaint: Drainage Stated Complaint: FLUID DRAINAGE FROM FISCHULA Time Seen by Provider: 01/09/18 14:17 Notes: Patient says that she started having excessive liquid flowing out of a known right lower quadrant of the abdomen fistula. She says that when she stood up, the liquid came pouring out of the fistula, drenching her clothing and going on the floor. Patient has some nausea but not vomiting. Does not have any change in her bowel symptoms. The drainage from the fistula has worsened over the last couple of months. In August, patient was intubated and admitted to ICU for sepsis. Her last bowel movement was yesterday. She has had a cholecystectomy, BTL, 3, and 9 hernia repairs with mesh implant. She developed the fistula in August,, after she had had a hernia repair a couple of weeks earlier. She has been here previously and is well-known to the local surgery staff. She was here in this emergency department on the eighth of this month, just 3 days ago., And had a CT scan that shows a large ventral hernia sac with multiple bowel loops without evidence for obstruction. The previously known cutaneous fistula is still present. Patient was sent home on . TRAVEL OUTSIDE OF THE [place] IN LAST 30 DAYS: No - Related Data Allergies/Adverse Reactions: celecoxib [From Celebrex] Allergy (Mild, Verified 01/09/18 13:26) Urticaria aspirin [Aspirin] Allergy (Verified 01/09/18 13:26) Hives cephalexin monohydrate [From Keflex] Allergy (Verified 01/09/18 13:26) clindamycin [Clindamycin] Allergy (Verified 01/09/18 13:26) Hives lisinopril [Lisinopril] Allergy (Verified 01/09/18 13:26) methadone [Methadone] Allergy (Verified 01/09/18 13:26) metoprolol tartrate [From Lopressor] Allergy (Verified 01/09/18 13:26) Penicillins Allergy (Verified 01/09/18 13:26) Past Medical History - Social History Smoking Status: Never Smoker Frequency of alcohol use: None Drug Abuse: None Family History: Reviewed & Not Pertinent, Other - The patient is delirious and family history cannot be obtained. Patient has suicidal ideation: No Patient has homicidal ideation: No - Past Medical History Cardiac Medical History: Reports: Hx Hypercholesterolemia, Hx Hypertension Pulmonary Medical History: Reports: Hx Asthma, Hx Bronchitis, Hx COPD Denies: Hx Tuberculosis Endocrine Medical History: Reports: Hx Diabetes Mellitus Type 1, Hx Diabetes Mellitus Type 2 GI Medical History: Reports: Hx Gastroesophageal Reflux Disease, Hx Hiatal Hernia Musculoskeltal Medical History: Reports Hx Arthritis Skin Medical History: Reports Hx Cellulitis - Both lower legs for about 4-6 months Psychiatric Medical History: Reports: Hx Anxiety, Hx Depression Infectious Medical History: Past Surgical History: Reports: Hx Abdominal Surgery - MULTIPLE VENTRAL HERNIA REPAIRS WITH DEBRIDEMENT. BOWEL OBSTRUCTION. NON-HEALING ABD WOUNDS WITH CHRONIC PAIN, Hx Bowel Surgery - Right abdominal fistula, Hx Section - x3, Hx Cholecystectomy, Hx Tubal Ligation, Other - 9 hernia repairs the last 1 was in 2010 when it was done here at [facility] - Immunizations Hx Diphtheria, Pertussis, Tetanus Vaccination: Yes Hx Pneumococcal Vaccination: 02/28/12 Review of Systems - Review of Systems Notes: REVIEW OF SYSTEMS: CONSTITUTIONAL : Denies fever. EENT: Denies eye, ear, nose or mouth or throat pain or other symptoms. CARDIOVASCULAR: Denies chest pain. RESPIRATORY: Denies cough, chest congestion, or shortness of breath. GASTROINTESTINAL: See HPI. GENITOURINARY: Denies difficulty or painful urinating, urinary frequency, blood in urine. MUSCULOSKELETAL: Denies back or neck pain. Denies joint pain or swelling. SKIN: Denies rash or skin lesions, except for small area of erythema of the lower mid abdominal region just below the umbilicus that has been present since last fall. NEUROLOGICAL: Denies LOC or altered mental status. Denies headache. Denies sensory loss or motor deficits. ALL OTHER SYSTEMS REVIEWED AND NEGATIVE. Physical Exam - Vital signs Vitals: Pulse 84 01/09/18 13:00 Interpretation: Normal - Notes Notes: PHYSICAL EXAMINATION: GENERAL: Well-appearing, in no acute distress. HEAD: Atraumatic, normocephalic. EYES: Pupils equal round and reactive to light, extraocular movements intact. ENT: oropharynx clear without exudates. Moist mucous membranes. NECK: Normal range of motion, supple. LUNGS: Breath sounds clear and equal bilaterally. HEART: Regular rate and rhythm without murmurs. ABDOMEN: Soft, mild diffuse tenderness, but no guarding or rebound. Large, but soft abdomen. Erythematous area between the umbilicus and suprapubic region that has been that way for several months, according to the patient. Patient has a small little punctate drainage site of the fistula in the right lower quadrant. BACK: No tenderness throughout entire back. EXTREMITIES: Normal range of motion without pain. NEUROLOGICAL: Normal speech, normal gait. Normal sensory, motor, and reflex exams. Awake, alert, and oriented x3. PSYCH: Normal mood, normal affect. SKIN: Warm, dry, no rashes. Course - Re-evaluation Re-evalutation: 01/09/18 18:16 Patient was seen by Dr. Gonzales who worked on an alteration in the contour of the abdominal wall with some paste to try to keep the bag from leaking. For now , it seems to be successful. All of patient's labs were normal except for chronically low hemoglobin and she was informed. - Vital Signs Vital signs: Temp Pulse Resp BP Pulse Ox 98.6 F 78 18 132/61 H 98 01/09/18 18:11 01/09/18 18:11 01/09/18 18:11 01/09/18 18:11 01/09/18 18:11 - Laboratory Result Diagrams: 01/09/18 14:57 01/09/18 14:57 Laboratory results interpreted by me: 01/09/18 01/09/18 14:57 14:57 Hgb 9.0 L Hct 28.8 L MCV 69 L MCH 21.5 L MCHC 31.4 L RDW 18.8 H Plt Count 490 H Sodium 135.4 L AST 10 L Total Protein 6.0 L Albumin 3.4 L Discharge - Discharge Clinical Impression: Abdominal fistula Condition: Stable Disposition: HOME, SELF-CARE Additional Instructions: You have an abdominal fistula. Dr. Gonzales evaluated your condition and provided some assistance in controlling the leakage of fluid from the fistula. Your lab studies were all essentially normal except for your anemic, but your red blood count has been low for a long time. Follow-up with your primary care provider. NORMAL EXAM AND WORKUP: At this time, your examination and workup show no significant abnormality. No significant abnormal physical findings were noted. All laboratory, EKG, and imaging (x-ray, CT scans, ultrasound) studies that were ordered show no significant abnormality. Although your examination and all studies that were ordered showed no significant abnormal finding, there are no examinations and no studies that are 100% accurate. There is always the possibility that some abnormality could exist and not be detected with physical examination or within the limits and capabilities of laboratory and other studies. You should return or follow up as you were instructed on your visit today for further evaluation if your symptoms do not resolve. FOLLOW-UP CARE: If you have been referred to a physician for follow-up care, call the physician s office for an appointment as you were instructed or within the next two days. If you experience worsening or a significant change in your symptoms, notify the physician immediately or return to the Emergency Department at any time for re-evaluation. Referrals: MAURO WEEKS NP [Primary Care Provider] - Follow up as needed
[2018-01-09 18:11] VITALS: BP 132/61
--- NOTE | 2018-01-11 15:23 | OPERATIVE REPORT E ---
Operative Report NAME: CARMEN ROMERO : 1955 AGE: 62Y DATE OF SURGERY: 01/10/2018 ROOM: PREOPERATIVE DIAGNOSIS: 1. 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 2. CHEMICAL CELLULITIS. POSTOPERATIVE DIAGNOSIS: 1. CHRONIC ENTEROCUTANEOUS FISTULA WITH ABDOMINAL WALL CONTACT dermatitis. 2. CHEMICAL CELLULITIS. OPERATION: 1. Cleanup of skin surrounding enterocutaneous fistula. 2. Placement of ostomy appliance bag. SURGEON: JERICA RATLIFF M.D. ANESTHESIA: None. DRAINS: None. TISSUE REMOVED OR ALTERED: None. COMPLICATIONS: None. FINDINGS: See below. PROCEDURE: Patient is a 62-year-old white female with a history of morbid obesity, chronic enterocutaneous fistula, managed on an outpatient basis at the [facility] as well as at [facility], who presents to the Emergency Department twice in several days complaining of burning at the site of her chronic, intermittently draining enterocutaneous fistula. After last ER visit, she was started on Bactrim p.o. without significant change in her symptoms. According to the patient, she has had increased drainage, unprovoked. She denies fever, chills. On physical exam, she has persisting 2-side enterocutaneous fistula to the right of midline on a morbidly obese abdomen with massive hernia and loss of visceral domain. There are erythematous changes in a circumferential fashion around the enterocutaneous fistula site, approximately 8 cm in maximum diameter. Earlier attempts today were made to secure an ostomy appliance but were unsuccessful; the drainage leaked out around the fistula. SUMMARY: I cleaned up the skin around the fistula. There was no active breakdown, but erythema and edema. The 2 sites of apparent recent drainage were not actively draining at the time of this manipulation. I cleaned the skin with alcohol, then placed Karya paste or Adapt paste close to but not including the fistula sites. I then placed benzoin around the Adapt on the patient's skin. I then utilized a medium sized ostomy appliance, trimmed the wafer to the appropriate oblong shape configuration to accommodate the 2 draining sites, and deployed the appliance onto the patient's skin. It appeared to adhere satisfactorily. Bag applied. Further instructions provided to the patient. Of note, I reinforced the importance of modifying her diet to liquids only for the next 24-48 hours until the fistula draining decreases. Patient is instructed to follow up with the [facility] as previously scheduled. DICTATING PHYSICIAN: JERICA RATLIFF M.D. [id number] PHY#: [id number] ID: [id number] JOB#: [id number] ACCT: [id number] cc:JERICA RATLIFF M.D. > [facility]
== END 2018-01-09 18:45 | disposition home or self-care (01) ==
LOC: ER 12:55
DX: L98.8 Other specified disorders of the skin and subcutaneous tissue (principal); E78.00 Pure hypercholesterolemia, unspecified; I10 Essential (primary) hypertension; J44.9 Chronic obstructive pulmonary disease, unspecified; E11.9 Type 2 diabetes mellitus without complications; Z88.6 Allergy status to analgesic agent; Z90.49 Acquired absence of other specified parts of digestive tract; Z98.51 Tubal ligation status; Z88.0 Allergy status to penicillin
CPT/HCPCS: 99284; 36415; 87040; 87086; 87070; 87205; 85025; 87077; 80053; 81001; 87186; J3490 ×2

== ENCOUNTER 2018-01-29 11:32 | Emergency (ER) | payer MEDICAID ==
[2018-01-29] MEDS ORDERED: METOCLOPRAMIDE HCL 10 MG TABLET PO ONE (12:04)
--- NOTE | 2018-01-29 12:07 | ER Document Report ---
ED Medical Screen (RME) - General Chief Complaint: Abdominal Pain Stated Complaint: ABDOMINAL PAIN Time Seen by Provider: 01/29/18 11:51 Mode of Arrival: Ambulatory Information source: Patient Notes: 62-year-old female history of fistula presents with complaints of abdominal pain nausea vomiting diarrhea. Patient denies any fevers or chills I have greeted and performed a rapid initial assessment of this patient. A comprehensive ED assessment and evaluation of the patient, analysis of test results and completion of the medical decision making process will be conducted by additional ED providers. PHYSICAL EXAMINATION: GENERAL: Well-appearing, well-nourished and in no acute distress. HEAD: Atraumatic, normocephalic. EYES: Pupils equal round extraocular movements intact, conjunctiva are normal. ENT: Nares patent NECK: Normal range of motion LUNGS: No respiratory distress Musculoskeletal: Normal range of motion NEUROLOGICAL: Normal speech, normal gait. PSYCH: Normal mood, normal affect. SKIN: Warm, Dry, normal turgor, no rashes or lesions noted. TRAVEL OUTSIDE OF THE [place] IN LAST 30 DAYS: No - Related Data Allergies/Adverse Reactions: celecoxib [From Celebrex] Allergy (Mild, Verified 01/29/18 11:45) Urticaria aspirin [Aspirin] Allergy (Verified 01/29/18 11:45) Hives cephalexin monohydrate [From Keflex] Allergy (Verified 01/29/18 11:45) clindamycin [Clindamycin] Allergy (Verified 01/29/18 11:45) Hives lisinopril [Lisinopril] Allergy (Verified 01/29/18 11:45) methadone [Methadone] Allergy (Verified 01/29/18 11:45) metoprolol tartrate [From Lopressor] Allergy (Verified 01/29/18 11:45) Penicillins Allergy (Verified 01/29/18 11:45) Past Medical History - Past Medical History Cardiac Medical History: Reports: Hx Hypercholesterolemia, Hx Hypertension Pulmonary Medical History: Reports: Hx Asthma, Hx Bronchitis, Hx COPD Denies: Hx Tuberculosis Endocrine Medical History: Reports: Hx Diabetes Mellitus Type 1, Hx Diabetes Mellitus Type 2 Renal/ Medical History: Denies: Hx Peritoneal Dialysis GI Medical History: Reports: Hx Gastroesophageal Reflux Disease, Hx Hiatal Hernia Musculoskeltal Medical History: Reports Hx Arthritis Skin Medical History: Reports Hx Cellulitis - Both lower legs for about 4-6 months Psychiatric Medical History: Reports: Hx Anxiety, Hx Depression Infectious Medical History: Past Surgical History: Reports: Hx Abdominal Surgery - MULTIPLE VENTRAL HERNIA REPAIRS WITH DEBRIDEMENT. BOWEL OBSTRUCTION. NON-HEALING ABD WOUNDS WITH CHRONIC PAIN, Hx Bowel Surgery - Right abdominal fistula, Hx Section - x3, Hx Cholecystectomy, Hx Tubal Ligation, Other - 9 hernia repairs the last 1 was in 2010 when it was done here at [facility] - Immunizations Hx Diphtheria, Pertussis, Tetanus Vaccination: Yes History of Influenza Vaccine for 08/2017 - 12/2017 Season: No Physical Exam - Vital signs Vitals: Temp Pulse Resp BP Pulse Ox 97.8 F 73 16 148/59 H 100 01/29/18 11:40 01/29/18 11:40 01/29/18 11:40 01/29/18 11:40 01/29/18 11:40 Course - Vital Signs Vital signs: Temp Pulse Resp BP Pulse Ox 97.8 F 73 16 148/59 H 100 01/29/18 11:40 01/29/18 11:40 01/29/18 11:40 01/29/18 11:40 01/29/18 11:40
[2018-01-29 12:27] LABS: ABSOLUTE EOSINOPHILS # (AUTO) 0.1 10^3/uL (0.0-0.6); ABSOLUTE LYMPHOCYTES (AUTO) 1.1 10^3/uL (0.5-4.7); ABSOLUTE MONOCYTES (AUTO) 0.4 10^3/uL (0.1-1.4); ABSOLUTE NEUT (AUTO) 5.5 10^3/uL (1.7-8.2); BASOPHILS % (AUTO) 0.3 % (0-2); EOSINOPHILS % (AUTO) 0.8 % (0-6); HEMATOCRIT 29.6 % (36.0-47.0); HEMOGLOBIN 9.3 g/dL (12.0-15.5); LYMPHOCYTES % (AUTO) 15.4 % (13-45); MEAN CORPUSCULAR HEMOGLOBIN 21.8 pg (27.0-33.4); MEAN CORPUSCULAR HGB CONC 31.5 g/dL (32.0-36.0); MEAN CORPUSCULAR VOLUME 69 fl (80-97); MONOCYTES % (AUTO) 5.4 % (3-13); PLATELET COUNT 487 10^3/uL (150-450); RED BLOOD COUNT 4.28 10^6/uL (3.72-5.28); SEGMENTED NEUTROPHILS % (AUTO) 78.1 % (42-78); TOTAL CELLS COUNTED % (AUTO) 100 %; WHITE BLOOD COUNT 7.1 10^3/uL (4.0-10.5)
--- NOTE | 2018-01-29 12:38 | ER Document Report ---
ED General - General Chief Complaint: Abdominal Pain Stated Complaint: ABDOMINAL PAIN Time Seen by Provider: 01/29/18 11:51 Mode of Arrival: Ambulatory Notes: 62-year-old female. Frequent visitor of the emergency department for chronic abdominal pain. Patient had multiple surgeries and now has fistula that will not heal. Has been seen by multiple surgeons. States that she is on pain management with Dr. Hunt. States that she takes 20 mg of oxycodone 6 times a day. States that she was on a fentanyl patch and taking 30 mg of oxycodone 6 times a day but has been taken off the fentanyl patch. States now that she needs something for the pain because the pain is getting worse. Denies any fever. Denies any chills. Had a recent CT scan and recent antibiotic. TRAVEL OUTSIDE OF THE [place] IN LAST 30 DAYS: No - HPI Onset: Other - Chronic - Related Data Allergies/Adverse Reactions: celecoxib [From Celebrex] Allergy (Mild, Verified 01/29/18 11:45) Urticaria aspirin [Aspirin] Allergy (Verified 01/29/18 11:45) Hives cephalexin monohydrate [From Keflex] Allergy (Verified 01/29/18 11:45) clindamycin [Clindamycin] Allergy (Verified 01/29/18 11:45) Hives lisinopril [Lisinopril] Allergy (Verified 01/29/18 11:45) methadone [Methadone] Allergy (Verified 01/29/18 11:45) metoprolol tartrate [From Lopressor] Allergy (Verified 01/29/18 11:45) Penicillins Allergy (Verified 01/29/18 11:45) Past Medical History - General Information source: Patient - Social History Smoking Status: Never Smoker Frequency of alcohol use: None Drug Abuse: None Lives with: Alone Family History: Reviewed & Not Pertinent, Other - The patient is delirious and family history cannot be obtained. Patient has suicidal ideation: No Patient has homicidal ideation: No - Past Medical History Cardiac Medical History: Reports: Hx Hypercholesterolemia, Hx Hypertension Pulmonary Medical History: Reports: Hx Asthma, Hx Bronchitis, Hx COPD Denies: Hx Tuberculosis Endocrine Medical History: Reports: Hx Diabetes Mellitus Type 1, Hx Diabetes Mellitus Type 2 Renal/ Medical History: Denies: Hx Peritoneal Dialysis GI Medical History: Reports: Hx Gastroesophageal Reflux Disease, Hx Hiatal Hernia Musculoskeltal Medical History: Reports Hx Arthritis Skin Medical History: Reports Hx Cellulitis - Both lower legs for about 4-6 months Psychiatric Medical History: Reports: Hx Anxiety, Hx Depression Infectious Medical History: Past Surgical History: Reports: Hx Abdominal Surgery - MULTIPLE VENTRAL HERNIA REPAIRS WITH DEBRIDEMENT. BOWEL OBSTRUCTION. NON-HEALING ABD WOUNDS WITH CHRONIC PAIN, Hx Bowel Surgery - Right abdominal fistula, Hx Section - x3, Hx Cholecystectomy, Hx Tubal Ligation, Other - 9 hernia repairs the last 1 was in 2010 when it was done here at [facility] - Immunizations Hx Diphtheria, Pertussis, Tetanus Vaccination: Yes Hx Pneumococcal Vaccination: 02/28/12 Review of Systems - Review of Systems Constitutional: No symptoms reported EENT: No symptoms reported Cardiovascular: No symptoms reported Respiratory: No symptoms reported Gastrointestinal: See HPI, Abdominal pain, Other - Fistulas draining pain in the abdomen Genitourinary: No symptoms reported Female Genitourinary: No symptoms reported Musculoskeletal: No symptoms reported Skin: No symptoms reported Hematologic/Lymphatic: No symptoms reported Neurological/Psychological: No symptoms reported Physical Exam - Vital signs Vitals: Temp Pulse Resp BP Pulse Ox 97.8 F 73 16 148/59 H 100 01/29/18 11:40 01/29/18 11:40 01/29/18 11:40 01/29/18 11:40 01/29/18 11:40 Interpretation: Normal - General General appearance: Appears well, Alert - HEENT Head: Normocephalic, Atraumatic Eyes: Normal Pupils: PERRL - Respiratory Respiratory status: No respiratory distress Chest status: Nontender Breath sounds: Normal Chest palpation: Normal - Cardiovascular Rhythm: Regular Heart sounds: Normal auscultation Murmur: No - Abdominal Inspection: Normal Distension: No distension Bowel sounds: Normal Tenderness: Other - She with lower abdomen fistula is actively draining. No guarding but tender around this area but appears chronic in nature. Organomegaly: No organomegaly - Back Back: Normal, Nontender - Extremities General upper extremity: Normal inspection, Nontender, Normal color, Normal ROM , Normal temperature General lower extremity: Normal inspection, Nontender, Normal color, Normal ROM , Normal temperature, Normal weight bearing. No: Osvaldo's sign - Neurological Neuro grossly intact: Yes Cognition: Normal Orientation: AAOx4 James Coma Scale Eye Opening: Spontaneous Argenta Coma Scale Verbal: Oriented Argenta Coma Scale Motor: Obeys Commands Argenta Coma Scale Total: 15 Speech: Normal Motor strength normal: LUE, RUE, LLE, RLE Sensory: Normal - Psychological Associated symptoms: Normal affect, Normal mood - Skin Skin Temperature: Warm Skin Moisture: Dry Skin Color: Normal Course - Re-evaluation Re-evalutation: 01/29/18 13:08 Patient has chronic abdominal fistulas. Followed by surgery. Recently had a CT scan which did not show anything significant. Finished a course of antibiotics. Followed by regular doctor in [facility]. I have explained to the patient that she needs to have realistic expectations of what we can do in the emergency department with regards to chronic pain management. States that she is due for her noontime oxycodone. Will order oxycodone and Phenergan at this time. 01/29/18 13:09 Patient's labs unremarkable. No elevated WBC count. No temperature. Normal vital signs. 01/29/18 13:10 Based on the fact the patient's labs are unremarkable, I have seen this patient before and I do not see any change in her fistula site than previous visits, had a recent CT scan which is unremarkable, recently finished antibiotics. Stable vital signs. Afebrile. Do not feel compelled to give her anything stronger than her regular pain medication. Patient is bargaining for shot of Dilaudid. I do not feel it is appropriate to continue to give her IV shots of narcotics for her chronic abdominal pain. 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 Continuing to provide intravenous shots of Dilaudid seems to be counterproductive to the mission of taking good care of our patients. I would highly recommend saving IV Dilaudid usage for significant complications/ postoperative management etc. Routine chronic pain management in this patient should be done as an outpatient. - Vital Signs Vital signs: Temp Pulse Resp BP Pulse Ox 97.8 F 73 16 148/59 H 100 01/29/18 11:40 01/29/18 11:40 01/29/18 11:40 01/29/18 11:40 01/29/18 11:40 - Laboratory Result Diagrams: 01/29/18 12:15 01/29/18 12:15 Laboratory results interpreted by me: 01/29/18 01/29/18 12:15 12:15 Hgb 9.3 L Hct 29.6 L MCV 69 L MCH 21.8 L MCHC 31.5 L RDW 19.0 H Plt Count 487 H Seg Neutrophils % 78.1 H Potassium 3.5 L Glucose 122 H AST 9 L Discharge - Discharge Clinical Impression: Chronic abdominal pain Disposition: HOME, SELF-CARE Instructions: Abdominal Pain ([facility]), Chronic Pain Control ([facility]) Forms: Follow-Up Laboratory Testing Referrals: CHARLENE HUNT DO [Primary Care Provider] - Follow up as needed
[2018-01-29] MEDS ORDERED: PROMETHAZINE HCL 25 MG TABLET PO ONE (12:45)
[2018-01-29] MEDS ORDERED: OXYCODONE HCL IR 5 MG TABLET PO ONE (12:45)
[2018-01-29 12:46] LABS: ALANINE AMINOTRANSFERASE 19 U/L (9-52); ALBUMIN 3.5 g/dL (3.5-5.0); ALKALINE PHOSPHATASE 91 U/L (38-126); ANION GAP 10 (5-19); ASPARTATE AMINO TRANSFERASE 9 U/L (14-36); BILIRUBIN,DIRECT 0.1 mg/dL (0.0-0.4); BILIRUBIN,TOTAL 0.3 mg/dL (0.2-1.3); BLOOD UREA NITROGEN 11 mg/dL (7-20); CALCIUM 9.3 mg/dL (8.4-10.2); CARBON DIOXIDE 29 mmol/L (22-30); CHLORIDE 102 mmol/L (98-107); GLUCOSE 122 mg/dL (75-110); POTASSIUM 3.5 mmol/L (3.6-5.0); SODIUM 140.7 mmol/L (137-145); TOTAL PROTEIN 6.7 g/dL (6.3-8.2)
[2018-01-29 14:19] VITALS: BP 153/67
== END 2018-01-29 14:19 | disposition home or self-care (01) ==
LOC: ER 11:32
DX: G89.29 Other chronic pain (principal); R10.9 Unspecified abdominal pain; Z79.891 Long term (current) use of opiate analgesic; K63.2 Fistula of intestine; E11.9 Type 2 diabetes mellitus without complications; I10 Essential (primary) hypertension; J44.9 Chronic obstructive pulmonary disease, unspecified; Z98.890 Other specified postprocedural states; Z88.6 Allergy status to analgesic agent; Z88.1 Allergy status to other antibiotic agents; Z88.8 Allergy status to other drugs, medicaments and biological substances; Z88.5 Allergy status to narcotic agent; Z88.0 Allergy status to penicillin; Z90.49 Acquired absence of other specified parts of digestive tract
CPT/HCPCS: 99284; 36415; 85025; 80053; J3490 ×3

== ENCOUNTER 2018-01-31 14:11 | Emergency (ER) | payer MEDICAID ==
--- NOTE | 2018-01-31 15:37 | ER Document Report ---
ED General - General Chief Complaint: Abdominal Pain Stated Complaint: SKIN ISSUE Time Seen by Provider: 01/31/18 15:35 TRAVEL OUTSIDE OF THE [place] IN LAST 30 DAYS: No - HPI Notes: Chronic draining fistula that was supposed to have a colostomy bag placed on currently is not present states change in drainage. Chronic abdominal pain requesting medications. Long discussion with patient that she will need to follow-up with PCP for further evaluation for her chronic pain - Related Data Allergies/Adverse Reactions: celecoxib [From Celebrex] Allergy (Mild, Verified 01/31/18 14:13) Urticaria aspirin [Aspirin] Allergy (Verified 01/31/18 14:13) Hives cephalexin monohydrate [From Keflex] Allergy (Verified 01/31/18 14:13) clindamycin [Clindamycin] Allergy (Verified 01/31/18 14:13) Hives lisinopril [Lisinopril] Allergy (Verified 01/31/18 14:13) methadone [Methadone] Allergy (Verified 01/31/18 14:13) metoprolol tartrate [From Lopressor] Allergy (Verified 01/31/18 14:13) Penicillins Allergy (Verified 01/31/18 14:13) Past Medical History - Social History Smoking Status: Former Smoker Chew tobacco use (# tins/day): No Frequency of alcohol use: None Drug Abuse: None Family History: Reviewed & Not Pertinent, Other - The patient is delirious and family history cannot be obtained. Patient has suicidal ideation: No Patient has homicidal ideation: No - Past Medical History Cardiac Medical History: Reports: Hx Hypercholesterolemia, Hx Hypertension Pulmonary Medical History: Reports: Hx Asthma, Hx Bronchitis, Hx COPD Denies: Hx Tuberculosis Endocrine Medical History: Reports: Hx Diabetes Mellitus Type 1, Hx Diabetes Mellitus Type 2 Renal/ Medical History: Denies: Hx Peritoneal Dialysis GI Medical History: Reports: Hx Gastroesophageal Reflux Disease, Hx Hiatal Hernia Musculoskeltal Medical History: Reports Hx Arthritis Skin Medical History: Reports Hx Cellulitis - Both lower legs for about 4-6 months Psychiatric Medical History: Reports: Hx Anxiety, Hx Depression Infectious Medical History: Past Surgical History: Reports: Hx Abdominal Surgery - MULTIPLE VENTRAL HERNIA REPAIRS WITH DEBRIDEMENT. BOWEL OBSTRUCTION. NON-HEALING ABD WOUNDS WITH CHRONIC PAIN, Hx Bowel Surgery - Right abdominal fistula, Hx Section - x3, Hx Cholecystectomy, Hx Tubal Ligation, Other - 9 hernia repairs the last 1 was in 2010 when it was done here at [facility] - Immunizations Hx Diphtheria, Pertussis, Tetanus Vaccination: Yes Hx Pneumococcal Vaccination: 02/28/12 Review of Systems - Review of Systems Gastrointestinal: Abdominal pain Physical Exam - Vital signs Vitals: Temp Pulse Resp BP Pulse Ox 97.8 F 71 16 149/56 H 100 01/31/18 14:17 01/31/18 14:17 01/31/18 14:17 01/31/18 14:17 01/31/18 14:17 - Abdominal Notes: ABD pad with obvious drainage. Course - Re-evaluation Re-evalutation: 01/31/18 15:37 I have greeted and performed a rapid initial assessment of this patient. A comprehensive ED assessment and evaluation of the patient, analysis of test results and completion of the medical decision making process will be conducted by additional ED providers. - Vital Signs Vital signs: Temp Pulse Resp BP Pulse Ox 97.8 F 71 16 149/56 H 100 01/31/18 14:17 01/31/18 14:17 01/31/18 14:17 01/31/18 14:17 01/31/18 14:17
[2018-01-31 16:01] LABS: ABSOLUTE EOSINOPHILS # (AUTO) 0.2 10^3/uL (0.0-0.6); ABSOLUTE MONOCYTES (AUTO) 0.4 10^3/uL (0.1-1.4); ABSOLUTE NEUT (AUTO) 6.2 10^3/uL (1.7-8.2); BASOPHILS % (AUTO) 0.4 % (0-2); EOSINOPHILS % (AUTO) 2.8 % (0-6); HEMATOCRIT 29.6 % (36.0-47.0); HEMOGLOBIN 9.2 g/dL (12.0-15.5); LYMPHOCYTES % (AUTO) 12.5 % (13-45); MEAN CORPUSCULAR HEMOGLOBIN 21.8 pg (27.0-33.4); MEAN CORPUSCULAR HGB CONC 31.2 g/dL (32.0-36.0); MEAN CORPUSCULAR VOLUME 70 fl (80-97); MONOCYTES % (AUTO) 5.5 % (3-13); PLATELET COUNT 439 10^3/uL (150-450); RED BLOOD COUNT 4.24 10^6/uL (3.72-5.28); RED CELL DISTRIBUTION WIDTH 18.7 % (11.5-14.0); SEGMENTED NEUTROPHILS % (AUTO) 78.8 % (42-78); TOTAL CELLS COUNTED % (AUTO) 100 %; WHITE BLOOD COUNT 7.8 10^3/uL (4.0-10.5)
[2018-01-31 16:22] LABS: ANION GAP 7 (5-19); BLOOD UREA NITROGEN 15 mg/dL (7-20); CALCIUM 8.9 mg/dL (8.4-10.2); CARBON DIOXIDE 28 mmol/L (22-30); CHLORIDE 105 mmol/L (98-107); GLUCOSE 112 mg/dL (75-110); POTASSIUM 3.3 mmol/L (3.6-5.0); SODIUM 140.3 mmol/L (137-145)
[2018-01-31] MEDS ORDERED: MORPHINE SULFATE 10 MG/ML INJ IV ONE (17:03)
[2018-01-31] MEDS ORDERED: ONDANSETRON HCL INJ/PF 4 MG/2 ML SDV IV ONE (17:04)
[2018-01-31] MEDS ORDERED: BENZOIN/ALOE VERA/STORAX/TOLU TINCTURE 60 ML TP PRN (18:32)
[2018-01-31] MEDS ORDERED: LIDOCAINE 4%/TETRACAINE 0.5%/EPI 0.18% 5 ML TOPICAL SOLN TOP ONE (18:34)
--- NOTE | 2018-01-31 18:52 | ER Document Report ---
ED GI/ <TUNDE SAWYER - Last Filed: 01/31/18 19:45> - General Mode of Arrival: Ambulatory Information source: Patient TRAVEL OUTSIDE OF THE [place] IN LAST 30 DAYS: No <JESSICA MARY - Last Filed: 02/02/18 10:30> - General Chief Complaint: Abdominal Pain Stated Complaint: SKIN ISSUE Time Seen by Provider: 01/31/18 15:35 Notes: Patient is a 62-year-old female with a chronic abdominal fistula with drainage who presents to the ER today saying that her home health nurse stated that the drainage was different, yellow today. Patient has had colostomy bags placed in the past for this fistula and is followed by surgery. She denies any fevers or chills. (JESSICA MARY) - Related Data Allergies/Adverse Reactions: celecoxib [From Celebrex] Allergy (Mild, Verified 01/31/18 14:13) Urticaria aspirin [Aspirin] Allergy (Verified 01/31/18 14:13) Hives cephalexin monohydrate [From Keflex] Allergy (Verified 01/31/18 14:13) clindamycin [Clindamycin] Allergy (Verified 01/31/18 14:13) Hives lisinopril [Lisinopril] Allergy (Verified 01/31/18 14:13) methadone [Methadone] Allergy (Verified 01/31/18 14:13) metoprolol tartrate [From Lopressor] Allergy (Verified 01/31/18 14:13) Penicillins Allergy (Verified 01/31/18 14:13) Past Medical History - General Information source: Patient - Social History Smoking Status: Former Smoker Chew tobacco use (# tins/day): No Frequency of alcohol use: None Drug Abuse: None Family History: Reviewed & Not Pertinent, Other - The patient is delirious and family history cannot be obtained. Patient has suicidal ideation: No Patient has homicidal ideation: No - Past Medical History Cardiac Medical History: Reports: Hx Hypercholesterolemia, Hx Hypertension Pulmonary Medical History: Reports: Hx Asthma, Hx Bronchitis, Hx COPD Denies: Hx Tuberculosis Endocrine Medical History: Reports: Hx Diabetes Mellitus Type 1, Hx Diabetes Mellitus Type 2 Renal/ Medical History: Denies: Hx Peritoneal Dialysis GI Medical History: Reports: Hx Gastroesophageal Reflux Disease, Hx Hiatal Hernia Musculoskeltal Medical History: Reports Hx Arthritis Skin Medical History: Reports Hx Cellulitis - Both lower legs for about 4-6 months Psychiatric Medical History: Reports: Hx Anxiety, Hx Depression Infectious Medical History: Past Surgical History: Reports: Hx Abdominal Surgery - MULTIPLE VENTRAL HERNIA REPAIRS WITH DEBRIDEMENT. BOWEL OBSTRUCTION. NON-HEALING ABD WOUNDS WITH CHRONIC PAIN, Hx Bowel Surgery - Right abdominal fistula, Hx Section - x3, Hx Cholecystectomy, Hx Tubal Ligation, Other - 9 hernia repairs the last 1 was in 2010 when it was done here at [facility] - Immunizations Hx Diphtheria, Pertussis, Tetanus Vaccination: Yes Hx Pneumococcal Vaccination: 02/28/12 <JESSICA MARY - Last Filed: 02/02/18 10:30> Review of Systems - Review of Systems Constitutional: No symptoms reported EENT: No symptoms reported Cardiovascular: No symptoms reported Respiratory: No symptoms reported Gastrointestinal: See HPI Genitourinary: No symptoms reported Female Genitourinary: No symptoms reported Musculoskeletal: No symptoms reported Skin: No symptoms reported Hematologic/Lymphatic: No symptoms reported Neurological/Psychological: No symptoms reported <JESSICA MARY - Last Filed: 02/02/18 10:30> Physical Exam <TUNDE SAWYER - Last Filed: 01/31/18 19:45> <JESSICA MARY - Last Filed: 02/02/18 10:30> - Vital signs Vitals: Temp Pulse Resp BP Pulse Ox 97.8 F 71 16 149/56 H 100 01/31/18 14:17 01/31/18 14:17 01/31/18 14:17 01/31/18 14:17 01/31/18 14:17 - Notes Notes: PHYSICAL EXAMINATION: GENERAL: Chronically ill-appearing, obese, in no acute distress. HEAD: Atraumatic, normocephalic. EYES: Pupils equal round and reactive to light, extraocular movements intact, sclera anicteric, conjunctiva are normal. NECK: Normal range of motion, supple without lymphadenopathy LUNGS: CTAB and equal. No wheezes rales or rhonchi. HEART: Regular rate and rhythm without murmurs ABDOMEN: Soft, large abdomen, periumbilical abdominal fistula draining thick drainage that smells of stool with tenderness. No erythema, no yellow or green drainage no guarding, no rebound BACK: no vertebral tenderness, normal ROM GI/: no CVA tenderness EXTREMITIES: Normal range of motion, no pitting edema. No cyanosis. NEUROLOGICAL: Cranial nerves grossly intact. Normal sensory/motor exams. PSYCH: Normal mood, normal affect. SKIN: Warm, Dry, normal turgor, no rashes or lesions noted (JESSICA MARY) Course - Laboratory Result Diagrams: 01/31/18 15:40 01/31/18 15:40 <TUNDE SAWYER - Last Filed: 01/31/18 19:45> - Laboratory Result Diagrams: 01/31/18 15:40 01/31/18 15:40 <JESSICA MARY - Last Filed: 02/02/18 10:30> - Re-evaluation Re-evalutation: 01/31/18 19:35 Dr. Espino has seen the patient, replaced the fistula bag, states he does not have any additional recommendations at this time, does not appear infected, does not recommend antibiotics, recommends discharged with regular outpatient follow-up. (TUNDE SAWYER) 01/31/18 18:28 Patient continues to complain of pain and requests narcotic pain medication, when I tell her I am giving her something for pain she asks whether he can give me." She is followed by surgery so I am having Dr. Espino, surgeon communication equipment mechanic who is seen her before come down to evaluate her. He did so and states that it is not infected in appearance, he wants to place colostomy bag, advises to give morphine IV, placed lidocaine jelly on the area because the colostomy bag placement will be painful. Tunde Sawyer PA-C awaiting Dr. Espino's recommendations after colostomy bag placement. (JESSICA MARY) - Vital Signs Vital signs: Temp Pulse Resp BP Pulse Ox 99.0 F 83 18 144/47 H 100 01/31/18 19:49 01/31/18 19:49 01/31/18 19:49 01/31/18 19:49 01/31/18 19:49 - Laboratory Laboratory results interpreted by me: 01/31/18 01/31/18 15:40 15:40 Hgb 9.2 L Hct 29.6 L MCV 70 L MCH 21.8 L MCHC 31.2 L RDW 18.7 H Seg Neutrophils % 78.8 H Lymphocytes % 12.5 L Potassium 3.3 L Glucose 112 H Discharge <TUNDE SAWYER - Last Filed: 01/31/18 19:45> <JESSICA MARY - Last Filed: 02/02/18 10:30> - Discharge Clinical Impression: Abdominal wall fistula Condition: Stable Disposition: HOME, SELF-CARE Additional Instructions: Return immediately for any new or worsening symptoms. Bag/wound care instructions: apply lidocaine topical for 1/2 hour, wipe off, then apply small amount of benzoin with new colostomy bag. Perform this once a week. Follow up with primary care provider, call tomorrow to make followup appointment. Prescriptions: Lidocaine HCl [Anastia] 15 gm TP ASDIR PRN #1 lotion PRN Reason: Referrals: CHARLENE GAMEZ DO [Primary Care Provider] - Follow up as needed
--- NOTE | 2018-01-31 19:43 | PDOC CONSULTATION ---
Consultation Consult Date: 01/31/18 Consult reason:: increase drainage from chronic enterocutaneous fistula History of Present Illness Admission Date/PCP: CHARLENE GAMEZ DO History of Present Illness: CARMEN ROMERO is a 62 year old female with known enterocutaneous fistula. Drainage has increased in past 3 days. Was seen by visiting nurse today and sent to ED. Denies fever nor chills Past Medical History Cardiac Medical History: Reports: Hyperlipidema, Hypertension Pulmonary Medical History: Reports: Asthma, Bronchitis, Chronic Obstructive Pulmonary Disease (COPD) Denies: Tuberculosis Endocrine Medical History: Reports: Diabetes Mellitus Type 1, Diabetes Mellitus Type 2 GI Medical History: Reports: Gastroesophageal Reflux Disease, Hiatal Hernia Musculoskeltal Medical History: Reports: Arthritis Psychiatric Medical History: Reports: Depression Hematology: Reports: Anemia Past Surgical History Past Surgical History: Reports: Section - x3, Cholecystectomy, Tubal Ligation, Other - 9 hernia repairs the last 1 was in 2010 when it was done here at [facility] Denies: Amputation Social History Smoking Status: Former Smoker Frequency of Alcohol Use: None Hx Recreational Drug Use: No Hx Prescription Drug Abuse: No Family History Family History: Reviewed & Not Pertinent, Other - The patient is delirious and family history cannot be obtained. Parental Family History Reviewed: Yes Children Family History Reviewed: No Sibling(s) Family History Reviewed.: No Medication/Allergy Home Medications: Benazepril HCl [Lotensin] 40 mg PO DAILY 08/13/17 Esomeprazole Mag Trihydrate [Nexium] 40 mg PO DAILY 08/13/17 Fluticasone/Salmeterol [Advair 250-50 Diskus 28 dose] 1 puff IH Q12 08/13/17 Metformin HCl [Glucophage 500 mg Tablet] 250 mg PO DAILY 08/13/17 Oxycodone HCl 15 mg PO Q6HP PRN 08/13/17 Potassium Chloride [Klor-Con M10] 10 meq PO DAILY 08/13/17 Vancomycin/0.9 % Sod Chloride [Vancomycin 1 G/100Ml-0.9% NaCl] 1 gm IV Q12 8 Days #16 plast..bag 08/27/17 Sulfamethoxazole/Trimethoprim [Bactrim Ds Tablet] 2 each PO BID #40 tablet 09/16 Sulfamethoxazole/Trimethoprim [Bactrim Ds Tablet] 2 tab PO BID #28 tablet Sulfamethoxazole/Trimethoprim [Bactrim 400-80 mg Tablet] 1 each PO BID #14 tablet 01/06/18 Allergies/Adverse Reactions: celecoxib [From Celebrex] Allergy (Mild, Verified 01/31/18 14:13) Urticaria aspirin [Aspirin] Allergy (Verified 01/31/18 14:13) Hives cephalexin monohydrate [From Keflex] Allergy (Verified 01/31/18 14:13) clindamycin [Clindamycin] Allergy (Verified 01/31/18 14:13) Hives lisinopril [Lisinopril] Allergy (Verified 01/31/18 14:13) methadone [Methadone] Allergy (Verified 01/31/18 14:13) metoprolol tartrate [From Lopressor] Allergy (Verified 01/31/18 14:13) Penicillins Allergy (Verified 01/31/18 14:13) Review of Systems Constitutional: PRESENT: as per HPI Cardiovascular: PRESENT: other - no chest pains/cough Gastrointestinal: PRESENT: other - fistula has practically stopped draining but the skin around it is red. Apparently a gauze is being placed for the drainage to be absorbed Physical Exam Vital Signs: Temp Pulse Resp BP Pulse Ox 97.8 F 71 16 149/56 H 100 01/31/18 14:17 01/31/18 14:17 01/31/18 14:17 01/31/18 14:17 01/31/18 14:17 Intake & Output 01/30/18 01/31/18 02/01/18 06:59 06:59 06:59 Weight 101.605 kg General appearance: PRESENT: no acute distress GI/Abdominal exam: PRESENT: soft, other - fistula site practically stopped draining. Surrounding skin is erythematous and sensitive. A thick gauze with an overlying absorbent dressing is being used by visiting nurse. Results Laboratory Results: 01/31/18 15:40 01/31/18 15:40 01/31/18 01/31/18 15:40 15:40 WBC 7.8 RBC 4.24 Hgb 9.2 L Hct 29.6 L MCV 70 L MCH 21.8 L MCHC 31.2 L RDW 18.7 H Plt Count 439 Seg Neutrophils % 78.8 H Lymphocytes % 12.5 L Monocytes % 5.5 Eosinophils % 2.8 Basophils % 0.4 Absolute Neutrophils 6.2 Absolute Lymphocytes 1.0 Absolute Monocytes 0.4 Absolute Eosinophils 0.2 Absolute Basophils 0.0 Sodium 140.3 Potassium 3.3 L Chloride 105 Carbon Dioxide 28 Anion Gap 7 BUN 15 Creatinine 0.74 Est GFR ( Amer) > 60 Est GFR (Non-Af Amer) > 60 Glucose 112 H Calcium 8.9 Assessment & Plan - Diagnosis (1) chronic enterocutaneous fistula Is this a current diagnosis for this admission?: Yes (2) Irritated skin surrounding fistula Is this a current diagnosis for this admission?: Yes - Time Time Spent: 50 to 70 Minutes - Plan Summary Plan Summary: Patient given IV morphine followed by placement of topical lidocaine around fistula After 30 minutes, I placed a small colostomy bag after placement of tincture of benzoin on the skin to make bag more adherent. The visiting nurse has to do this regimen so the surrounding skin will be better and therefore less painful for the patient. This has to be done on a prn basis or at least once a week.
[2018-01-31 19:55] VITALS: BP 144/47
== END 2018-01-31 19:55 | disposition home or self-care (01) ==
LOC: ER 14:11
DX: K63.2 Fistula of intestine (principal); Z46.89 Encounter for fitting and adjustment of other specified devices; R10.9 Unspecified abdominal pain; G89.29 Other chronic pain; I10 Essential (primary) hypertension; J44.9 Chronic obstructive pulmonary disease, unspecified; E11.9 Type 2 diabetes mellitus without complications; K21.9 Gastro-esophageal reflux disease without esophagitis; Z79.84 Long term (current) use of oral hypoglycemic drugs; Z79.899 Other long term (current) drug therapy; Z93.3 Colostomy status; Z88.6 Allergy status to analgesic agent; Z88.1 Allergy status to other antibiotic agents; Z88.8 Allergy status to other drugs, medicaments and biological substances; Z88.5 Allergy status to narcotic agent; Z88.0 Allergy status to penicillin; Z87.891 Personal history of nicotine dependence
CPT/HCPCS: 99284; 96374; 96375; 36415; 85025; 80048; J2270; J2405; J3490

== ENCOUNTER 2018-02-02 20:15 | Emergency (ER) | payer MEDICAID ==
[2018-02-02 21:12] VITALS: BP 151/54
== END 2018-02-02 22:00 | disposition left against medical advice (07) ==
LOC: ER 20:15
DX: Z53.21 Procedure and treatment not carried out due to patient leaving prior to being seen by health care provider (principal)

== ENCOUNTER 2018-02-03 08:39 | Emergency (ER) | payer MEDICAID ==
--- NOTE | 2018-02-03 08:45 | ER Document Report ---
ED General - General Stated Complaint: ABDOMINAL PAIN Time Seen by Provider: 02/03/18 08:44 Mode of Arrival: Medic Information source: Patient TRAVEL OUTSIDE OF THE [place] IN LAST 30 DAYS: No - HPI Notes: 62-year-old female with a past medical history of a cholecystectomy, BLT, C- section 3, 9 hernia repairs with mesh implant who has a fistula presents today for complaints of her abdominal fistula draining with blood this morning, states that she has excessive drainage. Patient has chronic abdominal pain as well as drainage from the fistula that has been seen in the emergency room multiple times. Denies being on any blood thinners. Denies any recent trauma. Denies any recent travel, new foods or new medications. Denies any coffee- ground emesis, denies any black tarry stool. Reports some nausea and denies any vomiting. Denies any fevers or chills. She does have a home health nurse that takes care of her. She is managed for her pain by Dr. Hunt. Was that she had chest tightness last night, lasted for about 2 hours and then went away. Patient denies a cardiac history, does have a history of hypertension. She just found out that her mother had a stroke, she is not sure if this is what caused her chest pain. Denies any radiation of chest pain, denies any shortness of breath. Patient states she has been dealing with seasonal allergies and has been having a postnasal drip cough. Denies fevers, chills, palpitations, shortness of breath, dyspnea, vomiting, diarrhea, hematuria, blurred vision, double vision, loss of vision, speech changes, LH, dizziness, syncope, headaches, wheezing, ST, URI, neck pain, weakness, bowel or bladder dysfunction, saddle anesthesia, numbness or tingling in bilateral upper or lower extremities equally, muscle paralysis, weakness in bilateral upper or lower extremities equally or rash. Denies IV drug use. - Related Data Allergies/Adverse Reactions: celecoxib [From Celebrex] Allergy (Mild, Verified 02/02/18 21:03) Urticaria aspirin [Aspirin] Allergy (Verified 02/02/18 21:03) Hives cephalexin monohydrate [From Keflex] Allergy (Verified 02/02/18 21:03) clindamycin [Clindamycin] Allergy (Verified 02/02/18 21:03) Hives lisinopril [Lisinopril] Allergy (Verified 02/02/18 21:03) methadone [Methadone] Allergy (Verified 02/02/18 21:03) metoprolol tartrate [From Lopressor] Allergy (Verified 02/02/18 21:03) Penicillins Allergy (Verified 02/02/18 21:03) Past Medical History - General Information source: Patient - Social History Smoking Status: Unknown if Ever Smoked Family History: Reviewed & Not Pertinent, Other - The patient is delirious and family history cannot be obtained. - Past Medical History Cardiac Medical History: Reports: Hx Hypercholesterolemia, Hx Hypertension Pulmonary Medical History: Reports: Hx Asthma, Hx Bronchitis, Hx COPD Denies: Hx Tuberculosis Endocrine Medical History: Reports: Hx Diabetes Mellitus Type 1, Hx Diabetes Mellitus Type 2 Renal/ Medical History: Denies: Hx Peritoneal Dialysis GI Medical History: Reports: Hx Gastroesophageal Reflux Disease, Hx Hiatal Hernia Musculoskeltal Medical History: Reports Hx Arthritis Skin Medical History: Reports Hx Cellulitis - Both lower legs for about 4-6 months Psychiatric Medical History: Reports: Hx Anxiety, Hx Depression Infectious Medical History: Past Surgical History: Reports: Hx Abdominal Surgery - MULTIPLE VENTRAL HERNIA REPAIRS WITH DEBRIDEMENT. BOWEL OBSTRUCTION. NON-HEALING ABD WOUNDS WITH CHRONIC PAIN, Hx Bowel Surgery - Right abdominal fistula, Hx Section - x3, Hx Cholecystectomy, Hx Tubal Ligation, Other - 9 hernia repairs the last 1 was in 2010 when it was done here at [facility] - Immunizations Hx Diphtheria, Pertussis, Tetanus Vaccination: Yes Hx Pneumococcal Vaccination: 02/28/12 Review of Systems - Review of Systems Notes: REVIEW OF SYSTEMS: CONSTITUTIONAL : Denies fever, chills, or sweats. Denies recent illness. EENT: Denies eye, ear, throat, or mouth pain or symptoms. Denies nasal or sinus congestion or discharge. Denies throat, tongue, or mouth swelling or difficulty swallowing. CARDIOVASCULAR: Reports chest pain. Denies palpitations or racing or irregular heart beat. Denies ankle edema. RESPIRATORY: Denies cough, cold, or chest congestion. Denies shortness of breath, difficulty breathing, or wheezing. GASTROINTESTINAL: reports chronic abdominal pain. Denies abdominal distention. reports nausea. Denies vomiting, or diarrhea. Denies blood in vomitus, stools , or per rectum. Denies black, tarry stools. Denies constipation. GENITOURINARY: Denies difficulty urinating, painful urination, burning, frequency, blood in urine, or discharge. FEMALE GENITOURINARY: Denies vaginal bleeding, heavy or abnormal periods, irregular periods. Denies vaginal discharge or odor. MUSCULOSKELETAL: Denies back or neck pain or stiffness. Denies joint pain or swelling. SKIN: Denies rash, lesions or sores. HEMATOLOGIC : Denies easy bruising or bleeding. LYMPHATIC: Denies swollen, enlarged glands. NEUROLOGICAL: Denies confusion or altered mental status. Denies passing out or loss of consciousness. Denies dizziness or lightheadedness. Denies headache. Denies weakness or paralysis or loss of use of either side. Denies problems with gait or speech. Denies sensory loss, numbness, or tingling. Denies seizures. PSYCHIATRIC: Denies anxiety or stress. Denies depression, suicidal ideation, or homicidal ideation. ALL OTHER SYSTEMS REVIEWED AND NEGATIVE. PHYSICAL EXAMINATION: GENERAL: Well-appearing, well-nourished and in no acute distress. HEAD: Atraumatic, normocephalic. EYES: Pupils equal round and reactive to light, extraocular movements intact, conjunctiva are normal. ENT: Nares patent, oropharynx clear without exudates. Moist mucous membranes. NECK: Normal range of motion, supple without lymphadenopathy LUNGS: Breath sounds clear to auscultation bilaterally and equal. No wheezes rales or rhonchi. HEART: Regular rate and rhythm without murmurs ABDOMEN: Soft, generalized diffuse tenderness, no guarding or rebound. Noted erythematous area around fistula without drainage, scant erythema around the fistula, no induration or purulent drainage noted. Nondistended abdomen. No masses appreciated. No CVA tenderness noted. Female : deferred Musculoskeletal: Normal range of motion, no pitting or edema. No cyanosis. NEUROLOGICAL: Cranial nerves grossly intact. Normal speech, normal gait. Normal sensory, motor exams PSYCH: Normal mood, normal affect. SKIN: Warm, Dry, normal turgor, no rashes or lesions noted. Dictation was performed using [employer] recognition software Physical Exam - Vital signs Vitals: Temp Pulse Resp BP Pulse Ox 97.8 F 73 18 141/86 H 100 02/03/18 08:45 02/03/18 08:45 02/03/18 08:45 02/03/18 08:45 02/03/18 08:45 Course - Re-evaluation Re-evalutation: 62-year-old female who is afebrile, in no distress vitals are stable with a history of chronic abdominal fistula presents today for concerns of bleeding this morning from her fistula, has not had any bleeding since then. Patient reports she continues to have chronic abdominal pain. CBC negative for any leukocytosis, she shows chronic anemia. CMP negative for any renal or hepatic dysfunction, noted hypokalemia, patient given 40 mEq of potassium orally for replacement. Urinalysis showed the patient had a leukocytosis, no hematuria or proteinuria. Patient consistently asked for narcotic pain medication, patient was given Toradol and Tylenol. Patient states this does not adequately relieve her pain though she knows she has been counseled numerous times on the emergency room about having realistic expectations of pain control and that she is already prescribed narcotics in the emergency room cannot be her pain management. Reevaluation, BMP showed the patient's potassium is 3.4. patient is afebrile, is in no distress. Her labs are essentially unremarkable besides hypokalemia. Discussed patient to have a higher potassium diet including bananas. Will place her on Bactrim for her UTI. Discussed the importance of using a colostomy bag, patient states that they do not leak and she does not like using them. Patient does have a wound management at her house to help facilitate the management of her fistula. Patient refused to have the colostomy bag at this point in time. All questions and concerns were answered by this provider. Patient verbalized understanding of plan of care and agree with plan of care. Patient was discharged home with an understanding to return if her symptoms become worse. 02/03/18 12:45 - Vital Signs Vital signs: Temp Pulse Resp BP Pulse Ox 97.8 F 73 18 141/86 H 100 02/03/18 08:45 02/03/18 08:45 02/03/18 08:45 02/03/18 08:45 02/03/18 08:45 - Laboratory Result Diagrams: 02/03/18 09:30 02/03/18 09:30 Laboratory results interpreted by me: 02/03/18 02/03/18 02/03/18 09:30 09:30 10:40 Hgb 8.9 L Hct 28.3 L MCV 70 L MCH 21.9 L MCHC 31.4 L RDW 19.1 H Lymphocytes % 12.5 L Potassium 3.1 L Carbon Dioxide 31 H Glucose 133 H Creatine Kinase < 20 L Total Protein 5.7 L Albumin 3.1 L Ur Leukocyte Esterase TRACE H - EKG Interpretation by Me EKG shows normal: Sinus rhythm Rate: Normal Rhythm: NSR - hr 71 bpm When compared to previous EKG there are: No significant change Discharge - Discharge Clinical Impression: chronic enterocutaneous fistula, Irritated skin surrounding fistula, Hypokalemia UTI (urinary tract infection) Qualifiers: Urinary tract infection type: acute cystitis Hematuria presence: without hematuria Qualified Code(s): N30.00 - Acute cystitis without hematuria Condition: Good Instructions: Hypokalemia ([facility]), Trimethoprim-Sulfa ([facility]), Urinary Tract Infection ([facility]) Prescriptions: Sulfamethoxazole/Trimethoprim [Bactrim Ds Tablet] 1 each PO BID #20 tablet Referrals: CHARLENE HNUT DO [Primary Care Provider] - Follow up tomorrow
[2018-02-03] MEDS ORDERED: KETOROLAC TROMETHAMINE 60 MG/2 ML SDV IM ONE (09:24)
[2018-02-03] MEDS ORDERED: ONDANSETRON 4 MG TAB.RAPDIS PO ONE (09:25)
[2018-02-03] MEDS ORDERED: DIPHENHYDRAMINE HCL 50 MG CAPSULE PO ONE (09:25)
[2018-02-03 09:46] LABS: ABSOLUTE EOSINOPHILS # (AUTO) 0.2 10^3/uL (0.0-0.6); ABSOLUTE LYMPHOCYTES (AUTO) 0.9 10^3/uL (0.5-4.7); ABSOLUTE MONOCYTES (AUTO) 0.4 10^3/uL (0.1-1.4); ABSOLUTE NEUT (AUTO) 5.8 10^3/uL (1.7-8.2); BASOPHILS % (AUTO) 0.6 % (0-2); EOSINOPHILS % (AUTO) 3.3 % (0-6); HEMATOCRIT 28.3 % (36.0-47.0); HEMOGLOBIN 8.9 g/dL (12.0-15.5); LYMPHOCYTES % (AUTO) 12.5 % (13-45); MEAN CORPUSCULAR HEMOGLOBIN 21.9 pg (27.0-33.4); MEAN CORPUSCULAR HGB CONC 31.4 g/dL (32.0-36.0); MEAN CORPUSCULAR VOLUME 70 fl (80-97); MONOCYTES % (AUTO) 5.9 % (3-13); PLATELET COUNT 423 10^3/uL (150-450); RED BLOOD COUNT 4.05 10^6/uL (3.72-5.28); RED CELL DISTRIBUTION WIDTH 19.1 % (11.5-14.0); SEGMENTED NEUTROPHILS % (AUTO) 77.7 % (42-78); TOTAL CELLS COUNTED % (AUTO) 100 %; WHITE BLOOD COUNT 7.5 10^3/uL (4.0-10.5)
--- NOTE | 2018-02-03 09:57 | RADIOLOGY REPORT (SQ) ---
EXAM DESCRIPTION: CHEST SINGLE VIEW COMPLETED DATE/TIME: 02/03/2018 9:43 am REASON FOR STUDY: upper abd pain COMPARISON: Chest films 08/22/2017, 09/03/2017 EXAM PARAMETERS: NUMBER OF VIEWS: One view. TECHNIQUE: Single frontal radiographic view of the chest acquired. RADIATION DOSE: NA LIMITATIONS: None. FINDINGS: LUNGS AND PLEURA: No opacities, masses or pneumothorax. No pleural effusion. MEDIASTINUM AND HILAR STRUCTURES: No masses. Contour normal. HEART AND VASCULAR STRUCTURES: Heart normal in size. Normal vasculature. BONES: No acute findings. HARDWARE: None in the chest. OTHER: No other significant finding. IMPRESSION: NO ACUTE RADIOGRAPHIC FINDING IN THE CHEST. TECHNICAL DOCUMENTATION: JOB ID: [id number] [employer]- All Rights Reserved Reading location - IP/workstation name: [email or web address]
[2018-02-03 10:01] LABS: ALANINE AMINOTRANSFERASE 21 U/L (9-52); ALBUMIN 3.1 g/dL (3.5-5.0); ALKALINE PHOSPHATASE 104 U/L (38-126); ANION GAP 8 (5-19); ASPARTATE AMINO TRANSFERASE 14 U/L (14-36); BILIRUBIN,DIRECT 0.1 mg/dL (0.0-0.4); BILIRUBIN,TOTAL 0.3 mg/dL (0.2-1.3); BLOOD UREA NITROGEN 15 mg/dL (7-20); CALCIUM 8.9 mg/dL (8.4-10.2); CARBON DIOXIDE 31 mmol/L (22-30); CHLORIDE 99 mmol/L (98-107); GLUCOSE 133 mg/dL (75-110); INTERNATIONAL RATION (INR) 1.09; LIPASE 47.2 U/L (23-300); POTASSIUM 3.1 mmol/L (3.6-5.0); PROTHROMBIN TIME 14.9 SEC (11.4-15.4); SODIUM 138.3 mmol/L (137-145); TOTAL PROTEIN 5.7 g/dL (6.3-8.2)
[2018-02-03 10:02] LABS: CREATINE KINASE < 20 U/L (30-135); PARTIAL THROMBOPLASTIN TIME 35.1 SEC (23.5-35.8)
[2018-02-03 10:13] LABS: CREATINE KINASE MB 0.45 ng/mL (<4.55)
[2018-02-03 10:20] LABS: TROPONIN I < 0.012 ng/mL
[2018-02-03] MEDS ORDERED: POTASSIUM CHLORIDE 10 MEQ TABLET.SA PO ONE (10:24)
[2018-02-03 11:25] LABS: APPEARANCE,URINE SLIGHTLY-CLOUDY; BILIRUBIN,URINE NEGATIVE (NEGATIVE); COLOR,URINE YELLOW; GLUCOSE, URINE NEGATIVE (NEGATIVE); KETONES,URINE NEGATIVE (NEGATIVE); LEUKOCYTE ESTERASE,URINE TRACE (NEGATIVE); NITRITE,URINE NEGATIVE (NEGATIVE); PROTEIN,URINE NEGATIVE (NEGATIVE); URINE SPECIFIC GRAVITY 1.018; UROBILINOGEN,URINE NEGATIVE mg/dL (<2.0)
[2018-02-03] MEDS ORDERED: ACETAMINOPHEN 325 MG TABLET PO ONE (12:21)
[2018-02-03 12:40] VITALS: BP 122/65
[2018-02-03 12:40] LABS: ANION GAP 7 (5-19); BLOOD UREA NITROGEN 15 mg/dL (7-20); CARBON DIOXIDE 32 mmol/L (22-30); CHLORIDE 99 mmol/L (98-107); GLUCOSE 113 mg/dL (75-110); POTASSIUM 3.4 mmol/L (3.6-5.0); SODIUM 137.5 mmol/L (137-145)
--- NOTE | 2018-02-03 21:55 | EKG REPORT ---
SEVERITY:- NORMAL ECG - SINUS RHYTHM : Confirmed by: David Fan 03-Feb-2018 21:55:18
== END 2018-02-03 12:40 | disposition home or self-care (01) ==
LOC: ER 08:39
DX: K63.2 Fistula of intestine (principal); N30.00 Acute cystitis without hematuria; E87.6 Hypokalemia; D64.9 Anemia, unspecified; L53.9 Erythematous condition, unspecified; R10.9 Unspecified abdominal pain; G89.29 Other chronic pain; R07.89 Other chest pain; J44.9 Chronic obstructive pulmonary disease, unspecified; R09.82 Postnasal drip; R05 Cough; I10 Essential (primary) hypertension; E11.9 Type 2 diabetes mellitus without complications; Z88.8 Allergy status to other drugs, medicaments and biological substances; Z88.6 Allergy status to analgesic agent; Z88.1 Allergy status to other antibiotic agents; Z88.5 Allergy status to narcotic agent; Z88.0 Allergy status to penicillin; Z93.3 Colostomy status
CPT/HCPCS: 93005; 99284; 96372; 36415; 87086; 82553; 82550; 83690; 85025; 85610; 85730; 80048; 80053; 81001; 84484; 71045; 93010; J3490 ×2; J1885; S0119

== ENCOUNTER 2018-02-12 07:00 | Emergency (ER) | payer MEDICAID ==
[2018-02-12 07:56] LABS: ABSOLUTE EOSINOPHILS # (AUTO) 0.2 10^3/uL (0.0-0.6); ABSOLUTE MONOCYTES (AUTO) 0.5 10^3/uL (0.1-1.4); BASOPHILS % (AUTO) 0.4 % (0-2); EOSINOPHILS % (AUTO) 2.8 % (0-6); HEMATOCRIT 29.3 % (36.0-47.0); HEMOGLOBIN 9.2 g/dL (12.0-15.5); LYMPHOCYTES % (AUTO) 11.6 % (13-45); MEAN CORPUSCULAR HEMOGLOBIN 22.1 pg (27.0-33.4); MEAN CORPUSCULAR HGB CONC 31.5 g/dL (32.0-36.0); MEAN CORPUSCULAR VOLUME 70 fl (80-97); MONOCYTES % (AUTO) 5.5 % (3-13); PLATELET COUNT 625 10^3/uL (150-450); RED BLOOD COUNT 4.18 10^6/uL (3.72-5.28); RED CELL DISTRIBUTION WIDTH 18.6 % (11.5-14.0); SEGMENTED NEUTROPHILS % (AUTO) 79.7 % (42-78); TOTAL CELLS COUNTED % (AUTO) 100 %; WHITE BLOOD COUNT 8.8 10^3/uL (4.0-10.5)
[2018-02-12 08:08] LABS: ALANINE AMINOTRANSFERASE 24 U/L (9-52); ALBUMIN 3.5 g/dL (3.5-5.0); ALKALINE PHOSPHATASE 134 U/L (38-126); ANION GAP 10 (5-19); ASPARTATE AMINO TRANSFERASE 13 U/L (14-36); BILIRUBIN,DIRECT 0.2 mg/dL (0.0-0.4); BILIRUBIN,TOTAL 0.4 mg/dL (0.2-1.3); BLOOD UREA NITROGEN 12 mg/dL (7-20); CALCIUM 9.5 mg/dL (8.4-10.2); CARBON DIOXIDE 28 mmol/L (22-30); CHLORIDE 104 mmol/L (98-107); GLUCOSE 133 mg/dL (75-110); POTASSIUM 4.2 mmol/L (3.6-5.0); TOTAL PROTEIN 6.8 g/dL (6.3-8.2)
[2018-02-12 08:17] VITALS: BP 148/59
--- NOTE | 2018-02-12 08:27 | ER Document Report ---
ED General - General Chief Complaint: Abdominal Pain Stated Complaint: ABDOMINAL PAIN Time Seen by Provider: 02/12/18 07:22 TRAVEL OUTSIDE OF THE [place] IN LAST 30 DAYS: No - HPI Patient complains to provider of: Abdominal pain chronic draining cutaneous fistula Notes: Patient is very well-known to this ER coming in today for abdominal pain evaluation of her chronic draining cutaneous fistula. Patient has been seen multiple times per our surgical team recommended a colostomy bag placed on the draining fistula. Patient states that the colostomy bag never stays states that the drainage continues patient currently has a little to be a ABD pad placed over the draining fistula. Patient also is complaining of left lower quadrant abdominal pain. Patient has a known hernia in this area has been CT scan multiple times with loops of bowel. Patient denies any nausea vomiting states she is having gas. Patient states her pain has increased. Patient states she did take her chronic pain medication at 3:00 currently requesting her next dose. No fevers chills no recent antibiotics - Related Data Allergies/Adverse Reactions: celecoxib [From Celebrex] Allergy (Mild, Verified 02/02/18 21:03) Urticaria aspirin [Aspirin] Allergy (Verified 02/02/18 21:03) Hives cephalexin monohydrate [From Keflex] Allergy (Verified 02/02/18 21:03) clindamycin [Clindamycin] Allergy (Verified 02/02/18 21:03) Hives lisinopril [Lisinopril] Allergy (Verified 02/02/18 21:03) methadone [Methadone] Allergy (Verified 02/02/18 21:03) metoprolol tartrate [From Lopressor] Allergy (Verified 02/02/18 21:03) Penicillins Allergy (Verified 02/02/18 21:03) Past Medical History - Social History Smoking Status: Unknown if Ever Smoked Family History: Reviewed & Not Pertinent, Other - The patient is delirious and family history cannot be obtained. Patient has suicidal ideation: No Patient has homicidal ideation: No - Past Medical History Cardiac Medical History: Reports: Hx Hypercholesterolemia, Hx Hypertension Pulmonary Medical History: Reports: Hx Asthma, Hx Bronchitis, Hx COPD Denies: Hx Tuberculosis Endocrine Medical History: Reports: Hx Diabetes Mellitus Type 1, Hx Diabetes Mellitus Type 2 Renal/ Medical History: Denies: Hx Peritoneal Dialysis GI Medical History: Reports: Hx Gastroesophageal Reflux Disease, Hx Hiatal Hernia Musculoskeltal Medical History: Reports Hx Arthritis Skin Medical History: Reports Hx Cellulitis - Both lower legs for about 4-6 months Psychiatric Medical History: Reports: Hx Anxiety, Hx Depression Infectious Medical History: Past Surgical History: Reports: Hx Abdominal Surgery - MULTIPLE VENTRAL HERNIA REPAIRS WITH DEBRIDEMENT. BOWEL OBSTRUCTION. NON-HEALING ABD WOUNDS WITH CHRONIC PAIN, Hx Bowel Surgery - Right abdominal fistula, Hx Section - x3, Hx Cholecystectomy, Hx Tubal Ligation, Other - 9 hernia repairs the last 1 was in 2010 when it was done here at [facility] - Immunizations Hx Diphtheria, Pertussis, Tetanus Vaccination: Yes Hx Pneumococcal Vaccination: 02/28/12 Review of Systems - Review of Systems Constitutional: No symptoms reported EENT: No symptoms reported Cardiovascular: No symptoms reported Respiratory: No symptoms reported Gastrointestinal: Abdominal pain Genitourinary: No symptoms reported Female Genitourinary: No symptoms reported Musculoskeletal: No symptoms reported Skin: No symptoms reported Hematologic/Lymphatic: No symptoms reported Neurological/Psychological: No symptoms reported -: Yes All other systems reviewed and negative Physical Exam - Vital signs Vitals: Temp Pulse Resp BP Pulse Ox 98.6 F 84 16 161/64 H 99 02/12/18 07:39 02/12/18 07:39 02/12/18 07:39 02/12/18 07:39 02/12/18 07:39 Interpretation: Normal - General General appearance: Appears well, Alert - HEENT Head: Normocephalic, Atraumatic Eyes: Normal Pupils: PERRL - Respiratory Respiratory status: No respiratory distress Chest status: Nontender Breath sounds: Normal Chest palpation: Normal - Cardiovascular Rhythm: Regular Heart sounds: Normal auscultation Murmur: No - Abdominal Inspection: No: Normal - Patient with a dressing in the right lower quadrant where the patient has a chronic draining cutaneous fistula unfortunately dressing was changed while diet bedside however the outside of the dressing did not show any signs of infection no streaking. Patient does have a left lower quadrant hernia is otherwise soft Distension: No distension Bowel sounds: Normal Tenderness: Nontender Organomegaly: No organomegaly - Back Back: Normal, Nontender - Extremities General upper extremity: Normal inspection, Nontender, Normal color, Normal ROM , Normal temperature General lower extremity: Normal inspection, Nontender, Normal color, Normal ROM , Normal temperature, Normal weight bearing. No: Osvaldo's sign - Neurological Neuro grossly intact: Yes Cognition: Normal Orientation: AAOx4 [place] Coma Scale Eye Opening: Spontaneous James Coma Scale Verbal: Oriented James Coma Scale Motor: Obeys Commands [place] Coma Scale Total: 15 Speech: Normal Motor strength normal: LUE, RUE, LLE, RLE Sensory: Normal - Psychological Associated symptoms: Normal affect, Normal mood - Skin Skin Temperature: Warm Skin Moisture: Dry Skin Color: Normal Course - Re-evaluation Re-evalutation: 02/12/18 14:18 Patient with multiple chronic abdominal issues with no change in her laboratory studies today. Patient able ambulate without difficulty. Patient is requesting pain medication here. Patient was told take her chronic medical medication at home is that she has no fever no white count patient was encouraged to follow-up with her surgical team for further evaluation. No suspect any signs of abdominal infection ileus obstruction patient had no nausea no vomiting while here in the. The patient presents with abdominal pain without signs of peritonitis or other life-threatening or serious etiology. The patient appears stable for discharge and has been instructed to return immediately if the symptoms worsen in any way, or in 8-12hr if not improved for re-evaluation. The patient has been instructed to return if the symptoms worsen or change in any way. - Vital Signs Vital signs: Temp Pulse Resp BP Pulse Ox 98 F 82 16 148/59 H 100 02/12/18 08:16 02/12/18 08:16 02/12/18 08:16 02/12/18 08:16 02/12/18 08:16 - Laboratory Result Diagrams: 02/12/18 07:35 02/12/18 07:35 Laboratory results interpreted by me: 02/12/18 02/12/18 07:35 07:35 Hgb 9.2 L Hct 29.3 L MCV 70 L MCH 22.1 L MCHC 31.5 L RDW 18.6 H Plt Count 625 H Seg Neutrophils % 79.7 H Lymphocytes % 11.6 L Glucose 133 H AST 13 L Alkaline Phosphatase 134 H Discharge - Discharge Clinical Impression: chronic enterocutaneous fistula Abdominal pain Qualifiers: Abdominal location: unspecified location Qualified Code(s): R10.9 - Unspecified abdominal pain Condition: Good Disposition: HOME, SELF-CARE Instructions: Abdominal Pain ([facility]) Additional Instructions: Your laboratory studies today did not show any acute changes. No signs of infection. You have a chronic draining subcutaneous fistula that will need to be followed by your surgical team our specialized surgical clinic. Continue your home medications return to ER for fevers or any other concerning etiology. Referrals: CHARLENE GAMEZ, [Primary Care Provider] - Follow up as needed
== END 2018-02-12 08:30 | disposition home or self-care (01) ==
LOC: ER 07:00
DX: L98.8 Other specified disorders of the skin and subcutaneous tissue (principal); R10.9 Unspecified abdominal pain; E78.00 Pure hypercholesterolemia, unspecified; I10 Essential (primary) hypertension; J44.9 Chronic obstructive pulmonary disease, unspecified; E11.9 Type 2 diabetes mellitus without complications; Z88.6 Allergy status to analgesic agent; Z88.3 Allergy status to other anti-infective agents; Z88.0 Allergy status to penicillin; Z93.3 Colostomy status; Z90.49 Acquired absence of other specified parts of digestive tract; Z98.51 Tubal ligation status
CPT/HCPCS: 36415; 80053; 85025; 99284

== ENCOUNTER 2019-10-14 22:32 | Emergency (ER) | payer MEDICAID ==
[2019-10-14 23:35] LABS: ABSOLUTE EOSINOPHILS # (AUTO) 0.2 10^3/uL (0.0-0.6); ABSOLUTE MONOCYTES (AUTO) 0.4 10^3/uL (0.1-1.4); ABSOLUTE NEUT (AUTO) 4.4 10^3/uL (1.7-8.2); BASOPHILS % (AUTO) 0.6 % (0-2); HEMATOCRIT 34.3 % (36.0-47.0); LYMPHOCYTES % (AUTO) 17.1 % (13-45); MEAN CORPUSCULAR HEMOGLOBIN 24.5 pg (27.0-33.4); MEAN CORPUSCULAR HGB CONC 32.2 g/dL (32.0-36.0); MEAN CORPUSCULAR VOLUME 76 fl (80-97); PLATELET COUNT 348 10^3/uL (150-450); RED BLOOD COUNT 4.51 10^6/uL (3.72-5.28); RED CELL DISTRIBUTION WIDTH 17.9 % (11.5-14.0); SEGMENTED NEUTROPHILS % (AUTO) 73.3 % (42-78); TOTAL CELLS COUNTED % (AUTO) 100 %
[2019-10-14 23:52] LABS: ALBUMIN 4.3 g/dL (3.5-5.0); ALKALINE PHOSPHATASE 245 U/L (38-126); ANION GAP 12 (5-19); ASPARTATE AMINO TRANSFERASE 33 U/L (14-36); BILIRUBIN,DIRECT 0.3 mg/dL (0.0-0.4); BILIRUBIN,TOTAL 0.7 mg/dL (0.2-1.3); BLOOD UREA NITROGEN 17 mg/dL (7-20); CALCIUM 9.2 mg/dL (8.4-10.2); CARBON DIOXIDE 26 mmol/L (22-30); CHLORIDE 103 mmol/L (98-107); GLUCOSE 109 mg/dL (75-110); POTASSIUM 3.9 mmol/L (3.6-5.0); TOTAL PROTEIN 8.3 g/dL (6.3-8.2)
[2019-10-15 00:01] LABS: APPEARANCE,URINE CLEAR; BILIRUBIN,URINE NEGATIVE (NEGATIVE); COLOR,URINE YELLOW; GLUCOSE, URINE NEGATIVE (NEGATIVE); KETONES,URINE NEGATIVE (NEGATIVE); LEUKOCYTE ESTERASE,URINE NEGATIVE (NEGATIVE); NITRITE,URINE NEGATIVE (NEGATIVE); PROTEIN,URINE 30 mg/dL (NEGATIVE); URINE SPECIFIC GRAVITY 1.012; UROBILINOGEN,URINE NEGATIVE mg/dL (<2.0)
[2019-10-15] MEDS ORDERED: AMLODIPINE BESYLATE 10 MG TABLET PO ONE (06:20)
[2019-10-15] MEDS ORDERED: CLONIDINE HCL 0.2 MG TABLET PO ONE (06:21)
[2019-10-15] MEDS ORDERED: LOSARTAN POTASSIUM 50 MG TABLET PO ONE ×2 (06:21→06:26)
[2019-10-15] MEDS ORDERED: OXYCODONE HCL IR 5 MG TABLET PO ONE (06:21)
[2019-10-15] MEDS ORDERED: ONDANSETRON 4 MG TAB.RAPDIS PO ONE (06:22)
--- NOTE | 2019-10-15 06:31 | ER Document Report ---
ED GI/ - General Chief Complaint: Lower Abdominal Pain Stated Complaint: ABDOMINAL PAIN,BLOOD PRESSURE PROBLEMS Time Seen by Provider: 10/15/19 06:00 Mode of Arrival: Ambulatory Information source: Patient, [facility] Records Notes: This 64-year-old female patient comes emergency room complaining of pain to a large left lower quadrant abdominal hernia. She states is more painful tonight than usual, she claims she is vomited twice and has nausea. The patient is under chronic pain management from [place], she just moved back here on 09/29/2019, after having been gone for 1-1/2 years. She was a frequent visitor to the emergency room requesting narcotic pain medications prior to her moving away, probably in January 2018. She did get her chronic cutaneous fistula repaired while she was living in [place]. The patient did not bring any of her medications to the emergency room with her, claiming she has been told that not to bring her medicines to the ER when she comes for her visits. She states she takes losartan, unknown dose, amlodipine unknown dose, clonidine 0.3 mg 3 times daily as needed, labetalol possibly 100 mg dose unknown frequency. She also takes Lasix 40 mg daily, Lyrica 150 mg daily, and oxycodone 30 mg 4 times daily. She reports she has 3 to 4 days of pain medication left before she runs out. She states she has not been able to get a primary care provider because she lives in a hotel and does not have a real address. She has been here in the emergency room about 8 hours at this point. She states the reason that her blood pressure is so high, is that she has been in emergency room all night long and not able to take her medication. TRAVEL OUTSIDE OF THE [place] IN LAST 30 DAYS: No - Related Data Allergies/Adverse Reactions: celecoxib [From Celebrex] Allergy (Mild, Verified 02/02/18 21:03) Urticaria aspirin [Aspirin] Allergy (Verified 02/02/18 21:03) Hives cephalexin monohydrate [From Keflex] Allergy (Verified 02/02/18 21:03) clindamycin [Clindamycin] Allergy (Verified 02/02/18 21:03) Hives lisinopril [Lisinopril] Allergy (Verified 02/02/18 21:03) methadone [Methadone] Allergy (Verified 02/02/18 21:03) metoprolol tartrate [From Lopressor] Allergy (Verified 02/02/18 21:03) Penicillins Allergy (Verified 02/02/18 21:03) Home Medications: lasix 40 mg qday, lyrica 150 mg qday, oxycodone 30 mg qid Past Medical History - General Information source: Patient, [facility] Records - Social History Smoking Status: Unknown if Ever Smoked Cigarette use (# per day): No Chew tobacco use (# tins/day): No Smoking Education Provided: No Frequency of alcohol use: None Drug Abuse: None Occupation: Unemployed Lives with: Other - Motel room Family History: Reviewed & Not Pertinent, Other - The patient is delirious and family history cannot be obtained. 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 BOWEL OBSTRUCTION. NON-HEALING ABD WOUNDS WITH CHRONIC PAIN, Hx Bowel Surgery - Right abdominal fistula, Hx Section - x3, Hx Cholecystectomy, Hx Tubal Ligation, Other - 10 hernia repairs. Closure of cutaneous fistula in the past year. - Immunizations Hx Diphtheria, Pertussis, Tetanus Vaccination: Yes Hx Pneumococcal Vaccination: 02/28/12 Review of Systems - Review of Systems Constitutional: No symptoms reported EENT: Blurred vision - States this is due to her "water on the brain". Cardiovascular: No symptoms reported Respiratory: No symptoms reported Gastrointestinal: See HPI, Abdominal pain, Diarrhea - Chronic diarrhea Genitourinary: No symptoms reported Female Genitourinary: Post menopausal Musculoskeletal: No symptoms reported Skin: No symptoms reported Hematologic/Lymphatic: No symptoms reported Neurological/Psychological: Headaches Physical Exam - Vital signs Vitals: Temp Pulse Resp BP Pulse Ox 97.4 F 72 20 220/73 H 100 10/14/19 22:51 10/14/19 22:51 10/14/19 22:51 10/14/19 22:51 10/14/19 22:51 Interpretation: Hypertensive - General General appearance: Appears well, Alert In distress: None - HEENT Head: Normocephalic, Atraumatic Eyes: Normal Pupils: PERRL - Respiratory Respiratory status: No respiratory distress Breath sounds: Normal - Cardiovascular Rhythm: Regular Heart sounds: Normal auscultation Murmur: No - Abdominal Inspection: Morbidly Obese Bowel sounds: Normal Tenderness: Tender - Patient has a very large tender hernia in the left lower quadrant of her abdomen which is chronic in nature. - Back Back: Normal - Extremities General upper extremity: Normal inspection General lower extremity: Normal inspection - Neurological Neuro grossly intact: Yes - Psychological Associated symptoms: Normal affect, Normal mood - Skin Skin Temperature: Warm Skin Moisture: Dry Skin Color: Normal Course - Re-evaluation Re-evalutation: 10/15/19 08:57 I went to check on the patient to discuss her discharge, she is sound asleep. She does arouse but keeps wanting to go back to sleep. Her blood pressure is now down to 122 systolic after being in the 220 range most of the night. The blood pressure medication she was given were less than what she reports she usually takes for blood pressure management. We will give her a bottle of mag citrate to start sipping on and hold her until she is fully awake and safe to be discharged. - Vital Signs Vital signs: Temp Pulse Resp BP Pulse Ox 98.0 F 71 16 123/56 L 95 10/15/19 07:02 10/15/19 05:00 10/15/19 08:01 10/15/19 08:01 10/15/19 07:35 - Laboratory Result Diagrams: 10/14/19 23:13 10/14/19 23:13 Laboratory results interpreted by me: 10/14/19 10/14/19 10/14/19 23:13 23:13 23:13 Hgb 11.0 L Hct 34.3 L MCV 76 L MCH 24.5 L RDW 17.9 H Alkaline Phosphatase 245 H Total Protein 8.3 H Urine Protein 30 H - Diagnostic Test Radiology reviewed: Image reviewed, Reports reviewed - Acute abdominal series shows nonobstructive bowel gas pattern. There is a large amount of stool in the colon within the large left abdominal wall hernia. Discharge - Discharge Clinical Impression: Chronic abdominal pain, Abdominal wall hernia Constipation Qualifiers: Constipation type: drug induced constipation Qualified Code(s): K59.03 - Drug induced constipation Condition: Stable Disposition: HOME, SELF-CARE Additional Instructions: Constipation Constipation is a common problem. It is especially likely as you get older. Constipation is a common cause of abdominal pain, but sometimes causes no symptoms at all. Causes of constipation include certain medications, dehydration, diets, inactivity, and low-fiber intake. Rarely, it can be a symptom of underlying disease. The physician has evaluated you for this. Avoid constipation by eating a diet high in fiber, fruits, and vegetables. Drink plenty of liquids. Get regular exercise. If possible, avoid constipating medicines like narcotic pain medication. Some vitamin tablets can cause constipation. Stool softeners may be needed for difficult cases. An excellent stool softener is Konsyl which is available at [employer] [employer]. Just add a teaspoon to a glass of pineapple or orange juice daily or twice a day if needed. Laxatives are useful for occasional constipation. You should use them only when necessary. Too-frequent use can make your bowels dependent on them. Some over the counter laxatives available without prescription are: Milk of Magnesia, 1-2 tablespoons twice a day Dulcolax, 5 mg pill or 10 mg suppository. Citrate of Magnesia, 4-5 ounces a day for a day or two Your abdominal x-rays do not show bowel obstruction. There is considerable amount of stool in the colon, particularly within the large abdominal wall hernia. This constipation is likely the cause of your increased discomfort. Unfortunately, narcotics cause constipation and contribute to the problem. You should drink a bottle of mag citrate today, and plenty of fluids. Start taking something like MiraLAX every day to help prevent constipation. Be sure you do not miss your regularly scheduled blood pressure medications. You did receive clonidine 0.3 mg, amlodipine 10 mg, and valsartan 50 mg this morning. You did not know the dose of your blood pressure medications except for the clonidine 0.3 mg 3 times daily as needed. You should take your labetalol when you get home. If your valsartan dose was 100 mg, then you should take an additional half of a tablet. Follow-up with a primary care provider and a pain management provider this week. The emergency room does not provide chronic pain management. RETURN TO THE EMERGENCY ROOM IF ANY NEW OR WORSENING SYMPTOMS.
--- NOTE | 2019-10-15 08:23 | RADIOLOGY REPORT (SQ) ---
EXAM DESCRIPTION: ACUTE ABDOMEN SERIES COMPLETED DATE/TIME: 10/15/2019 7:32 am REASON FOR STUDY: LLQ hernia, C/O pain, nausea COMPARISON: 2016 NUMBER OF VIEWS: Three views. TECHNIQUE: Frontal chest, supine abdomen and upright/decubitus abdomen radiographic images acquired. LIMITATIONS: [place]. FINDINGS: CHEST: Lungs clear of infiltrates. FREE AIR: None. No abnormal gas collections. BOWEL GAS PATTERN: Nonobstructive pattern. Large amount of stool in the left abdomen. Broad left ab dominal hernia. CALCIFICATIONS: No suspicious calcifications. HARDWARE: None in the abdomen. SOFT TISSUES: No gross mass or suggestion of organomegaly. BONES: No acute fracture. No worrisome bone lesions. OTHER: No other significant finding. IMPRESSION: Stool retention. Large abdominal hernia. TECHNICAL DOCUMENTATION: JOB ID: [id number] [employer]- All Rights Reserved Reading location - IP/workstation name: [email or web address]
[2019-10-15] MEDS ORDERED: MAGNESIUM CITRATE 296 ML BOTTLE PO ONE (08:52)
[2019-10-15 09:07] VITALS: BP 119/56
== END 2019-10-15 11:09 | disposition home or self-care (01) ==
LOC: ER 22:32
DX: K43.9 Ventral hernia without obstruction or gangrene (principal); K59.03 Drug induced constipation; T50.905A Adverse effect of unspecified drugs, medicaments and biological substances, initial encounter; K52.9 Noninfective gastroenteritis and colitis, unspecified; R51 Headache; R11.2 Nausea with vomiting, unspecified; E11.9 Type 2 diabetes mellitus without complications; I10 Essential (primary) hypertension; J44.9 Chronic obstructive pulmonary disease, unspecified; R10.32 Left lower quadrant pain; G89.29 Other chronic pain; Z79.891 Long term (current) use of opiate analgesic; Z79.899 Other long term (current) drug therapy; Z88.8 Allergy status to other drugs, medicaments and biological substances; Z88.1 Allergy status to other antibiotic agents; Z88.6 Allergy status to analgesic agent; Z88.5 Allergy status to narcotic agent; Z88.0 Allergy status to penicillin; H53.8 Other visual disturbances
CPT/HCPCS: 99284; 36415; 83690; 85025; 80053; 81001; 74022; J3490; S0119

== ENCOUNTER 2019-11-02 20:16 | Emergency (ER) | payer MEDICAID ==
--- NOTE | 2019-11-02 21:28 | ER Document Report ---
ED General - General Chief Complaint: Abdominal Pain Stated Complaint: ABDOMINAL PAIN Time Seen by Provider: 11/02/19 20:51 Primary Care Provider: CHARLENE GAMEZ DO [Primary Care Provider] - Follow up as needed TRAVEL OUTSIDE OF THE [place] IN LAST 30 DAYS: No - Related Data Allergies/Adverse Reactions: celecoxib [From Celebrex] Allergy (Mild, Verified 02/02/18 21:03) Urticaria aspirin [Aspirin] Allergy (Verified 02/02/18 21:03) Hives cephalexin monohydrate [From Keflex] Allergy (Verified 02/02/18 21:03) clindamycin [Clindamycin] Allergy (Verified 02/02/18 21:03) Hives lisinopril [Lisinopril] Allergy (Verified 02/02/18 21:03) methadone [Methadone] Allergy (Verified 02/02/18 21:03) metoprolol tartrate [From Lopressor] Allergy (Verified 02/02/18 21:03) Penicillins Allergy (Verified 02/02/18 21:03) Home Medications: amlodipine 10mg. lyrica 150mg. labetalol 100mg. plavix 75. naloxone 0.4. oxycodone 30 mg Past Medical History - Social History Smoking Status: Former Smoker Family History: Reviewed & Not Pertinent, Other - The patient is delirious and family history cannot be obtained. Patient has suicidal ideation: No Patient has homicidal ideation: No - Past Medical History Cardiac Medical History: Reports: Hx Hypercholesterolemia, Hx Hypertension Pulmonary Medical History: Reports: Hx Asthma, Hx Bronchitis, Hx COPD Endocrine Medical History: Reports: Hx Diabetes Mellitus Type 1, Hx Diabetes Mellitus Type 2 Renal/ Medical History: Denies: Hx Peritoneal Dialysis GI Medical History: Reports: Hx Gastroesophageal Reflux Disease, Hx Hiatal Hernia Musculoskeletal Medical History: Reports Hx Arthritis, Denies Hx Systemic Lupus Erythematosus Skin Medical History: Reports Hx Cellulitis - Both lower legs for about 4-6 months Psychiatric Medical History: Reports: Hx Anxiety, Hx Depression Infectious Medical History: Past Surgical History: Reports: Hx Abdominal Surgery - MULTIPLE VENTRAL HERNIA REPAIRS WITH DEBRIDEMENT. BOWEL OBSTRUCTION. NON-HEALING ABD WOUNDS WITH CHRONIC PAIN, Hx Bowel Surgery - Right abdominal fistula, Hx Section - x3, Hx Cholecystectomy, Hx Tubal Ligation, Other - 10 hernia repairs. Closure of cutaneous fistula in the past year. - Immunizations Hx Diphtheria, Pertussis, Tetanus Vaccination: Yes Hx Pneumococcal Vaccination: 02/28/12 Physical Exam - Vital signs Vitals: Resp Pulse Ox 17 100 11/02/19 20:44 11/02/19 20:44 - Notes Notes: Patient presents emerged department complaining of increasing left lower quadrant abdominal pain for the past day. She has a history of chronic abdominal pain secondary to a large ventral hernia that is unrepairable. She is elevated nausea but no vomiting appetite is been decreased he said no diarrhea or dysuria had a normal bowel movement this morning fevers chest pain or shortness of breath. 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 She has a history of chronic abdominal pain with and was a frequent ER visitor until sometime in 2018 when she says she moved back to [place] and had the fistula repaired. She recently moved back to the area recently seen here on October 19 with abdominal pain and that she was almost out of her pain medicine there is no mention of a stroke Social history does not smoke or drink at all. Review of systems pertinent positives and negatives in HPI otherwise all the systems were reviewed and acutely negative PHYSICIAN EXAM -vital signs are noted triage note and note from triage reviewed GENERAL: Well-appearing, well-nourished and in __no acute distress____ HEAD: Atraumatic, normocephalic. EYES: Pupils equal round and reactive to light, extraocular movements intact, sc merna anicteric, conjunctiva are normal. ENT: nares patent, oropharynx clear without exudates. Slightly dry mucous membranes. NECK: supple without lymphadenopathy LUNGS: Breath sounds clear to auscultation bilaterally and equal. No wheezes rales or rhonchi. HEART: Regular rate and rhythm without murmurs ABDOMEN: Soft, positive bowel sounds she is morbidly obese. Multiple old scars. She is got very large ventral hernia that takes up and was on her left side of the abdomen that soft and minimally tender no evidence of incarceration EXTREMITIES: No deformity, no edema. NEUROLOGICAL: Oriented x4. Moves all 4 extremities spontaneously PSYCH: Normal mood, normal affect. SKIN: Warm, Dry, normal turgor, no rashes or lesions noted. BACK-nontender in the midline Differential diagnosis is viral syndrome dehydration patient chronic pain narcotic withdrawal Course - Re-evaluation Re-evalutation: 11/03/19 00:08 ED patient has remained stable he was given IV fluids and Zofran. She has symptoms last for pain medicines advised patient to likely give any pain medicines until we test results. Letter says she told nursing staff that she wanted to leave. Advised the patient that her labs were normal and x-ray showed some large amount of stool I recommended I like MiraLAX but she tells me that she does not want that because she moves her bowels several times a day. She is still requesting pain medicine advised the patient that she had received a prescription on 26 October that should last for 9 days should not be out by now. Of note she was here on 15 October indicating that she only had a few days left of her pain medicines also. Medical decision making patient presents with chronic abdominal pain. Requesting refills of her medications by the patient and we will treat chronic pain here we do not fill prescriptions for chronic pain. Will go and discharge patient home given a prescription for Zofran and start a pack of ice drink plenty fluids bland diet advised her that she can follow-up in the clinic tomorrow and they may be to refill her medications. Also advised that she go on a bland diet for the next couple days and that she will need her blood pressure rechecked again At this time there is no indication for admission. I have discussed the findings with patient/family with return precautions and follow-up recommendations. Verbal discharge instructions given at the bedside and opportunity for questions given. Medication warnings were given if indicated. Patient is in agreement with this plan and has verbalized understanding of return precautions and the need for primary care follow-up as directed.. 11/03/19 00:11 - Vital Signs Vital signs: Temp Pulse Resp BP Pulse Ox 98.2 F 19 172/96 H 99 11/02/19 20:52 11/02/19 23:05 11/02/19 23:05 11/02/19 23:05 - Laboratory Result Diagrams: 11/02/19 22:17 11/02/19 22:17 Laboratory results interpreted by me: 11/02/19 11/02/19 22:17 22:17 Hgb 11.4 L Hct 34.8 L MCV 76 L MCH 25.1 L RDW 17.9 H Carbon Dioxide 31 H Glucose 117 H Alkaline Phosphatase 154 H - Diagnostic Test Radiology reviewed: Reports reviewed Discharge - Discharge Clinical Impression: Chronic abdominal pain Disposition: HOME, SELF-CARE Instructions: Abdominal Pain ([facility]) Additional Instructions: Abdominal Pain There are many causes of abdominal pain. Pain can mean a serious problem requiring surgery (such as appendicitis). It can also be an innocent problem that goes away on its own (such as a viral infection). Often, time must pass to determine the cause of pain. The physician does not feel that hospitalization is necessary, at present. Things may change within the next 24 hours. Call the doctor or come back for re- examination if any problems occur, such as: (1) Pain that becomes more severe, steady, or becomes concentrated in one specific area. Also, pain that is more severe with movement or coughing. (2) Vomiting that persists or becomes more frequent. (3) Blood in the vomitus, urine, or bowel movements. Blood in the stool may have a tarry or black appearance. (4) Shaking chills or fever greater than 100 degrees F. (5) The abdomen becomes more distended or swollen. (6) Bowel movements cease. (7) Failure to improve as expected. Please review the discharge instructions, they will tell you about your diseas e/injury and what you need to return to the ED for Return to the ED if you feel worse or can follow-up with your family doctor Drink plenty of fluids You can call the clinic tomorrow see if they will refill your pain medicines Your blood pressure was elevated today needs to be rechecked again in 1 to 2 weeks to determine if need to be on medication or have your medications adjusted. Untreated hypertension can cause heart attack stroke and kidney failure Stay on a bland diet for 2 to 3 days avoiding fatty greasy foods Prescriptions: Ondansetron HCl [Zofran 4 mg Tablet] 1 tab PO Q4H PRN #10 tablet PRN Reason: Referrals: CHARLENE GAMEZ DO [Primary Care Provider] - Follow up as needed
[2019-11-02] MEDS ORDERED: NORMAL SALINE 1000 ML 1,000 ML IV ONE ×3 (21:29→22:16)
[2019-11-02] MEDS ORDERED: ONDANSETRON HCL INJ/PF 4 MG/2 ML SDV IV ONE (21:30)
[2019-11-02 22:38] LABS: ABSOLUTE EOSINOPHILS # (AUTO) 0.2 10^3/uL (0.0-0.6); ABSOLUTE MONOCYTES (AUTO) 0.4 10^3/uL (0.1-1.4); ABSOLUTE NEUT (AUTO) 5.3 10^3/uL (1.7-8.2); BASOPHILS % (AUTO) 0.5 % (0-2); EOSINOPHILS % (AUTO) 2.6 % (0-6); HEMATOCRIT 34.8 % (36.0-47.0); HEMOGLOBIN 11.4 g/dL (12.0-15.5); LYMPHOCYTES % (AUTO) 14.6 % (13-45); MEAN CORPUSCULAR HEMOGLOBIN 25.1 pg (27.0-33.4); MEAN CORPUSCULAR HGB CONC 32.8 g/dL (32.0-36.0); MEAN CORPUSCULAR VOLUME 76 fl (80-97); MONOCYTES % (AUTO) 5.4 % (3-13); PLATELET COUNT 279 10^3/uL (150-450); RED BLOOD COUNT 4.55 10^6/uL (3.72-5.28); RED CELL DISTRIBUTION WIDTH 17.9 % (11.5-14.0); SEGMENTED NEUTROPHILS % (AUTO) 76.9 % (42-78); TOTAL CELLS COUNTED % (AUTO) 100 %; WHITE BLOOD COUNT 6.9 10^3/uL (4.0-10.5)
[2019-11-02 23:01] LABS: ALBUMIN 3.8 g/dL (3.5-5.0); ALKALINE PHOSPHATASE 154 U/L (38-126); ANION GAP 10 (5-19); ASPARTATE AMINO TRANSFERASE 29 U/L (14-36); BILIRUBIN,DIRECT 0.4 mg/dL (0.0-0.4); BILIRUBIN,TOTAL 0.6 mg/dL (0.2-1.3); BLOOD UREA NITROGEN 13 mg/dL (7-20); CALCIUM 8.5 mg/dL (8.4-10.2); CARBON DIOXIDE 31 mmol/L (22-30); CHLORIDE 102 mmol/L (98-107); GLUCOSE 117 mg/dL (75-110); POTASSIUM 3.7 mmol/L (3.6-5.0); TOTAL PROTEIN 7.5 g/dL (6.3-8.2)
[2019-11-02] MEDS ORDERED: ONDANSETRON ODT 4 MG TAB (6 TAB/ER DISP) PO PRN (23:37)
--- NOTE | 2019-11-03 00:04 | RADIOLOGY REPORT (SQ) ---
EXAM DESCRIPTION: XR ABDOMEN 1 VIEW (KUB) COMPLETED DATE/TME: 11/02/2019 21:35 CLINICAL HISTORY: 64 years, Female, Pain COMPARISON: Prior study from 01/06/2018 NUMBER OF VIEWS: Three TECHNIQUE: Three frontal radiographs were obtained LIMITATIONS: None. FINDINGS: Gas and a large amount of stool are noted throughout the large bowel. In addition, a few gas distended loops of bowel are visible about the abdomen. There is likely a large ventral hernia located about the left lower quadrant given the presence of a large amount of bowel emanating into the soft tissues of the abdomen at this location. This appears similar to the previous examination dated 01/06/2018. Surgical clips project over the right upper quadrant. Multilevel thoracolumbar spondylosis is evident along with mild leftward curvature of the lumbar spine. No suspicious soft tissue calcifications. IMPRESSION: Indeterminate bowel gas pattern. Large colonic stool load with large ventral hernia located about the left lower quadrant. copyright 2010 [employer]- All Rights Reserved
[2019-11-03 00:12] LABS: APPEARANCE,URINE CLEAR; BILIRUBIN,URINE NEGATIVE (NEGATIVE); COLOR,URINE STRAW; GLUCOSE, URINE NEGATIVE (NEGATIVE); KETONES,URINE NEGATIVE (NEGATIVE); LEUKOCYTE ESTERASE,URINE NEGATIVE (NEGATIVE); NITRITE,URINE NEGATIVE (NEGATIVE); PROTEIN,URINE 30 mg/dL (NEGATIVE); UROBILINOGEN,URINE NEGATIVE mg/dL (<2.0)
[2019-11-03 00:18] VITALS: BP 172/92
== END 2019-11-03 00:17 | disposition home or self-care (01) ==
LOC: ER 20:16
DX: K43.9 Ventral hernia without obstruction or gangrene (principal); R10.32 Left lower quadrant pain; G89.29 Other chronic pain; R11.0 Nausea; R63.0 Anorexia; I69.354 Hemiplegia and hemiparesis following cerebral infarction affecting left non-dominant side; I10 Essential (primary) hypertension; J44.9 Chronic obstructive pulmonary disease, unspecified; E11.9 Type 2 diabetes mellitus without complications; Z79.899 Other long term (current) drug therapy; Z79.02 Long term (current) use of antithrombotics/antiplatelets; Z87.891 Personal history of nicotine dependence; Z88.8 Allergy status to other drugs, medicaments and biological substances; Z88.1 Allergy status to other antibiotic agents; Z88.0 Allergy status to penicillin
CPT/HCPCS: 99284; 96361; 96374; 36415; 83690; 85025; 80053; 81001; 74018; J2405; J7030

== ENCOUNTER 2019-11-25 20:28 | Emergency (ER) | payer MEDICAID ==
[2019-11-25 20:58] VITALS: BP 236/83
== END 2019-11-25 22:40 | disposition left against medical advice (07) ==
LOC: ER 20:28
DX: Z53.21 Procedure and treatment not carried out due to patient leaving prior to being seen by health care provider (principal)

== ENCOUNTER 2019-11-26 13:00 | Emergency (ER) | payer MEDICAID ==
--- NOTE | 2019-11-26 14:07 | ER Document Report ---
ED Medical Screen (RME) - General Chief Complaint: High Blood Pressure Stated Complaint: BLOOD PRESSURE PROBLEM Time Seen by Provider: 11/26/19 14:00 Primary Care Provider: CHARLENE GAMEZ DO [Primary Care Provider] - Follow up as needed Mode of Arrival: Ambulatory Information source: Patient Notes: Patient presents emergency department with complaints of abdominal pain diarrhea headache and high blood pressure. Patient has history of high blood pressure for years. Reports is triple over triple. She is on multiple medications for this. She also reports headache. She took her 30 mg of oxycodone this morning still did not help her headache. Patient reports diarrhea multiple times took Kaopectate without relief of symptoms. Patient complains of abdominal pain has abdominal hernia has had that for years. Denies fever and vomiting. I have greeted and performed a rapid initial assessment of this patient. A comprehensive ED assessment and evaluation of the patient, analysis of test results and completion of the medical decision making process will be conducted by additional ED providers. TRAVEL OUTSIDE OF THE [place] IN LAST 30 DAYS: No - Related Data Allergies/Adverse Reactions: celecoxib [From Celebrex] Allergy (Mild, Verified 11/26/19 13:59) Urticaria aspirin [Aspirin] Allergy (Verified 11/26/19 13:59) Hives cephalexin monohydrate [From Keflex] Allergy (Verified 11/26/19 13:59) clindamycin [Clindamycin] Allergy (Verified 11/26/19 13:59) Hives lisinopril [Lisinopril] Allergy (Verified 11/26/19 13:59) methadone [Methadone] Allergy (Verified 11/26/19 13:59) metoprolol tartrate [From Lopressor] Allergy (Verified 11/26/19 13:59) Penicillins Allergy (Verified 11/26/19 13:59) Past Medical History - Social History Chew tobacco use (# tins/day): No Frequency of alcohol use: None Drug Abuse: None - Past Medical History Cardiac Medical History: Reports: Hx Hypercholesterolemia, Hx Hypertension Pulmonary Medical History: Reports: Hx Asthma, Hx Bronchitis, Hx COPD Endocrine Medical History: Reports: Hx Diabetes Mellitus Type 1, Hx Diabetes Mellitus Type 2 Renal/ Medical History: Denies: Hx Peritoneal Dialysis GI Medical History: Reports: Hx Gastroesophageal Reflux Disease, Hx Hiatal Hernia Musculoskeltal Medical History: Reports Hx Arthritis, Denies Hx Systemic Lupus Erythematosus Skin Medical History: Reports Hx Cellulitis - Both lower legs for about 4-6 months Psychiatric Medical History: Reports: Hx Anxiety, Hx Depression Infectious Medical History: Past Surgical History: Reports: Hx Abdominal Surgery - MULTIPLE VENTRAL HERNIA REPAIRS WITH DEBRIDEMENT. BOWEL OBSTRUCTION. NON-HEALING ABD WOUNDS WITH CHRONIC PAIN, Hx Bowel Surgery - Right abdominal fistula, Hx Section - x3, Hx Cholecystectomy, Hx Tubal Ligation, Other - 10 hernia repairs. Closure of cutaneous fistula in the past year. - Immunizations Hx Diphtheria, Pertussis, Tetanus Vaccination: Yes Physical Exam - Vital signs Vitals: Temp Pulse Resp BP Pulse Ox 97.6 F 74 16 201/64 H 100 11/26/19 13:53 11/26/19 13:53 11/26/19 13:53 11/26/19 13:53 11/26/19 13:53 Course - Vital Signs Vital signs: Temp Pulse Resp BP Pulse Ox 97.6 F 74 31 H 180/121 H 100 11/26/19 13:53 11/26/19 13:53 11/26/19 18:02 11/26/19 18:02 11/26/19 15:23 - Laboratory Result Diagrams: 11/26/19 16:10 11/26/19 16:10 Laboratory results interpreted by me: 11/26/19 11/26/19 11/26/19 14:50 16:10 16:10 MCV 74 L MCH 23.8 L RDW 17.1 H Glucose 117 H AST 40 H Alkaline Phosphatase 290 H Total Protein 8.3 H Urine Protein 100 H Urine Blood SMALL H Doctor's Discharge - Discharge Referrals: CHARLENE GAMEZ DO [Primary Care Provider] - Follow up as needed
[2019-11-26 15:23] LABS: APPEARANCE,URINE CLEAR; BILIRUBIN,URINE NEGATIVE (NEGATIVE); COLOR,URINE YELLOW; GLUCOSE, URINE NEGATIVE (NEGATIVE); KETONES,URINE NEGATIVE (NEGATIVE); PROTEIN,URINE 100 mg/dL (NEGATIVE); URINE SPECIFIC GRAVITY 1.019; UROBILINOGEN,URINE NEGATIVE mg/dL (<2.0)
--- NOTE | 2019-11-26 16:03 | RADIOLOGY REPORT (SQ) ---
EXAM DESCRIPTION: U/S ABDOMEN LIMITED W/O DOP COMPLETED DATE/TIME: 11/26/2019 3:10 pm REASON FOR STUDY: eval hernia COMPARISON: CT abdomen pelvis 01/06/2018 TECHNIQUE: Dynamic and static grayscale images acquired of the localized site of clinical concern an d recorded on PACS. Additional selected color Doppler and spectral images recorded. SITE OF CONCERN: Left lower quadrant LIMITATIONS: None. FINDINGS: SKIN AND SUBCUTANEOUS TISSUES: Massive left lower quadrant ventral abdominal wall hernia c ontaining fat and nondistended/ non thickened loops of bowel proximally measuring 9.2 x 5 x 8.1 cm, w hich enlarges in size upon Valsalva. DEEP SOFT TISSUES/MUSCLES: No masses. No fluid collections. No edema. OTHER: No other significant finding. IMPRESSION: Massive 9.2 cm left lower quadrant ventral abdominal wall hernia containing fat and loop s of bowel without obvious associated inflammatory changes/findings of strangulation. TECHNICAL DOCUMENTATION: JOB ID: [id number] [employer]- All Rights Reserved Reading location - IP/workstation name: [email or web address]
[2019-11-26 16:25] LABS: ABSOLUTE BASOPHILS # (AUTO) 0.1 10^3/uL (0.0-0.2); ABSOLUTE EOSINOPHILS # (AUTO) 0.1 10^3/uL (0.0-0.6); ABSOLUTE LYMPHOCYTES (AUTO) 1.3 10^3/uL (0.5-4.7); ABSOLUTE MONOCYTES (AUTO) 0.5 10^3/uL (0.1-1.4); ABSOLUTE NEUT (AUTO) 4.8 10^3/uL (1.7-8.2); BASOPHILS % (AUTO) 0.8 % (0-2); EOSINOPHILS % (AUTO) 1.9 % (0-6); HEMATOCRIT 38.4 % (36.0-47.0); HEMOGLOBIN 12.4 g/dL (12.0-15.5); LYMPHOCYTES % (AUTO) 19.6 % (13-45); MEAN CORPUSCULAR HEMOGLOBIN 23.8 pg (27.0-33.4); MEAN CORPUSCULAR HGB CONC 32.2 g/dL (32.0-36.0); MEAN CORPUSCULAR VOLUME 74 fl (80-97); MONOCYTES % (AUTO) 7.4 % (3-13); PLATELET COUNT 346 10^3/uL (150-450); RED BLOOD COUNT 5.19 10^6/uL (3.72-5.28); RED CELL DISTRIBUTION WIDTH 17.1 % (11.5-14.0); SEGMENTED NEUTROPHILS % (AUTO) 70.3 % (42-78); TOTAL CELLS COUNTED % (AUTO) 100 %; WHITE BLOOD COUNT 6.8 10^3/uL (4.0-10.5)
[2019-11-26 16:43] LABS: ALBUMIN 4.1 g/dL (3.5-5.0); ALKALINE PHOSPHATASE 290 U/L (38-126); ANION GAP 11 (5-19); ASPARTATE AMINO TRANSFERASE 40 U/L (14-36); BILIRUBIN,DIRECT 0.4 mg/dL (0.0-0.4); BILIRUBIN,TOTAL 0.7 mg/dL (0.2-1.3); BLOOD UREA NITROGEN 15 mg/dL (7-20); CALCIUM 9.5 mg/dL (8.4-10.2); CARBON DIOXIDE 23 mmol/L (22-30); CHLORIDE 106 mmol/L (98-107); GLUCOSE 117 mg/dL (75-110); POTASSIUM 3.6 mmol/L (3.6-5.0); TOTAL PROTEIN 8.3 g/dL (6.3-8.2)
[2019-11-26] MEDS ORDERED: KETOROLAC TROMETHAMINE 60 MG/2 ML SDV IM ONE (19:45)
--- NOTE | 2019-11-26 19:53 | ER Document Report ---
ED General - General Chief Complaint: High Blood Pressure Stated Complaint: BLOOD PRESSURE PROBLEM Time Seen by Provider: 11/26/19 14:00 Primary Care Provider: CHARLENE GAMEZ DO [Primary Care Provider] - Follow up as needed Mode of Arrival: Ambulatory TRAVEL OUTSIDE OF THE [place] IN LAST 30 DAYS: No - HPI Notes: Patient is a 64-year-old female who presents to the emergency department for evaluation of multiple problems. First she states her blood pressure is high. She states her blood pressure normally runs in the 180s over 90s to 100s. She states that she is been taking her medications as prescribed. She states that over the last several days is been in the 200s intermittently. Patient also states she has pain in her left abdomen. She has a history of a hernia, fistula, and multiple hernia repairs. She is still passing gas. In fact he is actually having diarrhea. She states she is had multiple episodes of diarrhea in the last 24 hours. She denies any recent abnormal travel, no recent antibiotic therapy. She has been trying Kaopectate without relief. - Related Data Allergies/Adverse Reactions: celecoxib [From Celebrex] Allergy (Mild, Verified 11/26/19 13:59) Urticaria aspirin [Aspirin] Allergy (Verified 11/26/19 13:59) Hives cephalexin monohydrate [From Keflex] Allergy (Verified 11/26/19 13:59) clindamycin [Clindamycin] Allergy (Verified 11/26/19 13:59) Hives lisinopril [Lisinopril] Allergy (Verified 11/26/19 13:59) methadone [Methadone] Allergy (Verified 11/26/19 13:59) metoprolol tartrate [From Lopressor] Allergy (Verified 11/26/19 13:59) Penicillins Allergy (Verified 11/26/19 13:59) Home Medications: List reviewed, please see note Past Medical History - General Information source: Patient - Social History Smoking Status: Never Smoker Chew tobacco use (# tins/day): No Frequency of alcohol use: None Drug Abuse: None Family History: Reviewed & Not Pertinent, Other - The patient is delirious and family history cannot be obtained. Patient has suicidal ideation: No Patient has homicidal ideation: No - Past Medical History Cardiac Medical History: Reports: Hx Hypercholesterolemia, Hx Hypertension Pulmonary Medical History: Reports: Hx Asthma, Hx Bronchitis, Hx COPD Endocrine Medical History: Reports: Hx Diabetes Mellitus Type 1, Hx Diabetes Mellitus Type 2 Renal/ Medical History: Denies: Hx Peritoneal Dialysis GI Medical History: Reports: Hx Gastroesophageal Reflux Disease, Hx Hiatal Hernia Musculoskeletal Medical History: Reports Hx Arthritis, Denies Hx Systemic Lupus Erythematosus Skin Medical History: Reports Hx Cellulitis - Both lower legs for about 4-6 months Psychiatric Medical History: Reports: Hx Anxiety, Hx Depression Infectious Medical History: Past Surgical History: Reports: Hx Abdominal Surgery - MULTIPLE VENTRAL HERNIA REPAIRS WITH DEBRIDEMENT. BOWEL OBSTRUCTION. NON-HEALING ABD WOUNDS WITH CHRONIC PAIN, Hx Bowel Surgery - Right abdominal fistula, Hx Section - x3, Hx Cholecystectomy, Hx Tubal Ligation, Other - 10 hernia repairs. Closure of cutaneous fistula in the past year. - Immunizations Hx Diphtheria, Pertussis, Tetanus Vaccination: Yes Hx Pneumococcal Vaccination: 02/28/12 Review of Systems - Review of Systems Constitutional: No symptoms reported EENT: No symptoms reported Cardiovascular: No symptoms reported Respiratory: No symptoms reported Gastrointestinal: See HPI Genitourinary: No symptoms reported Musculoskeletal: No symptoms reported Skin: No symptoms reported Neurological/Psychological: No symptoms reported Physical Exam - Vital signs Vitals: Temp Pulse Resp BP Pulse Ox 97.6 F 74 16 201/64 H 100 11/26/19 13:53 11/26/19 13:53 11/26/19 13:53 11/26/19 13:53 11/26/19 13:53 - Notes Notes: Vital signs reviewed, please refer to chart. Head is normocephalic, atraumatic. Pupils equal round, reactive to light. Neck is supple without meningismus. Heart is regular rate and rhythm. Lungs are clear to auscultation bilaterally. Abdomen is soft, diffusely tender over the lower abdomen. She has multiple we ll-healed, well approximated scars noted. No firmness to indicate any signs of incarcerated hernia.. Extremities without cyanosis, clubbing. Posterior calves are nontender. Peripheral pulses are equal. Skin is warm and dry. Patient is awake, alert, neurological exam is nonfocal. Course - Re-evaluation Re-evalutation: 11/26/19 19:50 Patient presents emergency department for evaluation. She complained of multiple issues. First she complained of elevated blood pressure. Her blood pressure was moderately elevated here, but it seems to be near her baseline. She has had multiple allergies to medicines in the past, states she is had multiple issues with her blood pressure being controlled. Here in the emergency department she has no signs of endorgan damage. I am inclined to have her follow-up with her primary care provider in regards to this. The patient states she is had some nausea associated with her diarrhea. I suspect she has a viral illness/gastroenteritis might be causing her symptoms. It is been ongoing for less than 48 hours. She has no electrolyte abnormalities or signs of dehydration. Her abdominal pain is chronic, secondary to her hernia. She has pain medication at home. She is given Toradol here, will have her follow-up with primary care. She is to return to the ED with worsening or new concerning symptoms of any sort. - Vital Signs Vital signs: Temp Pulse Resp BP Pulse Ox 97.6 F 74 21 H 180/121 H 100 11/26/19 13:53 11/26/19 13:53 11/26/19 19:05 11/26/19 18:02 11/26/19 15:23 - Laboratory Result Diagrams: 11/26/19 16:10 11/26/19 16:10 Laboratory results interpreted by me: 11/26/19 11/26/19 11/26/19 14:50 16:10 16:10 MCV 74 L MCH 23.8 L RDW 17.1 H Glucose 117 H AST 40 H Alkaline Phosphatase 290 H Total Protein 8.3 H Urine Protein 100 H Urine Blood SMALL H - Diagnostic Test Radiology reviewed: Reports reviewed Radiology results interpreted by me: 11/26/19 19:51 Abdomen Ultrasound 11/26/19 14:07 IMPRESSION: Massive 9.2 cm left lower quadrant ventral abdominal wall hernia containing fat and loops of bowel without obvious associated inflammatory changes/findings of strangulation. Discharge - Discharge Clinical Impression: Chronic abdominal pain Ventral hernia Qualifiers: Obstruction and gangrene presence: without obstruction or gangrene Qualified Code(s): K43.9 - Ventral hernia without obstruction or gangrene Diarrhea Qualifiers: Diarrhea type: presumed infectious Qualified Code(s): R19.7 - Diarrhea, unspecified Hypertension Qualifiers: Hypertension type: essential hypertension Qualified Code(s): I10 - Essential (primary) hypertension Condition: Stable Disposition: HOME, SELF-CARE Instructions: Abdominal Pain ([facility]), High Blood Pressure ([facility]), Diarrhea, Nonspecific ([facility]) Additional Instructions: Rest, stay well-hydrated. Continue your home medications as prescribed. Follow-up with your primary care provider. You should discuss whether or not you need to be on more medication to control your blood pressure. Return to the emergency department with worsening or new concerning symptoms of any sort. Referrals: CHARLENE GAMEZ DO [Primary Care Provider] - Follow up as needed
[2019-11-26 20:04] VITALS: BP 196/82
== END 2019-11-26 20:07 | disposition home or self-care (01) ==
LOC: ER 13:00
DX: I10 Essential (primary) hypertension (principal); Z79.899 Other long term (current) drug therapy; K43.9 Ventral hernia without obstruction or gangrene; R19.7 Diarrhea, unspecified; R11.0 Nausea; R10.9 Unspecified abdominal pain; G89.29 Other chronic pain; E11.9 Type 2 diabetes mellitus without complications; J44.9 Chronic obstructive pulmonary disease, unspecified; Z88.8 Allergy status to other drugs, medicaments and biological substances; Z88.1 Allergy status to other antibiotic agents; Z88.6 Allergy status to analgesic agent; Z88.5 Allergy status to narcotic agent; Z88.0 Allergy status to penicillin
CPT/HCPCS: 99284; 96372; 36415; 87045; 89055; 87205; 85025; 80053; 81001; 76705; J1885

== ENCOUNTER 2020-04-02 17:55 | Emergency (ER) | payer MEDICAID ==
[2020-04-02 18:40] LABS: ABSOLUTE EOSINOPHILS # (AUTO) 0.1 10^3/uL (0.0-0.6); ABSOLUTE LYMPHOCYTES (AUTO) 0.6 10^3/uL (0.5-4.7); ABSOLUTE MONOCYTES (AUTO) 0.3 10^3/uL (0.1-1.4); ABSOLUTE NEUT (AUTO) 4.3 10^3/uL (1.7-8.2); BASOPHILS % (AUTO) 0.3 % (0-2); EOSINOPHILS % (AUTO) 1.7 % (0-6); HEMATOCRIT 30.2 % (36.0-47.0); LYMPHOCYTES % (AUTO) 10.7 % (13-45); MEAN CORPUSCULAR HEMOGLOBIN 24.4 pg (27.0-33.4); MEAN CORPUSCULAR VOLUME 74 fl (80-97); MONOCYTES % (AUTO) 5.3 % (3-13); PLATELET COUNT 227 10^3/uL (150-450); RED BLOOD COUNT 4.08 10^6/uL (3.72-5.28); RED CELL DISTRIBUTION WIDTH 18.7 % (11.5-14.0); TOTAL CELLS COUNTED % (AUTO) 100 %; WHITE BLOOD COUNT 5.3 10^3/uL (4.0-10.5)
[2020-04-02 18:51] LABS: APPEARANCE,URINE CLEAR; BILIRUBIN,URINE NEGATIVE (NEGATIVE); COLOR,URINE STRAW; GLUCOSE, URINE NEGATIVE (NEGATIVE); KETONES,URINE NEGATIVE (NEGATIVE); PROTEIN,URINE 30 mg/dL (NEGATIVE); URINE SPECIFIC GRAVITY 1.008; UROBILINOGEN,URINE NEGATIVE mg/dL (<2.0)
[2020-04-02 18:52] LABS: INTERNATIONAL RATION (INR) 1.21; PROTHROMBIN TIME 15.3 SEC (11.4-15.4)
[2020-04-02 18:53] LABS: ALBUMIN 3.5 g/dL (3.5-5.0); ALKALINE PHOSPHATASE 210 U/L (38-126); ANION GAP 5 (5-19); ASPARTATE AMINO TRANSFERASE 28 U/L (14-36); BILIRUBIN,DIRECT 0.1 mg/dL (0.0-0.4); BILIRUBIN,TOTAL 0.7 mg/dL (0.2-1.3); BLOOD UREA NITROGEN 16 mg/dL (7-20); CALCIUM 8.3 mg/dL (8.4-10.2); CARBON DIOXIDE 27 mmol/L (22-30); CHLORIDE 108 mmol/L (98-107); GLUCOSE 136 mg/dL (75-110); POTASSIUM 3.8 mmol/L (3.6-5.0); TOTAL PROTEIN 6.7 g/dL (6.3-8.2)
[2020-04-02] MEDS ORDERED: ACETAMINOPHEN 325 MG TABLET PO ONE (19:23)
--- NOTE | 2020-04-02 19:33 | RADIOLOGY REPORT (SQ) ---
EXAM DESCRIPTION: CT HEAD WITHOUT IMAGES COMPLETED DATE/TIME: 04/02/2020 7:24 pm REASON FOR STUDY: altered mental status COMPARISON: 08/17/2017 TECHNIQUE: Axial images acquired through the brain without intravenous contrast. Images reviewed wi th bone, brain and subdural windows. Images stored on PACS. All CT scanners at this facility use dose modulation, iterative reconstruction, and/or weight based d osing when appropriate to reduce radiation dose to as low as reasonably achievable (ALARA). [facility]: Dose Right [facility]: CareDose [facility]: Dose Right [facility]: Teradose 4D [facility]: Smart VeriTainer RADIATION DOSE: CT Rad equipment meets quality standard of care and radiation dose reduction techniq ues were employed. CTDIvol: 55.2 mGy. DLP: 1001 mGy-cm. mGy. LIMITATIONS: None. FINDINGS: VENTRICLES: Prominent ventricles secondary to involutional atrophy. CEREBRUM: No masses. No hemorrhage. No midline shift. No evidence for acute infarction. Normal gra y/white matter differentiation. No areas of low density in the white matter. CEREBELLUM: No masses. No hemorrhage. No alteration of density. No evidence for acute infarction. EXTRAAXIAL SPACES: No fluid collections. No masses. ORBITS AND GLOBE: No intra- or extraconal masses. Normal contour of globe without masses. CALVARIUM: No fracture. PARANASAL SINUSES: No fluid or mucosal thickening. SOFT TISSUES: No mass or hematoma. OTHER: No other significant finding. IMPRESSION: Prominent ventricles. May suggest involutional atrophy. Cannot exclude hydrocephalus. No other significant finding in the brain. EVIDENCE OF ACUTE STROKE: NO. COMMENT: Quality ID # [id number]: Final reports with documentation of one or more dose reduction techniques (e.g., Automated exposure control, adjustment of the mA and/or kV according to patient size, use of iterative reconstruction technique) TECHNICAL DOCUMENTATION: JOB ID: [id number] 2010 [employer]- All Rights Reserved Reading location - IP/workstation name: [email or web address]
--- NOTE | 2020-04-02 19:34 | RADIOLOGY REPORT (SQ) ---
EXAM DESCRIPTION: CHEST SINGLE VIEW IMAGES COMPLETED DATE/TIME: 04/02/2020 7:26 pm REASON FOR STUDY: altered mental status COMPARISON: None. EXAM PARAMETERS: NUMBER OF VIEWS: One view. TECHNIQUE: Single frontal radiographic view of the chest acquired. RADIATION DOSE: NA LIMITATIONS: None. FINDINGS: LUNGS AND PLEURA: Pulmonary vascular congestion. No heather edema. No infiltrate or effusi on. MEDIASTINUM AND HILAR STRUCTURES: No masses. Contour normal. HEART AND VASCULAR STRUCTURES: Heart size is borderline. BONES: No acute findings. HARDWARE: None in the chest. OTHER: No other significant finding. IMPRESSION: Borderline heart size with pulmonary vascular congestion but no heather pulmonary edema. TECHNICAL DOCUMENTATION: JOB ID: [id number] 2010 [employer]- All Rights Reserved Reading location - IP/workstation name: [email or web address]
--- NOTE | 2020-04-02 19:43 | EKG REPORT ---
SEVERITY:- BORDERLINE ECG - SINUS RHYTHM BORDERLINE R WAVE PROGRESSION, ANTERIOR LEADS : Confirmed by: David Fan 02-Apr-2020 19:42:17
[2020-04-02] MEDS ORDERED: HYDRALAZINE HCL INJ/PF 20 MG/1 ML SDV IV ONE (19:52)
[2020-04-02] MEDS ORDERED: NICARDIPINE HCL RTU, ISO-OS 20 MG/200 ML RTUINJ IV PRN (20:14)
[2020-04-02 20:17] LABS: URINE AMPHETAMINES SCREEN NEGATIVE; URINE BARBITURATES SCREEN NEGATIVE; URINE BENZODIAZEPINES SCREEN NEGATIVE; URINE COCAINE SCREEN NEGATIVE; URINE MARIJUANA (THC) SCREEN NEGATIVE; URINE METHADONE SCREEN NEGATIVE; URINE PHENCYCLIDINE SCREEN NEGATIVE
[2020-04-02] MEDS ORDERED: ASPIRIN 325 MG TABLET PO ONE (20:17)
--- NOTE | 2020-04-02 20:25 | ER Document Report ---
ED General - General Chief Complaint: Altered Mental Status Stated Complaint: ALTERED MENTAL STATUS Time Seen by Provider: 04/02/20 18:46 Primary Care Provider: CHARLENE GAMEZ DO [Primary Care Provider] - Follow up as needed TRAVEL OUTSIDE OF THE [place] IN LAST 30 DAYS: No - HPI Notes: Patient is a 64-year-old female brought into the emergency department for evaluation. The patient was initially brought in by EMS, unable to offer any sort of history. Evidently EMS told nursing, who in turn told me, that the patient had altered mental status for last 2 days. The patient was unable to offer any history. Initially they were called for chest pain, then she complained of abdominal pain. She denied any pain to nursing. Then she told me she hurt everywhere. - Related Data Allergies/Adverse Reactions: celecoxib [From Celebrex] Allergy (Mild, Verified 11/26/19 13:59) Urticaria aspirin [Aspirin] Allergy (Verified 11/26/19 13:59) Hives cephalexin monohydrate [From Keflex] Allergy (Verified 11/26/19 13:59) clindamycin [Clindamycin] Allergy (Verified 11/26/19 13:59) Hives lisinopril [Lisinopril] Allergy (Verified 11/26/19 13:59) methadone [Methadone] Allergy (Verified 11/26/19 13:59) metoprolol tartrate [From Lopressor] Allergy (Verified 11/26/19 13:59) Penicillins Allergy (Verified 11/26/19 13:59) Past Medical History - General Information source: Patient, Emergency Med Personnel - Social History Smoking Status: Former Smoker Chew tobacco use (# tins/day): No Frequency of alcohol use: None Drug Abuse: None Family History: Reviewed & Not Pertinent, Other - The patient is delirious and family history cannot be obtained. Patient has homicidal ideation: No - Past Medical History Cardiac Medical History: Reports: Hx Hypercholesterolemia, Hx Hypertension Pulmonary Medical History: Reports: Hx Asthma, Hx Bronchitis, Hx COPD Endocrine Medical History: Reports: Hx Diabetes Mellitus Type 1, Hx Diabetes Mellitus Type 2 Renal/ Medical History: Denies: Hx Peritoneal Dialysis GI Medical History: Reports: Hx Gastroesophageal Reflux Disease, Hx Hiatal Hernia Musculoskeletal Medical History: Reports Hx Arthritis, Denies Hx Systemic Lupus Erythematosus Skin Medical History: Reports Hx Cellulitis - Both lower legs for about 4-6 months Psychiatric Medical History: Reports: Hx Anxiety, Hx Depression Infectious Medical History: Past Surgical History: Reports: Hx Abdominal Surgery - MULTIPLE VENTRAL HERNIA REPAIRS WITH DEBRIDEMENT. BOWEL OBSTRUCTION. NON-HEALING ABD WOUNDS WITH CHRONIC PAIN, Hx Bowel Surgery - Right abdominal fistula, Hx Section - x3, Hx Cholecystectomy, Hx Tubal Ligation, Other - 10 hernia repairs. Closure of cutaneous fistula in the past year. - Immunizations Hx Diphtheria, Pertussis, Tetanus Vaccination: Yes Hx Pneumococcal Vaccination: 02/28/12 Review of Systems - Review of Systems -: Yes ROS unobtainable due to patient's medical condition Physical Exam - Vital signs Vitals: Temp Pulse Resp BP Pulse Ox 98.7 F 88 20 219/77 H 97 04/02/20 18:00 04/02/20 18:00 04/02/20 18:00 04/02/20 18:00 04/02/20 18:00 - Notes Notes: This is a 64-year-old female who appears her stated age, no acute distress. Vital signs reviewed, please refer to chart. Head is normocephalic, atraumatic. Pupils equal round, reactive to light. Neck is supple without meningismus. Heart is regular rate and rhythm. Lungs are clear to auscultation bilaterally. Abdomen is soft, nontender, normoactive bowel sounds throughout. Extremities without cyanosis, clubbing. Posterior calves are nontender. Peripheral pulses are equal. Skin is warm and dry. Patient is awake, alert, and disoriented. She is unable to tell me where she is, or the year. She is unable to follow commands. She has no gross facial asymmetry. She moves all 4 extremities spontaneously. She intermittently answers questions with nonsensical words, consistent with Broca's aphasia. Course - Re-evaluation Re-evalutation: 04/02/20 20:19 Patient presents to the emergency department for evaluation. She was initially placed on a ekg monitor. She was found to be hypertensive. I reviewed this patient's prior history, at which time she had told me she is significantly hypertensive at baseline. Initially I believed that the patient was well outside of the window for any sort of intervention. I found later, however, after speaking with her boyfriend, Mr. Nolan Kim, that the patient's symptoms had begun an hour prior to arrival. Upon learning this I became much more aggressive with her blood pressure management. I am concerned about the possibility of an intracranial process causing this. I spoke with Dr. Reynolds, neurologist at [facility]. He agrees that aggressive blood pressure management and TPA administration, if her blood pressure can be managed, would be the most appropriate. Patient is currently stable, given aspirin, we will continue to monitor. 04/02/20 20:26 04/02/20 20:33 I went back into reevaluate the patient. She became actively nauseous and wanted to vomit. I ordered Zofran. The patient is now able to repeat my words with some improvement, but continues to have difficulty answering questions. She is not showing any Broca's aphasia at this time. She continues to be extremely confused, is unable to answer all my questions. I clarified with the [facility] that I could not complete rule out an earlier time in regards to the onset of her symptoms. The boyfriend admits he had been sleeping and she had been at a neighbor's house prior to arrival. I tried multiple times to call the boyfriend again, clarify which neighbor she was with, and if her symptoms may have begun before 5 PM. I have been unsuccessful. I notified Dr. Reynolds again, via [facility], that I did not have a clear time of onset. Dr. Reynolds will bring this in as a stroke to the ED. he states he will clarify appropriate treatment from there and. At this point, given the fact that I cannot pin down an acute time of onset, and I am unable to reach her significant other to clarify this, I do not feel comfortable giving TPA to this patient. She will be transferred to [facility] as a stroke alert. 04/02/20 20:40 Patient now much more altered. She is insistent that she needs to stand up. She will not stay in bed, requires physical restraint intermittently by staff. She is administered Zofran. Helicopter is here to send her to [facility] for further care. 04/02/20 20:59 I spoke with Mr. Kim again. He states that she was happy, speaking to herself on the toilet last night. She had just taken oxycodone, and he states that she was acting strangely, but is unsure as to whether or not she was confused, states she does act strangely at times on her oxycodone. This morning he awoke and she was very quiet, which is abnormal for her. She stated she wanted to go outside in the afternoon and visit the neighbors, the neighbors noted that she seemed confused. He had not really talked to her, beyond 11:45 in the morning, throughout the day, to give a clear time of onset. - Vital Signs Vital signs: Temp Pulse Resp BP Pulse Ox 98.5 F 88 29 H 215/71 H 98 04/02/20 18:07 04/02/20 18:00 04/02/20 20:42 04/02/20 20:42 04/02/20 20:42 - Laboratory Result Diagrams: 04/02/20 18:18 04/02/20 18:18 Laboratory results interpreted by me: 04/02/20 04/02/20 04/02/20 18:11 18:18 18:18 Hgb 10.0 L Hct 30.2 L MCV 74 L MCH 24.4 L RDW 18.7 H Lymph % (Auto) 10.7 L Seg Neutrophils % 82.0 H Chloride 108 H Glucose 136 H POC Glucose 125 H Calcium 8.3 L Alkaline Phosphatase 210 H Urine Protein Urine Blood 04/02/20 18:33 Hgb Hct MCV MCH RDW Lymph % (Auto) Seg Neutrophils % Chloride Glucose POC Glucose Calcium Alkaline Phosphatase Urine Protein 30 H Urine Blood SMALL H - Diagnostic Test Radiology reviewed: Reports reviewed Radiology results interpreted by me: 04/02/20 20:35 Chest X-Ray 04/02/20 18:58 IMPRESSION: Borderline heart size with pulmonary vascular congestion but no heather pulmonary edema. Head CT 04/02/20 18:58 IMPRESSION: Prominent ventricles. May suggest involutional atrophy. Cannot exclude hydrocephalus. No other significant finding in the brain. EVIDENCE OF ACUTE STROKE: NO. - EKG Interpretation by Me Additional EKG results interpreted by me: 04/02/20 20:35 Sinus mechanism with a rate of 95 bpm. Normal axis. First-degree AV block. Nonspecific ST changes, but no acute changes concerning for ischemia or infarction. There are changes when compared to prior study. Critical Care Note - Critical Care Note Total time excluding time spent on procedures (mins): 45 Discharge - Discharge Clinical Impression: Broca's aphasia, Eval for CVA Altered mental status Qualifiers: Altered mental status type: unspecified Qualified Code(s): R41.82 - Altered mental status, unspecified Condition: Stable Disposition: [facility] Admitting Provider: Rodolfo Referrals: CHARLENE GAMEZ DO [Primary Care Provider] - Follow up as needed
[2020-04-02] MEDS ORDERED: ONDANSETRON HCL INJ/PF 4 MG/2 ML SDV ONE (20:38)
[2020-04-02 20:54] VITALS: BP 215/71
[2020-04-02] MEDS ORDERED: ONDANSETRON HCL INJ/PF 4 MG/2 ML SDV IV ONE (20:56)
== END 2020-04-02 20:55 | disposition short-term general hospital (02) ==
LOC: ER 17:55
DX: R41.82 Altered mental status, unspecified (principal); R47.01 Aphasia; R10.9 Unspecified abdominal pain; E78.00 Pure hypercholesterolemia, unspecified; I10 Essential (primary) hypertension; Z88.6 Allergy status to analgesic agent; Z88.0 Allergy status to penicillin; Z88.3 Allergy status to other anti-infective agents
CPT/HCPCS: 93005; 99291; 96375; 96365; 36415; 87040; 82962; 83605; 85025; 85610; 80053; 81001; 84484; 80307; 71045; 70450; 93010; J3490 ×2; J0360; J2405; 87077; 87150

== ENCOUNTER 2020-04-15 18:27 | Emergency (ER) | payer MEDICAID ==
[2020-04-15] MEDS ORDERED: ZIPRASIDONE MESYLATE INJ/PF 20 MG SDV IM ONE (18:48)
--- NOTE | 2020-04-15 18:49 | ER Document Report ---
ED General - General Chief Complaint: Altered Mental Status Stated Complaint: ALTERED MENTAL STATUS Time Seen by Provider: 04/15/20 18:48 Primary Care Provider: CHARLENE GAMEZ DO [Primary Care Provider] - Follow up as needed Notes: 64-year-old lady with a history of altered mental status and pain medicine use presents with altered mental status and combativeness. This all started sometime this afternoon/evening and her family called EMS who found her to be extremely combative unable to get vital signs. They gave her ketamine IM. They were able to obtain vital signs of that and state that they were normal inc luding her blood sugar. The patient cannot give a history whatsoever. She is uncooperative and slightly agitated on ED arrival. TRAVEL OUTSIDE OF THE [place] IN LAST 30 DAYS: No - Related Data Allergies/Adverse Reactions: celecoxib [From Celebrex] Allergy (Mild, Verified 11/26/19 13:59) Urticaria aspirin [Aspirin] Allergy (Verified 11/26/19 13:59) Hives cephalexin monohydrate [From Keflex] Allergy (Verified 11/26/19 13:59) clindamycin [Clindamycin] Allergy (Verified 11/26/19 13:59) Hives lisinopril [Lisinopril] Allergy (Verified 11/26/19 13:59) methadone [Methadone] Allergy (Verified 11/26/19 13:59) metoprolol tartrate [From Lopressor] Allergy (Verified 11/26/19 13:59) Penicillins Allergy (Verified 11/26/19 13:59) Past Medical History - General Cannot obtain history due to: Intoxicated - Social History Smoking Status: Current Every Day Smoker Smoking Education Provided: Yes - The patient ED visit today was directly related to their abuse of tobacco. Family History: Reviewed & Not Pertinent, Other - The patient is delirious and family history cannot be obtained. - Past Medical History Cardiac Medical History: Reports: Hx Hypercholesterolemia, Hx Hypertension Pulmonary Medical History: Reports: Hx Asthma, Hx Bronchitis, Hx COPD Endocrine Medical History: Reports: Hx Diabetes Mellitus Type 1, Hx Diabetes Mellitus Type 2 Renal/ Medical History: Denies: Hx Peritoneal Dialysis GI Medical History: Reports: Hx Gastroesophageal Reflux Disease, Hx Hiatal Hernia Musculoskeletal Medical History: Reports Hx Arthritis, Denies Hx Systemic Lupus Erythematosus Skin Medical History: Reports Hx Cellulitis - Both lower legs for about 4-6 months Psychiatric Medical History: Reports: Hx Anxiety, Hx Depression Infectious Medical History: Past Surgical History: Reports: Hx Abdominal Surgery - MULTIPLE VENTRAL HERNIA REPAIRS WITH DEBRIDEMENT. BOWEL OBSTRUCTION. NON-HEALING ABD WOUNDS WITH CHRONIC PAIN, Hx Bowel Surgery - Right abdominal fistula, Hx Section - x3, Hx Cholecystectomy, Hx Tubal Ligation, Other - 10 hernia repairs. Closure of cutaneous fistula in the past year. - Immunizations Hx Diphtheria, Pertussis, Tetanus Vaccination: Yes Hx Pneumococcal Vaccination: 02/28/12 Review of Systems - Review of Systems Notes: REVIEW OF SYSTEMS PHYSICAL EXAMINATION General: Poorly groomed appears older than stated age Head: Atraumatic, normocephalic ENT: Mouth normal, oropharynx dry with thick mucus no exudates or tonsillar enlargement Eyes: Conjunctiva normal, pupils equal, lids normal Neck: No JVD, supple, no guarding CVS: Normal rate, regular rhythm, no murmurs Resp: No resp distress, equal and normal breath sounds bilaterally GI: Evidence of prior soilage of stool and urine. Multiple incisions on abdomen are well-healed and scarred up, soft with no apparent tenderness Ext: No deformities, no edema, normal range of motion in upper and lower ext Back: No CVA or midline TTP Skin: No rash, warm Lymphatic: No lymphadeopathy noted Neuro: Merely opens eyes to voice and moans, moves all extremities strongly but is not follow commands. Physical Exam - Vital signs Vitals: Pulse Resp BP Pulse Ox 92 24 H 168/126 H 99 04/15/20 18:27 04/15/20 18:27 04/15/20 18:27 04/15/20 18:27 Course - Re-evaluation Re-evalutation: 04/15/20 20:11 Agitated altered mental status could be medication related electrolytes head bleed or infection Given Geodon to facilitate labs and IV access After 45 minutes Geodon had very little effect. Given additional IV Versed because we have an IV. We will get blood cultures total infectious work-up drug screen give fluids and check head CT. 04/15/20 21:10 Reassessed at 9:10 PM after Versed. Arousable but not speaking, volitionally turning over and avoiding this provider. Her labs are essentially normal thus far, pending urine, her head CT shows unchanged hydrocephalus/atrophy with no stroke or bleed. Suspect substance induced and will monitor. 04/16/20 00:[address] shows some hydrocephalus but is unchanged from prior. She is not horribly hypertensive here so I do not think that encephalopathy is her actual diagnosis. I see no other reason for her altered mental status. I discussed at length with her boyfriend he says that every time he comes home he is afraid to find her , she been falling more and more lately, has had ataxia and interestingly has begun to have some bladder incontinence. He also takes her own pills but he denies that she has had a specific overdose. In reviewing her records and discussing with a colleague at [facility] who looked her up in their systems and she was transferred earlier this month she was diagnosed with encephalopathy and a negative MRI and was discharged in normal condition. Her partner says that he is unable to care for her at home as she might need some assisted living. Discussed with Jennifer for transfer, including neurosurgery and hospitalist accepted by Dr. Singh. As, up and down, will not treat at this time and will observe. 04/16/20 00:52 - Vital Signs Vital signs: Temp Pulse Resp BP Pulse Ox 99.4 F 92 14 128/116 H 97 04/15/20 18:48 04/15/20 18:27 04/16/20 00:11 04/16/20 00:11 04/16/20 00:11 - Laboratory Result Diagrams: 04/15/20 19:54 04/15/20 19:54 Laboratory results interpreted by me: 04/15/20 04/15/20 04/15/20 19:54 19:54 21:21 RBC 5.49 H MCV 74 L MCH 24.7 L RDW 19.0 H Lymph % (Auto) 10.4 L Seg Neutrophils % 82.1 H Potassium 3.3 L Glucose 151 H Magnesium 1.5 L AST 52 H Alkaline Phosphatase 255 H Urine Blood SMALL H Urine Nitrite POSITIVE H - Diagnostic Test Radiology reviewed: Image reviewed, Reports reviewed - EKG Interpretation by Me EKG shows normal: Sinus rhythm Rate: Normal Rhythm: NSR Critical Care Note - Critical Care Note Total time excluding time spent on procedures (mins): 71 Comments: The above patient is critically ill. Not including procedures, but including direct re-evaluations, speaking with patient and/or consultants, interpreting results, and documenting, I spent the total amount of minute listed listed above on critical care time Discharge - Discharge Clinical Impression: Acute encephalopathy Condition: Fair Disposition: [facility] Referrals: CHARLENE GAMEZ DO [Primary Care Provider] - Follow up as needed
[2020-04-15] MEDS ORDERED: MIDAZOLAM 2 MG/2 ML INJ IV ONE (19:48)
[2020-04-15 20:07] LABS: ABSOLUTE BASOPHILS # (AUTO) 0.1 10^3/uL (0.0-0.2); ABSOLUTE EOSINOPHILS # (AUTO) 0.1 10^3/uL (0.0-0.6); ABSOLUTE MONOCYTES (AUTO) 0.6 10^3/uL (0.1-1.4); BASOPHILS % (AUTO) 0.7 % (0-2); EOSINOPHILS % (AUTO) 0.8 % (0-6); HEMATOCRIT 40.8 % (36.0-47.0); HEMOGLOBIN 13.5 g/dL (12.0-15.5); LYMPHOCYTES % (AUTO) 10.4 % (13-45); MEAN CORPUSCULAR HEMOGLOBIN 24.7 pg (27.0-33.4); MEAN CORPUSCULAR HGB CONC 33.1 g/dL (32.0-36.0); MEAN CORPUSCULAR VOLUME 74 fl (80-97); PLATELET COUNT 303 10^3/uL (150-450); RED BLOOD COUNT 5.49 10^6/uL (3.72-5.28); SEGMENTED NEUTROPHILS % (AUTO) 82.1 % (42-78); TOTAL CELLS COUNTED % (AUTO) 100 %; WHITE BLOOD COUNT 9.7 10^3/uL (4.0-10.5)
[2020-04-15 20:27] LABS: ALBUMIN 4.3 g/dL (3.5-5.0); ALKALINE PHOSPHATASE 255 U/L (38-126); ANION GAP 10 (5-19); ASPARTATE AMINO TRANSFERASE 52 U/L (14-36); BILIRUBIN,DIRECT 0.3 mg/dL (0.0-0.4); BILIRUBIN,TOTAL 1.2 mg/dL (0.2-1.3); BLOOD UREA NITROGEN 15 mg/dL (7-20); CALCIUM 8.8 mg/dL (8.4-10.2); CARBON DIOXIDE 23 mmol/L (22-30); CHLORIDE 104 mmol/L (98-107); GLUCOSE 151 mg/dL (75-110); POTASSIUM 3.3 mmol/L (3.6-5.0); TOTAL PROTEIN 8.1 g/dL (6.3-8.2)
[2020-04-15 20:31] LABS: ALCOHOL < 10 mg/dL (NONE DETECTED)
--- NOTE | 2020-04-15 21:16 | RADIOLOGY REPORT (SQ) ---
INDICATION: AMS. COMPARISON: April 02, 2020 CORRELATION: None TECHNIQUE: Noncontrast spiral axial CT images were obtained from the skull base to vertex. This exam was performed according to our departmental dose-optimization program, which includes automated exposure control, adjustment of the mA and/or kV according to patient size and/or use of iterative reconstruction techniques. FINDINGS: There is no evidence of acute intracranial hemorrhage, midline shift, mass effect or mass lesion. Luther-white differentiation is normal. There is no evidence of acute large territory infarct. Prominence of ventricles, upper limits of proportion with extracerebral spaces. This is similar to prior.. The visualized paranasal sinuses are grossly clear. The orbits and eyeballs are unremarkable. The mastoid air cells are clear. Skull base and calvarium appear intact. IMPRESSION: No acute intracranial process is identified. Prominence of the ventricles, upper limits of proportional texture cervical spaces. Again, the possibility of normal pressure hydrocephalus is raised. Imaging is degraded by patient motion, with resultant artifact. The best possible images were obtained.
--- NOTE | 2020-04-15 21:34 | EKG REPORT ---
SEVERITY:- ABNORMAL ECG - SINUS TACHYCARDIA NONSPECIFIC T ABNORMALITIES, INFERIOR LEADS : Confirmed by: Morris Syed MD 15-Apr-2020 21:34:19
[2020-04-15 23:16] LABS: APPEARANCE,URINE CLEAR; BILIRUBIN,URINE NEGATIVE (NEGATIVE); COLOR,URINE YELLOW; GLUCOSE, URINE NEGATIVE (NEGATIVE); KETONES,URINE NEGATIVE (NEGATIVE); LEUKOCYTE ESTERASE,URINE NEGATIVE (NEGATIVE); NITRITE,URINE POSITIVE (NEGATIVE); PROTEIN,URINE NEGATIVE (NEGATIVE); URINE SPECIFIC GRAVITY 1.003; UROBILINOGEN,URINE NEGATIVE mg/dL (<2.0)
[2020-04-15 23:33] LABS: URINE AMPHETAMINES SCREEN NEGATIVE; URINE BARBITURATES SCREEN NEGATIVE; URINE BENZODIAZEPINES SCREEN UNCONFIRMED POSITIVE; URINE COCAINE SCREEN NEGATIVE; URINE MARIJUANA (THC) SCREEN NEGATIVE; URINE METHADONE SCREEN NEGATIVE; URINE PHENCYCLIDINE SCREEN NEGATIVE
[2020-04-15] MEDS ORDERED: MAGNESIUM SULFATE/D5W 1 GM/100 ML RTUPB IV ONE (23:36)
--- NOTE | 2020-04-16 10:46 | ER Document Report ---
Doctor's Note Notes: 04/16/20 10:44 Patient is awake lying in bed not showing any signs of distress patient is mute at this time will not use any words but indicates yes no answers moving her head with head movements. Patient states she has a headache but is able to see both eyes and and states she has no complaints at this time by head movement. Lungs are clear normal S1-S2 abdomen soft extremities without edema there is one small patch of warm skin pink in color on the left lower leg. Area space is about 14 x 8 cm. Patient has multiple ecchymosis spots on her body and old brown out ecchymotic spots from prior events. Will discuss case with divided transport team in [place] about her transferring to their facility.
[2020-04-16] MEDS ORDERED: HYDRALAZINE HCL INJ/PF 20 MG/1 ML SDV IV ONE (17:40)
--- NOTE | 2020-04-16 21:41 | PSYCHOLOGICAL NOTE ---
Psych Note - Psych Note Date seen by psych provider: 04/16/20 Time seen by psych provider: 16:30 - 1630 spoke to ED Physician. Chart review conducted. Collateral from medical staff. Psych Note: Presenting Problem: Patient is a 64 year old female who presented to the [facility] ED yesterday evening via EMS for AMS. Attending ED Physician stated patient was mute and wouldn't talk. Attending ED Nurse noted patient was laying in bed naked. UDS was positive for benzodiazepines. There was an EMTALA on patient's physical chart to go to [facility] for neurology. Chart review revealed patient was just seen 04/02/2020 in the ED for similar etiology and was subsequently transferred to [facility] as a possible Stroke Alert. The 04/02/[address] noted prominent ventricles which may suggest involution atrophy. Boyfriend at the time noted patient taking her prescribed Oxycodone and at times acting weird after. Head CT dated 04/15/2020 noted the prominent ventricles, upper limits of proportion with extra cerebral spaces, hydrocephalus is raised. Patient has been coming to the ED since 2010 for medical issues. She has never been seen by [facility] previously. Review of medications from [facility]/linked to patient's pharmacy included: Lyrica 200MG Cap BID filled 03/22/2020 and Oxycodone 20MG Immediate Release 1 tab Q6H filled 03/29/[address] John Lamar. Also Lexapro 10MG QD filled 03/26/2020 and prescribed by Anibal Galan. Clinical Presentation: Encephalopathy- Medical Concern for being prescribed Opiates for prolonged period of time/effects it has on the brain and emotions Concern for overuse of prescribed medication and Uncontrolled Hypertension Impression/Plan: Patient is cleared from acute psychiatric services. Patient presentation appears to be medical in nature. Consulted with Dr. Vazquez regarding the management and care of patient. ED Physician made aware of recommendation.
--- NOTE | 2020-04-17 13:10 | ER Document Report ---
Doctor's Note Notes: 04/17/20 13:07 EMERGENCY DEPARTMENT HOLDING NOTE Elderly lady continues to await transfer to [facility] with a diagnosis of metabolic encephalopathy. Nursing staff indicates that [facility] still has her on transfer list but there is currently no bed available. Patient complains of some epigastric discomfort. She is afebrile here and her vital signs are stable. She has some mild epigastric tenderness but no rigidity or guarding. There are no palpable masses organomegaly. Review of the chart shows that she was hypomagnesemic yesterday and received IV magnesium. While we are awaiting transfer am going to order a repeat magnesium, basic metabolic profile and a repeat CBC. I am also going to get a noncontrast CT abdomen and pelvis.
--- NOTE | 2020-04-17 14:23 | RADIOLOGY REPORT (SQ) ---
EXAM DESCRIPTION: CT ABD/PELVIS NO ORAL OR IV IMAGES COMPLETED DATE/TIME: 04/17/2020 1:57 pm REASON FOR STUDY: abd. pain COMPARISON: CT abdomen pelvis 05/04/2017, 08/13/2017, 01/06/2018 Abdominal ultrasound 11/26/2019 TECHNIQUE: CT scan of the abdomen and pelvis performed without intravenous or oral contrast. Images reviewed with lung, soft tissue, and bone windows. Reconstructed coronal and sagittal MPR images revi ewed. All images stored on PACS. All CT scanners at this facility use dose modulation, iterative reconstruction, and/or weight based d osing when appropriate to reduce radiation dose to as low as reasonably achievable (ALARA). [facility]: Dose Right [facility]: CareDose [facility]: Dose Right [facility]: Teradose 4D [facility]: [employer] RADIATION DOSE: CT Rad equipment meets quality standard of care and radiation dose reduction techniq ues were employed. CTDIvol: 18.8 mGy. DLP: 907 mGy-cm.mGy. LIMITATIONS: None. FINDINGS: Large defect in the anterior abdominal wall, 16 cm diameter. Nearly all of the small ignacio l and colon is in the ventral hernia sac along the anterior abdominal wall subcutaneous fat. Portion of the gastric body protrudes through the hernia defect. No thickened bowel loops or CT findings wo rrisome for bowel obstruction or acute enteritis/diverticulitis. No free intraperitoneal air or flui d. Old surgical enterotomy deanne are present amongst small bowel loops. These findings were discussed with Dr. Soto in the emergency room. LOWER CHEST: No significant findings. No nodules or infiltrates. NON-CONTRASTED LIVER, SPLEEN, ADRENALS: Evaluation limited by lack of IV contrast. No identified sign ificant masses. PANCREAS: No masses. No peripancreatic inflammatory changes. GALLBLADDER: Clips post cholecystectomy RIGHT KIDNEY AND URETER: No suspicious masses. Assessment limited by lack of IV contrast. No signif icant calcifications. No hydronephrosis or hydroureter. LEFT KIDNEY AND URETER: No suspicious masses. Assessment limited by lack of IV contrast. No signifi cant calcifications. No hydronephrosis or hydroureter. AORTA AND RETROPERITONEUM: No aneurysm. No retroperitoneal masses or adenopathy. BOWEL AND PERITONEAL CAVITY: No obvious masses or inflammatory changes. No free fluid. APPENDIX: Not identified PELVIS, BLADDER, AND ABDOMINAL WALL:No abnormal masses. No free fluid. Bladder normal. Normal size f emale pelvic organs BONES: No significant findings. OTHER: No other significant finding. IMPRESSION: Large ventral hernia with bowel loops in the anterior abdominal wall subcutaneous fat. No CT evidence of bowel obstruction or inflammation. COMMENT: Quality ID # [id number]: Final reports with documentation of one or more dose reduction techniques (e.g., Automated exposure control, adjustment of the mA and/or kV according to patient size, use of iterative reconstruction technique) TECHNICAL DOCUMENTATION: JOB ID: [id number] 2010 [employer]- All Rights Reserved Reading location - IP/workstation name: [email or web address]
[2020-04-17 16:53] LABS: ABSOLUTE BASOPHILS # (AUTO) 0.1 10^3/uL (0.0-0.2); ABSOLUTE EOSINOPHILS # (AUTO) 0.1 10^3/uL (0.0-0.6); ABSOLUTE LYMPHOCYTES (AUTO) 1.2 10^3/uL (0.5-4.7); ABSOLUTE MONOCYTES (AUTO) 0.7 10^3/uL (0.1-1.4); ABSOLUTE NEUT (AUTO) 9.1 10^3/uL (1.7-8.2); BASOPHILS % (AUTO) 0.6 % (0-2); HEMATOCRIT 46.4 % (36.0-47.0); HEMOGLOBIN 14.9 g/dL (12.0-15.5); LYMPHOCYTES % (AUTO) 10.5 % (13-45); MEAN CORPUSCULAR HEMOGLOBIN 24.1 pg (27.0-33.4); MEAN CORPUSCULAR HGB CONC 32.2 g/dL (32.0-36.0); MEAN CORPUSCULAR VOLUME 75 fl (80-97); MONOCYTES % (AUTO) 6.2 % (3-13); PLATELET COUNT 329 10^3/uL (150-450); RED BLOOD COUNT 6.18 10^6/uL (3.72-5.28); RED CELL DISTRIBUTION WIDTH 19.4 % (11.5-14.0); SEGMENTED NEUTROPHILS % (AUTO) 81.7 % (42-78); TOTAL CELLS COUNTED % (AUTO) 100 %; WHITE BLOOD COUNT 11.1 10^3/uL (4.0-10.5)
[2020-04-17 18:13] LABS: ANION GAP 10 (5-19); BLOOD UREA NITROGEN 32 mg/dL (7-20); CALCIUM 10.1 mg/dL (8.4-10.2); CARBON DIOXIDE 26 mmol/L (22-30); CHLORIDE 110 mmol/L (98-107); GLUCOSE 135 mg/dL (75-110); POTASSIUM 3.2 mmol/L (3.6-5.0)
[2020-04-17 21:55] VITALS: BP 185/50
== END 2020-04-17 22:20 | disposition short-term general hospital (02) ==
LOC: ER 18:27
DX: G93.40 Encephalopathy, unspecified (principal); R41.82 Altered mental status, unspecified; Z79.899 Other long term (current) drug therapy; Z88.8 Allergy status to other drugs, medicaments and biological substances; Z88.0 Allergy status to penicillin; F17.200 Nicotine dependence, unspecified, uncomplicated; I10 Essential (primary) hypertension; J44.9 Chronic obstructive pulmonary disease, unspecified; E11.9 Type 2 diabetes mellitus without complications
CPT/HCPCS: 93005; 36415; 82962; 80307 ×2; 83735; 85025; 80048; 80053; 81001; 70450; 74176; 93010; J2250; J0360; J3475; J3486; 96365; 96372; 96375; 99291

== ENCOUNTER 2020-05-08 20:45 | Emergency (ER) | payer MEDICAID ==
[2020-05-08] MEDS ORDERED: MORPHINE SULFATE 10 MG/ML INJ IV ONE (21:30)
[2020-05-08] MEDS ORDERED: ONDANSETRON HCL INJ/PF 4 MG/2 ML SDV IV ONE (21:30)
--- NOTE | 2020-05-08 21:31 | ER Document Report ---
ED GI/ - General Chief Complaint: Abdominal Pain Stated Complaint: ABDOMINAL PAIN Time Seen by Provider: 05/08/20 21:13 Primary Care Provider: CHARLENE GAMEZ DO [Primary Care Provider] - Follow up in 3-5 days Notes: Patient is a 64-year-old female that comes emergency department for chief complaint of developing mid to lower abdominal pain, vomiting 5 times, and having several loose nonbloody stools over the past day. She denies fever, flank pain, chest pain, dizziness, or any sick contacts. Patient has an ext ensive abdominal history with a large ventral hernia that patient states they attempted repair on about 2 years ago but were unable to repair because of the lack of ability to place a mesh, fistula repair in 2018, a total of 10 hernia repairs on the abdomen, cholecystectomy, tubal ligation. She is a history of type 2 diabetes, hypertension, chronic abdominal pain on oxycodone 30 mg. TRAVEL OUTSIDE OF THE [place] IN LAST 30 DAYS: No - Related Data Allergies/Adverse Reactions: celecoxib [From Celebrex] Allergy (Mild, Verified 11/26/19 13:59) Urticaria aspirin [Aspirin] Allergy (Verified 11/26/19 13:59) Hives cephalexin monohydrate [From Keflex] Allergy (Verified 11/26/19 13:59) clindamycin [Clindamycin] Allergy (Verified 11/26/19 13:59) Hives lisinopril [Lisinopril] Allergy (Verified 11/26/19 13:59) methadone [Methadone] Allergy (Verified 11/26/19 13:59) metoprolol tartrate [From Lopressor] Allergy (Verified 11/26/19 13:59) Penicillins Allergy (Verified 11/26/19 13:59) Past Medical History - General Information source: Patient - Social History Smoking Status: Never Smoker Drug Abuse: None Lives with: Family Family History: Reviewed & Not Pertinent, Other - The patient is delirious and family history cannot be obtained. Patient has homicidal ideation: No - Past Medical History Cardiac Medical History: Reports: Hx Hypercholesterolemia, Hx Hypertension Pulmonary Medical History: Reports: Hx Asthma, Hx Bronchitis, Hx COPD Endocrine Medical History: Reports: Hx Diabetes Mellitus Type 1, Hx Diabetes Mellitus Type 2 Renal/ Medical History: Denies: Hx Peritoneal Dialysis GI Medical History: Reports: Hx Gastroesophageal Reflux Disease, Hx Hiatal Hernia Musculoskeletal Medical History: Reports Hx Arthritis, Denies Hx Systemic Lupus Erythematosus Skin Medical History: Reports Hx Cellulitis - Both lower legs for about 4-6 months Psychiatric Medical History: Reports: Hx Anxiety, Hx Depression Infectious Medical History: Past Surgical History: Reports: Hx Abdominal Surgery - MULTIPLE VENTRAL HERNIA REPAIRS WITH DEBRIDEMENT. BOWEL OBSTRUCTION. NON-HEALING ABD WOUNDS WITH CHRONIC PAIN, Hx Bowel Surgery - Right abdominal fistula, Hx Section - x3, Hx Cholecystectomy, Hx Tubal Ligation, Other - 10 hernia repairs. Closure of cutaneous fistula in the past year. - Immunizations Hx Diphtheria, Pertussis, Tetanus Vaccination: Yes Hx Pneumococcal Vaccination: 02/28/12 Review of Systems - Review of Systems Constitutional: No symptoms reported EENT: No symptoms reported Cardiovascular: No symptoms reported Respiratory: No symptoms reported Gastrointestinal: See HPI Genitourinary: No symptoms reported Female Genitourinary: No symptoms reported Musculoskeletal: No symptoms reported Skin: No symptoms reported Hematologic/Lymphatic: No symptoms reported Neurological/Psychological: No symptoms reported Physical Exam - Vital signs Vitals: Temp Pulse Resp BP Pulse Ox 97.6 F 105 H 14 193/80 H 96 05/08/20 20:56 05/08/20 20:56 05/08/20 20:56 05/08/20 20:56 05/08/20 20:56 - Notes Notes: GENERAL: Alert, interacts well. No acute distress. HEAD: Normocephalic, atraumatic. EYES: Pupils equal, round, and reactive to light. Extraocular movements intact. ENT: Oral mucosa moist, tongue midline. Oropharynx unremarkable. Airway patent. NECK: Full range of motion. Supple. Trachea midline. No lymphadenopathy. LUNGS: Clear to auscultation bilaterally, no wheezes, rales, or rhonchi. No respiratory distress. Non-tender chest wall. HEART: Regular rate and rhythm. No murmur ABDOMEN: There is a large left lower hernia but there is no noted tenderness, rigidity, or guarding with palpation of the abdomen. Bowel sounds present throughout. EXTREMITIES: Moves all 4 extremities spontaneously. No edema, normal radial and dorsalis pedis pulses bilaterally. No cyanosis. BACK: no cervical, thoracic, lumbar midline tenderness. No saddle anesthesia, normal distal neurovascular exam. Moves all extremities in full range of motion. NEUROLOGICAL: Alert and oriented x3. Normal speech. Cranial nerves II through XII grossly intact. Strength 5/5 in all extremities. PSYCH: Normal affect, normal mood. SKIN: Warm, dry, normal turgor. No rashes or lesions noted. Course - Re-evaluation Re-evalutation: On my evaluation patient is active quite well-appearing. Her abdomen is soft an d benign although does show a large left lower hernia which is not erythematous, tender, and does not appear incarcerated. Acute abdominal series does not show obstruction or significant change from prior. CBC unremarkable, chemistry shows slightly low potassium and this was supplemented. Lipase unremarkable. Urinalysis unremarkable. On reevaluation patient has not had additional vomiting, has not had additional diarrhea, she was provided with p.o. medications and tolerated this without any difficulty. Discussed results with patient. Based on her vomiting, diarrhea, generalized pain, reassuring work-up, reassuring evaluation my strong suspicion that this is viral, low suspicion of acute abdomen or incarcerated hernia. Patient will be treated with p.o. nausea medication, follow-up with primary care, discussed return precautions. Patient is very hypertensive here but she missed her blood pressure medications, she does not have chest pain, she does not have headache. Offered to provide patient with blood pressure medication doses and recheck but patient states she will take her blood pressure medications at home and follow-up with her primary provider. Discussed coronavirus testing and this was declined. Patient ambulatory, stable, well- appearing at time of discharge. - Vital Signs Vital signs: Temp Pulse Resp BP Pulse Ox 97.7 F 69 14 198/71 H 97 05/08/20 23:46 05/08/20 23:46 05/08/20 23:46 05/08/20 23:46 05/08/20 23:46 - Laboratory Result Diagrams: 05/08/20 20:59 05/08/20 20:59 Laboratory results interpreted by me: 05/08/20 05/08/20 20:59 20:59 Hgb 9.6 L Hct 29.6 L MCV 77 L MCH 24.8 L RDW 21.0 H Lymph % (Auto) 6.1 L Seg Neutrophils % 88.2 H Potassium 3.4 L Anion Gap 4 L Glucose 124 H Calcium 7.2 L Alkaline Phosphatase 195 H Total Protein 6.2 L Albumin 3.0 L Discharge - Discharge Clinical Impression: Nausea vomiting and diarrhea, Chronic abdominal pain Cellulitis Qualifiers: Site of cellulitis: extremity Site of cellulitis of extremity: lower extremity Laterality: left Qualified Code(s): L03.116 - Cellulitis of left lower limb Condition: Stable Disposition: HOME, SELF-CARE Additional Instructions: Your evaluation and workup are reassuring. This is most likely viral and should simply resolve with time. Drink plenty fluids, rest, take Phenergan if needed for nausea, start with bland diet. Follow-up with primary care for additional management. You also appear to be developing cellulitis in your left lower leg. I recommend that you elevate your feet as much as possible while you take the antibiotic, after the redness has resolved start wearing your compression stockings frequently to avoid lower extremity swelling and reduce the likelihood of this happening. Come back if you worsen including uncontrolled vomiting, severe worsening pain, spiking fevers, increased swelling or redness of your leg, or any other concerning symptoms. Prescriptions: Promethazine HCl [Phenergan 25 mg Tablet] 25 mg PO Q6H PRN #15 tablet PRN Reason: Doxycycline Hyclate [Vibramycin 100 mg Tablet] 100 mg PO BID 7 Days #14 tablet Referrals: CHARLENE GAMEZ DO [Primary Care Provider] - Follow up in 3-5 days
[2020-05-08 21:33] LABS: ABSOLUTE EOSINOPHILS # (AUTO) 0.1 10^3/uL (0.0-0.6); ABSOLUTE LYMPHOCYTES (AUTO) 0.5 10^3/uL (0.5-4.7); ABSOLUTE MONOCYTES (AUTO) 0.3 10^3/uL (0.1-1.4); ABSOLUTE NEUT (AUTO) 6.9 10^3/uL (1.7-8.2); BASOPHILS % (AUTO) 0.3 % (0-2); EOSINOPHILS % (AUTO) 1.7 % (0-6); HEMATOCRIT 29.6 % (36.0-47.0); HEMOGLOBIN 9.6 g/dL (12.0-15.5); LYMPHOCYTES % (AUTO) 6.1 % (13-45); MEAN CORPUSCULAR HEMOGLOBIN 24.8 pg (27.0-33.4); MEAN CORPUSCULAR HGB CONC 32.4 g/dL (32.0-36.0); MEAN CORPUSCULAR VOLUME 77 fl (80-97); MONOCYTES % (AUTO) 3.7 % (3-13); PLATELET COUNT 198 10^3/uL (150-450); RED BLOOD COUNT 3.87 10^6/uL (3.72-5.28); SEGMENTED NEUTROPHILS % (AUTO) 88.2 % (42-78); TOTAL CELLS COUNTED % (AUTO) 100 %; WHITE BLOOD COUNT 7.8 10^3/uL (4.0-10.5)
[2020-05-08 21:39] LABS: APPEARANCE,URINE CLEAR; BILIRUBIN,URINE NEGATIVE (NEGATIVE); COLOR,URINE STRAW; GLUCOSE, URINE NEGATIVE (NEGATIVE); KETONES,URINE NEGATIVE (NEGATIVE); LEUKOCYTE ESTERASE,URINE NEGATIVE (NEGATIVE); NITRITE,URINE NEGATIVE (NEGATIVE); PROTEIN,URINE NEGATIVE (NEGATIVE); URINE SPECIFIC GRAVITY 1.008; UROBILINOGEN,URINE NEGATIVE mg/dL (<2.0)
[2020-05-08 21:50] LABS: ALKALINE PHOSPHATASE 195 U/L (38-126); ASPARTATE AMINO TRANSFERASE 27 U/L (14-36); BILIRUBIN,TOTAL 0.6 mg/dL (0.2-1.3); BLOOD UREA NITROGEN 9 mg/dL (7-20); CALCIUM 7.2 mg/dL (8.4-10.2); GLUCOSE 124 mg/dL (75-110); POTASSIUM 3.4 mmol/L (3.6-5.0); TOTAL PROTEIN 6.2 g/dL (6.3-8.2)
[2020-05-08 21:55] LABS: CARBON DIOXIDE 27 mmol/L (22-30); CHLORIDE 107 mmol/L (98-107)
[2020-05-08 22:00] LABS: ANION GAP 4 (5-19)
--- NOTE | 2020-05-08 22:20 | RADIOLOGY REPORT (SQ) ---
EXAM DESCRIPTION: CLINICAL HISTORY: 64 years Female ,mid abd pain, vomiting, hx bowel obstruction COMPARISON: 04/02/2020 TECHNIQUE: Frontal view chest x-ray and two views of the abdomen. FINDINGS: Cardiac size appears within normal limits. No acute consolidation. No pleural fluid. Degenerative changes in the spine. S-type thoracolumbar scoliosis. No free air. No evidence of bowel obstruction. Loops of bowel extend into the left lower quadrant consistent with area of herniation into the patient's pannus noted on previous CT examination. Moderate fecal material in the colon. IMPRESSION: No evidence of bowel obstruction Findings consistent with known hernia with loops of bowel extending into the patient's pannus on the left
[2020-05-08] MEDS ORDERED: POTASSIUM CHLORIDE 10 MEQ TABLET.ER PO ONE (23:07)
[2020-05-08] MEDS ORDERED: OXYCODONE HCL IR 5 MG TABLET PO ONE (23:07)
[2020-05-08] MEDS ORDERED: PROMETHAZINE HCL 25 MG TABLET PO ONE (23:07)
[2020-05-08 23:49] VITALS: BP 198/71
== END 2020-05-08 23:49 | disposition home or self-care (01) ==
LOC: ER 20:45
DX: L03.116 Cellulitis of left lower limb (principal); R11.2 Nausea with vomiting, unspecified; R19.7 Diarrhea, unspecified; R10.9 Unspecified abdominal pain; G89.29 Other chronic pain; R10.30 Lower abdominal pain, unspecified; E11.9 Type 2 diabetes mellitus without complications; I10 Essential (primary) hypertension; Z79.899 Other long term (current) drug therapy; Z88.8 Allergy status to other drugs, medicaments and biological substances; Z88.0 Allergy status to penicillin; Z88.1 Allergy status to other antibiotic agents; J44.9 Chronic obstructive pulmonary disease, unspecified
CPT/HCPCS: 99284; 96374; 96375; 36415; 83690; 85025; 80053; 81001; 74022; J2270; J3490 ×2; J2405